=== PATIENT | male | born 1955 | race Caucasian/White ===

== ENCOUNTER 2020-05-12 17:18 | Outpatient (CLI) | payer BC, SELFPAY ==
--- NOTE | ~2020-05-12 | CT_ITS ---
EXAMINATION: CT lung screening DATE: 05/12/2020 18:06 INDICATION: Personal history of tobacco dependence, current smoker with 50 pack year history TECHNIQUE: Computed tomography (CT) of the chest was performed without intravenous contrast. The dose -length product (DLP) was 96.20 mGy-cm. Automated exposure control and iterative reconstruction techn Lignolue were employed. COMPARISON: 08/04/2017 FINDINGS: There is moderate emphysema. Multiple stable pulmonary nodules are present, the largest of which measures 7 mm in the left upper lobe. No new pulmonary nodules are identified. There is no pleu ral effusion or pneumothorax. Chronic mild mediastinal lymphadenopathy is unchanged and likely reacti ve. The heart size is normal. There is calcified coronary artery atherosclerosis. A pain pump cathete r is present in the central spinal canal. There is moderate thoracic spondylosis. IMPRESSION: 1. Lung-RADS category 2: Benign appearance or behavior. Continue annual screening with noncontrast lo w-dose chest CT in 12 months. Reviewed, dictated and finalized at location [facility]. IMPRESSION: 1. Lung-RADS category 2: Benign appearance or behavior. Continue annual screeni ng with noncontrast low-dose chest CT in 12 months.
== END 2020-05-12 17:19 | disposition home or self-care (01) ==
PROVIDERS: PCP Emergency Medicine; Visit Provider Emergency Medicine
DX: Z12.2 Encounter for screening for malignant neoplasm of respiratory organs (principal); Z87.891 Personal history of nicotine dependence
CPT/HCPCS: G0297

== ENCOUNTER 2020-11-03 10:24 | Outpatient (CLI) | payer BC, SELFPAY | END 2020-11-03 10:25 | disposition home or self-care (01) | LOC: ANHCOVIDVC 10:24 | PROVIDERS: PCP Emergency Medicine | DX: Z23 Encounter for immunization (principal) | CPT/HCPCS: 0001A; 91300 ==

== ENCOUNTER 2020-11-24 10:26 | Outpatient (CLI) | payer BC, SELFPAY | END 2020-11-24 10:27 | disposition home or self-care (01) | LOC: ANHCOVIDVC 10:26 | PROVIDERS: PCP Emergency Medicine | DX: Z23 Encounter for immunization (principal) | CPT/HCPCS: 0002A; 91300 ==

== ENCOUNTER 2021-04-07 12:49 | Outpatient (CLI) | payer BC, SELFPAY ==
--- NOTE | ~2021-04-07 | US_ITS ---
EXAMINATION: US art doppler w press LE HALEY DATE: 04/07/2021 13:48 CDT INDICATION: Peripheral vascular disease TECHNIQUE: Segmental pressures and plethysmographic and Doppler waveforms of the brachial and lower e xtremity arteries were obtained. COMPARISON: None. FINDINGS: Right and left brachial artery pressures of 126 mm Hg and 135 mm Hg, respectively, are concordant (no rmal difference <= 30 mmHg). The right high-thigh pressure index is 1.21 (normal > 1.2). The right ankle-brachial index (DEBORAH) is 1 .09 (normal >= 0.9-1.0). The right great toe-brachial index (TBI) is 0.6 (normal >= 0.60). The right lower extremity segmental pressure gradients are normal (normal gradients <= 20-30 mmHg between adjac ent levels on the same leg or the same levels on the two legs). Arterial Doppler waveforms are biphas ic. The left high-thigh pressure index is 1.11. The left DEBORAH is 1.06. The left TBI is 0.81. The left lowe r extremity segmental pressure gradients are normal. Arterial Doppler waveforms are biphasic. IMPRESSION: 1. Normal bilateral ankle-brachial indices. Reviewed, dictated and finalized at location A.
== END 2021-04-07 12:50 | disposition home or self-care (01) ==
LOC: ANHIMG 12:50
PROVIDERS: PCP Emergency Medicine; Visit Provider Emergency Medicine
DX: I73.9 Peripheral vascular disease, unspecified (principal)
CPT/HCPCS: 93923

== ENCOUNTER 2021-05-28 10:18 | Outpatient (CLI) | payer BC, SELFPAY ==
--- NOTE | ~2021-05-28 | XR_ITS ---
XR chest 2V DATE: 05/28/2021 10:35 INDICATION: Cough TECHNIQUE: PA and lateral views COMPARISON: 05/12/2020 CT lung screening FINDINGS: Heart size is normal. There is mild aortic calcification and tortuosity. Bilateral hyperinflation consistent with COPD. No pulmonary infiltrate or consolidation, pleural effusion or pulmonary vascular congestion or pneumo thorax. Diffuse osteopenia. There is scoliosis and degenerative change of the thoracic and lumbar spine. IMPRESSION: COPD Reviewed, dictated and finalized at location [facility]. IMPRESSION: COPD
== END 2021-05-28 10:19 | disposition home or self-care (01) ==
LOC: ANHIMG 10:22
PROVIDERS: PCP Emergency Medicine; Visit Provider Emergency Medicine
DX: R60.0 Localized edema (principal); R05.9 Cough, unspecified; J44.9 Chronic obstructive pulmonary disease, unspecified
CPT/HCPCS: 71046

== ENCOUNTER 2021-06-04 08:39 | Outpatient (CLI) | payer BC, SELFPAY ==
--- NOTE | ~2021-06-04 | CT_ITS ---
EXAMINATION:CT lung screening DATE: 06/04/2021 11:52 INDICATION: Personal history of nicotine dependence. Current smoker with 50 pack year history. TECHNIQUE: Computed tomography (CT) of the chest was performed without intravenous contrast. Automate d exposure control and iterative reconstruction technique were employed. The dose-length product (DLP ) was 89.67 mGy-cm. COMPARISON: Chest CT 05/12/2020 FINDINGS: There is moderate emphysema. There is mild atelectasis bilaterally. There are greater than 10 scattered nodules in the lungs measuring up to 7 mm in left lower lobe without change. No pleural effusion. There is chronic mild mediastinal lymphadenopathy, likely reactive. The heart size is chris l. There are coronary artery calcifications. There is a small pericardial effusion. An intrathecal ca theter is noted. There is dextroscoliosis of upper thoracic spine and levoscoliosis of lower thoracic spine. There is severe cervical and thoracic spondylosis. IMPRESSION: 1. Lung-RADS category 2: Benign appearance or behavior. Continue annual screening with noncontrast lo w-dose chest CT in 12 months. 2. New small pericardial effusion. Reviewed, dictated and finalized at location A. IMPRESSION: 1. Lung-RADS category 2: Benign appearance or behavior. Continue annual screeni ng with noncontrast low-dose chest CT in 12 months. 2. New small pericardial effusion.
== END 2021-06-04 08:40 | disposition home or self-care (01) ==
PROVIDERS: PCP Emergency Medicine; Visit Provider Emergency Medicine
DX: Z12.2 Encounter for screening for malignant neoplasm of respiratory organs (principal); I31.3 Pericardial effusion (noninflammatory); Z87.891 Personal history of nicotine dependence
CPT/HCPCS: 71271

== ENCOUNTER 2021-09-09 09:18 | Outpatient (CLI) | payer BC, SELFPAY ==
--- NOTE | 2021-09-09 11:00 | NEURO_ITS ---
Impression: # Complains of lower back pain and paresthesia with obvious erythromelalgia of feet. # Asymmetrical motor and sensory neuropathy. # Needle/EMG exam revealed neurogenic changes. Nerve Conduction Studies Anti Sensory Summary Table Stim Site NR Peak (ms) P-T Amp (?V) Site1 Site2 Delta-P (ms) Dist (cm) Kristofer (m/s) Left Sup Fibular Anti Sensory (Ant Lat Mall) NO RESPONSE 14 cm NR 14 cm Ant Lat Mall 16.0 Right Sup Fibular Anti Sensory (Ant Lat Mall) 14 cm 4.1 16.0 14 cm Ant Lat Mall 4.1 16.0 39 Left Sural Anti Sensory (Lat Mall) Calf 3.8 14.3 Calf Lat Mall 3.8 16.0 42 Right Sural Anti Sensory (Lat Mall) Calf 3.6 10.7 Calf Lat Mall 3.6 16.0 44 Motor Summary Table Stim Site NR Onset (ms) O-P Amp (mV) Site1 Site2 Delta-0 (ms) Dist (cm) Kristofer (m/s) Left Peroneal Motor (Vastus Med) Ankle 5.1 0.5 Popit Ankle 10.5 40.0 38 Popit 15.6 0.7 Right Peroneal Motor (Vastus Med) POOR RESPONSE Ankle NR Popit Ankle 0.0 Popit NR B Fib Ankle 0.0 B Fib 13.8 0.0 Left Tibial Motor (Abd Schmidt Brev) Ankle 5.5 1.1 Knee Ankle 9.7 41.0 42 Knee 15.2 0.8 Right Tibial Motor (Abd Schmidt Brev) Ankle 5.0 4.6 Knee Ankle 10.9 41.0 38 Knee 15.9 1.9 F Wave Studies NR F-Lat (ms) L-R F-Lat (ms) Left Peroneal (Mrkrs) (EDB) 62.11 Right Peroneal (Mrkrs) (EDB) DISPERSED RESPONSE NR Left Tibial (Mrkrs) (Abd Hallucis) 63.56 2.35 Right Tibial (Mrkrs) (Abd Hallucis) 61.21 2.35 EMG Side Muscle Nerve Root Ins Act Fibs Amp Dur Recrt Comment Right AntTibialis Dp Br Fibular L4-5 Nml Nml Nml >12ms Reduced Right Gastroc Tibial S1-2 Nml Nml Nml Nml Nml Right Fibularis Long Sup Br Fibular L5-S1 Nml Nml Nml >12ms Reduced Right Flex Dig Long Tibial L5-S2 Nml Nml Nml Nml Nml Right Ext Dig Brev Dp Br Fibular L5, S1 Nml Nml Incr >12ms Reduced Left AntTibialis Dp Br Fibular L4-5 Nml Nml Nml >12ms Reduced Left Gastroc Tibial S1-2 Nml Nml Nml Nml Nml Left Fibularis Long Sup Br Fibular L5-S1 Nml Nml Nml >12ms Reduced Left Flex Dig Long Tibial L5-S2 Nml Nml Nml Nml Nml Left Ext Dig Brev Dp Br Fibular L5, S1 Nml Nml Incr >12ms Reduced MTDD
== END 2021-09-09 09:19 | disposition home or self-care (01) ==
PROVIDERS: PCP Emergency Medicine; Visit Provider Emergency Medicine
DX: G62.9 Polyneuropathy, unspecified (principal)
CPT/HCPCS: 95886; 95910

== ENCOUNTER 2022-03-03 00:38 | Day surgery (SDC) | payer BC, SELFPAY ==
[2022-02-10 12:45] VITALS: BMI 23.1
--- NOTE | 2022-03-02 16:06 | WPDANESEPPF ---
Anes - Initial Pre Proc Eval Procedure: Operation Date: 03/03/22 09:00 Proposed Procedures p Colonoscopy - Juan Gotti MD Date/Time: 03/02/22 16:06 Surgeon: Juan Gotti MD Pre Op Diagnosis: positive cologuard Patient Data Age: 66 Gender: M Height: 1.78 m Weight: 73 kg Allergies Allergy/AdvReac Type Severity Reaction Status Date / Time No Known Allergies Allergy Unverified 03/03/22 07:47 Home Medications Medication Instructions Recorded Confirmed Type folic acid 1 mg tablet 1 mg PO DAILY 02/10/22 03/03/22 History losartan 100 1 tablet PO DAILY 02/10/22 03/03/22 History mg-hydrochlorothiazide 25 mg tablet oxycodone 10 mg tablet 10 mg PO TID PRN Pain 02/10/22 03/03/22 History pregabalin 25 mg capsule 25 mg PO BID 02/10/22 03/03/22 History spironolactone 25 mg tablet 25 mg PO DAILY 02/10/22 03/03/22 History Patient hx anesthesia problems: none Family hx anesthesia problems: none Results Review: All pre-operative results and documents have been reviewed as part of the pre-operative evaluation. [facility] Past Medical History Medical History (Updated 03/02/22 @ 16:08 by Ace Wilkerson MD) Cervical vertebral fusion Chronic narcotic use HTN (hypertension) Social History Social History Smoking packs per day: 1 Smoking cigarettes per day: 20.0 Years smoked: 50 Smoking pack-years: 50.00 Smoking status: Current every day smoker Tobacco type: cigarettes Living arrangements: with family Spiritual care concerns: No Anes - Eval Final PreProcedure Day of Procedure 03/02/22 16:06 Patient weight: normal Heart: regular rate and rhythm Lungs: clear to auscultation and normal air movement Airway: Mallampati scale class II Neurological: alert and oriented Last oral intake: >/= 8 hours ASA classification: III Emergent: no Anesthetic plan: proceed Anesthesia type and monitoring: general GIVS Results Review: All pre-operative results and documents have been reviewed as part of the pre-operative evaluation. Informed Consent: The patient's anesthetic plan and its attendant risks and benefits were discussed with the patient/family/POA. Questions were solicited and answers provided to the satisfaction of the patient/family/POA.
[2022-03-03 07:49] VITALS: BP 103/57; PULSE 98; RESP 18; TEMP 36.5; O2SAT 95
[2022-03-03] MEDS: LACTATED RINGERS 1,000 ML 150 ML IV CONT (07:53)
--- NOTE | 2022-03-03 08:31 | PM.HPGS ---
History of Present Illness History of Present Illness Consent: Risks, benefits, and alternatives have been discussed and questions answered. Patient agrees to proceed with procedure. Chief complaint: positive cologuard Narrative: Carlo Hernandez is a 66 year old male here for positive cologuard, had colonoscopy about 15 years ago. Review of Systems Constitutional: Constitutional: Denies headache(s) and Denies weakness Eyes: Eyes: Denies blurry vision ENT: Reports Normal hearing present, Denies headache(s) and Denies neck pain Cardiovascular: Cardiovascular: Denies chest pain and Denies dyspnea Respiratory: Respiratory: Denies dyspnea Gastrointestinal: Gastrointestinal: Reports no additional gastrointestinal complaints Genitourinary: Genitourinary: Denies dysuria Musculoskeletal: Musculoskeletal: Denies neck pain Integumentary/Breasts: Skin/Breast: Denies dry skin Neurologic: Reports Normal hearing present, Denies headache(s) and Denies weakness Psychiatric: Psychiatric: Denies anxiety Endocrine: Endocrine: Denies change in body appearance Hematologic/Lymphatic: Hematologic/Lymphatic: Denies easy bleeding Allergic/Immunologic: Allergic/Immunologic: Denies urticaria PMF Past Medical History Medical History (Updated 03/03/22 @ 08:32 by Juan Gotti MD) Cervical vertebral fusion Chronic narcotic use HTN (hypertension) Positive colorectal cancer screening using Cologuard test Social History Social History Smoking packs per day: 1 Smoking cigarettes per day: 20.0 Years smoked: 50 Smoking pack-years: 50.00 Smoking status: Current every day smoker Tobacco type: cigarettes Living arrangements: with family Spiritual care concerns: No Meds Home Medications and Allergies Home Medications Medication Instructions Recorded Confirmed Type folic acid 1 mg tablet 1 mg PO DAILY 02/10/22 03/03/22 History losartan 100 1 tablet PO DAILY 02/10/22 03/03/22 History mg-hydrochlorothiazide 25 mg tablet oxycodone 10 mg tablet 10 mg PO TID PRN Pain 02/10/22 03/03/22 History pregabalin 25 mg capsule 25 mg PO BID 02/10/22 03/03/22 History spironolactone 25 mg tablet 25 mg PO DAILY 02/10/22 03/03/22 History Allergies Allergy/AdvReac Type Severity Reaction Status Date / Time No Known Allergies Allergy Unverified 03/03/22 07:47 Vital Signs Vital Signs - 24 hr 03/03/22 07:49 Temperature 97.7 F Pulse Rate 98 Respiratory Rate 18 Blood Pressure 103/57 L Pulse Oximetry 95 Oxygen Delivery Room Air Exam Const: General: comfortable and no acute distress HENMT: General nose exam: Normal nares present Eyes: General: appearance normal, both eyes and all related structures Neck: Neck: no JVD Resp: Auscultation: clear to auscultation bilaterally Cardio: Rate: regular rate Rhythm: regular rhythm GI: Inspection: non-distended GI Palp: Yes Soft to palpation Skin: General skin exam: normal color Neuro: General: gait normal Speech: normal speech Extrem: General: normal to inspection Psych: Mental Status: mental status grossly normal Assessment and Plan Assessment and plan (1) Positive colorectal cancer screening using Cologuard test: Code(s): R19.5 - Other fecal abnormalities Status: Acute Assessment and Plan: colonoscopy
[2022-03-03 09:03] VITALS: BP 101/62; PULSE 74; RESP 16; O2SAT 97
[2022-03-03 09:13] VITALS: BP 104/67; PULSE 72; RESP 14; O2SAT 94
[2022-03-03 09:23] VITALS: BP 110/66; PULSE 68; RESP 15; O2SAT 92
== END 2022-03-03 09:42 | disposition home or self-care (01) ==
PROVIDERS: PCP Emergency Medicine; Visit Provider Internal Medicine Gastroenterology
PROC: 0DJD8ZZ Inspection of Lower Intestinal Tract, Via Natural or Artificial Opening Endoscopic (ICD-10-PCS; CPT 45378; principal; 2022-03-03 09:00)
DX: R19.5 Other fecal abnormalities (principal); K63.89 Other specified diseases of intestine; K63.5 Polyp of colon; K64.8 Other hemorrhoids; I10 Essential (primary) hypertension; Z98.1 Arthrodesis status; Z79.891 Long term (current) use of opiate analgesic; F17.210 Nicotine dependence, cigarettes, uncomplicated
CPT/HCPCS: 45385; 45380; 88305; J2704; J7120

== ENCOUNTER 2022-03-12 12:28 | Outpatient (CLI) | payer BC, SELFPAY ==
--- NOTE | ~2022-03-12 | CT_ITS ---
EXAMINATION: CT abdomen pelvis w con DATE: 03/12/2022 13:31 INDICATION: Abnormal colonoscopy; lesion in the ileocecal valve TECHNIQUE: Computed tomography (CT) of the abdomen and pelvis was performed with 100 CC Omnipaque 300 intravenous contrast. Automated exposure control and iterative reconstruction technique were employe d. Exam dose: 371.80 mGy-cm total exam DLP. COMPARISON: 12/20/2016 CT abdomen 04/17/2015 CT abdomen pelvis FINDINGS: There is dependent right lower lobe infiltrate/mild consolidation. Consider atelectasis, pn eumonia and/or aspiration pneumonitis. Normal heart size. No pericardial or pleural effusion. There is a generator device in the subcutaneous tissues of the anterolateral wall of the right abdome n a lead extend into the thoracic spinal canal. No hepatic, splenic, pancreatic, and adrenal or renal space-occupying mass lesion is detected. The ga llbladder appears unremarkable. No bile duct or pancreatic duct dilatation. No renal mass lesion or urinary tract calculus or hydroureteronephrosis. The urinary bladder and pros musa gland are unremarkable. There is atherosclerotic calcification of the abdominal aorta and at the origins of the renal arterie s. No abdominal aortic aneurysm. No intraperitoneal or retroperitoneal or pelvic mass lesion or adeno ayesha or ascites is noted. No bowel obstruction is noted. There may be some soft tissue thickening of the proximal ascending colon but there is streak artifact from the overlying generator device. Recommend correlation with colonoscopy. Lipomatosis of the ileocecal valve. No suspicious osteolytic or osteoblastic lesions are noted. Degenerative changes of the thoracic and lumbar spine and both hips, including especially severe dege nerative disc disease of the lumbar spine and severe osteoarthritis of the right hip. IMPRESSION: Possible soft tissue thickening of the ascending colon; recommend correlation with colon oscopy and biopsy findings Lipomatosis of the ileocecal valve Reviewed, dictated and finalized at [facility]. Reviewed, dictated and finalized at location [facility]. IMPRESSION: Possible soft tissue thickening of the ascending colon; recommend correlation with colonoscopy and biopsy findings Lipomatosis of the ileocecal valve
[2022-03-12 13:26] LABS: Estimated Glomerular Filt Rate > 60
== END 2022-03-12 12:29 | disposition home or self-care (01) ==
PROVIDERS: PCP Emergency Medicine; Visit Provider Internal Medicine Gastroenterology
DX: K63.89 Other specified diseases of intestine (principal); R19.5 Other fecal abnormalities
CPT/HCPCS: 74177; Q9967

== ENCOUNTER 2022-05-05 01:16 | Day surgery (SDC) | payer BC, SELFPAY ==
[2022-04-22 14:21] VITALS: BMI 22.4
[2022-05-05 07:35] VITALS: BP 122/71; PULSE 86; RESP 16; TEMP 36.4; O2SAT 92; BMI 22.4
--- NOTE | 2022-05-05 07:47 | P.PNAN_ITS ---
Anes - Initial Pre Proc Eval Procedure: Operation Date: 05/05/22 08:45 Proposed Procedures p Colonoscopy - Juan Gotti MD Date/Time: 05/05/22 07:47 Surgeon: Juan Gotti MD Pre Op Diagnosis: colonic ulcer Patient Data Age: 67 Gender: M Height: 1.78 m Weight: 70.7 kg Last Vital Signs Temp 36.4 C 05/05/22 07:35 Pulse 86 05/05/22 07:35 Resp 16 05/05/22 07:35 BP 122/71 05/05/22 07:35 Pulse Ox 92 05/05/22 07:35 O2 Del Method Room Air 05/05/22 07:35 Allergies Allergy/AdvReac Type Severity Reaction Status Date / Time No Known Allergies Allergy Verified 05/05/22 07:39 Home Medications Medication Instructions Recorded Confirmed Type folic acid 1 mg tablet 1 mg PO DAILY 02/10/22 05/05/22 History losartan 100 1 tablet PO DAILY 02/10/22 05/05/22 History mg-hydrochlorothiazide 25 mg tablet oxycodone 10 mg tablet 10 mg PO TID PRN Pain 02/10/22 05/05/22 History pregabalin 25 mg capsule 25 mg PO BID 02/10/22 05/05/22 History spironolactone 25 mg tablet 25 mg PO DAILY 02/10/22 05/05/22 History Patient hx anesthesia problems: none Family hx anesthesia problems: none Results Review: All pre-operative results and documents have been reviewed as part of the pre- operative evaluation. [facility] Past Medical History Medical History (Updated 05/05/22 @ 07:48 by Leopoldo Dunham MD) Cervical vertebral fusion Chronic back pain pain pump insertion Chronic narcotic use Colonic mass HTN (hypertension) Positive colorectal cancer screening using Cologuard test Surgical History Surgical History (Updated 05/05/22 @ 07:52 by Leopoldo Dunham MD) S/P cervical spinal fusion Social History Social History Smoking packs per day: 1 Smoking cigarettes per day: 20.0 Years smoked: 50 Smoking pack-years: 50.00 Smoking status: Current every day smoker Tobacco type: cigarettes Substance use: never Substance use type: does not use Living arrangements: with family Spiritual care concerns: No Anes - Eval Final PreProcedure Day of Procedure 05/05/22 07:47 Patient weight: normal Heart: regular rate and rhythm Lungs: clear to auscultation Airway: Mallampati scale class II and special considerations poor extension and poor dentition ASA classification: III Emergent: no Anesthetic plan: proceed Anesthesia type and monitoring: general GIVS Results Review: All pre-operative results and documents have been reviewed as part of the pre- operative evaluation. Informed Consent: The patient's anesthetic plan and its attendant risks and benefits were discussed with the patient/family/POA. Questions were solicited and answers provided to the satisfaction of the patient/family/POA.
[2022-05-05] MEDS: LACTATED RINGERS 1,000 ML 150 ML IV CONT (07:48)
--- NOTE | 2022-05-05 08:27 | PM.HPGS ---
History of Present Illness History of Present Illness Consent: Risks, benefits, and alternatives have been discussed and questions answered. Patient agrees to proceed with procedure. Chief complaint: colonic ulcer Narrative: Carlo Hernandez is a 67 year old male with colon ulcer at [facility], biopsies negative for malignancy. Denies using nsaid's but he has a pain pump Review of Systems Constitutional: Constitutional: Denies headache(s) and Denies weakness Eyes: Eyes: Denies blurry vision ENT: Reports Normal hearing present, Denies headache(s) and Denies neck pain Cardiovascular: Cardiovascular: Denies chest pain and Denies dyspnea Respiratory: Respiratory: Denies dyspnea Gastrointestinal: Gastrointestinal: Reports no additional gastrointestinal complaints Genitourinary: Genitourinary: Denies dysuria Musculoskeletal: Musculoskeletal: Denies neck pain Integumentary/Breasts: Skin/Breast: Denies dry skin Neurologic: Reports Normal hearing present, Denies headache(s) and Denies weakness Psychiatric: Psychiatric: Denies anxiety Endocrine: Endocrine: Denies change in body appearance Hematologic/Lymphatic: Hematologic/Lymphatic: Denies easy bleeding Allergic/Immunologic: Allergic/Immunologic: Denies urticaria PMFSH Past Medical History Medical History (Updated 05/05/22 @ 08:28 by Juan Gotti MD) Cervical vertebral fusion Chronic back pain pain pump insertion Chronic narcotic use Colon ulcer Colonic mass HTN (hypertension) Positive colorectal cancer screening using Cologuard test Surgical History Surgical History (Updated 05/05/22 @ 07:52 by Leopoldo Dunham MD) S/P cervical spinal fusion Social History Social History Smoking packs per day: 1 Smoking cigarettes per day: 20.0 Years smoked: 50 Smoking pack-years: 50.00 Smoking status: Current every day smoker Tobacco type: cigarettes Substance use: never Substance use type: does not use Living arrangements: with family Spiritual care concerns: No Meds Home Medications and Allergies Home Medications Medication Instructions Recorded Confirmed Type folic acid 1 mg tablet 1 mg PO DAILY 02/10/22 05/05/22 History losartan 100 1 tablet PO DAILY 02/10/22 05/05/22 History mg-hydrochlorothiazide 25 mg tablet oxycodone 10 mg tablet 10 mg PO TID PRN Pain 02/10/22 05/05/22 History pregabalin 25 mg capsule 25 mg PO BID 02/10/22 05/05/22 History spironolactone 25 mg tablet 25 mg PO DAILY 02/10/22 05/05/22 History Allergies Allergy/AdvReac Type Severity Reaction Status Date / Time No Known Allergies Allergy Verified 05/05/22 07:39 Vital Signs Vital Signs - 24 hr 05/05/22 07:35 Temperature 97.6 F Pulse Rate 86 Respiratory Rate 16 Blood Pressure 122/71 Pulse Oximetry 92 Oxygen Delivery Room Air Exam Const: General: comfortable and no acute distress HENMT: General nose exam: Normal nares present Eyes: General: appearance normal, both eyes and all related structures Neck: Neck: no JVD Resp: Auscultation: clear to auscultation bilaterally Cardio: Rate: regular rate Rhythm: regular rhythm GI: Inspection: non-distended GI Palp: Yes Soft to palpation Skin: General skin exam: normal color Neuro: General: gait normal Speech: normal speech Extrem: General: normal to inspection Psych: Mental Status: mental status grossly normal Assessment and Plan Assessment and plan (1) Chronic narcotic use: Code(s): F11.90 - Opioid use, unspecified, uncomplicated Status: Acute (2) Colon ulcer: Code(s): K63.3 - Ulcer of intestine Status: Acute Assessment and Plan: repeat colonoscopy, assess if healing and biopsies if still lesion present
[2022-05-05 08:48] VITALS: BP 104/70; PULSE 77; RESP 19; O2SAT 95
[2022-05-05 08:58] VITALS: BP 97/62; PULSE 74; RESP 15; O2SAT 92
[2022-05-05 09:08] VITALS: BP 97/63; PULSE 65; RESP 17; O2SAT 91
== END 2022-05-05 09:18 | disposition home or self-care (01) ==
PROVIDERS: PCP Emergency Medicine; Visit Provider Internal Medicine Gastroenterology
PROC: 0DJD8ZZ Inspection of Lower Intestinal Tract, Via Natural or Artificial Opening Endoscopic (ICD-10-PCS; CPT 45378; principal; 2022-05-05 08:45)
DX: Z09 Encounter for follow-up examination after completed treatment for conditions other than malignant neoplasm (principal); D12.5 Benign neoplasm of sigmoid colon; K64.8 Other hemorrhoids; Z87.19 Personal history of other diseases of the digestive system; I10 Essential (primary) hypertension; Z98.1 Arthrodesis status; Z79.891 Long term (current) use of opiate analgesic; F17.210 Nicotine dependence, cigarettes, uncomplicated
CPT/HCPCS: 45385; 88305; J2704; J7120

== ENCOUNTER 2022-10-28 07:11 | Outpatient (CLI) | payer BC, SELFPAY ==
--- NOTE | ~2022-10-28 | MR_ITS ---
MRI of the cervical spine Clinical History: Spinal stenosis, fusion Technique: Axial T2-weighted and gradient images, and sagittal T1-weighted, T2-weighted, and STIR dolores ges were acquired. Findings: There is mild reversal normal cervical lordosis. 4 mm anterolisthesis of C3 over C4 noted. There is advanced degenerative disc narrowing from C4 through T1. There are reactive marrow signal ch anges about the C6-C7 disc space due to underlying degenerative disc disease. At C2-C3, there is no disc bulge or herniation. There is probable left neural foraminal narrowing rel ated to left-sided facet arthropathy. No spinal canal stenosis, cord compression, or right neural for aminal narrowing. At C3-C4, there is mild canal stenosis related to the listhesis, but no carolynn cord compression. There is severe bilateral neural foraminal narrowing. At C4-C5, there is severe degenerative disc narrowing. There is minimal disc ossify complex, with min imal flattening of the ventral cord. There is bilateral neural foraminal narrowing. At C5-C6, there is disc osteophyte complex with focal disc protrusion left paracentral region. There is probable mild compression of the ventral cord, especially the left ventral region. There is right neural foraminal narrowing. Left neural foramen preserved. At C6-C7, disc osteophyte complex results in mild canal stenosis and cord compression. There is advan randy bilateral neural foraminal narrowing. No abnormal signal seen in the spinal cord. Paravertebral soft tissues are unremarkable. Impression: Moderate degenerative spondylosis, as detailed above. There is probable mild ventral cord flattening/ compression at C4-C5, C5-C6, and C6-C7. Multilevel neural foraminal narrowing, as detailed above. 4 mm anterolisthesis of C3 over C4. Reviewed, dictated and finalized at [facility]. [employer] Impression: Moderate degenerative spondylosis, as detailed above. There is probable mild ve ntral cord flattening/compression at C4-C5, C5-C6, and C6-C7. Multilevel neural foraminal narrowing, as detailed above. 4 mm anterolisthesis of C3 over C4.
--- NOTE | ~2022-10-28 | MR_ITS ---
MRI of the lumbar spine Clinical History: Spinal stenosis, fusion Technique: Axial T2-weighted images, and sagittal T1-weighted, T2-weighted, and T2 fat-sat images wer e acquired. Findings: There is reversal of the normal lumbar lordosis. No acute fracture identified. 3 mm retroli sthesis of L5 over S1 noted. There is mild dextroscoliosis. No suspicious bone marrow signal abnormal ity seen. At L1-L2, there is advanced degenerative disc narrowing. There is disc bulge and advanced facet arthr opathy. There is probable left lateral recess stenosis. There is severe left neural foraminal narrowi ng. Right neural foramen preserved. At L2-L3, there is severe degenerative disc narrowing. Facet arthropathy contributes to minimal theca l sac compression. Bilateral neural foramina are preserved. At L3-L4, there is moderate to advanced degenerative disc narrowing. Severe facet arthropathy contrib utes to moderate to severe thecal sac compression/spinal canal stenosis. There is moderate left neura l foraminal narrowing. Right neural foramen preserved. At L4-L5, disc bulge and facet arthropathy result in severe spinal canal stenosis/thecal sac compress ion. There is severe right neural foraminal narrowing and moderate left neural foraminal narrowing. At L5-S1, disc bulge and facet arthropathy are present. No carolynn spinal canal stenosis. There is david re bilateral neural foraminal narrowing. Paravertebral soft tissues are unremarkable. Impression: Advanced degenerative spondylosis, as detailed above. There is severe spinal canal stenosis/thecal sa c compression at L4-L5, with moderate to severe thecal sac compression L3-L4. Multilevel neural foraminal narrowing, as detailed above. 3 mm retrolisthesis of L5 over S1. Reviewed, dictated and finalized at [facility]. OSURGERY PHYSICIAN Impression: Advanced degenerative spondylosis, as detailed above. There is severe spinal ca nal stenosis/thecal sac compression at L4-L5, with moderate to severe thecal sa c compression L3-L4. Multilevel neural foraminal narrowing, as detailed above. 3 mm retrolisthesis of L5 over S1.
--- NOTE | ~2022-10-28 | CT_ITS ---
CT Scan of the Chest without Contrast: Clinical Indication: Lung cancer screening, nicotine dependence Technique: Contiguous sections were acquired throughout the chest without intravenous contrast. Dose reduction technique was used on this scan by utilizing automated exposure control and iterative recon struction technique. The dose-length product (DLP) was 82.46 mGy-cm. COMPARISON: 06/04/2021, 05/12/2020 Findings: There is no evidence of any significant mediastinal, hilar or axillary lymphadenopathy. Coronary ishmael ry calcifications are present. There are mild atherosclerotic calcifications of the aorta. There is no evidence of pleural or pericardial effusion. There is biapical scarring is stable right apical pulmonary nodule (axial image 26). Additional stabl e 4 mm nodule in the anterior right upper lobe (axial image 46). Stable fissural and pleural-based no dules in the right lower lobe (axial images 56, 73, 80). Stable 4 mm round left upper lobe pulmonary nodule (axial image 30). Stable small pleural-based nodule in the left upper lobe (axial image 38). S table additional 4 mm nodules in the more inferior left upper lobe (axial image 60, 64). Stable 7 mm nodule at the lingula (axial image 83). Images through the upper abdomen reveal no abnormalities. Impression: Lung-RADS 2: Benign appearance. 12 month follow-up screening CT advised. Multiple scattered pulmonary nodules are unchanged, as detailed above. Reviewed, dictated and finalized at location . CAL ART THERAPIST Impression: Lung-RADS 2: Benign appearance. 12 month follow-up screening CT advised. Multiple scattered pulmonary nodules are unchanged, as detailed above.
== END 2022-10-28 07:12 | disposition home or self-care (01) ==
PROVIDERS: PCP Emergency Medicine; Referring Provider Nurse Practitioner Family; Visit Provider Emergency Medicine
DX: Z12.2 Encounter for screening for malignant neoplasm of respiratory organs (principal); Z87.891 Personal history of nicotine dependence; M43.22 Fusion of spine, cervical region; M48.02 Spinal stenosis, cervical region; M48.062 Spinal stenosis, lumbar region with neurogenic claudication; R91.8 Other nonspecific abnormal finding of lung field
CPT/HCPCS: 71271; 72141; 72148

== ENCOUNTER 2023-03-31 10:22 | Emergency (ER) | payer BC, SELFPAY ==
--- NOTE | 2023-03-31 10:34 | ED.SKABFB ---
HPI - Skin/Abscess/Foreign Bdy General Chief complaint: Extremity Problem,Nontraumatic Stated complaint: rash on feet Time Seen by Provider: 03/31/23 10:32 Source: patient Mode of arrival: ambulatory Limitations: no limitations History of Present Illness HPI narrative: Carlo is a 67-year-old male patient presenting to the clinic today with complaints of a rash to his bilateral feet times. He reports he noticed a rash on his feet 3 days ago. Reports that the rash is somewhat itchy and appears to be spreading. Denies any known environmental changes. Does have 3+ pitting edema to the bilateral lower extremities. Reports that he has issues with venous insufficiency. Did not wear his compression stockings this morning so we could evaluate his feet and see the amount of swelling. Bilateral lower extremities have become more red and swollen as well while having the rash. He denies any fever or chills. Blood pressure was initially 71/52and over 89/56 per machine. B/P manual was 90/65. Patient is is conscious oriented. He denies any shortness of breath or chest pain. History of chronic back pain and neck pain with pain pump in place. SpO2 was 90-92%-patient reports that this is normal for him. Did take his blood pressure/diuretic medications this morning. Contacted his PCP's office today and his PCP is out of town. Related Data Home Medications Medication Instructions Recorded Confirmed folic acid 1 mg tablet 1 mg PO DAILY 02/10/22 03/31/23 losartan 100 1 tablet PO DAILY 02/10/22 03/31/23 mg-hydrochlorothiazide 25 mg tablet oxycodone 10 mg tablet 10 mg PO TID PRN Pain 02/10/22 03/31/23 spironolactone 25 mg tablet 25 mg PO DAILY 02/10/22 03/31/23 Allergies Allergy/AdvReac Type Severity Reaction Status Date / Time pregabalin Allergy Unknown Verified 03/31/23 11:09 Review of Systems Review of Systems: Pertinent positives per HPI. Patient denies any fever, chills,headache, visual changes, dizziness, cough, runny nose, sore throat, shortness of breath, chest pain, palpitations, nausea, vomiting, diarrhea, constipation, abdominal pain, or any urinary issues. [facility] Past Medical History Medical History Cervical vertebral fusion Chronic back pain pain pump insertion Chronic narcotic use Colon ulcer Colonic mass HTN (hypertension) Positive colorectal cancer screening using Cologuard test Surgical History Surgical History S/P cervical spinal fusion Social History Social History Smoking packs per day: 1 Smoking cigarettes per day: 20.0 Years smoked: 50 Smoking pack-years: 50.00 Smoking status: Current every day smoker Tobacco type: cigarettes Substance use: never Substance use type: does not use Living arrangements: with family Spiritual care concerns: No Comments At the time of my signature, I reviewed and agree with the nursing past medical, surgical, social, and family history. There is no relevant family history pertinent to the patient complaint. Exam Narrative: General: Well-developed, well nourished, in no apparent distress Head: Normocephalic, atraumatic. Cardio: Regular rate and rhythm, s1 and s2 normal, no murmur appreciated. Resp: Clear to auscultation bilaterally, no rhonchi, rales, wheezing or rubs. Integumentary: [place], warm, and dry, red raised blister slightly itchy rash to bilateral dorsal distal feet/proximal toes with redness and swelling noted to bilateral feet and swelling noted up to the mid calf. 3+ pitting edema, feet feel mild erythemic, weak pulse Course Course Emergency Course: Portions of this record may have been created with voice recognition software. Level of Care: Express Care Visit Vital Signs Vital signs: Vital signs reviewed Transfer Transfered to: [facility]
[2023-03-31 10:44] VITALS: BP 89/56; PULSE 78; RESP 18; TEMP 36.5; O2SAT 92
== END 2023-03-31 11:10 | disposition short-term general hospital (02) ==
PROVIDERS: Emergency Provider Nurse Practitioner Family; PCP Emergency Medicine
DX: R60.0 Localized edema (principal); I87.2 Venous insufficiency (chronic) (peripheral); I95.9 Hypotension, unspecified; F17.210 Nicotine dependence, cigarettes, uncomplicated; I10 Essential (primary) hypertension
CPT/HCPCS: 99211; G0463

== ENCOUNTER 2023-03-31 11:32 | Emergency (ER) | payer BC, SELFPAY ==
[2023-03-31 11:39] VITALS: BP 95/68; PULSE 80; RESP 16; TEMP 36.3; O2SAT 93
--- NOTE | 2023-03-31 12:40 | ED.GENADULT ---
HPI - General Adult General Chief complaint: Extremity Injury, Lower Stated complaint: sent from with dolly feet swelling and rash Time Seen by Provider: 03/31/23 12:17 History of Present Illness HPI narrative: This is a 67-year-old male, with past history of lower extremity swelling and hypertension, who presents to the emergency department for evaluation for cellulitis. Patient states he has noticed rash and itching on the right foot that is been present for the last 2 to 3 days. He states it itches and schneider. He denies fevers, chills, nausea or vomiting. The patient was seen in urgent care earlier today and found to be hypotensive to the low 90s. The patient states this is typical for his blood pressure. Related Data Home Medications Medication Instructions Recorded Confirmed folic acid 1 mg tablet 1 mg PO DAILY 02/10/22 03/31/23 losartan 100 1 tablet PO DAILY 02/10/22 03/31/23 mg-hydrochlorothiazide 25 mg tablet oxycodone 10 mg tablet 10 mg PO TID PRN Pain 02/10/22 03/31/23 spironolactone 25 mg tablet 25 mg PO DAILY 02/10/22 03/31/23 Allergies Allergy/AdvReac Type Severity Reaction Status Date / Time pregabalin Allergy Unknown Verified 03/31/23 11:33 Review of Systems Review of Systems: CONSTITUTIONAL: Denies fever, chills, or sweats. ENT: Denies rhinorrhea, congestion, sore throat, or otalgia. CARDIOVASCULAR: Bilateral chronic lower extremity swelling denies chest pain, palpitations, RESPIRATORY: Denies cough or dyspnea. GASTROINTESTINAL: Denies abdominal pain, nausea, vomiting, or diarrhea. GENITOURINARY: Denies dysuria or hematuria. SKIN: Pruritic rash of the right lower extremity MUSCULOSKELETAL: Denies back pain, joint pain, or myalgia. NEUROLOGIC: Denies headache, numbness, dizziness, or weakness. PSYCHIATRIC: Denies anxiety or depression. [facility] Past Medical History Medical History Cervical vertebral fusion Chronic back pain pain pump insertion Chronic narcotic use Colon ulcer Colonic mass HTN (hypertension) Positive colorectal cancer screening using Cologuard test Surgical History Surgical History S/P cervical spinal fusion Social History Social History Smoking packs per day: 1 Smoking cigarettes per day: 20.0 Years smoked: 50 Smoking pack-years: 50.00 Smoking status: Current every day smoker Tobacco type: cigarettes Substance use: never Substance use type: does not use Living arrangements: with family Spiritual care concerns: No Exam Narrative: GENERAL: Well-developed, well-nourished, and in no acute distress. HEAD: Normocephalic, atraumatic. EYES: PERRLA and EOMI. CHEST: Clear to auscultation. No respiratory distress. No wheezes rales or rhonchi HEART: Regular rate and rhythm. No murmur heard. Normal peripheral pulses. ABDOMEN: Soft, nontender, nondistended, normal active bowel sounds. EXTREMITIES: Normal range of motion. 1+ bilateral lower extremity edema SKIN: There is erythema with sharp demarcation over the dorsal aspect of the right foot. There are smaller scattered lesions over the lateral aspect of the right foot. The skin is of the bilateral lower extremities is erythematous consistent with venous insufficiency, but is otherwise warm and dry. NEURO: No focal deficits. Alert and oriented x3. PSYCH: Normal mood and affect. Course Course Emergency Course: 12:30 - The patient's exam is consistent with cellulitis. Will discharge with oral antibiotics. The patient states his blood pressure is typically in the mid 90s to mid 100s. Will discharge with antibiotics and recommendation for follow-up with his primary care doctor. Discussed return and emergency precautions including signs/symptoms of sepsis and antibiotic failure. The patient voiced understanding and is comfortable wit
--- NOTE | 2023-03-31 13:09 | PC.NURSE ---
Pt up at nurses desk in team C wanting to see MD and be discharged. Pt stating he has been waiting an hour to be discharged and wants to see MD. nurse told pt MD was busy with other pt and nurse will let MD know pt wants to be discharged. Pt went into waiting room. Intake nurse told pt to return to room to be discharged. Pt returned to nurses desk in team C and was asked to return to room. Pt annoyed by nurse and states what kind of joint is this, say that again.
== END 2023-03-31 13:30 | disposition home or self-care (01) ==
PROVIDERS: Emergency Provider Preventive Medicine Aerospace Medicine; PCP Emergency Medicine
DX: L03.115 Cellulitis of right lower limb (principal); I10 Essential (primary) hypertension; Z98.1 Arthrodesis status; F17.210 Nicotine dependence, cigarettes, uncomplicated
CPT/HCPCS: 99283; 99284

== ENCOUNTER 2023-09-01 11:44 | Inpatient (IN) | payer MEDICARE, BC, SELFPAY ==
[2023-09-01] VITALS (77 sets, daily range): BP systolic 106–130; BP diastolic 70–88; PULSE 67–109; RESP 12–28; TEMP 36.1–36.9; O2SAT 88–100; BMI 21.5
--- NOTE | ~2023-09-01 | XR_ITS ---
XR elbow LT min 3V DATE: 09/01/2023 12:49 INDICATION: Fall. Skin tear. TECHNIQUE: 4 views COMPARISON: None FINDINGS: An IV is noted in the lateral antecubital fossa. No fracture or dislocation or joint effusion of the elbow. No periosteal reaction or bone destruction . IMPRESSION: No fracture or dislocation or joint effusion Reviewed, dictated and finalized at location L. RETE PILE DRIVER OPERATOR
--- NOTE | ~2023-09-01 | MR_ITS ---
EXAMINATION: MR brain/brain stem wo con DATE: 09/02/2023 15:05 INDICATION: Stroke TECHNIQUE: Magnetic resonance imaging (MRI) of the brain and brainstem was performed without intraven ous contrast. Sequences included sagittal and axial T1-weighted SE, axial diffusion-weighted FS SE, a xial 3D SWAN, axial T2-weighted FLAIR, and axial T2-weighted FSE. Apparent diffusion coefficient (ADC ) maps were created. COMPARISON: Head CT dated 09/02/2023 and brain MR dated 05/20/2009 FINDINGS: Moderate-sized region of restricted diffusion involving the medial aspect of the posterior right temp oral lobe and extending further posterior to the medial aspect of the right occipital lobe. Additiona l small foci of restricted diffusion in the right thalamus and adjacent posterior limb of the right i nternal capsule as well as the sulcus in the contralateral posterior left frontal lobe. The latter li es along side a small region of chronic encephalomalacia in the left frontal lobe consistent with seq uela of old infarct. Couple additional small foci of encephalomalacia consistent with chronic infarct s in the more posterior and lateral right occipital lobe. There are no areas of restricted diffusion to suggest acute infarction. No intracranial hemorrhage or abnormal intracranial mass lesion. There a re no intraparenchymal signal abnormalities seen on the other pulse sequences. The ventricles are sym metric and normal in size. There are no abnormal extra-axial fluid collections. Flow voids are seen i n the cerebral arteries on the T2-weighted sequences consistent with their expected patency. Mild muc osal thickening the bilateral ethmoid sinuses. Visualized orbits and soft tissues are unremarkable. IMPRESSION: 1. Acute infarcts, the largest in the medial right temporal occipital region with smaller infarcts at the right thalamus, posterior limb of the right internal capsule and posterior left frontal lobe. 2. Additional small chronic infarcts in the left frontal and right occipital lobes. Reviewed, dictated and finalized at location A. BOSS IMPRESSION: 1. Acute infarcts, the largest in the medial right temporal occipital region wi th smaller infarcts at the right thalamus, posterior limb of the right internal capsule and posterior left frontal lobe. 2. Additional small chronic infarcts in the left frontal and right occipital lo bes.
--- NOTE | ~2023-09-01 | US_ITS ---
EXAMINATION: US venous doppler [facility] DATE: 09/02/2023 11:07 INDICATION: Pulmonary embolism TECHNIQUE: Grayscale ultrasound images without and with compression and Doppler ultrasound images of the bilateral lower extremity veins were obtained. COMPARISON: None. FINDINGS: The visualized portions of right common femoral vein, profunda (deep) femoral vein, femoral vein, pop liteal vein, posterior tibial veins, peroneal veins, gastrocnemius vein and greater saphenous vein ou tflow are patent. There is subcutaneous edema at the right calf. The visualized portions of left common femoral vein, profunda femoral vein, femoral vein, popliteal v ein, posterior tibial veins, peroneal veins, gastrocnemius vein and greater saphenous vein outflow ar e patent. There is subcutaneous edema at the left calf. IMPRESSION: 1. No deep venous thrombosis in either lower limb. Reviewed, dictated and finalized at location A. NG MAKER HAND
--- NOTE | ~2023-09-01 | CT_ITS ---
EXAMINATION: CTA chest PE protocol DATE: 09/01/2023 12:53 INDICATION: Pulmonary emboli. Weakness. Fatigue. TECHNIQUE: Computed tomography angiography (CTA) of the chest was performed with 100 mL Omnipaque-350 intravenous contrast timed to evaluate the pulmonary arteries. Coronal maximum intensity projection 3D-reconstructions were created by the technologist. Automated exposure control and iterative reconst ruction technique were employed. The dose-length product was 319.52 mGy-cm. COMPARISON: Chest CT 10/28/2022, 06/04/21 FINDINGS: There is mild scarring at the lung apices. There is moderate emphysema. There is smooth sep bernadette thickening in the lungs, consistent mild pulmonary edema. There is mild dependent atelectasis dolly aterally. There are scattered nodules in the lungs measuring up to 7 mm change from 06/04/21, likely benign. No pleural effusion. Cardiomegaly is noted. There is chronic right ventricular and right atri al enlargement of the heart. There is a pulmonary embolus in right middle lobe. There is chronic mild mediastinal and bilateral hilar lymphadenopathy, likely reactive. There is an intrathecal catheter. There is severe cervical and thoracic spondylosis. There is dextroscoliosis of upper thoracic spine a nd levoscoliosis of lower thoracic spine. IMPRESSION: 1. Acute pulmonary embolus in right middle lobe. I called this result to Dr. Brice. 2. Moderate emphysema. 3. Mild pulmonary edema. 4. Chronic right atrial and right ventricular enlargement of the heart. Reviewed, dictated and finalized at location A. TH AND SAFETY INSPECTOR IMPRESSION: 1. Acute pulmonary embolus in right middle lobe. I called this result to Dr. Shola gong. 2. Moderate emphysema. 3. Mild pulmonary edema. 4. Chronic right atrial and right ventricular enlargement of the heart.
--- NOTE | ~2023-09-01 | CT_ITS ---
EXAMINATION: CT brain wo con DATE: 09/01/2023 12:53 INDICATION: Fall. TECHNIQUE: Computed tomography (CT) of the head was performed without intravenous contrast. The mA wa s adjusted according to patient size. Iterative reconstruction technique was employed. Exam dose: 60 5.33 mGy-cm total exam DLP. COMPARISON: 05/20/2009 MRI brain/brainstem 04/22/2009 CT brain FINDINGS: Bilateral vertebral artery, basilar artery and bilateral carotid siphon internal carotid ar vani calcifications. There is diminished attenuation of the posterior right temporal and right occipital lobe since 04/22/20 09, suggesting subacute right posterior temporal and occipital infarct. Small focal old left frontal infarct, not present on 04/22/2009. No intracranial mass lesion or hemorrhage, subdural or epidural hematoma. No midline shift or mass effect. Ventricular size appears normal. The orbital contents are unremarkable. Included paranasal sinuses and mastoid air cells are unremarka ble. No fracture or bone destruction of the cranial vault. IMPRESSION: Subacute right posterior temporal and occipital infarct Chronic old focal left frontal infarct No acute intracranial hemorrhage Cerebral atherosclerosis Reviewed, dictated and finalized at Location A. Reviewed, dictated and finalized at location L. DESTRUCTIVE EVALUATION MANAGER
--- NOTE | ~2023-09-01 | CT_ITS ---
Non-contrast Head CT History: Assess for intracranial hemorrhage, CVA COMPARISON: 09/02/2023 Technique: Axial non-contrast imaging of the brain was performed. Dose reduction technique was used on this scan by utilizing automated exposure control and iterative reconstruction technique. The dose -length product (DLP) was 605.33 mGy-cm. Findings: Evolving acute to subacute right occipital lobe infarct is unchanged. No acute intracranial hemorrhage. Small chronic left frontal lobe infarct is unchanged. The ventricles and subarachnoid sp aces are normal in size. The calvarium appears normal. The visualized paranasal sinuses and mastoid air cells are clear. Impression: Acute to subacute evolving right occipital lobe infarct is essentially unchanged. No intracranial hem orrhage. Stable chronic left frontal lobe infarct. Reviewed, dictated and finalized at [facility]. PING AND RECEIVING COORDINATOR Impression: Acute to subacute evolving right occipital lobe infarct is essentially unchange d. No intracranial hemorrhage. Stable chronic left frontal lobe infarct.
--- NOTE | ~2023-09-01 | CT_ITS ---
Non-contrast Head CT History: Drowsy COMPARISON: 09/01/2023 Technique: Axial non-contrast imaging of the brain was performed. Dose reduction technique was used on this scan by utilizing automated exposure control and iterative reconstruction technique. The dose -length product (DLP) was 1059.33 mGy-cm. Findings: Hypodensity in the right occipital lobe is most consistent with probable subacute infarct. Focal chronic infarct in the left frontal lobe noted. The ventricles and subarachnoid spaces are norm al in size. The calvarium appears normal. The visualized paranasal sinuses and mastoid air cells ar e clear. Impression: Stable subacute right occipital lobe infarct. Stable chronic left frontal lobe infarct. No intracranial hemorrhage. Reviewed, dictated and finalized at location . UELS PRODUCTION TECHNICIAN Impression: Stable subacute right occipital lobe infarct. Stable chronic left frontal lobe infarct. No intracranial hemorrhage.
--- NOTE | ~2023-09-01 | CT_ITS ---
CT ANGIOGRAM NECK AND HEAD History: CVA. Technique: Serial spiral axial images through the head and neck were obtained during arterial phase I V injection of 100 cc of Omnipaque 350. 3-D postprocessing and MIP images were then reconstructed on the remote workstation. Dose reduction technique was used on this scan by utilizing automated exposur e control and iterative reconstruction technique. The dose-length product (DLP) was 1195.30 mGy-cm. CTA neck findings: Bilateral vertebral arteries are patent. Bilateral common carotid, internal carot id, and external carotid arteries are patent. There are small calcified plaques at the bilateral mello tid bifurcation regions without stenosis. No large vessel occlusion. No aneurysm. The proximal right internal carotid artery demonstrates 0% stenosis relative to the normal distal artery lumen diameter. The proximal left internal carotid artery demonstrates 0% stenosis relative to the normal distal art mag lumen diameter. 5 mm left upper lobe pulmonary nodule noted (image 50). 3 mm right apical pulmonary nodule noted (axi al image 29). Probable focal scarring right lung apex. Moderate to advanced emphysema noted in the up per lobes. CTA head findings: Distal internal carotid arteries, middle cerebral arteries, and anterior cerebral arteries are patent. Distal vertebral arteries, basilar artery, and posterior cerebral arteries are p atent. No large vessel occlusion. No stenosis or aneurysm. Impression: No significant vascular abnormality. Subcentimeter upper lobe pulmonary nodules, indeterminate. According to Fleischner Society criteria, for a low-risk patient, no further follow-up required. For a high-risk patient, consider 12 month fol low-up CT. Probable upper lobe moderate to advanced emphysema. Reviewed, dictated and finalized at location . UME DIRECTOR Impression: No significant vascular abnormality. Subcentimeter upper lobe pulmonary nodules, indeterminate. According to Fleisch ner Society criteria, for a low-risk patient, no further follow-up required. Fo r a high-risk patient, consider 12 month follow-up CT. Probable upper lobe moderate to advanced emphysema.
--- NOTE | ~2023-09-01 | XR_ITS ---
Portable chest x-ray Comparison: 05/28/2021 Clinical History: Pneumonia Findings: There is hazy airspace opacity lateral right midlung. There is mild central congestive zayra nge and mild diffuse interstitial prominence. Probable minimal right pleural effusion. Cardiomediast inal silhouette is stable. Bones and soft tissues are unremarkable. Impression: Central congestive change with mild residual edema and minimal right pleural effusion. Hazy opacity right midlung laterally, which could reflect focal pulmonary edema versus pneumonia. Reviewed, dictated and finalized at location M. GOLDEN GATE DEVELOPER Impression: Central congestive change with mild residual edema and minimal right pleural ef fusion. Hazy opacity right midlung laterally, which could reflect focal pulmonary edema versus pneumonia.
--- NOTE | ~2023-09-01 | US_ITS ---
EXAMINATION: US abdomen limited DATE: 09/06/2023 15:57 INDICATION: Hepatosplenomegaly. TECHNIQUE: Multiple grayscale and Doppler ultrasound images of the abdomen were obtained. COMPARISON: CT abdomen and pelvis 03/12/2022 FINDINGS: The visualized portion of the head of the pancreas is normal. The liver is normal without f ocal lesion. There is normal flow in main portal vein. The gallbladder is normal in size. No gallston es or gallbladder wall thickening. There was no sonographic [place] sign. The common duct is normal an d measures 2 mm. The spleen is normal in size. IMPRESSION: 1. Normal liver and spleen. Reviewed, dictated and finalized at location E. CART MECHANIC IMPRESSION: 1. Normal liver and spleen.
--- NOTE | 2023-09-01 11:54 | ECG_ITS ---
Measurements Intervals [place] Rate: 85 P: 67 NV: 191 QRS: 144 QRSD: 78 T: -7 QT: 356 QTc: 424 Interpretive Statements SINUS RHYTHM POSSIBLE LEFT ATRIAL ENLARGEMENT RSR' IN V1 OR V2, PROBABLY NORMAL VARIANT CANNOT RULE OUT SEPTAL INFARCT, AGE INDETERMINATE HIGH LATERAL INFARCT, AGE INDETERMINATE BORDERLINE ST-T WAVE ABNORMALITY- ANT/INF LEADS BASELINE ARTIFACT- I, II, AVR, AVL ABNORMAL ECG NO PREVIOUS ECG AVAILABLE FOR COMPARISON Electronically Signed On 09-01-2023 12:51:04 [employer] by Marcelo Botello D.O.
[2023-09-01 12:10] LABS: Basophils Percent Auto 0.4 % (0.2-1.2); Eosinophils Percent Auto 0.3 % (0-4.4); Hematocrit 57.7 % (42.0-52.0); Hemoglobin 18.9 g/dL (14.0-18.0); Immature Granulocyte Absolute 0.02 K/mm3 (0.00-0.031); Immature Granulocyte Percent A 0.3 % (0-0.5); Lymphocytes Absolute Auto 1.19 K/mm3 (0.9-3.2); Lymphocytes Percent Auto 14.9 % (18.3-44.2); Mean Corpuscular HGB Conc 32.8 g/dl (32-36); Mean Corpuscular Hemoglobin 32.8 pg (26-34); Mean Corpuscular Volume 100.2 fl (80-100); Mean Platelet Volume 10.6 fl (7.4-10.4); Monocytes Absolute Auto 0.5 K/mm3 (0.1-0.6); Neutrophils Absolute Auto 6.2 K/mm3 (1.3-6.7); Neutrophils Percent Auto 78.1 % (45.5-73.1); Platelet Count Result 155 k/mm3 (150-375); Red Blood Count 5.76 M/mm3 (4.6-6.20); Red Cell Distribution Width 15.9 % (11.5-14.5)
--- NOTE | 2023-09-01 12:12 | ED.WEAKNESS ---
HPI - Weakness General Chief complaint: Weakness Stated complaint: increased weakness/fatigue Time Seen by Provider: 09/01/23 12:00 History of Present Illness HPI Narrative: Patient is a 68-year-old male with history of HTN, multiple spinal issues, pain pump in place, neuropathy here with generalized weakness. Patient notes that about 1 week ago he saw his primary care doctor, that time he had some low blood pressure in the office in they changed up his blood pressure medications at that time. He notes that he is trying to get used to these new medications. He is additionally on a pain pump and gabapentin. He notes that he has been having some vivid dreams over the last week. Denies any fever chills. Denies any urinary symptoms or cough. Last night he noted that he took his gabapentin and new blood pressure medication and seemed to be more drowsy per . He had discontinued this morning, falling and hitting his elbow on the ground. He is unsure if he hit his head or lost consciousness. Patient denies any chest pain. He does not use oxygen. EMS was called for his weakness and on their arrival he was hypoxic in the 70s and placed on nasal cannula oxygen. Related Data Home Medications Medication Instructions Recorded Confirmed folic acid 1 mg tablet 1 mg PO DAILY 02/10/22 03/31/23 losartan 100 1 tablet PO DAILY 02/10/22 03/31/23 mg-hydrochlorothiazide 25 mg tablet oxycodone 10 mg tablet 10 mg PO TID PRN Pain 02/10/22 03/31/23 spironolactone 25 mg tablet 25 mg PO DAILY 02/10/22 03/31/23 Allergies Allergy/AdvReac Type Severity Reaction Status Date / Time pregabalin Allergy Unknown Verified 03/31/23 11:33 Review of Systems Review of Systems: All systems reviewed & are unremarkable except as noted in HPI and below PMFSH Past Medical History Medical History Cervical vertebral fusion Chronic back pain pain pump insertion Chronic narcotic use Colon ulcer Colonic mass HTN (hypertension) Positive colorectal cancer screening using Cologuard test Surgical History Surgical History S/P cervical spinal fusion Social History Social History Smoking packs per day: 1 Smoking cigarettes per day: 20.0 Years smoked: 50 Smoking pack-years: 50.00 Smoking status: Current every day smoker Tobacco type: cigarettes Substance use: never Substance use type: does not use Living arrangements: with family Spiritual care concerns: No Exam Narrative: GENERAL: Well-appearing, well-nourished, and in no acute distress. HEAD: Normocephalic, atraumatic. EYES: PERRLA and EOMI. ENT: Nares clear. Mucous membranes moist. NECK: Supple. CHEST: Clear to auscultation. Mild respiratory distress, on 6L [place] HEART: Regular rate and rhythm. Normal peripheral pulses. ABDOMEN: Soft, nontender, nondistended. EXTREMITIES: Normal range of motion. No edema. SKIN: Warm, dry, no rash. NEURO: No focal deficits. Alert and oriented x3. PSYCH: Normal mood and affect. Course Course Emergency Course: Chart review performed. Patient here for weakness, fatigue, hypoxia per EMS in the 70s. Triage vitals show tachycardia. O2 sat 97% on 6L NC. Last ED visit was 03/31/23 for cellulitis. Patient seen evaluated, he is on 6 L of oxygen with mild respiratory distress, saturations in the 90s. Workup for ACS/dyspnea. Here he received IV fluids in route about 400 mL per EMS, will withhold additional fluids until workup was obtained. CT head and x-ray of elbow ordered for trauma. Tdap to be updated. Lab work and imaging reviewed, hemoglobin elevated at 18.9, likely some hemoconcentration, electrolytes grossly normal, troponin elevated at 0.123, [place] [address], no known history of CAD or heart failure. UA negative for UTI. COVID, influenza, RSV negative. CT brain s
[2023-09-01 12:25] LABS: Alanine Aminotransferase 13 U/L (6-50); Albumin Level 3.5 g/dL (3.5-5.1); Alkaline Phosphatase 67 U/L (38-126); Anion Gap 7 mmol/L (8-16); Aspartate Amino Transferase 25 U/L (17-59); Bilirubin,Total 1.7 mg/dL (0.2-1.3); Blood Urea Nitrogen 23 mg/dL (9-20); Calcium 8.7 mg/dL (8.4-10.2); Carbon Dioxide 30 mmol/L (22-30); Chloride 103 mmol/L (98-107); Estimated CRCL calculation 56 ml/min; Estimated Glomerular Filt Rate > 60; Glucose 97 mg/dL (65-110); Potassium 4.7 mmol/L (3.4-5.0); Sodium 140 mmol/L (137-145)
[2023-09-01] MEDS: LACTATED RINGERS 1,000 ML 999 ML IV CONT (12:29)
[2023-09-01 12:31] LABS: Appearance Urine Cloudy (Clear); Bacteria Urine None Seen /hpf; Bilirubin Urine 2+ (Negative); Blood Urine Negative (Negative); Budding Yeast Urine Present /hpf; Color Urine Dark Yellow (Yellow); Glucose Urine UA Negative (Negative); Hyaline Casts Urine Present /lpf; Ketones Urine Trace mg/dL (Negative); Leukocyte Esterase Ur Trace LEU/UL (Negative); Need Manual Microscopic Reviewed; Nitrate Urine Negative (Negative); Protein Urine 2+ mg/dL (Negative); Specific Grav Ur 1.028 (1.001-1.035); Squamous Epithelial Cell Urine None seen /hpf (Few); WBC Urine 0-5 /hpf
[2023-09-01 12:33] LABS: Add Urine Microscopic? YES
[2023-09-01 12:41] LABS: Lipase 59 U/L (23-300)
[2023-09-01 12:46] LABS: Influenza A QL RT-PCR Negative (Negative); Influenza B QL RT-PCR Negative (Negative); RSV RNA, RT-PCR Negative (Negative); SARS-CoV-2 RNA PCR Negative (Negative)
[2023-09-01 12:59] LABS: NT Pro B Type Natriuretic Pept 11200 pg/mL (19.9-100); Troponin I 0.123 ng/mL (0.000-0.034)
[2023-09-01] MEDS: TETANUS,DIPHTHERIA,AC PERTUSSIS ADULT (0.5 ML) BOOSTRIX IM (13:09)
[2023-09-01 13:15] LABS: Creatine Kinase 77 U/L (55-170)
[2023-09-01] MEDS: ENOXAPARIN 80 MG/0.8 ML SYRINGE 70 MG SUB-Q (13:22)
--- NOTE | 2023-09-01 15:24 | ECG_ITS ---
Measurements Intervals [place] Rate: 82 P: 67 PA: 193 QRS: 141 QRSD: 88 T: -11 QT: 387 QTc: 454 Interpretive Statements SINUS RHYTHM POSSIBLE LEFT ATRIAL ENLARGEMENT CANNOT RULE OUT SEPTAL INFARCT, AGE INDETERMINATE HIGH LATERAL INFARCT, AGE INDETERMINATE BORDERLINE ST-T WAVE ABNORMALITY- ANT/INF LEADS ABNORMAL ECG COMPARED TO ECG 09/01/2023 11:53:56 NO SIGNIFICANT CHANGES Electronically Signed On 09-01-2023 15:48:33 WATER SOFTENER SERVICE SUPERVISOR by Marcelo Botello D.O.
[2023-09-01 16:09] LABS: Troponin I 0.117 ng/mL (0.000-0.034)
--- NOTE | 2023-09-01 18:14 | ECG_ITS ---
Measurements Intervals [place] Rate: 76 P: 66 AL: 203 QRS: 134 QRSD: 88 T: -11 QT: 387 QTc: 436 Interpretive Statements SINUS RHYTHM LEFT ATRIAL ENLARGEMENT BORDERLINE AV CONDUCTION DELAY RIGHT VENTRICULAR HYPERTROPHY AND ST-T CHANGE CANNOT RULE OUT SEPTAL INFARCT, AGE INDETERMINATE HIGH LATERAL INFARCT, AGE INDETERMINATE BORDERLINE ST-T WAVE ABNORMALITY- ANT/INF LEADS ABNORMAL ECG COMPARED TO ECG 09/01/2023 15:35:08 NO SIGNIFICANT CHANGES Electronically Signed On 09-01-2023 19:13:41 ASSESSMENT TECHNICIAN by Marcelo Botello D.O.
[2023-09-01 19:08] LABS: Troponin I 0.129 ng/mL (0.000-0.034)
--- NOTE | 2023-09-01 23:08 | PC.NURSE ---
called , Crystal per pt request @[phone] with pt update
--- NOTE | 2023-09-01 23:27 | PM.IMHP ---
H&P: HPI History of Present Illness Date/Time: 09/01/23 23:27 Chief Complaint: 68-year-old male with PMHx: of HTN, multiple spinal issues, pain pump in place, neuropathy, presented to the emergency room via ems from home with c/o generalized weakness that is been ongoing for the past week. Narrative: Patient provides HPI He reports about 1 week ago he saw his primary care doctor, at that time he was diagnosed with low blood pressure, he states blood pressure medication was changed at that time. Patient also reports history of pain pump concurrently uses gabapentin for neuropathy, he admits to lately having vivid dreams for the past week he relates that to home use of gabapentin. He denies any fever chills nausea vomiting or cough at this time. Patient reports compliance with new medications citing he took it last night noticed that he was more drowsy. He admits he is not taking it this morning he states he had a fall this morning striking his elbow on the ground he is unsure of any LOC, but he denies chest pain nausea vomiting at this time patient states he does not use home oxygen. ED workup reveals, patient initially arrived requiring 6 L of oxygen with mild respiratory distress he was saturating in the low 90s, workup for ACS/dyspnea, he received IV fluids 400 mL bolus prior a.m. a no other fluids given while in the ED CT head and x-ray of elbow ordered for trauma, Tdap was updated. Lab results revealed hemoglobin elevated at 18.9 likely some hemoconcentration, electrolytes grossly normal, troponin elevated at 0.123, [place] [address], no history of CAD or heart failure, his UA was negative for UTI, viral respiratory panel is negative CT brain shows concern of subacute stroke since 2008, 78 order Lovenox Review of Systems Review of Systems: All systems reviewed & are unremarkable except as noted in HPI and below PMFSH Past Medical History Medical History Cervical vertebral fusion Chronic back pain pain pump insertion Chronic narcotic use Colon ulcer Colonic mass HTN (hypertension) Positive colorectal cancer screening using Cologuard test Surgical History Surgical History S/P cervical spinal fusion Family History Family History (Updated 09/02/23 @ 03:37 by Donna Steele RN) Mother Father Social History Social History Smoking packs per day: 1 Smoking cigarettes per day: 20.0 Years smoked: 50 Smoking pack-years: 50.00 Smoking status: Current every day smoker Tobacco type: cigarettes Alcohol intake: never Substance use: never Substance use type: does not use Do You Feel Safe in your Home?: Yes Lack of Transportation: No Lack of Food: Never True Current Housing: I Have Housing Concerned About Future Housing: No Difficulty Paying Gas/Electric Bills: No Difficulty Paying for Meds: No Currently Unemployed: No Education: Decline to Answer Difficulty w/ Childcare or Family Care: No Living arrangements: with family Spiritual care concerns: No Meds Home Medications and Allergies Home Medications Medication Instructions Recorded Confirmed Type oxycodone 10 mg tablet 10 mg PO TID PRN Pain 02/10/22 09/02/23 History desvenlafaxine succinate 50 mg 50 mg PO HS 09/02/23 09/02/23 History tablet,extended release 24 hr gabapentin 300 mg capsule 300 mg PO TID 09/02/23 09/02/23 History mirtazapine 15 mg tablet 15 mg PO HS 09/02/23 09/02/23 History Allergies Allergy/AdvReac Type Severity Reaction Status Date / Time pregabalin Allergy Unknown Verified 03/31/23 11:33 Vital Signs Vital Signs - 24 hr 09/01/23 11:42 09/01/23 12:10 09/01/23 13:18 Temperature 98.5 F Pulse Rate 109 H Respiratory Rate 12 Blood Pressure 121/82 Pulse Oximetry 97 92 93 Oxygen Delivery Nasa
--- NOTE | 2023-09-01 23:46 | ADMGEN ---
This patient, Carlo Hernandez, was admitted to IMU Room 206-02. Patient/family oriented to hospital policies and general routines including ID bracelet, bed and alarms, visiting hours, pain management, procedures, bathroom and other care routines, personal items, smoking policy, room service/diet, and visiting hours. Information on how to activate the Rapid Response Team has been discussed. Patient/Family are encouraged to report perceived risks to care and to ask questions if they do not understand what they are told or what they should do.
[2023-09-02] VITALS (17 sets, daily range): BP systolic 92–109; BP diastolic 57–72; PULSE 57–87; RESP 12–18; TEMP 36.1–36.7; O2SAT 94–100
[2023-09-02 05:04] LABS: Basophils Absolute Auto 0.1 K/mm3 (0.0-0.1); Basophils Percent Auto 0.7 % (0.2-1.2); Eosinophils Absolute Auto 0.2 K/mm3 (0-0.3); Eosinophils Percent Auto 2.8 % (0-4.4); Hematocrit 55.1 % (42.0-52.0); Hemoglobin 17.8 g/dL (14.0-18.0); Immature Granulocyte Absolute 0.01 K/mm3 (0.00-0.031); Immature Granulocyte Percent A 0.1 % (0-0.5); Immature Platelet Fraction Pct 4.9 % (0.9-11.2); Lymphocytes Absolute Auto 2.67 K/mm3 (0.9-3.2); Lymphocytes Percent Auto 37.4 % (18.3-44.2); Mean Corpuscular HGB Conc 32.3 g/dl (32-36); Mean Corpuscular Hemoglobin 32.4 pg (26-34); Mean Corpuscular Volume 100.2 fl (80-100); Mean Platelet Volume 10.5 fl (7.4-10.4); Monocytes Absolute Auto 0.5 K/mm3 (0.1-0.6); Monocytes Percent Auto 6.3 % (2.6-8.5); Neutrophils Absolute Auto 3.8 K/mm3 (1.3-6.7); Neutrophils Percent Auto 52.7 % (45.5-73.1); Platelet Count Result 134 k/mm3 (150-375); Red Cell Distribution Width 15.2 % (11.5-14.5); White Blood Count 7.1 K/mm3 (4.5-10.0)
[2023-09-02 05:12] LABS: Alanine Aminotransferase 11 U/L (6-50); Alkaline Phosphatase 55 U/L (38-126); Anion Gap 6 mmol/L (8-16); Aspartate Amino Transferase 26 U/L (17-59); Bilirubin,Total 2.1 mg/dL (0.2-1.3); Blood Urea Nitrogen 20 mg/dL (9-20); Carbon Dioxide 26 mmol/L (22-30); Chloride 105 mmol/L (98-107); Estimated CRCL calculation 72 ml/min; Estimated Glomerular Filt Rate > 60; Glucose 87 mg/dL (65-110); Potassium 4.1 mmol/L (3.4-5.0); Sodium 137 mmol/L (137-145)
[2023-09-02 05:39] LABS: Troponin I 0.101 ng/mL (0.000-0.034)
--- NOTE | 2023-09-02 08:43 | ECHO_ITS ---
Patient Info Name: Carlo Hernandez Age: 68 years : 1955 Gender: Male Ht: 70 in Wt: 150 lbs BSA: 1.83 m2 HR: 70 bpm BP: 101 / 58 mmHg Heart Rhythm: Sinus Rhythm Technical Quality: Fair Exam Date: 09/02/2023 9:11 AM Exam Location: Echo Lab Patient Status: Inpatient Admit Date: 09/01/2023 Staff Ordering Physician: Deloris Kilpatrick APRN Hi Lift Operator: Valarie Romo RDCS Attending Provider: Karuna Telles MD Referring Physician: Finesse MELENDEZ; Exam Type: CA echo doppler color flow Study Info Indications - Pukmonary emboli Complete two-dimensional, color flow and Doppler transthoracic echocardiogram is performed. Summary 1. Complete two-dimensional, color flow and Doppler transthoracic echocardiogram is performed. 2. Left ventricular chamber dimension is normal. 3. D shaped septum in systole and diastole consistent with right ventricular pressure and/or volume overload. 4. Left ventricular systolic function is normal, estimated at 60-65%. 5. There is mildly increased left ventricular wall thickness. 6. The left ventricular diastolic function is grade I diastolic dysfunction. 7. Right ventricular chamber dimension is severely enlarged. 8. Right ventricular systolic function is moderately to severely educed with relative sparing of the apex suggestive of Hardin sign which can be seen in pulmonary embolism and/or right ventricular infarction. Clinical correlation advised. TAPSE 1.6. Prominent moderator band and apical trabeculations. 9. Right atrial chamber dimension is severely enlarged. 10. There is trace tricuspid valve regurgitation. 11. Mild pulmonary hypertension, estimated pulmonary arterial systolic pressure is 36 mmHg. 12. Repeat limited echo with bubble study to assess for interatrial shunt. Consider transesophageal echocardiogram if clinically indicated. Recommendations * Repeat limited echo with bubble study to assess for interatrial shunt. Consider transesophageal echocardiogram if clinically indicated. Left Ventricle Left ventricular chamber dimension is normal. Left ventricular systolic function is normal, estimated at 60-65%. There is mildly increased left ventricular wall thickness. The left ventricular diastolic function is grade I diastolic dysfunction. D shaped septum in systole and diastole consistent with right ventricular pressure and/or volume overload. Right Ventricle Right ventricular chamber dimension is severely enlarged. Right ventricular systolic function is moderately to severely educed with relative sparing of the apex suggestive of Hardin sign which can be seen in pulmonary embolism and/or right ventricular infarction. Clinical correlation advised. TAPSE 1.6. Prominent moderator band and apical trabeculations. Left Atria Left atrial chamber dimension is normal. Right Atria Right atrial chamber dimension is severely enlarged. Aortic Valve The aortic valve is not well visualized. There is mild aortic valve sclerosis. There is no aortic valve stenosis. There is no aortic valve regurgitation. Pulmonic Valve The pulmonic valve is not well visualized. Mitral Valve The mitral valve has normal leaflets. There is trace mitral valve regurgitation. Tricuspid Valve The tricuspid valve leaflets are thickened. There is trace tricuspid valve regurgitation. Mild pulmonary hypertension, estimated pulmonary arterial systolic pressure is 36 mmHg. Pericardium/Pleural The pericardium appears normal. There is no pericardial effusion. Inferior Vena Cava Dilated inferior vena cava with <50% collapse upon inspiration consistent
[2023-09-02] MEDS: ENOXAPARIN 80 MG/0.8 ML SYRINGE 70 MG SUB-Q (09:56)
[2023-09-02] MEDS: GABAPENTIN 300 MG CAPSULE PO (09:56)
--- NOTE | 2023-09-02 10:19 | PC.NURSE ---
Pt sitting up in bed with eyes closed. Drowsy and oriented x 4. Speech delayed and slurred. Slumping to right side. Left arm falling off side of bed, attempted to reposition arm but continues to fall to side. Catalogue Illustrator strong and equal. Able to touch finger to nose. Slightly impaired attempting to put pill cup to mouth. at bedside. Reports medications were modified approximately 1.5 weeks ago because of drowsiness. Fatigue has been present x [address] Mora made aware. New orders for STAT head CT and NIHS stroke scale.
--- NOTE | 2023-09-02 10:27 | PM.IMPN ---
Progress Note: A&P Assessment and Plan (1) Elevated troponin: Code(s): R79.89 - Other specified abnormal findings of blood chemistry Status: Acute Assessment and Plan: Cardiology consultation appreciated, recommending echo, aspirin 81 mg daily, Lipitor 40 mg daily, no need for ischemic eval Slightly elevated troponin with flattened curve (2) Elevated brain natriuretic peptide (BNP) level: Code(s): R79.89 - Other specified abnormal findings of blood chemistry Status: Acute (3) Pulmonary embolism: Qualifiers: Acute cor pulmonale presence: unspecified Chronicity: acute Pulmonary embolism type: unspecified Qualified Code(s): I26.99 - Other pulmonary embolism without acute cor pulmonale Code(s): I26.99 - Other pulmonary embolism without acute cor pulmonale Status: Acute Assessment and Plan: As evidence by CT chest, acute pulmonary embolus in the right middle lobe, moderate emphysema, mild pulmonary edema, chronic right atrial right ventricle enlargement of the heart Check echo Initiate systemic anticoagulation with Eliquis, DC Lovenox (4) HTN (hypertension): Code(s): I10 - Essential (primary) hypertension Status: Acute Assessment and Plan: Blood pressures reviewed 09/02 (5) Chronic narcotic use: Code(s): F11.90 - Opioid use, unspecified, uncomplicated Status: Acute Assessment and Plan: chronic use of oxycodone HCL (6) Generalized weakness: Code(s): R53.1 - Weakness Status: Acute Assessment and Plan: Multifactorial, likely secondary to neuropathy Check MRI, rule out stroke Plan continue home medications; gabapentin 300mg po oxycodone HCL IR for chronic pain VTE: Enaxoparin Diet Heart Healthy Code Status: Full Code anticipated hospital stay> 2 days Subjective Date/time seen: 09/02/23 10:27 Interval history: 68-year-old male with history of hypertension, neuropathy with pain pump presenting with generalized weakness. No overnight events noted. No chest pain or shortness of breath. No nausea, vomiting or diarrhea. No fevers or chills. Weakness is unchanged. Patient states it is mainly a sense of numbness that makes it hard for him to tell where his limbs are in space. Review of Systems Review of Systems: 12 point review of systems was assessed and was negative except as noted in the HPI Exam Narrative: General: No acute distress, alert and oriented per baseline HEENT: Atraumatic, normocephalic, mucous membranes moist CV: Regular rate and rhythm, S1, S2 Lungs: Clear to auscultation bilaterally, no rales or crackles noted, no wheezes, good air entry Abdomen: Soft, nontender, nondistended Extremities: Normal to inspection Skin: No rashes noted, no lesions or wounds seen Psych: Euthymic, normal affect Neuro: Cranial nerves 2-12 grossly intact, strength +5/5 upper and lower extremities bilaterally Objective Data Vital Signs Vital Signs: Vital Signs - 24 hr 09/01/23 11:42 09/01/23 12:10 09/01/23 13:18 Temperature 98.5 F Pulse Rate 109 H Respiratory Rate 12 Blood Pressure 121/82 Pulse Oximetry 97 92 93 Oxygen Delivery Nasal Cannula Nasal Cannula High Flow Therapy with Na Oxygen Flow Rate 6 6 7 09/01/23 13:19 09/01/23 11:51 09/01/23 12:00 Temperature Pulse Rate 87 83 Respiratory Rate 13 17 Blood Pressure Pulse Oximetry 95 93 Oxygen Delivery Oxygen Flow Rate 09/01/23 12:01 09/01/23 12:18 09/01/23 12:35 Temperature Pulse Rate 87 84 80 Respiratory Rate 14 17 Blood Pressure 126/73 Pulse Oximetry 93 94 Oxygen Delivery Oxygen Flow Rate 09/01/23 12:59 09/01/23 13:00 09/01/23 13:15 Temperature Pulse Rate 97 85 90 Respiratory Rate 17 19 17 Blood Pressure Pulse Oximetry 90 88 L 90 Oxygen Delivery Oxygen Flow Rate 09/01/23 13:16 09/01/23 13:17 09/01/23 13:30 Tem
--- NOTE | 2023-09-02 13:56 | PCPTNOTE ---
per RN, pt had negative dopplers, CT showed subacute stroke and they are not sure of extent yet, stated they are going to do an MRI, will continue to follow for PT eval
--- NOTE | 2023-09-02 14:25 | PM.CNCAR ---
Assessment and Plan Assessment and plan (1) Elevated troponin: Code(s): R79.89 - Other specified abnormal findings of blood chemistry Status: Acute Assessment and Plan: Mild troponin elevation fairly flat curve in setting of acute pulmonary embolism with severe RV and RA enlargement which by history appears more chronic. Patient is not reporting anginal symptoms and elevated troponins consistent with type 2 infarction likely due to RV strain as opposed to acute coronary syndrome and/or myocardial infarction. No indication for ischemic evaluation at this time. Agree with 2D echocardiogram. Add aspirin 81 mg daily. Continue telemetry. Patient at high risk for complications, prognosis guarded. Further recommendations to follow after review of prior records. (2) Pulmonary embolism: Qualifiers: Acute cor pulmonale presence: unspecified Chronicity: acute Pulmonary embolism type: unspecified Qualified Code(s): I26.99 - Other pulmonary embolism without acute cor pulmonale Code(s): I26.99 - Other pulmonary embolism without acute cor pulmonale Status: Acute Assessment and Plan: Patient presents with acute pulmonary embolism with mild troponin elevation an echocardiogram with severe RV enlargement and hypokinesis with suggestion of Hardin sign. I suspect there may acute on chronic changes on the echocardiogram as the degree of right-sided enlargement is clearly chronic. Raises suspicion for potential recurrent or chronic thromboembolic events in the past of which were unknown. No doubt underlying lung disease contributing due to tobacco abuse with emphysematous changes on CT. Patient remains on high-flow nasal cannula with relative hypotension although he is not tachycardic and in no apparent distress at this time. In general, patient is high risk for complications given underlying lung disease, severe RV and RA enlargement in the setting of acute pulmonary embolism. However, he does not have a high bilateral burden or saddle embolus therefore emergent transfer for pulmonary thromboembolectomy questionable. Continue systemic anticoagulation with enoxaparin 1 milligram/kilogram subcutaneous q.12 hours. Monitor for bleeding. Follow H&H. Continue telemetry. (3) CVA (cerebral vascular accident): Code(s): I63.9 - Cerebral infarction, unspecified Status: Acute Assessment and Plan: History of chronic stroke left frontal lobe and subacute right occipital lobe without acute bleed. Add aspirin 81 mg daily. Add atorvastatin 40 mg at bedtime. Check lipid panel. Goal LDL less than 70. Avoid excessive hypotension in setting of CVA. Neurology consultation. At great length we discussed potential etiology for stroke in setting of acute pulmonary embolism. At this time, these are 2 separate events once a generally occurring. However, if interatrial shunt such as PFO and/or ASD identified his stroke may be a function of paradoxical embolus. There is no known or documented history of atrial fibrillation atrial flutter thus far. We will review prior cardiovascular records. Discussed at length patient and his . Repeat limited echo with bubble study to assess for intracardiac shunt. We also discussed potential need for transesophageal echocardiogram once he is do more stable with regards to his hypoxia and stable blood pressure. (4) Acute hypoxic respiratory failure: Code(s): J96.01 - Acute respiratory failure with hypoxia Status: Acute Assessment and Plan: Continue O2 supplementation as warranted. Continue to monitor respiratory status very carefully. Patient high risk for further decompensation and need for intubation although he is feeling better clinically and has been on stable O2 supplementation thus far. This is multifactorial sitting with underlying emphysema and acute pulmonary embolism with probable chronic severe RV enlargement and hypokinesis with evidence of co
--- NOTE | 2023-09-02 15:16 | PCSTNOTE ---
Please refer to the Bedside Swallow Evaluation in the EMR. Please note, silent aspiration cannot be ruled out at bedside.
--- NOTE | 2023-09-02 16:23 | PC.NURSE ---
[employer] rep Pascale at bedside. Confirmed pain pump is active and working. [employer] contact is Luis Enrique Shahid, , pts assigned pain clinic nurse is Melanie, .
--- NOTE | 2023-09-02 19:19 | PC.NURSE ---
200 of dark urine from 7p - 7a. Reviewed this and MRI results with Dr. Mora. Brianne put on hold. Advised to push po fluids.
[2023-09-03] VITALS (16 sets, daily range): BP systolic 98–112; BP diastolic 56–64; PULSE 61–90; RESP 12–20; TEMP 36.1–36.8; O2SAT 88–100
[2023-09-03 04:34] LABS: Basophils Percent Auto 0.6 % (0.2-1.2); Eosinophils Absolute Auto 0.2 K/mm3 (0-0.3); Eosinophils Percent Auto 3.1 % (0-4.4); Hematocrit 58.1 % (42.0-52.0); Hemoglobin 18.3 g/dL (14.0-18.0); Immature Granulocyte Absolute 0.01 K/mm3 (0.00-0.031); Immature Granulocyte Percent A 0.1 % (0-0.5); Lymphocytes Absolute Auto 2.26 K/mm3 (0.9-3.2); Lymphocytes Percent Auto 33.5 % (18.3-44.2); Mean Corpuscular HGB Conc 31.5 g/dl (32-36); Mean Corpuscular Hemoglobin 32.5 pg (26-34); Mean Corpuscular Volume 103.2 fl (80-100); Mean Platelet Volume 10.2 fl (7.4-10.4); Monocytes Absolute Auto 0.5 K/mm3 (0.1-0.6); Monocytes Percent Auto 7.1 % (2.6-8.5); Neutrophils Absolute Auto 3.7 K/mm3 (1.3-6.7); Neutrophils Percent Auto 55.6 % (45.5-73.1); Platelet Count Result 113 k/mm3 (150-375); Red Blood Count 5.63 M/mm3 (4.6-6.20); Red Cell Distribution Width 15.8 % (11.5-14.5); White Blood Count 6.7 K/mm3 (4.5-10.0)
--- NOTE | 2023-09-03 08:00 | ECHO_ITS ---
Patient Info Name: Carlo Hernandez Age: 68 years : 1955 Gender: Male Ht: 70 in Wt: 150 lbs BSA: 1.83 m2 HR: 62 bpm BP: 107 / 59 mmHg Heart Rhythm: Sinus Rhythm Technical Quality: Good Exam Date: 09/03/2023 9:25 AM Exam Location: Echo Lab Patient Status: Inpatient Admit Date: 09/01/2023 Staff Ordering Physician: Sabas Gonsalez MD Strike Off Machine Operator: Rebecca Wilkerson RDCS Attending Provider: Karuna Telles MD Referring Physician: Wallace BRADFORD; Exam Type: CA echo limited w bubble study Study Info Indications - BUBBLE STUDY ONLY FOR R/O CVA Limited two-dimensional transthoracic echocardiogram is performed with agitated saline. Contrast/Agitated Saline Contrast/Ag. Saline: Agitated Saline Amount: 20.00 ml Summary 1. Intact interatrial septum visualized by agitated saline imaging. Left Ventricle Left ventricular chamber dimension is normal. Left ventricular systolic function is normal, estimated at 65-70%. Right Ventricle Right ventricular chamber dimension is severely enlarged. Right ventricular systolic function is reduced. Left Atria Left atrial chamber dimension is mildly enlarged. Right Atria Right atrial chamber dimension is moderately enlarged. Atrial Septum Intact interatrial septum visualized by agitated saline imaging. Report Signatures
--- NOTE | 2023-09-03 09:49 | PM.PNCARD ---
Progress Note: A&P Assessment and Plan (1) Elevated troponin: Code(s): R79.89 - Other specified abnormal findings of blood chemistry Status: Acute Assessment and Plan: Mild troponin elevation fairly flat curve in setting of acute pulmonary embolism with severe RV and RA enlargement which by history appears more chronic. Patient is not reporting anginal symptoms and elevated troponins consistent with type 2 infarction likely due to RV strain as opposed to acute coronary syndrome and/or myocardial infarction. No indication for ischemic evaluation at this time. Echo pending Continue telemetry. Patient at high risk for complications, prognosis guarded. Further recommendations to follow after review of prior records. (2) Pulmonary embolism: Qualifiers: Acute cor pulmonale presence: unspecified Chronicity: acute Pulmonary embolism type: unspecified Qualified Code(s): I26.99 - Other pulmonary embolism without acute cor pulmonale Code(s): I26.99 - Other pulmonary embolism without acute cor pulmonale Status: Acute Assessment and Plan: Patient presents with acute pulmonary embolism with mild troponin elevation an echocardiogram with severe RV enlargement and hypokinesis with suggestion of Hardin sign. I suspect there may acute on chronic changes on the echocardiogram as the degree of right-sided enlargement is clearly chronic. Raises suspicion for potential recurrent or chronic thromboembolic events in the past of which were unknown. No doubt underlying lung disease contributing due to tobacco abuse with emphysematous changes on CT. Patient remains on high-flow nasal cannula with relative hypotension although he is not tachycardic and in no apparent distress at this time. In general, patient is high risk for complications given underlying lung disease, severe RV and RA enlargement in the setting of acute pulmonary embolism. However, he does not have a high bilateral burden or saddle embolus therefore emergent transfer for pulmonary thromboembolectomy questionable. On Eliquis for anticoagulation (3) CVA (cerebral vascular accident): Code(s): I63.9 - Cerebral infarction, unspecified Status: Acute Assessment and Plan: History of chronic stroke left frontal lobe and subacute right occipital lobe without acute bleed. Will discontinue aspirin since he is on high-dose anticoagulation for now. Continue atorvastatin 40 mg at bedtime. Check lipid panel. Goal LDL less than 70. Avoid excessive hypotension in setting of CVA. Neurology consultation. At great length we discussed potential etiology for stroke in setting of acute pulmonary embolism. At this time, these are 2 separate events once a generally occurring. However, if interatrial shunt such as PFO and/or ASD identified his stroke may be a function of paradoxical embolus. There is no known or documented history of atrial fibrillation atrial flutter thus far. We will review prior cardiovascular records. Discussed at length patient and his . Repeat limited echo with bubble study to assess for intracardiac shunt. We also discussed potential need for transesophageal echocardiogram once he is do more stable with regards to his hypoxia and stable blood pressure. (4) Acute hypoxic respiratory failure: Code(s): J96.01 - Acute respiratory failure with hypoxia Status: Acute Assessment and Plan: Continue O2 supplementation as warranted. Continue to monitor respiratory status very carefully. Patient high risk for further decompensation and need for intubation although he is feeling better clinically and has been on stable O2 supplementation thus far. This is multifactorial sitting with underlying emphysema and acute pulmonary embolism with probable chronic severe RV enlargement and hypokinesis with evidence of cor pulmonale. (5) Cor pulmonale: Code(s): I27.81 - Cor pulmonale (chronic) Status: Acute
--- NOTE | 2023-09-03 10:37 | PM.IMPN ---
Progress Note: A&P Assessment and Plan (1) CVA (cerebral vascular accident): Code(s): I63.9 - Cerebral infarction, unspecified Status: Acute Assessment and Plan: MRI with acute CVAs, likely cardiogenic with PEs (2) Pulmonary embolism: Qualifiers: Acute cor pulmonale presence: unspecified Chronicity: acute Pulmonary embolism type: unspecified Qualified Code(s): I26.99 - Other pulmonary embolism without acute cor pulmonale Code(s): I26.99 - Other pulmonary embolism without acute cor pulmonale Status: Acute Assessment and Plan: As evidence by CT chest, acute pulmonary embolus in the right middle lobe, moderate emphysema, mild pulmonary edema, chronic right atrial right ventricle enlargement of the heart Initiate systemic anticoagulation with Eliquis after repeat CTH neg hemorrhage Echo pending (3) Elevated troponin: Code(s): R79.89 - Other specified abnormal findings of blood chemistry Status: Acute Assessment and Plan: Cardiology consultation appreciated, recommending echo, aspirin 81 mg daily, Lipitor 40 mg daily, no need for ischemic eval Slightly elevated troponin with flattened curve 09/03: echo with bubble pending, appreciate cardio consult (4) Elevated brain natriuretic peptide (BNP) level: Code(s): R79.89 - Other specified abnormal findings of blood chemistry Status: Acute (5) HTN (hypertension): Code(s): I10 - Essential (primary) hypertension Status: Acute Assessment and Plan: Blood pressures reviewed 09/03 (6) Chronic narcotic use: Code(s): F11.90 - Opioid use, unspecified, uncomplicated Status: Acute Assessment and Plan: chronic use of oxycodone HCL (7) Generalized weakness: Code(s): R53.1 - Weakness Status: Acute Assessment and Plan: Multifactorial, likely secondary to neuropathy + CVA Neuro consult, PT/OT Plan continue home medications; gabapentin 300mg po oxycodone HCL IR for chronic pain VTE: Enaxoparin Diet Heart Healthy Code Status: Full Code anticipated hospital stay> 2 days Subjective Date/time seen: 09/03/23 10:37 Interval history: 68-year-old patient presents with acute pulmonary embolism and generalized weakness. No overnight events noted. No chest pain or shortness of breath. No nausea, vomiting or diarrhea. No fevers or chills. Review of Systems Review of Systems: 12 point review of systems was assessed and was negative except as noted in the HPI Exam Narrative: General: No acute distress, alert and oriented per baseline HEENT: Atraumatic, normocephalic, mucous membranes moist CV: Regular rate and rhythm, S1, S2 Lungs: Clear to auscultation bilaterally, no rales or crackles noted, no wheezes, good air entry Abdomen: Soft, nontender, nondistended Extremities: Normal to inspection Skin: No rashes noted, no lesions or wounds seen Psych: Euthymic, normal affect Neuro: Cranial nerves 2-12 grossly intact, strength +5/5 upper and lower extremities bilaterally Objective Data Vital Signs Vital Signs: Vital Signs - 24 hr 09/02/23 12:00 09/02/23 12:00 09/02/23 14:00 Temperature 97.6 F Pulse Rate 66 64 66 Respiratory Rate 16 Blood Pressure 92/61 L Pulse Oximetry 96 Oxygen Delivery Oxygen Flow Rate 09/02/23 12:00 09/02/23 16:00 09/02/23 16:00 Temperature Pulse Rate 57 L Respiratory Rate Blood Pressure Pulse Oximetry 96 96 Oxygen Delivery Nasal Cannula Nasal Cannula Oxygen Flow Rate 4 4 09/02/23 16:38 09/02/23 18:00 09/02/23 19:47 Temperature 98.1 F 97.5 F L Pulse Rate 57 L 70 61 Respiratory Rate 12 18 Blood Pressure 106/72 105/57 L Pulse Oximetry 100 96 Oxygen Delivery Oxygen Flow Rate 09/02/23 20:00 09/02/23 20:00 09/02/23 22:00 Temperature Pulse Rate 59 L 63 Respiratory Rate Blood Pressure Pulse Oximetry 96
[2023-09-03 10:54] LABS: Anion Gap 10 mmol/L (8-16); Blood Urea Nitrogen 20 mg/dL (9-20); Calcium 8.4 mg/dL (8.4-10.2); Carbon Dioxide 19 mmol/L (22-30); Chloride 107 mmol/L (98-107); Cholesterol 133 mg/dL (0-200); Estimated CRCL calculation 87 ml/min; Estimated Glomerular Filt Rate > 60; Glucose 85 mg/dL (65-110); HDL Direct 36 mg/dL; Potassium 4.7 mmol/L (3.4-5.0); Sodium 136 mmol/L (137-145); Triglycerides 76 mg/dL (<150)
[2023-09-03 11:05] LABS: LDL Cholesterol Direct 82 mg/dL
[2023-09-03 12:56] LABS: Alanine Aminotransferase 11 U/L (6-50); Albumin Level 3.2 g/dL (3.5-5.1); Alkaline Phosphatase 55 U/L (38-126); Aspartate Amino Transferase 20 U/L (17-59)
--- NOTE | 2023-09-03 15:34 | PCPTNOTE ---
09/03/23 MW PT eval completed.
--- NOTE | 2023-09-03 16:39 | WPDNEURCNPN ---
Assessment and Plan Assessment and plan (1) CVA (cerebral vascular accident): Code(s): I63.9 - Cerebral infarction, unspecified Status: Acute Plan 1. Acute to subacute evolving right occipital lobe infarct with no bleed on CT scan of 03 of September and brain MRI documenting large in the medial right temporal occipital region in addition small infarcts in right thalamus posterior limb of the right internal capsule and posterior left frontal lobe as well in addition to small chronic infarct in left frontal and right occipital lobes will need further echocardiogram and CTA. Consult date: 09/03/23 HPI: Carlo Hernandez is a 68 year old male Admitted to the hospital through the emergency room for the complaints of increasing weakness in addition to the history of 1. Hypertension 2. Chronic spinal problems requiring the pain pump in place 3. Neuropathy notedly recently he was told that he has blood pressure is low he is also additionally taking gabapentin and has been experiencing vivid dreams over the last week without any associated generalized fever or chills he recently fell and was not sure whether he hit his , he has been taking pain medications p.o. as well in addition he is allergic to pregabalin and has history of chronic back pain, chronic narcotic use, a long history of years smoked 50 with 20 cigarettes per day and currently everyday smoker initial exam in the emergency room no specific neurological deficit, subsequent radiological investigations include CT scan of the head documenting subacute right posterior temporal and occipital infarct with chronic old focal left frontal infarct and generalized atherosclerosis of the brain [facility] Past Medical History Medical History Cervical vertebral fusion Chronic back pain pain pump insertion Chronic narcotic use Colon ulcer Colonic mass HTN (hypertension) Positive colorectal cancer screening using Cologuard test Surgical History Surgical History S/P cervical spinal fusion Family History Family History Mother Father Social History Social History Smoking packs per day: 1 Smoking cigarettes per day: 20.0 Years smoked: 50 Smoking pack-years: 50.00 Smoking status: Current every day smoker Tobacco type: cigarettes Alcohol intake: never Substance use: never Substance use type: does not use Do You Feel Safe in your Home?: Yes Lack of Transportation: No Lack of Food: Never True Current Housing: I Have Housing Concerned About Future Housing: No Difficulty Paying Gas/Electric Bills: No Difficulty Paying for Meds: No Currently Unemployed: No Education: Decline to Answer Difficulty w/ Childcare or Family Care: No Living arrangements: with family Spiritual care concerns: No Meds Home Medications and Allergies Home Medications Medication Instructions Recorded Confirmed Type oxycodone 10 mg tablet 10 mg PO TID PRN Pain 02/10/22 09/02/23 History desvenlafaxine succinate 50 mg 50 mg PO HS 09/02/23 09/02/23 History tablet,extended release 24 hr gabapentin 300 mg capsule 300 mg PO TID 09/02/23 09/02/23 History mirtazapine 15 mg tablet 15 mg PO HS 09/02/23 09/02/23 History Allergies Allergy/AdvReac Type Severity Reaction Status Date / Time pregabalin Allergy Unknown Verified 03/31/23 11:33 Vital Signs Vital Signs - 24 hr 09/02/23 18:00 09/02/23 19:47 09/02/23 20:00 Temperature 36.4 C L Pulse Rate 70 61 Respiratory Rate 18 Blood Pressure 105/57 L Pulse Oximetry 96 96 Oxygen Delivery Nasal Cannula Oxygen Flow Rate 4 09/02/23 20:00 09/02/23 22:00 09/02/23 23:42 Temperature 36.1 C L Pulse Rate 59 L 63 60 Respiratory Rate 18 Blood Pressure 100/68 Pul
[2023-09-04] VITALS (20 sets, daily range): BP systolic 89–118; BP diastolic 51–72; PULSE 59–77; RESP 16–18; TEMP 36–37.1; O2SAT 92–100
[2023-09-04 04:00] LABS: Basophils Percent Auto 0.4 % (0.2-1.2); Eosinophils Absolute Auto 0.2 K/mm3 (0-0.3); Eosinophils Percent Auto 3.3 % (0-4.4); Hematocrit 50.9 % (42.0-52.0); Hemoglobin 16.5 g/dL (14.0-18.0); Immature Granulocyte Absolute 0.02 K/mm3 (0.00-0.031); Immature Granulocyte Percent A 0.3 % (0-0.5); Lymphocytes Absolute Auto 1.89 K/mm3 (0.9-3.2); Lymphocytes Percent Auto 27.1 % (18.3-44.2); Mean Corpuscular HGB Conc 32.4 g/dl (32-36); Mean Corpuscular Hemoglobin 32.9 pg (26-34); Mean Corpuscular Volume 101.6 fl (80-100); Mean Platelet Volume 10.8 fl (7.4-10.4); Monocytes Absolute Auto 0.6 K/mm3 (0.1-0.6); Monocytes Percent Auto 8.9 % (2.6-8.5); Neutrophils Absolute Auto 4.2 K/mm3 (1.3-6.7); Platelet Count Result 125 k/mm3 (150-375); Red Blood Count 5.01 M/mm3 (4.6-6.20); Red Cell Distribution Width 15.1 % (11.5-14.5)
[2023-09-04 04:13] LABS: Alanine Aminotransferase 9 U/L (6-50); Alkaline Phosphatase 55 U/L (38-126); Anion Gap 3 mmol/L (8-16); Aspartate Amino Transferase 21 U/L (17-59); Bilirubin,Total 1.8 mg/dL (0.2-1.3); Blood Urea Nitrogen 19 mg/dL (9-20); Calcium 7.8 mg/dL (8.4-10.2); Carbon Dioxide 30 mmol/L (22-30); Chloride 104 mmol/L (98-107); Estimated CRCL calculation 98 ml/min; Estimated Glomerular Filt Rate > 60; Glucose 93 mg/dL (65-110); Potassium 4.1 mmol/L (3.4-5.0); Sodium 137 mmol/L (137-145)
[2023-09-04] MEDS: ATORVASTATIN 40 MG TABLET PO (10:01)
--- NOTE | 2023-09-04 10:38 | PM.PNCARD ---
Progress Note: A&P Assessment and Plan (1) Elevated troponin: Code(s): R79.89 - Other specified abnormal findings of blood chemistry Status: Acute Assessment and Plan: Mild troponin elevation fairly flat curve in setting of acute pulmonary embolism with severe RV and RA enlargement which by history appears more chronic. Patient is not reporting anginal symptoms and elevated troponins consistent with type 2 infarction likely due to RV strain as opposed to acute coronary syndrome and/or myocardial infarction. No indication for ischemic evaluation at this time. Continue telemetry. Patient at high risk for complications, prognosis guarded. Further recommendations to follow after review of prior records. (2) Pulmonary embolism: Qualifiers: Acute cor pulmonale presence: unspecified Chronicity: acute Pulmonary embolism type: unspecified Qualified Code(s): I26.99 - Other pulmonary embolism without acute cor pulmonale Code(s): I26.99 - Other pulmonary embolism without acute cor pulmonale Status: Acute Assessment and Plan: Patient presents with acute pulmonary embolism with mild troponin elevation an echocardiogram with severe RV enlargement and hypokinesis with suggestion of Hardin sign. I suspect there may acute on chronic changes on the echocardiogram as the degree of right-sided enlargement is clearly chronic. Raises suspicion for potential recurrent or chronic thromboembolic events in the past of which were unknown. No doubt underlying lung disease contributing due to tobacco abuse with emphysematous changes on CT. Patient remains on high-flow nasal cannula with relative hypotension although he is not tachycardic and in no apparent distress at this time. In general, patient is high risk for complications given underlying lung disease, severe RV and RA enlargement in the setting of acute pulmonary embolism. However, he does not have a high bilateral burden or saddle embolus therefore emergent transfer for pulmonary thromboembolectomy questionable. On Eliquis for anticoagulation (3) CVA (cerebral vascular accident): Code(s): I63.9 - Cerebral infarction, unspecified Status: Acute Assessment and Plan: History of chronic stroke left frontal lobe and subacute right occipital lobe without acute bleed. Continue anticoagulation and continue atorvastatin 40 mg at bedtime. At great length we discussed potential etiology for stroke in setting of acute pulmonary embolism. At this time, these are 2 separate events once a generally occurring. However, if interatrial shunt such as PFO and/or ASD identified his stroke may be a function of paradoxical embolus. There is no known or documented history of atrial fibrillation atrial flutter thus far. We will review prior cardiovascular records. Discussed at length patient and his . Repeat limited echo with bubble study to assess for intracardiac shunt. We also discussed potential need for transesophageal echocardiogram once he is do more stable with regards to his hypoxia and stable blood pressure. (4) Acute hypoxic respiratory failure: Code(s): J96.01 - Acute respiratory failure with hypoxia Status: Acute Assessment and Plan: Continue O2 supplementation as warranted. Continue to monitor respiratory status very carefully. Patient high risk for further decompensation and need for intubation although he is feeling better clinically and has been on stable O2 supplementation thus far. This is multifactorial sitting with underlying emphysema and acute pulmonary embolism with probable chronic severe RV enlargement and hypokinesis with evidence of cor pulmonale. (5) Cor pulmonale: Code(s): I27.81 - Cor pulmonale (chronic) Status: Acute Assessment and Plan: As above secondary to pulmonary embolism and and underlying lung disease. (6) Hypotension: Code(s): I95.9 - Hypotension, unspecified Sta
--- NOTE | 2023-09-04 17:06 | PM.IMPN ---
Progress Note: A&P Assessment and Plan (1) CVA (cerebral vascular accident): Code(s): I63.9 - Cerebral infarction, unspecified Status: Acute Assessment and Plan: MRI with acute CVAs, likely cardiogenic with PEs (2) Pulmonary embolism: Qualifiers: Acute cor pulmonale presence: unspecified Chronicity: acute Pulmonary embolism type: unspecified Qualified Code(s): I26.99 - Other pulmonary embolism without acute cor pulmonale Code(s): I26.99 - Other pulmonary embolism without acute cor pulmonale Status: Acute Assessment and Plan: As evidence by CT chest, acute pulmonary embolus in the right middle lobe, moderate emphysema, mild pulmonary edema, chronic right atrial right ventricle enlargement of the heart Initiate systemic anticoagulation with Eliquis after repeat CTH neg hemorrhage Echo pending 09/04: heme onc consult pending, needs hypercoag workup, unprovoked PEs, CTH negative for hemorrhage, initiate heparin drip, transition to eliquis when stable (3) Elevated troponin: Code(s): R79.89 - Other specified abnormal findings of blood chemistry Status: Acute Assessment and Plan: Cardiology consultation appreciated, recommending echo, aspirin 81 mg daily, Lipitor 40 mg daily, no need for ischemic eval Slightly elevated troponin with flattened curve 09/03: echo with bubble pending, appreciate cardio consult (4) Elevated brain natriuretic peptide (BNP) level: Code(s): R79.89 - Other specified abnormal findings of blood chemistry Status: Acute (5) HTN (hypertension): Code(s): I10 - Essential (primary) hypertension Status: Acute Assessment and Plan: Blood pressures reviewed 09/04 (6) Chronic narcotic use: Code(s): F11.90 - Opioid use, unspecified, uncomplicated Status: Acute Assessment and Plan: chronic use of oxycodone HCL (7) Generalized weakness: Code(s): R53.1 - Weakness Status: Acute Assessment and Plan: Multifactorial, likely secondary to neuropathy + CVA Neuro consult, PT/OT Plan continue home medications; gabapentin 300mg po oxycodone HCL IR for chronic pain VTE: Enaxoparin Diet Heart Healthy Code Status: Full Code anticipated hospital stay> 2 days Subjective Date/time seen: 09/04/23 17:06 Interval history: 68-year-old patient presents with acute pulmonary embolism and generalized weakness. No overnight events noted. No chest pain or shortness of breath. No nausea, vomiting or diarrhea. No fevers or chills. Still with numbness in LE. Eager to go home. Review of Systems Review of Systems: 12 point review of systems was assessed and was negative except as noted in the HPI Exam Narrative: General: No acute distress, alert and oriented per baseline HEENT: Atraumatic, normocephalic, mucous membranes moist CV: Regular rate and rhythm, S1, S2 Lungs: Clear to auscultation bilaterally, no rales or crackles noted, no wheezes, good air entry Abdomen: Soft, nontender, nondistended Extremities: Normal to inspection Skin: No rashes noted, no lesions or wounds seen Psych: Euthymic, normal affect Neuro: Cranial nerves 2-12 grossly intact, strength +5/5 upper and lower extremities bilaterally Objective Data Vital Signs Vital Signs: Vital Signs - 24 hr 09/03/23 18:00 09/03/23 20:01 09/03/23 20:00 Temperature 97.6 F Pulse Rate 79 77 Respiratory Rate 16 Blood Pressure 110/59 L Pulse Oximetry 97 97 Oxygen Delivery High Flow Nasal Cannula Oxygen Flow Rate 6 09/03/23 23:57 09/04/23 00:00 09/03/23 20:00 Temperature 97.5 F L Pulse Rate 74 74 Respiratory Rate 16 Blood Pressure 101/60 Pulse Oximetry 95 95 Oxygen Delivery High Flow Nasal Cannula Oxygen Flow Rate 5 09/03/23 22:00 09/04/23 00:00 09/04/23 02:00 Temperature Pulse Rate 79 68 70 Respiratory Rate Blood Pressure P
[2023-09-04 17:54] LABS: Basophils Percent Auto 0.5 % (0.2-1.2); Eosinophils Absolute Auto 0.2 K/mm3 (0-0.3); Eosinophils Percent Auto 3.6 % (0-4.4); Hematocrit 53.9 % (42.0-52.0); Hemoglobin 17.1 g/dL (14.0-18.0); Immature Granulocyte Absolute 0.02 K/mm3 (0.00-0.031); Immature Granulocyte Percent A 0.3 % (0-0.5); Immature Platelet Fraction Pct 5.6 % (0.9-11.2); Lymphocytes Absolute Auto 1.86 K/mm3 (0.9-3.2); Lymphocytes Percent Auto 29.4 % (18.3-44.2); Mean Corpuscular HGB Conc 31.7 g/dl (32-36); Mean Corpuscular Hemoglobin 33.1 pg (26-34); Mean Corpuscular Volume 104.5 fl (80-100); Mean Platelet Volume 11.5 fl (7.4-10.4); Monocytes Absolute Auto 0.5 K/mm3 (0.1-0.6); Monocytes Percent Auto 7.6 % (2.6-8.5); Neutrophils Absolute Auto 3.7 K/mm3 (1.3-6.7); Neutrophils Percent Auto 58.6 % (45.5-73.1); Platelet Count Result 119 k/mm3 (150-375); Red Blood Count 5.16 M/mm3 (4.6-6.20); Red Cell Distribution Width 15.5 % (11.5-14.5); White Blood Count 6.3 K/mm3 (4.5-10.0)
[2023-09-04 18:03] LABS: INR 1.1; Prothrombin Time 14.8 Seconds (11.1-14.7)
[2023-09-04 18:04] LABS: Partial Thromboplastin Time 34.6 SECONDS (22.3-36.8)
[2023-09-04] MEDS: HEPARIN SODIUM 5,000 UNITS/ML VIAL 5500 UNITS IV PUSH (18:08)
[2023-09-04] MEDS: HEPARIN SOD/D5W 100 UNITS/ML 25,000 UNITS/250 ML BAG 12 UNITS IV CONT (18:09)
[2023-09-05] VITALS (15 sets, daily range): BP systolic 96–115; BP diastolic 55–68; PULSE 56–89; RESP 18; TEMP 36.2–36.6; O2SAT 93–99
[2023-09-05 01:06] LABS: Partial Thromboplastin Time > 200.0 SECONDS (22.3-36.8)
[2023-09-05 08:19] LABS: Basophils Percent Auto 0.4 % (0.2-1.2); Eosinophils Absolute Auto 0.2 K/mm3 (0-0.3); Eosinophils Percent Auto 3.7 % (0-4.4); Hematocrit 57.4 % (42.0-52.0); Hemoglobin 18.1 g/dL (14.0-18.0); Immature Granulocyte Absolute 0.01 K/mm3 (0.00-0.031); Immature Granulocyte Percent A 0.2 % (0-0.5); Immature Platelet Fraction Pct 5.7 % (0.9-11.2); Lymphocytes Absolute Auto 1.81 K/mm3 (0.9-3.2); Lymphocytes Percent Auto 37.6 % (18.3-44.2); Mean Corpuscular HGB Conc 31.5 g/dl (32-36); Mean Corpuscular Hemoglobin 32.7 pg (26-34); Mean Corpuscular Volume 103.8 fl (80-100); Mean Platelet Volume 10.6 fl (7.4-10.4); Monocytes Absolute Auto 0.4 K/mm3 (0.1-0.6); Monocytes Percent Auto 8.1 % (2.6-8.5); Neutrophils Absolute Auto 2.4 K/mm3 (1.3-6.7); Red Blood Count 5.53 M/mm3 (4.6-6.20); Red Cell Distribution Width 15.4 % (11.5-14.5); White Blood Count 4.8 K/mm3 (4.5-10.0)
[2023-09-05 08:26] LABS: Platelet Count Result 111 k/mm3 (150-375)
[2023-09-05 08:31] LABS: Partial Thromboplastin Time 88.9 SECONDS (22.3-36.8)
[2023-09-05 08:32] LABS: Potassium 4.1 mmol/L (3.4-5.0)
[2023-09-05 08:38] LABS: Alanine Aminotransferase 10 U/L (6-50); Albumin Level 3.4 g/dL (3.5-5.1); Alkaline Phosphatase 59 U/L (38-126); Anion Gap 4 mmol/L (8-16); Aspartate Amino Transferase 22 U/L (17-59); Bilirubin,Total 2.4 mg/dL (0.2-1.3); Blood Urea Nitrogen 20 mg/dL (9-20); Calcium 8.2 mg/dL (8.4-10.2); Carbon Dioxide 32 mmol/L (22-30); Chloride 101 mmol/L (98-107); Estimated CRCL calculation 83 ml/min; Estimated Glomerular Filt Rate > 60; Glucose 92 mg/dL (65-110); Sodium 137 mmol/L (137-145)
[2023-09-05] MEDS: ATORVASTATIN 40 MG TABLET PO (09:16)
--- NOTE | 2023-09-05 10:07 | PM.IMPN ---
Progress Note: A&P Assessment and Plan (1) CVA (cerebral vascular accident): Code(s): I63.9 - Cerebral infarction, unspecified Status: Acute Assessment and Plan: MRI with acute CVAs, likely cardiogenic with PEs Echo noted, no PFO, right heart strain noted, mild pulm HTN, EF 60-65%, grade I diastolic dysfunction (2) Pulmonary embolism: Qualifiers: Acute cor pulmonale presence: unspecified Chronicity: acute Pulmonary embolism type: unspecified Qualified Code(s): I26.99 - Other pulmonary embolism without acute cor pulmonale Code(s): I26.99 - Other pulmonary embolism without acute cor pulmonale Status: Acute Assessment and Plan: As evidence by CT chest, acute pulmonary embolus in the right middle lobe, moderate emphysema, mild pulmonary edema, chronic right atrial right ventricle enlargement of the heart Initiate systemic anticoagulation with Eliquis after repeat CTH neg hemorrhage Echo pending 09/04: heme onc consult pending, needs hypercoag workup, unprovoked PEs, CTH negative for hemorrhage, initiate heparin drip, transition to eliquis when stable 09/05: cont heparin drip, await heme onc consult, will d/c on eliquis, need to wean O2, still on 5L hi elias (3) Elevated troponin: Code(s): R79.89 - Other specified abnormal findings of blood chemistry Status: Acute Assessment and Plan: Cardiology consultation appreciated, recommending echo, aspirin 81 mg daily, Lipitor 40 mg daily, no need for ischemic eval Slightly elevated troponin with flattened curve see above (4) Elevated brain natriuretic peptide (BNP) level: Code(s): R79.89 - Other specified abnormal findings of blood chemistry Status: Acute (5) HTN (hypertension): Code(s): I10 - Essential (primary) hypertension Status: Acute Assessment and Plan: Blood pressures reviewed 09/05 (6) Chronic narcotic use: Code(s): F11.90 - Opioid use, unspecified, uncomplicated Status: Acute Assessment and Plan: chronic use of oxycodone HCL (7) Generalized weakness: Code(s): R53.1 - Weakness Status: Acute Assessment and Plan: Multifactorial, likely secondary to neuropathy + CVA Neuro consult, PT/OT Plan continue home medications; gabapentin 300mg po oxycodone HCL IR for chronic pain VTE: Enaxoparin Diet Heart Healthy Code Status: Full Code anticipated hospital stay> 2 days Subjective Date/time seen: 09/05/23 10:07 Interval history: 68-year-old patient presents with acute pulmonary embolism and generalized weakness. No overnight events noted. No chest pain or shortness of breath. No nausea, vomiting or diarrhea. No fevers or chills. Still with numbness in LE. Eager to go home. Unable to wean off 5L hi elias. Review of Systems Review of Systems: 12 point review of systems was assessed and was negative except as noted in the HPI Exam Narrative: General: No acute distress, alert and oriented per baseline HEENT: Atraumatic, normocephalic, mucous membranes moist CV: Regular rate and rhythm, S1, S2 Lungs: Slightly diminished at bases, no wheeze or crackles noted Abdomen: Soft, nontender, nondistended Extremities: Normal to inspection Skin: No rashes noted, no lesions or wounds seen Psych: Euthymic, normal affect Neuro: Cranial nerves 2-12 grossly intact, strength +5/5 upper and lower extremities bilaterally Objective Data Vital Signs Vital Signs: Vital Signs - 24 hr 09/04/23 11:43 09/04/23 12:42 09/04/23 15:48 Temperature 98.7 F 97.6 F Pulse Rate 64 62 Respiratory Rate 18 18 Blood Pressure 89/51 L 91/61 L Pulse Oximetry 92 95 Oxygen Delivery High Flow Nasal Cannula Oxygen Flow Rate 6 09/04/23 12:00 09/04/23 14:00 09/04/23 16:00 Temperature Pulse Rate 68 62 62 Respiratory Rate Blood Pressure Pulse Oximetry Oxygen Delivery Oxygen Flow Rate
--- NOTE | 2023-09-05 11:17 | PDONCCN ---
HPI - Date of Consult Date/Time: 09/05/23 16:38 <SalvadorFelixpriscilla Joaquin - 09/05/23 16:40> 09/05/23 11:17 <Mady Carson - 09/05/23 11:20> Requesting Physician: Karuna Telles MD <Felix Franco - 09/05/23 16:40> Karuna Telles MD <Mady Carson - 09/05/23 11:20> Primary Care Provider: Paulo Stephens MD <Felix Franco - 09/05/23 16:40> Paulo Stephens MD <Mady Carson - 09/05/23 11:20> - Consult Narrative Reason for consult: Pulmonary Embolism <Mady Carson 09/05/23 11:20> Narrative: Carlo Hernandez is a 68 year old male <SalvadorFelixpriscilla Joaquin - 09/05/23 16:40> Carlo Hernandez is a 68 year old male with a past medical history of HTN, neuropathy, and chronic pain using a pain pump. He wad admitted to the hospital for shortness of breath and weakness. He has alot of neuropathy in his legs and have been trialing different medications. He states he stayed in the bed for 11 days straight and slept most of the time due to one of the medications that he was given. He denies any prolonged travel, surgery, or hormone use. Brain MRI findings show acute infarcts in the medial and right temporal occipital lobe w/ smaller infarcts in the R thalamus. Also shown is chronic infarcts. CT PE showing PE in the middle lobes, emphysema, and pulmonary edema. His head CTA is negative for hemorrhage. He was put on a heparin drip 09/04. He reports shortness of breath, fatigue, and weakness. He is on 6L oxygen. He is not on oxygen at baseline. <Mady Carson 09/05/23 11:27> Review of Systems - Review of Systems All systems reviewed & are unremarkable except as noted in HPI and bel <Mady Carson 09/05/23 11:24> - Cardiovascular Reports shortness of breath <Mady Carson 09/05/23 11:24> - Neurologic Reports system reviewed and no additional complaints, except as documented <Praful Carsonne - 09/05/23 11:20> [facility] Medical History: Medical History (Last Reviewed 09/02/23 @ 14:25 by Sabas Gonsalez MD) Cervical vertebral fusion Chronic back pain pain pump insertion Chronic narcotic use Colon ulcer Colonic mass HTN (hypertension) Positive colorectal cancer screening using Cologuard test <SalvadorFelixFrancisco - 09/05/23 16:40> Medical History (Last Reviewed 09/02/23 @ 14:25 by Sabas Gonsalez MD) Cervical vertebral fusion Chronic back pain pain pump insertion Chronic narcotic use Colon ulcer Colonic mass HTN (hypertension) Positive colorectal cancer screening using Cologuard test <NabormaddisonCuateMady - 09/05/23 11:20> Surgical History: Surgical History (Last Reviewed 09/02/23 @ 14:25 by Sabas Gonsalez MD) S/P cervical spinal fusion <SalvadorFelix Jemal - 09/05/23 16:40> Surgical History (Last Reviewed 09/02/23 @ 14:25 by Sabas Gonsalez MD) S/P cervical spinal fusion <NabormaddisonMady - 09/05/23 11:20> Family History: Family History (Last Reviewed 09/02/23 @ 14:25 by Sabas Gonsalez MD) Mother Father <Felix FrancoFrancisco - 09/05/23 16:40> Family History (Last Reviewed 09/02/23 @ 14:25 by Sabas Gonsalez MD) Mother Father <NaborMady washburn - 09/05/23 11:20> - Social History Social History: Social History (Last Reviewed 09/02/23 @ 14:25 by Sabas Gonsalez MD) Alcohol Use: Alcohol intake: never Substance Use: Substance use: never Substance use type: does not use Others: Spiritual care concerns: No Living Arrangements: Living arrangements: with family Smoking Status: Smoking status: Current every day smoker Tobacco type: cigarettes Smoking Pack-years: Smoking packs per day: 1 Smoking cigarettes per day: 20.0 Years smoked: 50 Smoking pack-years: 50.00 Social Determinants of Health: Do You Feel Safe in your Home?: Yes Has the Lack of
--- NOTE | 2023-09-05 12:43 | PM.CNPUL ---
Assessment and Plan Assessment and plan (1) Generalized weakness: Code(s): R53.1 - Weakness Status: Acute (2) Acute hypoxic respiratory failure: Code(s): J96.01 - Acute respiratory failure with hypoxia Status: Acute (3) Pulmonary embolism: Qualifiers: Acute cor pulmonale presence: unspecified Chronicity: acute Pulmonary embolism type: unspecified Qualified Code(s): I26.99 - Other pulmonary embolism without acute cor pulmonale Code(s): I26.99 - Other pulmonary embolism without acute cor pulmonale Status: Acute Assessment and Plan: A 68-year-old male patient, with a long history of smoking, presented with worsening lower extremity weakness. He has a history of moderate centrilobular emphysema, as confirmed by chest CT, chronic lower extremity edema, polycythemia, and has been on chronic opiate therapy for pain management. He also has a history of polyneuropathy, which has resulted in chronic lower extremity weakness. His worsening weakness was not accompanied by chest pain, palpitations, hemoptysis, or syncope. Two weeks prior to his admission, he was found to have hypotension, leading to adjustments in his antihypertensive and neuropathy medications. A CT Pulmonary Angiogram (CT PA) revealed a pulmonary embolism in the right middle lobe. Additionally, mild pulmonary edema was noted, particularly in the upper lobes, as indicated by increased interlobular septa and light ground-glass infiltrates. Further evaluations, including a chest CT and echocardiogram, revealed severe enlargement of the right atrium and ventricle, and mild pulmonary hypertension at 36 mmHg. An acute stroke was also diagnosed via brain MRI. He had no lower extremity thrombi by ultrasonography. The patient has been managed with IV heparin and has remained hemodynamically stable since admission. He has shown no evidence of lower extremity thrombi and his clinical condition has improved. He has not reported shortness of breath, hemoptysis, or palpitations, and his lower extremity edema appears to be improving. A careful review of the CT PA showed a small pulmonary embolism partially occluding one of the middle lobe arteries. There were no blood clots in the proximal pulmonary arteries, in the remaining right lung, or in the left lung. The severe enlargement of the right ventricle appears to be chronic in nature. The hypoxemia and elevated NT proBNP could be partially attributed to left ventricular dysfunction. Mild pulmonary edema was also noted on the chest CT, as indicated by increased interlobular septa. The chronic right ventricular dysfunction and mildly elevated pulmonary artery systolic pressure on the echocardiogram could potentially be related to chronic nocturnal hypoxemia due to his moderate emphysema and chronic opioid use, which may result in nocturnal hypoventilation during sleep. The patient also has thoracic scoliosis, which may have contributed to nocturnal hypoxemia. The presence of polycythemia and chronic lower extremity edema suggest chronic nocturnal hypoxemia leading to pulmonary hypertension and right ventricular dysfunction. Chronic thromboembolic pulmonary hypertension is another possibility that needs to be ruled out via a V/Q scan. The patient remains hemodynamically stable on oxygen and IV heparin. The plan is to transition the patient to an oral direct anticoagulant, such as Eliquis 10 mg b.i.d, if not contraindicated given his recent acute stroke. A V/Q scan and ApneaLink study will be conducted prior to discharge. (4) Chronic narcotic use: Code(s): F11.90 - Opioid use, unspecified, uncomplicated Status: Acute (5) HTN (hypertension): Code(s): I10 - Essential (primary) hypertension Status: Acute (6) Tobacco abuse: Code(s): Z72.0 - Tobacco use Status: Acute (7) Cor pulmonale: Code(s): I27.81 - Cor pulmonale (chronic) Status: Acute (8) CVA (cerebral v
[2023-09-05 14:31] LABS: Partial Thromboplastin Time 71.5 SECONDS (22.3-36.8)
[2023-09-05] MEDS: HEPARIN SOD/D5W 100 UNITS/ML 25,000 UNITS/250 ML BAG 10 UNITS IV CONT (16:51)
[2023-09-05] MEDS: MIRTAZAPINE 15 MG TABLET PO (20:42)
[2023-09-06] VITALS (19 sets, daily range): BP systolic 91–119; BP diastolic 51–98; PULSE 55–85; RESP 12–18; TEMP 36.5–36.9; O2SAT 82–97
[2023-09-06 04:43] LABS: Basophils Percent Auto 0.6 % (0.2-1.2); Eosinophils Absolute Auto 0.2 K/mm3 (0-0.3); Eosinophils Percent Auto 3.9 % (0-4.4); Hematocrit 50.9 % (42.0-52.0); Hemoglobin 16.2 g/dL (14.0-18.0); Immature Granulocyte Absolute 0.01 K/mm3 (0.00-0.031); Immature Granulocyte Percent A 0.2 % (0-0.5); Immature Platelet Fraction Pct 6.2 % (0.9-11.2); Lymphocytes Absolute Auto 2.26 K/mm3 (0.9-3.2); Lymphocytes Percent Auto 43.7 % (18.3-44.2); Mean Corpuscular HGB Conc 31.8 g/dl (32-36); Mean Corpuscular Hemoglobin 32.3 pg (26-34); Mean Corpuscular Volume 101.4 fl (80-100); Mean Platelet Volume 10.6 fl (7.4-10.4); Monocytes Absolute Auto 0.4 K/mm3 (0.1-0.6); Monocytes Percent Auto 8.1 % (2.6-8.5); Neutrophils Absolute Auto 2.3 K/mm3 (1.3-6.7); Neutrophils Percent Auto 43.5 % (45.5-73.1); Platelet Count Result 107 k/mm3 (150-375); Red Blood Count 5.02 M/mm3 (4.6-6.20); White Blood Count 5.2 K/mm3 (4.5-10.0)
[2023-09-06 04:52] LABS: Alanine Aminotransferase 9 U/L (6-50); Albumin Level 2.9 g/dL (3.5-5.1); Alkaline Phosphatase 54 U/L (38-126); Anion Gap 0 mmol/L (8-16); Aspartate Amino Transferase 19 U/L (17-59); Bilirubin,Total 2.2 mg/dL (0.2-1.3); Blood Urea Nitrogen 18 mg/dL (9-20); Carbon Dioxide 31 mmol/L (22-30); Chloride 102 mmol/L (98-107); Estimated CRCL calculation 83 ml/min; Estimated Glomerular Filt Rate > 60; Glucose 88 mg/dL (65-110); Potassium 4.2 mmol/L (3.4-5.0); Sodium 133 mmol/L (137-145)
[2023-09-06 04:55] LABS: Partial Thromboplastin Time 107.2 SECONDS (22.3-36.8)
[2023-09-06] MEDS: ATORVASTATIN 40 MG TABLET PO (09:03)
--- NOTE | 2023-09-06 09:59 | P.CDI_ITS ---
CDI Query Clarification Request HF noted in the documentation. Elevated BNP on 09/01/23 lab work. Chronic LE edema noted in the documentation. 09/02/23 Echo notes EF 60-65%. Please specify type and acuity of heart failure if known. * Acute * Chronic * Acute on Chronic * Unknown * Systolic * Diastolic * Combined Systolic and Diastolic * Unknown <Tia Farrar RN - Last Filed: 09/06/23 10:03> Clarified Diagnosis Clarified Diagnosis: Acute on chronic diastolic heart failure exacerbation <Delilah Mora DO - Last Filed: 09/09/23 13:54>
[2023-09-06 11:42] LABS: Partial Thromboplastin Time 66.2 SECONDS (22.3-36.8)
[2023-09-06] MEDS: HEPARIN SODIUM 5,000 UNITS/ML VIAL 1500 UNITS IV PUSH (12:35)
--- NOTE | 2023-09-06 13:42 | PM.PNPUL ---
Progress Note: A&P Assessment and Plan (1) Cor pulmonale: Code(s): I27.81 - Cor pulmonale (chronic) Status: Acute (2) Acute hypoxic respiratory failure: Code(s): J96.01 - Acute respiratory failure with hypoxia Status: Acute (3) Pulmonary embolism: Qualifiers: Acute cor pulmonale presence: unspecified Chronicity: acute Pulmonary embolism type: unspecified Qualified Code(s): I26.99 - Other pulmonary embolism without acute cor pulmonale Code(s): I26.99 - Other pulmonary embolism without acute cor pulmonale Status: Acute Assessment and Plan: A 68-year-old male patient with a history of smoking, moderate centrilobular emphysema, chronic lower extremity edema, polycythemia, and polyneuropathy presented with worsening lower extremity weakness. He had no accompanying chest pain, palpitations, hemoptysis, or syncope. Hypotension was noted two weeks prior, leading to medication adjustments. A CT Pulmonary Angiogram revealed a pulmonary embolism in the right middle lobe and mild pulmonary edema. Further evaluations showed severe enlargement of the right atrium and ventricle, mild pulmonary hypertension, and an acute stroke. No lower extremity thrombi were found. A small pulmonary embolism was found partially occluding a middle lobe artery, but no blood clots were found in the proximal pulmonary arteries or in the left lung. The severe right ventricular enlargement appears chronic, and hypoxemia and elevated NT proBNP could be due to left ventricular dysfunction.The patient has been stable with IV heparin treatment,stable and improved clinical condition. The chronic right ventricular dysfunction and mildly elevated pulmonary artery systolic pressure could be related to chronic nocturnal hypoxemia due to moderate emphysema and chronic opioid use, potentially causing nocturnal hypoventilation. Thoracic scoliosis may also contribute to nocturnal hypoxemia. Polycythemia and chronic lower extremity edema suggest chronic nocturnal hypoxemia leading to pulmonary hypertension and right ventricular dysfunction. Chronic thromboembolic pulmonary hypertension is another possibility. The patient remains stable on oxygen and IV heparin. Regarding the oxyhemoglobin desaturation during sleep will proceed with ApneaLink tonight. Case was discussed with the patient's hospitalist. (4) Chronic narcotic use: Code(s): F11.90 - Opioid use, unspecified, uncomplicated Status: Acute Subjective Date/time seen: 09/06/23 13:42 Interval history: Patient has no new respiratory symptoms. Remains on oxygen via nasal cannula. Found by RN to have low O2 sat when asleep. No change in oxygen saturation when awake. Patient has no shortness of breath. Review of Systems Review of Systems: All systems reviewed & are unremarkable except as noted in HPI and below (HPI and below) Exam Narrative: GENERAL APPEARANCE: Well developed, well nourished, alert and cooperative, and appears to be in no acute distress while on supplemental oxygen SKIN: Inspection of the skin reveals no rashes, ulcerations or petechiae. HEENT: Sclerae anicteric and conjunctivae pink and moist. Extraocular movements were intact and pupils were equal, round, and reactive to light. The oral mucosa, hard and soft palate, tongue and posterior pharynx were normal. NECK: Supple. There was no thyroid enlargement, and no tenderness, or masses were felt. JVD present LUNGS: Distant breath sounds bilaterally no wheezing CARDIAC: There was a regular rate and rhythm without any murmurs, gallops, rubs. Loud 2nd sound ABDOMEN: Soft and nontender with normal bowel sounds. There was no organomegaly. LYMPH NODES: No lymphadenopathy was appreciated in the neck EXTREMITIES: No cyanosis. Lower extremity edema 1+, mild clubbing upper extremities. NEUROLOGIC: Alert and oriented x 3. Normal affect. Objective Data Vital Signs Vital Signs: Vital Signs - 24 hr
[2023-09-06] MEDS: FUROSEMIDE INJ 40 MG/4 ML VIAL IV PUSH (15:22)
[2023-09-06] MEDS: APIXABAN 5 MG TABLET 10 MG PO ×2 (15:22→20:18)
--- NOTE | 2023-09-06 19:35 | PM.IMPN ---
Progress Note: A&P Assessment and Plan (1) CVA (cerebral vascular accident): Code(s): I63.9 - Cerebral infarction, unspecified Status: Acute Assessment and Plan: MRI with acute CVAs, likely cardiogenic with PEs Echo noted, no PFO, right heart strain noted, mild pulm HTN, EF 60-65%, grade I diastolic dysfunction (2) Pulmonary embolism: Qualifiers: Acute cor pulmonale presence: unspecified Chronicity: acute Pulmonary embolism type: unspecified Qualified Code(s): I26.99 - Other pulmonary embolism without acute cor pulmonale Code(s): I26.99 - Other pulmonary embolism without acute cor pulmonale Status: Acute Assessment and Plan: As evidence by CT chest, acute pulmonary embolus in the right middle lobe, moderate emphysema, mild pulmonary edema, chronic right atrial right ventricle enlargement of the heart Initiate systemic anticoagulation with Eliquis after repeat CTH neg hemorrhage Echo pending 09/04: heme onc consult pending, needs hypercoag workup, unprovoked PEs, CTH negative for hemorrhage, initiate heparin drip, transition to eliquis when stable 09/05: cont heparin drip, await heme onc consult, will d/c on eliquis, need to wean O2, still on 5L hi elias 09/06: transition to oral a/c (3) Elevated troponin: Code(s): R79.89 - Other specified abnormal findings of blood chemistry Status: Acute Assessment and Plan: Cardiology consultation appreciated, recommending echo, aspirin 81 mg daily, Lipitor 40 mg daily, no need for ischemic eval Slightly elevated troponin with flattened curve see above (4) Elevated brain natriuretic peptide (BNP) level: Code(s): R79.89 - Other specified abnormal findings of blood chemistry Status: Acute (5) HTN (hypertension): Code(s): I10 - Essential (primary) hypertension Status: Acute Assessment and Plan: Blood pressures reviewed 09/06 (6) Chronic narcotic use: Code(s): F11.90 - Opioid use, unspecified, uncomplicated Status: Acute Assessment and Plan: chronic use of oxycodone HCL (7) Generalized weakness: Code(s): R53.1 - Weakness Status: Acute Assessment and Plan: Multifactorial, likely secondary to neuropathy + CVA Neuro consult, PT/OT Plan continue home medications; gabapentin 300mg po oxycodone HCL IR for chronic pain VTE: Enaxoparin Diet Heart Healthy Code Status: Full Code anticipated hospital stay> 2 days Subjective Date/time seen: 09/06/23 19:35 Interval history: 68-year-old patient presents with acute pulmonary embolism and generalized weakness. No overnight events noted. No chest pain or shortness of breath. No nausea, vomiting or diarrhea. No fevers or chills. Eager to go home. Review of Systems Review of Systems: 12 point review of systems was assessed and was negative except as noted in the HPI Exam Narrative: General: No acute distress, alert and oriented per baseline HEENT: Atraumatic, normocephalic, mucous membranes moist CV: Regular rate and rhythm, S1, S2 Lungs: Slightly diminished at bases, no wheeze or crackles noted Abdomen: Soft, nontender, nondistended Extremities: Normal to inspection, 1+ pitting edema B/L LE Skin: No rashes noted, no lesions or wounds seen Psych: Euthymic, normal affect Neuro: Cranial nerves 2-12 grossly intact, strength +5/5 upper and lower extremities bilaterally Objective Data Vital Signs Vital Signs: Vital Signs - 24 hr 09/05/23 19:44 09/05/23 20:00 09/05/23 20:00 Temperature 97.8 F Pulse Rate 65 65 65 Respiratory Rate 18 18 Blood Pressure 99/57 L Pulse Oximetry 99 99 Oxygen Delivery Nasal Cannula Oxygen Flow Rate 3 Fraction of Inspired Oxygen 09/05/23 21:50 09/05/23 23:39 09/06/23 00:00 Temperature 97.1 F L Pulse Rate 66 58 L 57 L Respiratory Rate 18 Blood Pressure 99/68 L Pulse Oximetry 97 Oxygen De
[2023-09-06] MEDS: MIRTAZAPINE 15 MG TABLET PO (20:19)
[2023-09-06 23:59] LABS: Heparin Induced Platelet Antib Negative (Negative)
[2023-09-07] VITALS (15 sets, daily range): BP systolic 95–110; BP diastolic 54–61; PULSE 62–78; RESP 18–20; TEMP 36.4–36.6; O2SAT 92–98
[2023-09-07 06:53] LABS: Basophils Percent Auto 0.5 % (0.2-1.2); Eosinophils Absolute Auto 0.2 K/mm3 (0-0.3); Hematocrit 55.1 % (42.0-52.0); Hemoglobin 17.8 g/dL (14.0-18.0); Immature Granulocyte Absolute 0.01 K/mm3 (0.00-0.031); Immature Granulocyte Percent A 0.2 % (0-0.5); Immature Platelet Fraction Pct 6.4 % (0.9-11.2); Lymphocytes Absolute Auto 1.89 K/mm3 (0.9-3.2); Lymphocytes Percent Auto 34.2 % (18.3-44.2); Mean Corpuscular HGB Conc 32.3 g/dl (32-36); Mean Corpuscular Hemoglobin 32.6 pg (26-34); Mean Corpuscular Volume 100.9 fl (80-100); Mean Platelet Volume 10.4 fl (7.4-10.4); Monocytes Absolute Auto 0.5 K/mm3 (0.1-0.6); Monocytes Percent Auto 9.1 % (2.6-8.5); Neutrophils Absolute Auto 2.9 K/mm3 (1.3-6.7); Platelet Count Result 114 k/mm3 (150-375); Red Blood Count 5.46 M/mm3 (4.6-6.20); Red Cell Distribution Width 14.9 % (11.5-14.5); White Blood Count 5.5 K/mm3 (4.5-10.0)
[2023-09-07 07:02] LABS: Alanine Aminotransferase 11 U/L (6-50); Albumin Level 3.1 g/dL (3.5-5.1); Alkaline Phosphatase 59 U/L (38-126); Anion Gap 3 mmol/L (8-16); Aspartate Amino Transferase 23 U/L (17-59); Blood Urea Nitrogen 17 mg/dL (9-20); Calcium 8.2 mg/dL (8.4-10.2); Carbon Dioxide 36 mmol/L (22-30); Chloride 98 mmol/L (98-107); Estimated CRCL calculation 86 ml/min; Estimated Glomerular Filt Rate > 60; Glucose 85 mg/dL (65-110); Potassium 3.9 mmol/L (3.4-5.0); Sodium 137 mmol/L (137-145)
[2023-09-07] MEDS: APIXABAN 5 MG TABLET 10 MG PO ×2 (08:58→20:45)
[2023-09-07] MEDS: ATORVASTATIN 40 MG TABLET PO (09:00)
--- NOTE | 2023-09-07 09:32 | PCNWS ---
Weekly nutritional screen. Patient is tolerating current diet with adequate intake. No weight loss reported. No nutritional needs at this time.
[2023-09-07 09:33] LABS: Folic Acid 15.5 ng/mL (2.76->20)
[2023-09-07 09:41] LABS: Alveolar/Arterial O2 Gradient 107.3 mmHg; Fractional Inspired Oxygen 32 %; HCO3 ABG 34.2 mEq/l (22.0-26.0); Oxygen Saturation ABG 88.1 % (95.0-100.0); PCO2 ABG 56.3 mmHg (35.0-45.0); PO2 FiO2 Ratio Arterial Blood 1.72 %; Total Hemoglobin 17.9 g/dL (12.0-18.0); pH ABG 7.401 (7.350-7.450)
[2023-09-07 09:52] LABS: Device NASAL CANNULA; Modified Allen's Test Pass; Oxyhemoglobin 87.6 % THb (90.0-100.0); Site Drawn LEFT RADIAL
--- NOTE | 2023-09-07 09:57 | PM.PNPUL ---
Progress Note: A&P Assessment and Plan (1) Cor pulmonale: Code(s): I27.81 - Cor pulmonale (chronic) Status: Acute (2) Acute hypoxic respiratory failure: Code(s): J96.01 - Acute respiratory failure with hypoxia Status: Acute (3) Pulmonary embolism: Qualifiers: Acute cor pulmonale presence: unspecified Chronicity: acute Pulmonary embolism type: unspecified Qualified Code(s): I26.99 - Other pulmonary embolism without acute cor pulmonale Code(s): I26.99 - Other pulmonary embolism without acute cor pulmonale Status: Acute Assessment and Plan: A 68-year-old male patient with a history of smoking, moderate centrilobular emphysema, chronic lower extremity edema, polycythemia, and polyneuropathy presented with worsening lower extremity weakness. He had no accompanying chest pain, palpitations, hemoptysis, or syncope. Hypotension was noted two weeks prior, leading to medication adjustments. A CT Pulmonary Angiogram revealed a pulmonary embolism in the right middle lobe and mild pulmonary edema. Further evaluations showed severe enlargement of the right atrium and ventricle, mild pulmonary hypertension, and an acute stroke. No lower extremity thrombi were found. A small pulmonary embolism was found partially occluding a middle lobe artery, but no blood clots were found in the proximal pulmonary arteries or in the left lung. The severe right ventricular enlargement appears chronic, and hypoxemia and elevated NT proBNP could be due to left ventricular dysfunction.The patient has been stable with IV heparin treatment,stable and improved clinical condition. The chronic right ventricular dysfunction and mildly elevated pulmonary artery systolic pressure could be related to chronic nocturnal hypoxemia due to moderate emphysema and chronic opioid use, potentially causing nocturnal hypoventilation. Medications given intrathecally through the IV pump include hydromorphone 4,028 mcg per day, Bupivacaine 1879 mcg/day, and Clonidine 69.56 mcg/day. In addition the patient was on oxycodone orally for neck pain. Intrathecal opiates are known to cause respiratory depression with blunting of respiratory response to hypoxia. Thoracic scoliosis may also contribute to nocturnal hypoxemia. Polycythemia and chronic lower extremity edema suggest chronic nocturnal hypoxemia leading to pulmonary hypertension and right ventricular dysfunction. Chronic thromboembolic pulmonary hypertension is another possibility, less likely. Patient underwent ApneaLink study on just 3 liters/minute last night. Overall his oxyhemoglobin saturation was not significantly diminished overnight. Oxyhemoglobin saturation of less than 88% lasted for approximately 5 minutes totally. Average respiratory rate was around 13 breaths per minute. Plan; will continue with current regimen. Patient will be switched to direct anticoagulant for pulmonary embolism prior to DC home. Have added nebulized short-acting bronchodilators for p.r.n. use. Will consider adding LABA/LAMA bronchodilator for daily use upon DC home. Patient will continue with supplemental oxygen at home and will need home oxygen evaluation prior to DC home. He tolerated IV Lasix yesterday with no drop in his blood pressure. (4) Chronic narcotic use: Code(s): F11.90 - Opioid use, unspecified, uncomplicated Status: Acute Subjective Date/time seen: 09/07/23 09:57 Interval history: Patient has no new respiratory symptoms although earlier today was found to have a low oxyhemoglobin desaturation. According to critical care nurse patient was able to cough up mucus with significant improvement of his oxyhemoglobin saturation. He has no change in his shortness of breath no new wheezing. His lower extremity edema has significantly decreased. Patient underwent ApneaLink last night on supplemental oxygen 3 liters/minute. He has no history of treatment with home oxygen. Review of Sy
[2023-09-07 12:20] LABS: Erythropoietin (EPO) 15.9 mIU/mL (2.6-18.5)
--- NOTE | 2023-09-07 14:03 | PM.IMPN ---
Progress Note: A&P Assessment and Plan (1) Acute hypoxic respiratory failure: Code(s): J96.01 - Acute respiratory failure with hypoxia Status: Acute Assessment and Plan: Patient with GNW and found to be hypoxic. [place] related to cor pulmonale. Intrathecal opiates can cause respiratory depression as well. Patient with hx of tobacco abuse and moderate emphysema by CT. Apnea link on 3L showing AHI 11 and RI 14. ABG showing 7.40/56/55 on 3L. Appreciate pulmonary input Wean o2 as toerlated. (2) CVA (cerebral vascular accident): Code(s): I63.9 - Cerebral infarction, unspecified Status: Acute Assessment and Plan: Patient presents with genrealizd weakness. Head and Neck CTA showing no significant vascular abnormalilites MRI with multiple, acute CVAs (largest in the medial right temporal occipital region with smaller infarcts at the right thalamus, posterior limb of the right internal capsule and posterior left frontal lobe) likely cardiogenic Echo showing EF 60-65%, grade I diastolic dysfunction, RV systolic function severely reduces with possible Hardin sign. Also with RV pressure and volume overload. Neuro consulted and appreciate their input. Lipitor added. Add baby ASA? (3) Pulmonary embolism: Qualifiers: Acute cor pulmonale presence: unspecified Chronicity: acute Pulmonary embolism type: unspecified Qualified Code(s): I26.99 - Other pulmonary embolism without acute cor pulmonale Code(s): I26.99 - Other pulmonary embolism without acute cor pulmonale Status: Acute Assessment and Plan: CT chest showing moderate emphysema, mild pulmonary edema and acute PE RML. Also with chronic RA and RV enlargement. Echo as above and concerning for PE. Systemic anticoagulation started. Imaging showing was negative for cerebral hemorrhage Heme onc consulted and appreciate their input. Heparin drip transtioned to Eliquis. Care coordination to assess cost. (4) Elevated troponin: Code(s): R79.89 - Other specified abnormal findings of blood chemistry Status: Acute Assessment and Plan: Troponin up to 0.13 but flat. Cardiology consultation appreciated. Echo as above. EKG showing NSR with possible evience of old infarcts. Aspirin ordered but now stopped. Lipitor 40 mg daily added No plan for ischemic eval (5) Elevated brain natriuretic peptide (BNP) level: Code(s): R79.89 - Other specified abnormal findings of blood chemistry Status: Acute Assessment and Plan: BNP 82308 but could be related to the CVA. BNP elevation area ssociated with cardioembolic stroke mainly from ATrial Fib. lasix given once yesterday with good UOP. LE edema noted but felt more likely related to cor pulmonale. Echo as above. (6) HTN (hypertension): Code(s): I10 - Essential (primary) hypertension Status: Acute Assessment and Plan: Patient's blood pressure was reviewed on 09/07 Blood pressure soft at times but stable Will continue to monitor (7) Chronic narcotic use: Code(s): F11.90 - Opioid use, unspecified, uncomplicated Status: Acute Assessment and Plan: chronic use of oxycodone HCL and has pain pump in place. His gabapentin was ordered but he was refusing this. Mirtazapine has been resumed Monitor (8) Generalized weakness: Code(s): R53.1 - Weakness Status: Acute Assessment and Plan: Multifactorial, likely secondary to neuropathy + CVA Continue PT OT. (9) Tobacco abuse: Code(s): Z72.0 - Tobacco use Status: Acute Assessment and Plan: Patient was educated about the benefits of smoking cessation. Plan DVT prophylaxis -Eliquis Code Status: Full Code Patient has been accepted at [facility] with plans for discharge tomorrow. Subjective Date/time seen: 09/07/23 14:03 Interval history: 68-year-old patient presents with acute pulmonary embolism and gen
[2023-09-07] MEDS: MIRTAZAPINE 15 MG TABLET PO (20:45)
[2023-09-08] VITALS (15 sets, daily range): BP systolic 113–135; BP diastolic 60–88; PULSE 59–87; RESP 16–20; TEMP 36.4–37; O2SAT 90–98
[2023-09-08 04:59] LABS: Hematocrit 52.9 % (42.0-52.0); Hemoglobin 17.6 g/dL (14.0-18.0); Mean Corpuscular HGB Conc 33.3 g/dl (32-36); Mean Corpuscular Hemoglobin 33.1 pg (26-34); Mean Corpuscular Volume 99.4 fl (80-100); Mean Platelet Volume 10.7 fl (7.4-10.4); Platelet Count Result 131 k/mm3 (150-375); Red Blood Count 5.32 M/mm3 (4.6-6.20); Red Cell Distribution Width 14.5 % (11.5-14.5); White Blood Count 5.8 K/mm3 (4.5-10.0)
[2023-09-08 05:13] LABS: Anion Gap 2 mmol/L (8-16); Blood Urea Nitrogen 15 mg/dL (9-20); Calcium 8.6 mg/dL (8.4-10.2); Carbon Dioxide 39 mmol/L (22-30); Chloride 96 mmol/L (98-107); Estimated CRCL calculation 87 ml/min; Estimated Glomerular Filt Rate > 60; Glucose 94 mg/dL (65-110); Potassium 4.4 mmol/L (3.4-5.0); Sodium 137 mmol/L (137-145)
[2023-09-08] MEDS: ATORVASTATIN 40 MG TABLET PO (08:23)
[2023-09-08] MEDS: APIXABAN 5 MG TABLET 10 MG PO ×2 (08:23→19:59)
--- NOTE | 2023-09-08 08:50 | PCRCNOTE ---
Home [facility] unit is being arranged with [employer] ( ). Required paperwork faxed and awaiting insurance authorization.
--- NOTE | 2023-09-08 09:40 | WPDNEUROPN ---
Progress Note: A&P Assessment and Plan (1) CVA (cerebral vascular accident): Code(s): I63.9 - Cerebral infarction, unspecified Status: Acute (2) Tobacco abuse: Code(s): Z72.0 - Tobacco use Status: Acute (3) Hypotension: Code(s): I95.9 - Hypotension, unspecified Status: Acute (4) Elevated troponin: Code(s): R79.89 - Other specified abnormal findings of blood chemistry Status: Acute (5) Pulmonary embolism: Qualifiers: Acute cor pulmonale presence: unspecified Chronicity: acute Pulmonary embolism type: unspecified Qualified Code(s): I26.99 - Other pulmonary embolism without acute cor pulmonale Code(s): I26.99 - Other pulmonary embolism without acute cor pulmonale Status: Acute Plan Mr. Hernandez is a 68 year old male who initially presented to generalized weakness and hypoxia, found to have acute pulmonary embolus. Also ultimately found to have acute infarcts with bihemispheric involvement. No evidence of extracranial or intracranial stenosis to suggest distribution of stroke. Concern for paradoxical embolus given concurrent PE. Surface echo with bubble study was negative for shunt. Cardiology is involved. - Given embolic source of stroke, recommend additional cardiac testing such as SANA +/-Loop, with timing of tests being at the discretion of Cardiology - Agree with adding Aspirin 81mg daily and Lipitor 40mg daily - Discussed importance of smoking cessation Subjective Date/time seen: 09/08/23 09:40 Interval history: Mr. Hernandez is a 68 year old male with a history of chronic smoking, COPD, HTN who presented on 09/01 due to fatigue and generalized weakness. Patient presented to [facility] where he was found to be hypoxic. CTA chest showed acute pulmonary embolism of R middle lobe. EKG showed sinus rhythm. CT head showed chronic old focal L frontal infarct and subacute R posterior temporal and occipital infarct. MRI brain showed acute infarcts, the largest in the medial right temporal occpital region with smaller infarcts in the right thalamus, posterior limb of R internal capsule and posterior left frontal lobe. CTA brain/carotid was negative for intracranial and extracranial stenosis. Echo with bubble study was negative for shunt. There is no history of atrial fibrillation/atrial flutter. Patient was initially started on heparin drip for the pulmonary embolism and has been transitioned to Eliquis. His LDL was 82 so he was started on Lipitor 40mg daily. A1c was not checked. Lower extremity doppler study is negative. Review of Systems Review of Systems: All systems reviewed & are unremarkable except as noted in HPI and below Exam Const: General: comfortable HENMT: Mouth: Yes moist mucous membranes Eyes: Pupils: Equal, round and reactive pupils present EOM: EOMs intact bilaterally Other: normal visual field Resp: Effort & Inspection: normal respiratory effort Skin: General skin exam: normal color Neuro: Other: AOx3, Pupils equal and reactive bilaterally, EOMI, face symmetric, facial sensation intact, tongue protrudes midline, palate midline. Shoulder shrug normal. Strength 5/5 throughout. Sensation reduced in L hand. FNF normal bilaterally. Language comprehension and fluency intact. Gait deferred. Extrem: General: normal to inspection Psych: Mental Status: mental status grossly normal Affect: normal affect Objective Data Vital Signs Vital Signs: Vital Signs - 24 hr 09/07/23 09:54 09/07/23 12:41 09/07/23 12:00 Temperature 36.4 C Pulse Rate 65 72 Respiratory Rate 18 Blood Pressure 110/59 L Pulse Oximetry 93 98 Oxygen Delivery Nasal Cannula Oxygen Flow Rate 3 Fraction of Inspired Oxygen 09/07/23 12:00 09/07/23 16:23 09/07/23 16:00 Temperature 36.4 C Pulse Rate 69 Respiratory Rate 20 Blood Pressure 108/61 Pulse Oximetry 98 92 92 Oxygen Delivery Nasal Cannula Nasal Cannula Oxygen Flow Rate 3
--- NOTE | 2023-09-08 10:24 | PM.PNPUL ---
Progress Note: A&P Assessment and Plan (1) Cor pulmonale: Code(s): I27.81 - Cor pulmonale (chronic) Status: Acute (2) Acute hypoxic respiratory failure: Code(s): J96.01 - Acute respiratory failure with hypoxia Status: Acute (3) Pulmonary embolism: Qualifiers: Acute cor pulmonale presence: unspecified Chronicity: acute Pulmonary embolism type: unspecified Qualified Code(s): I26.99 - Other pulmonary embolism without acute cor pulmonale Code(s): I26.99 - Other pulmonary embolism without acute cor pulmonale Status: Acute Assessment and Plan: A 68-year-old male patient with a history of smoking, moderate centrilobular emphysema, chronic lower extremity edema, polycythemia, and polyneuropathy presented with worsening lower extremity weakness. He had no accompanying chest pain, palpitations, hemoptysis, or syncope. Hypotension was noted two weeks prior, leading to medication adjustments. A CT Pulmonary Angiogram revealed a pulmonary embolism in the right middle lobe and mild pulmonary edema. Further evaluations showed severe enlargement of the right atrium and ventricle, mild pulmonary hypertension, and an acute stroke. No lower extremity thrombi were found. A small pulmonary embolism was found partially occluding a middle lobe artery, but no blood clots were found in the proximal pulmonary arteries or in the left lung. The severe right ventricular enlargement appears chronic, and hypoxemia and elevated NT proBNP could be due to left ventricular dysfunction.The patient has been stable with IV heparin treatment,stable and improved clinical condition. The chronic right ventricular dysfunction and mildly elevated pulmonary artery systolic pressure could be related to chronic nocturnal hypoxemia due to moderate emphysema and chronic opioid use, potentially causing nocturnal hypoventilation. Medications given intrathecally through the IV pump include hydromorphone 4,028 mcg per day, Bupivacaine 1879 mcg/day, and Clonidine 69.56 mcg/day. In addition the patient was on oxycodone orally for neck pain. Intrathecal opiates are known to cause respiratory depression with blunting of respiratory response to hypoxia. Thoracic scoliosis may also contribute to nocturnal hypoxemia. Polycythemia and chronic lower extremity edema suggest chronic nocturnal hypoxemia leading to pulmonary hypertension and right ventricular dysfunction. Chronic thromboembolic pulmonary hypertension is another possibility, less likely. Patient underwent ApneaLink study on just 3 liters/minute last night. Overall his oxyhemoglobin saturation was not significantly diminished overnight. Oxyhemoglobin saturation of less than 88% lasted for approximately 5 minutes totally. Average respiratory rate was around 13 breaths per minute. Plan; given his chronic hypercapnia he will need ventilatory support at home. Will try BiPAP support 05/26 along with ApneaLink tonight. ABGs tomorrow a.m. (4) Chronic narcotic use: Code(s): F11.90 - Opioid use, unspecified, uncomplicated Status: Acute Subjective Date/time seen: 09/08/23 10:24 Interval history: Patient has no new respiratory symptoms. Lower extremity edema significantly improved. Shortness of breath about the same. Still on supplemental oxygen via nasal cannula. Would like to go home. Review of Systems Review of Systems: All systems reviewed & are unremarkable except as noted in HPI and below (HPI and below) Exam Narrative: GENERAL APPEARANCE: Well developed, well nourished, alert and cooperative, and appears to be in no acute distress while on supplemental oxygen SKIN: Inspection of the skin reveals no rashes, ulcerations or petechiae. HEENT: Sclerae anicteric and conjunctivae pink and moist. Extraocular movements were intact and pupils were equal, round, and reactive to light. The oral mucosa, hard and soft palate, tongue and posterior pharynx were normal. NECK: Sup
--- NOTE | 2023-09-08 12:04 | PM.IMPN ---
Progress Note: A&P Assessment and Plan (1) Acute hypoxic respiratory failure: Code(s): J96.01 - Acute respiratory failure with hypoxia Status: Acute Assessment and Plan: Patient with GNW and found to be hypoxic. [place] related to cor pulmonale. Intrathecal opiates can cause respiratory depression as well. Patient with hx of tobacco abuse and moderate emphysema by CT. Apnea link on 3L showing AHI 11 and RI 14. ABG showing 7.40/56/55 on 3L. Appreciate pulmonary input He remains on 3L. Wean O2 as tolerated Plan for overnight pulse oximetry on [facility] (2) CVA (cerebral vascular accident): Code(s): I63.9 - Cerebral infarction, unspecified Status: Acute Assessment and Plan: Patient presents with genrealizd weakness. Head and Neck CTA showing no significant vascular abnormallities MRI with multiple, acute CVAs (largest in the medial right temporal occipital region with smaller infarcts at the right thalamus, posterior limb of the right internal capsule and posterior left frontal lobe) likely cardiogenic Echo showing EF 60-65%, grade I diastolic dysfunction, RV systolic function severely reduces with possible Hardin sign. Also with RV pressure and volume overload. Neuro consulted and appreciate their input. Consider remaining on Eliquis indefinitely given the concern for cardioembolic event Implantable cardiac monitoring might be of benefit. Lipitor added. He has been accepted at [facility] (3) Pulmonary embolism: Qualifiers: Acute cor pulmonale presence: unspecified Chronicity: acute Pulmonary embolism type: unspecified Qualified Code(s): I26.99 - Other pulmonary embolism without acute cor pulmonale Code(s): I26.99 - Other pulmonary embolism without acute cor pulmonale Status: Acute Assessment and Plan: CT chest showing moderate emphysema, mild pulmonary edema and acute PE RML. Also with chronic RA and RV enlargement. Echo as above Systemic anticoagulation started. Imaging was negative for cerebral hemorrhage Heme onc consulted and appreciate their input. Heparin drip transitioned to Eliquis. Care coordination to assess cost. (4) Elevated troponin: Code(s): R79.89 - Other specified abnormal findings of blood chemistry Status: Acute Assessment and Plan: Troponin up to 0.13 but flat. Cardiology consultation appreciated. Echo as above. EKG showing NSR with possible evience of old infarcts. Aspirin ordered but now stopped. Lipitor 40 mg daily added No plan for ischemic eval (5) Elevated brain natriuretic peptide (BNP) level: Code(s): R79.89 - Other specified abnormal findings of blood chemistry Status: Acute Assessment and Plan: BNP 92572 but could be related to the CVA. BNP elevation ais associated with cardioembolic stroke mainly from Atrial Fib. Lasix given once with good UOP. LE edema noted but felt more likely related to cor pulmonale. Echo as above. CXR yesterday showing central congestive changes with mild residual edema and hazy right midlung opacity focal edema vs PNA. Repeat lasix once. (6) HTN (hypertension): Code(s): I10 - Essential (primary) hypertension Status: Acute Assessment and Plan: Patient's blood pressure was reviewed on 09/08 Blood pressure soft at times but stable Will continue to monitor (7) Chronic narcotic use: Code(s): F11.90 - Opioid use, unspecified, uncomplicated Status: Acute Assessment and Plan: Chronic use of oxycodone and has pain pump in place. Oxycodone resumed but not requiring His home gabapentin was re-ordered but he was refusing this so it was stopped. Home Mirtazapine has been resumed Monitor (8) Generalized weakness: Code(s): R53.1 - Weakness Status: Acute Assessment and Plan: Multifactorial, likely secondary to neuropathy + CVA + narcotics Continue PT OT. (9) Tobacco abuse: Code(s):
[2023-09-08] MEDS: FUROSEMIDE INJ 40 MG/4 ML VIAL 20 MG IV PUSH (13:43)
[2023-09-08] MEDS: MIRTAZAPINE 15 MG TABLET PO (20:00)
[2023-09-09 04:45] VITALS: PULSE 68; RESP 14; O2SAT 96
[2023-09-09 05:05] LABS: Alveolar/Arterial O2 Gradient 112.8 mmHg; Base Excess ABG 3.8 mEq/l (+/-2.0); Fractional Inspired Oxygen 32 %; HCO3 ABG 29.1 mEq/l (22.0-26.0); Oxygen Content ABG 24.3 %vol (16.0-22.0); Oxygen Saturation ABG 92.3 % (95.0-100.0); Oxyhemoglobin 91.1 % THb (90.0-100.0); PCO2 ABG 45.3 mmHg (35.0-45.0); PO2 ABG 62.4 mmHg (80.0-100.0); PO2 FiO2 Ratio Arterial Blood 1.95 %; pH ABG 7.426 (7.350-7.450)
[2023-09-09 05:07] LABS: Modified Allen's Test Pass; Site Drawn RIGHT RADIAL
[2023-09-09 05:08] LABS: Device NON-INVASIVE VENT
[2023-09-09 05:09] LABS: Non-Invasive Expiratory Pressure 5 CMH2O; Non-Invasive Inspiratory Pressure 10 CMH2O; Non-Invasive Vent Rate 14 /MIN
[2023-09-09 07:40] VITALS: BP 121/72; PULSE 54; RESP 18; TEMP 37; O2SAT 99
[2023-09-09 08:00] VITALS: O2SAT 96
[2023-09-09] MEDS: APIXABAN 5 MG TABLET 10 MG PO (08:12)
[2023-09-09] MEDS: ATORVASTATIN 40 MG TABLET PO (08:13)
--- NOTE | 2023-09-09 10:48 | PM.PNPUL ---
Progress Note: A&P Assessment and Plan (1) Cor pulmonale: Code(s): I27.81 - Cor pulmonale (chronic) Status: Acute (2) Acute hypoxic respiratory failure: Code(s): J96.01 - Acute respiratory failure with hypoxia Status: Acute (3) Pulmonary embolism: Qualifiers: Acute cor pulmonale presence: unspecified Chronicity: acute Pulmonary embolism type: unspecified Qualified Code(s): I26.99 - Other pulmonary embolism without acute cor pulmonale Code(s): I26.99 - Other pulmonary embolism without acute cor pulmonale Status: Acute Assessment and Plan: A 68-year-old male patient with a history of smoking, moderate centrilobular emphysema, chronic lower extremity edema, polycythemia, and polyneuropathy presented with worsening lower extremity weakness. He had no accompanying chest pain, palpitations, hemoptysis, or syncope. Hypotension was noted two weeks prior, leading to medication adjustments. A CT Pulmonary Angiogram revealed a pulmonary embolism in the right middle lobe and mild pulmonary edema. Further evaluations showed severe enlargement of the right atrium and ventricle, mild pulmonary hypertension, and an acute stroke. No lower extremity thrombi were found. A small pulmonary embolism was found partially occluding a middle lobe artery, but no blood clots were found in the proximal pulmonary arteries or in the left lung. The severe right ventricular enlargement appears chronic, and hypoxemia and elevated NT proBNP could be due to left ventricular dysfunction.The patient has been stable with IV heparin treatment,stable and improved clinical condition. The chronic right ventricular dysfunction and mildly elevated pulmonary artery systolic pressure could be related to chronic nocturnal hypoxemia due to moderate emphysema and chronic opioid use, potentially causing nocturnal hypoventilation. Medications given intrathecally through the IV pump include hydromorphone 4,028 mcg per day, Bupivacaine 1879 mcg/day, and Clonidine 69.56 mcg/day. In addition the patient was on oxycodone orally for neck pain. Intrathecal opiates are known to cause respiratory depression with blunting of respiratory response to hypoxia. Thoracic scoliosis may also contribute to nocturnal hypoxemia. Polycythemia and chronic lower extremity edema suggest chronic nocturnal hypoxemia leading to pulmonary hypertension and right ventricular dysfunction. Chronic thromboembolic pulmonary hypertension is another possibility, less likely. The patient underwent an ApneaLink study last night using BiPAP 10/5 with a backup rate of 14 and supplemental oxygen at 3 liters/minute. The patient's oxyhemoglobin saturation was slightly worse compared to the previous night when only supplemental oxygen at 3 liters/minute was used. However, this morning's ABGs showed significant improvement in hypercapnia, with a pCO2 now around 45. The patient has been approved for noninvasive ventilatory support with AVAPS AE mode, using a tidal volume of 500, backup rate 14, pressure support range 10-30, EPAP range 5-10, and supplemental oxygen at 3 liters/minute. The plan is to discharge the patient to a rehabilitation unit. The patient will continue on a maintenance dose of Eliquis 5 mg orally, twice daily for a prolonged period due to his unprovoked pulmonary embolism. Continuation of the rescue albuterol inhaler for as-needed use and Anoro inhaler at 1 puff daily is also recommended. The patient has been asked to return to the pulmonary clinic in approximately one month for follow-up. Our campus police officer has been informed to remind the patient about his regular post-hospitalization follow-up appointment. Will sign off please call with any questions. (4) Chronic narcotic use: Code(s): F11.90 - Opioid use, unspecified, uncomplicated Status: Acute Subjective Date/time seen: 09/09/23 10:48 Interval history: Patient has no new respiratory symptoms. Underwent A
--- NOTE | 2023-09-09 11:59 | PCRCNOTE ---
RT FROM [facility] WILL CONTACT [facility] AT [facility] TO SEE IF PT IS ABLE TO USE HOME TRILOGY AT THEIR FACILITY. I GAVE HER [facility]'S CELL PHONE TO ARRANGE
--- NOTE | 2023-09-09 13:00 | PM.DS ---
DS: Admitting Diagnosis Discharge Date 09/09/23 Admitting Diagnosis Weakness DS: Discharge Diagnosis Discharge Diagnosis (1) Acute hypoxic respiratory failure: Code(s): J96.01 - Acute respiratory failure with hypoxia Status: Acute (2) CVA (cerebral vascular accident): Code(s): I63.9 - Cerebral infarction, unspecified Status: Acute (3) Pulmonary embolism: Qualifiers: Acute cor pulmonale presence: unspecified Chronicity: acute Pulmonary embolism type: unspecified Qualified Code(s): I26.99 - Other pulmonary embolism without acute cor pulmonale Code(s): I26.99 - Other pulmonary embolism without acute cor pulmonale Status: Acute (4) Elevated troponin: Code(s): R79.89 - Other specified abnormal findings of blood chemistry Status: Acute (5) Elevated brain natriuretic peptide (BNP) level: Code(s): R79.89 - Other specified abnormal findings of blood chemistry Status: Acute (6) HTN (hypertension): Code(s): I10 - Essential (primary) hypertension Status: Acute (7) Chronic narcotic use: Code(s): F11.90 - Opioid use, unspecified, uncomplicated Status: Acute (8) Generalized weakness: Code(s): R53.1 - Weakness Status: Acute (9) Tobacco abuse: Code(s): Z72.0 - Tobacco use Status: Acute (10) Cor pulmonale: Code(s): I27.81 - Cor pulmonale (chronic) Status: Acute (11) Emphysema lung: Code(s): J43.9 - Emphysema, unspecified Status: Acute (12) Chronic back pain: Code(s): M54.9 - Dorsalgia, unspecified; G89.29 - Other chronic pain Status: Acute DS: Summary Hospital Course Reason for hospitalization: 68-year-old patient presents with generalized weakness. Please see H&P for details. Hospital Course: Patient presents with generalized weakness. Head and Neck CTA showing no significant vascular abnormalities. MRI with multiple, acute CVAs?(largest in the medial right temporal occipital region with smaller infarcts at the right thalamus, posterior limb of the right internal capsule and posterior left frontal lobe)?likely cardiogenic. Echo showing EF 60-65%, grade I diastolic dysfunction, RV systolic function severely reduces with possible Hardin sign. Also with RV pressure and volume overload. Neuro consulted and appreciate their input. He was given ASA but changed to Eliquis given the PE. Lipitor added. He worked with PT/OT. CT chest showing moderate emphysema, mild pulmonary edema and acute PE RML. Also with chronic RA and RV enlargement. Imaging was negative for cerebral hemorrhage. Heme onc consulted and appreciate their input. Heparin drip started and transitioned to Eliquis. Troponin up to 0.13 but flat. Cardiology consultation appreciated. EKG showing NSR with possible evidence of old infarcts. Aspirin ordered but now stopped. BNP 08247 but could be related to the CVA. BNP elevation is associated with cardioembolic stroke mainly from Atrial Fib. Lasix given once with good UOP. LE edema noted but felt more likely related to cor pulmonale. CXR showing central congestive changes with mild residual edema and hazy right midlung opacity focal edema vs PNA and Lasix repeated. Patient with chronic use of oxycodone and has pain pump in place. Oxycodone resumed here. His home gabapentin was re-ordered but he was refusing this so it was stopped. Home Mirtazapine was resumed. Desvenlafaxine was not available here. Platelet count dropped to 107K before improving. Hep induced plt Ab was negative. Patient was found to be hypoxic on admission. [place] related to cor pulmonale and PE. Intrathecal opioids can cause respiratory depression as well. Patient with hx of tobacco abuse and has moderate emphysema by CT. He required up to 7L but able to be weaned down to 3L. Influenza, RSV and COVID PCR were negative. Pulmonary consulted and appreciate their input. Apnea link on 3L showing AHI 11 and RI 14. A
[2023-09-09 16:00] VITALS: BP 110/57; PULSE 91; RESP 20; TEMP 36.7; O2SAT 96
[2023-09-09 16:09] LABS: Block/Specimen ID Not Given; CALR Exon 9 Mutation Not Detected (Not Detected); CSF3R Exon 14/17 Mutation Not Detected (Not Detected); Clinical Indication Not Provided; JAK2 Exon 12 Mutation Not Detected (Not Detected); JAK2 V617F Mutation Not Detected (Not Detected); MPL Exon 10 Mutation Not Detected (Not Detected); Specimen Source Not Given
[2023-09-09] MEDS: oxyCODONE HCL (*CRX) 5 MG TAB IR 10 MG PO (17:41)
--- NOTE | 2023-09-14 09:12 | PC.NURSE ---
Isiah 2 [id number] cascade shown to Dr. Denise. Erythropoetin is WNL at 15.9. Dr. Denise aware.
== END 2023-09-09 18:11 | DRG 64 ==
LOC: ANHED 16:03 → ANHIMU 09-02 04:51
PROVIDERS: Emergency Medicine; Internal Medicine; Internal Medicine Hematology & Oncology; Internal Medicine Pulmonary Disease; Nurse Practitioner; Student in an Organized Health Care Education/Training Program; Admitting Provider Internal Medicine; Emergency Provider Student in an Organized Health Care Education/Training Program; PCP Emergency Medicine; Visit Provider Internal Medicine
DX: I63.40 Cerebral infarction due to embolism of unspecified cerebral artery (principal); I21.A1 Myocardial infarction type 2; I26.99 Other pulmonary embolism without acute cor pulmonale; I50.33 Acute on chronic diastolic (congestive) heart failure; J96.01 Acute respiratory failure with hypoxia; J96.02 Acute respiratory failure with hypercapnia; R53.1 Weakness; I11.0 Hypertensive heart disease with heart failure; I95.9 Hypotension, unspecified; J43.9 Emphysema, unspecified; G62.9 Polyneuropathy, unspecified; D69.6 Thrombocytopenia, unspecified; F17.210 Nicotine dependence, cigarettes, uncomplicated; F11.90 Opioid use, unspecified, uncomplicated; Z20.822 Contact with and (suspected) exposure to COVID-19; Z98.1 Arthrodesis status
CPT/HCPCS: 36415; 36600; 70450; 70496; 70498; 70551; 71045; 71275; 73080; 76705; 80048; 80053; 80061; 81001; 81219; 81270; 81279; 81339; 81479; 82248; 82550; 82607; 82668; 82746; 82805; 83690; 83880; 84484; 85025; 85027; 85055; 85610; 85730; 86022; 87637; 90471; 90715; 92610; 93005; 93306; 93308; 93970; 94660; 94762; 96372; 96375; 97110; 97116; 97161; 97165; 97530; 97535; 99285; A9270; J1644; J1650; J1940; J7120; Q9967

== ENCOUNTER 2023-10-19 09:06 | Outpatient (CLI) | payer BC, SELFPAY ==
[2023-10-19] VITALS (7 sets, daily range): PULSE 74–96; O2SAT 86–91
--- NOTE | 2023-10-19 09:44 | HOMEO2EVAL ---
Evaluation was performed at [facility] Home Oxygen Evaluation RC: Home Oxygen (O2) Evaluation Start: 10/19/23 09:41 Freq: Status: Active Protocol: RPE Activity Type Activity Date Activity User E-sign Co-sign Detail Recorded Client Recorded Date Recorded By Document 10/19/23 09:00 [email or web address] [email or web address] 10/19/23 09:44 DJO Document 10/19/23 09:05 [email or web address] [email or web address] 10/19/23 09:44 DJO Document 10/19/23 09:10 [email or web address] [email or web address] 10/19/23 09:44 DJO Document 10/19/23 09:15 [email or web address] [email or web address] 10/19/23 09:44 DJO Document 10/19/23 09:20 [email or web address] [email or web address] 10/19/23 09:44 DJO Document 10/19/23 09:25 [email or web address] [email or web address] 10/19/23 09:44 DJO Document 10/19/23 09:40 [email or web address] [email or web address] 10/19/23 09:44 DJO 10/19/23 10/19/23 10/19/23 09:00 09:05 09:10 Home O2 Evaluation [Oxygen] -Test Phase Resting Resting Resting -Oxygen Delivery Room Air Nasal Cannula Nasal Cannula -Oxygen Flow Rate (L/min) 1 2 [Pulse Oximetry] -Pulse Oximetry (90-100 %) 86 L 87 L 88 L [Pulse Rate] -Pulse Rate (60-100 beats/min) 79 78 76 [Evaluation] -Activity Tolerance [Charges] -Evaluation Charges O2 Evaluation by Pulmonary 10/19/23 10/19/23 10/19/23 09:15 09:20 09:25 Home O2 Evaluation [Oxygen] -Test Phase Resting Exercise Exercise -Oxygen Delivery Nasal Cannula Nasal Cannula Nasal Cannula -Oxygen Flow Rate (L/min) 3 3 4 [Pulse Oximetry] -Pulse Oximetry (90-100 %) 91 86 L 90 [Pulse Rate] -Pulse Rate (60-100 beats/min) 74 96 96 [Evaluation] -Activity Tolerance Good [Charges] -Evaluation Charges 10/19/23 09:40 Home O2 Evaluation [Oxygen] -Test Phase Resting -Oxygen Delivery Nasal Cannula -Oxygen Flow Rate (L/min) 3 [Pulse Oximetry] -Pulse Oximetry (90-100 %) 91 [Pulse Rate] -Pulse Rate (60-100 beats/min) 75 [Evaluation] -Activity Tolerance [Charges] -Evaluation Charges
--- NOTE | 2023-10-19 16:06 | WPDPFTINT ---
PFT Procedure Performed PFT Procedure Performed Spirometry with Pre/Post Bronchodilator Plethysmography (Lung Vol) Diffusing Cap (DLCO) Flow Vol Loop PFT Interpretation This is a pulmonary function test with pre and post-bronchodilator spirometry, plethysmography and diffusing capacity. The test was performed and results interpreted in accordance with the 2019 and 2005 ATS/ERS Task Force guidelines respectively using the Global Lung Function Initiative-2012 reference equations. Patient demonstrated good effort and cooperation. Reproducibility criteria were met. The quality of the pre bronchodilator spirometry maneuver was Grade C and post bronchodilator spirometry maneuver was Grade A. of note, despite good coaching patient had difficulty with all testing due to his lung disease and had increased fatigue throughout testing and had the most difficulty with post spirometry maneuvers. He wore 3 L throughout the testing. Findings: Spirometry: There is decreased maximal expiratory airflow at all lung volumes with concave expiratory flow tracing. The contour the inspiratory flow tracing is normal. The pre bronchodilator FVC is 4.70 L, 118% predicted. The pre bronchodilator FEV1 is 2.12 L, 70% predicted. The pre bronchodilator FEV1: FVC ratio is 45%. The post bronchodilator FVC is 3.53 L, representing a 25% decrease. The post bronchodilator FEV1 is 0.78 L, representing a 63% decrease. The post bronchodilator FEV1: FVC ratio is 22%. Plethysmography: The total lung capacity is 5.36 L, 81% predicted. The functional residual capacity is 3.31 L, 95% predicted. The residual volume is 0.65 L, 28% predicted. Diffusing capacity: The diffusing capacity unadjusted for hemoglobin and carboxyhemoglobin is 7.9, 31% predicted. The diffusing capacity adjusted for alveolar volume is 1.34, 33% predicted. Impression: There is a mild obstructive abnormality. There is a significant decrease in the post bronchodilator FVC and FEV1 which could be related to patient fatigue, which the patient demonstrated, and or a paradoxical bronchoconstriction to inhaled albuterol. Clinical correlation is recommended. The total lung capacity and functional residual capacity are normal with a decreased residual volume. This is an abnormal but nonspecific lung volume pattern. The diffusing capacity unadjusted for hemoglobin and carboxyhemoglobin is severely decreased and remains severely decreased when adjusted for alveolar volume. There are no prior studies for comparison
== END 2023-10-19 09:07 | disposition home or self-care (01) ==
PROVIDERS: PCP Emergency Medicine; Visit Provider Internal Medicine Pulmonary Disease
DX: I27.81 Cor pulmonale (chronic) (principal); R94.2 Abnormal results of pulmonary function studies
CPT/HCPCS: 94060; 94618; 94726; 94729

== ENCOUNTER 2023-11-09 13:55 | Outpatient (CLI) | payer BC, SELFPAY ==
[2023-11-09 14:38] LABS: Basophils Absolute Auto 0.1 K/mm3 (0.0-0.1); Basophils Percent Auto 0.7 % (0.2-1.2); Eosinophils Absolute Auto 0.4 K/mm3 (0-0.3); Eosinophils Percent Auto 5.1 % (0-4.4); Hematocrit 48.9 % (42.0-52.0); Hemoglobin 16.1 g/dL (14.0-18.0); Immature Granulocyte Absolute 0.02 K/mm3 (0.00-0.031); Immature Granulocyte Percent A 0.2 % (0-0.5); Lymphocytes Absolute Auto 3.04 K/mm3 (0.9-3.2); Lymphocytes Percent Auto 36.2 % (18.3-44.2); Mean Corpuscular HGB Conc 32.9 g/dl (32-36); Mean Corpuscular Hemoglobin 33.4 pg (26-34); Mean Corpuscular Volume 101.5 fl (80-100); Mean Platelet Volume 11.1 fl (7.4-10.4); Monocytes Absolute Auto 0.8 K/mm3 (0.1-0.6); Monocytes Percent Auto 9.7 % (2.6-8.5); Neutrophils Percent Auto 48.1 % (45.5-73.1); Platelet Count Result 145 k/mm3 (150-375); Red Blood Count 4.82 M/mm3 (4.6-6.20); Red Cell Distribution Width 13.3 % (11.5-14.5); White Blood Count 8.4 K/mm3 (4.5-10.0)
[2023-11-09 18:09] LABS: Alanine Aminotransferase 11 U/L (6-50); Albumin Level 3.9 g/dL (3.5-5.1); Alkaline Phosphatase 75 U/L (38-126); Anion Gap 5 mmol/L (8-16); Aspartate Amino Transferase 26 U/L (17-59); Bilirubin,Total 1.8 mg/dL (0.2-1.3); Blood Urea Nitrogen 15 mg/dL (9-20); Calcium 8.7 mg/dL (8.4-10.2); Carbon Dioxide 34 mmol/L (22-30); Chloride 99 mmol/L (98-107); Estimated Glomerular Filt Rate > 60; Glucose 102 mg/dL (65-110); Sodium 138 mmol/L (137-145)
== END 2023-11-09 13:56 | disposition home or self-care (01) ==
LOC: ANHLAB 13:57
PROVIDERS: PCP Emergency Medicine; Visit Provider Internal Medicine Hematology & Oncology
DX: D75.1 Secondary polycythemia (principal)
CPT/HCPCS: 36415; 80053; 82607; 85025

== ENCOUNTER 2024-01-03 18:39 | Emergency (ER) | payer BC, SELFPAY ==
--- NOTE | ~2024-01-03 | US_ITS ---
EXAMINATION: US venous doppler [facility] DATE: 01/03/2024 20:45 INDICATION: swelling, redness, hx dvt . TECHNIQUE: Grayscale images without and with compression and Doppler images of the bilateral lower ex tremity veins were obtained. COMPARISON: 09/02/2023 FINDINGS: The right common femoral vein, profunda (deep) femoral vein, femoral vein, popliteal vein, peroneal v ein, posterior tibial veins, and greater saphenous vein are patent. The left common femoral vein, profunda (deep) femoral vein, femoral vein, popliteal vein, posterior tibial veins, and greater saphenous vein are patent. IMPRESSION: Left peroneal veins not visualized. Otherwise patent bilateral lower extremity veins without evidence of deep venous thrombosis. Reviewed, dictated and finalized at location [facility].
--- NOTE | ~2024-01-03 | XR_ITS ---
EXAMINATION: XR chest 1V portable Exam Date/Time: 01/03/2024 19:35 CDT HISTORY: hypoxic, swelling in legs Comparison: None. RESULT: Lines, tubes, and devices: None. Lungs and pleura: Emphysematous and senescent change. Mild diffuse reticular opacities. Cardiomediastinal silhouette: Stable. Other: No acute osseous or upper abdominal finding. IMPRESSION: Mild interstitial edema. Reviewed, dictated and finalized at location K. IMPRESSION: Mild interstitial edema.
[2024-01-03 18:41] VITALS: BP 107/67; PULSE 94; RESP 16; TEMP 37; O2SAT 94
--- NOTE | 2024-01-03 18:46 | ED.EXTPRO ---
HPI - Extremity Problem General Chief complaint: Extremity Problem,Nontraumatic <Ella Álvarez PA-C - Last Filed: 01/03/24 18:55> Stated complaint: legs are swollen and red <Ella Álvarez PA-C - Last Filed: 01/03/24 18:55> Time Seen by Provider: 01/03/24 18:46 <Ella Álvarez PA-C - Last Filed: 01/03/24 18:55> Focused HPI: Patient is a 68 y/o male, with PMH of CVA, blood clots on Eliquis, COPD, CHF, smoking history, chronic respiratory failure on 3 L nasal cannula, who presents the ED with report of lower extremity swelling and redness. States it has been ongoing for the last several days. PCP started patient on Levaquin and Lasix in the last few days. Patient states his legs have become increasingly red and swollen. Denies significant shortness of breath. Denies CP. Denies fevers. GENERAL: Chronically ill-appearing, thin, and in no acute distress. HEAD: Normocephalic, atraumatic. CHEST: Clear to auscultation. ?Decreased lung sounds throughout. No respiratory distress. HEART: Regular rate and rhythm.? MSK: 2-3+ pitting edema in lower extremities. Venous stasis changes. Splotchy erythema and warmth along anterior shins bilaterally. No wounds. Pedal pulses slightly difficult to palpate d/t swelling, though present. NEURO: ?Alert and oriented x3. Patient screened in triage and initial orders placed.? ?Additional care and disposition to be based upon?diagnostic testing and treatment. <Ella Álvarez PA-C - Last Filed: 01/03/24 18:55> Focused HPI: Patient is a 68 y/o male, with PMH of CVA, blood clots on Eliquis, COPD, CHF, smoking history, chronic respiratory failure on 3 L nasal cannula, who presents the ED with report of lower extremity swelling and redness. States it has been ongoing for the last several days. PCP started patient on Levaquin and Lasix in the last few days. Patient says that his legs are improving and the redness has significantly decreased. No systemic signs of illness such as fever chills nausea vomiting or diarrhea. Denies significant shortness of breath. Denies CP. Denies fevers. GENERAL: Chronically ill-appearing, thin, and in no acute distress. HEAD: Normocephalic, atraumatic. CHEST: Clear to auscultation. ?Decreased lung sounds throughout. No respiratory distress. HEART: Regular rate and rhythm.? MSK: 2-3+ pitting edema in lower extremities. Venous stasis changes. Splotchy erythema and along anterior shins bilaterally. No wounds. Pedal pulses slightly difficult to palpate d/t swelling, though present. NEURO: ?Alert and oriented x3. Patient screened in triage and initial orders placed.? ?Additional care and disposition to be based upon?diagnostic testing and treatment. <Wang Hernandez MD - Last Filed: 01/03/24 21:42> Source: patient <EDWARD Fung Last Filed: 01/03/24 18:55> Mode of arrival: ambulatory <EDWARD Fung Last Filed: 01/03/24 18:55> Limitations: no limitations <EDWARD Fung Last Filed: 01/03/24 18:55> Related Data Home medications: Home Medications Medication Instructions Recorded Confirmed hydrochlorothiazide 12.5 mg tablet 12.5 mg PO DAILY 10/25/23 11/09/23 <EDWARD Fung Last Filed: 01/03/24 18:55> Allergies/Adverse reactions: Allergies Allergy/AdvReac Type Severity Reaction Status Date / Time pregabalin Allergy Unknown Verified 11/09/23 14:47 <EDWARD Fung Last Filed: 01/03/24 18:55> [facility] Past Medical History Medical History: Medical History Cervical vertebral fusion Chronic back pain pain pump insertion Chronic narcotic use Colon ulcer Colonic mass HTN (hypertension) Positive colorectal cancer screening using Cologuard test <EDWARD Fung Last Filed: 01/03/24 18:55> Surgical History Surgical History: Surgical History (Review
[2024-01-03 19:21] VITALS: BP 105/68; PULSE 81; RESP 14; TEMP 36.6; O2SAT 95
[2024-01-03 20:02] LABS: Basophils Absolute Auto 0.1 K/mm3 (0.0-0.1); Basophils Percent Auto 0.8 % (0.2-1.2); Eosinophils Absolute Auto 0.2 K/mm3 (0-0.3); Eosinophils Percent Auto 2.4 % (0-4.4); Hematocrit 54.1 % (42.0-52.0); Hemoglobin 17.6 g/dL (14.0-18.0); Immature Granulocyte Absolute 0.02 K/mm3 (0.00-0.031); Immature Granulocyte Percent A 0.3 % (0-0.5); Immature Platelet Fraction Pct 4.7 % (0.9-11.2); Lymphocytes Absolute Auto 1.88 K/mm3 (0.9-3.2); Lymphocytes Percent Auto 24.7 % (18.3-44.2); Mean Corpuscular HGB Conc 32.5 g/dl (32-36); Mean Corpuscular Hemoglobin 33.6 pg (26-34); Mean Corpuscular Volume 103.2 fl (80-100); Mean Platelet Volume 10.9 fl (7.4-10.4); Monocytes Absolute Auto 0.6 K/mm3 (0.1-0.6); Monocytes Percent Auto 7.6 % (2.6-8.5); Neutrophils Absolute Auto 4.9 K/mm3 (1.3-6.7); Neutrophils Percent Auto 64.2 % (45.5-73.1); Platelet Count Result 142 k/mm3 (150-375); Red Blood Count 5.24 M/mm3 (4.6-6.20); White Blood Count 7.6 K/mm3 (4.5-10.0)
[2024-01-03 20:17] LABS: INR 1.8; Prothrombin Time 22.6 Seconds (11.1-14.7)
[2024-01-03 20:18] LABS: Partial Thromboplastin Time 46.8 Seconds (22.3-36.8)
[2024-01-03 20:23] LABS: Alanine Aminotransferase 9 U/L (6-50); Albumin Level 3.7 g/dL (3.5-5.1); Alkaline Phosphatase 64 U/L (38-126); Aspartate Amino Transferase 20 U/L (17-59); Bilirubin,Total 2.1 mg/dL (0.2-1.3); Blood Urea Nitrogen 17 mg/dL (9-20); Calcium 8.5 mg/dL (8.4-10.2); Carbon Dioxide > 40 mmol/L (22-30); Chloride 94 mmol/L (98-107); Estimated CRCL calculation 67 ml/min; Estimated Glomerular Filt Rate > 60; Glucose 127 mg/dL (65-110); NT Pro B Type Natriuretic Pept 4730 pg/mL (19.9-100); Sodium 139 mmol/L (137-145); Troponin I < 0.012 ng/mL (0.000-0.034)
[2024-01-03] MEDS: POTASSIUM CHLORIDE 20 MEQ PACKET (FOR LIQUID) 40 MEQ PO (21:09)
[2024-01-10 13:37] LABS: PCO2 ABG 50.9 mmHg (35.0-45.0); pH ABG 7.477 (7.350-7.450)
[2024-01-10 13:38] LABS: Alveolar/Arterial O2 Gradient 125.7 mmHg; Base Excess ABG 10.9 mEq/l (+/-2.0); HCO3 ABG 36.8 mEq/l (22.0-26.0); Oxygen Content ABG 19.5 %vol (16.0-22.0); Oxygen Saturation ABG 81.3 % (95.0-100.0); PO2 ABG 42.9 mmHg (80.0-100.0); Total Hemoglobin 18.2 g/dL (12.0-18.0)
[2024-01-10 13:39] LABS: Carboxyhemoglobin 6.8 % THb (0-2.0); Methemoglobin ABG 0.2 %THb (0-1.5); Oxyhemoglobin 76.6 % THb (90.0-100.0); PO2 FiO2 Ratio Arterial Blood 1.34 %; Reduced Hemoglobin 16.4 %THb (0-5.0)
== END 2024-01-03 22:03 | disposition home or self-care (01) ==
PROVIDERS: Physician Assistant; Emergency Provider Emergency Medicine; PCP Emergency Medicine
DX: L03.116 Cellulitis of left lower limb (principal); L03.115 Cellulitis of right lower limb; Z79.01 Long term (current) use of anticoagulants; I50.9 Heart failure, unspecified; I11.0 Hypertensive heart disease with heart failure; F11.20 Opioid dependence, uncomplicated; F17.210 Nicotine dependence, cigarettes, uncomplicated
CPT/HCPCS: 36415; 36600; 71045; 80053; 82375; 82805; 83050; 83880; 84484; 85025; 85055; 85610; 85730; 93970; 99284; A9270

== ENCOUNTER 2024-01-30 08:08 | Outpatient (CLI) | payer BC, SELFPAY ==
[2024-01-30 09:17] LABS: Basophils Percent Auto 0.6 % (0.2-1.2); Eosinophils Absolute Auto 0.3 K/mm3 (0-0.3); Eosinophils Percent Auto 4.3 % (0-4.4); Hemoglobin 19.3 g/dL (14.0-18.0); Immature Granulocyte Absolute 0.02 K/mm3 (0.00-0.031); Immature Granulocyte Percent A 0.3 % (0-0.5); Lymphocytes Absolute Auto 2.22 K/mm3 (0.9-3.2); Lymphocytes Percent Auto 32.6 % (18.3-44.2); Mean Corpuscular HGB Conc 32.2 g/dl (32-36); Mean Corpuscular Hemoglobin 33.4 pg (26-34); Mean Corpuscular Volume 103.8 fl (80-100); Mean Platelet Volume 10.7 fl (7.4-10.4); Monocytes Absolute Auto 0.4 K/mm3 (0.1-0.6); Monocytes Percent Auto 6.2 % (2.6-8.5); Neutrophils Absolute Auto 3.8 K/mm3 (1.3-6.7); Platelet Count Result 177 k/mm3 (150-375); Red Blood Count 5.78 M/mm3 (4.6-6.20); Red Cell Distribution Width 14.7 % (11.5-14.5); White Blood Count 6.8 K/mm3 (4.5-10.0)
[2024-01-30 09:30] LABS: Alanine Aminotransferase 19 U/L (6-50); Albumin Level 4.8 g/dL (3.5-5.1); Alkaline Phosphatase 87 U/L (38-126); Anion Gap 10 mmol/L (4-12); Aspartate Amino Transferase 33 U/L (17-59); Bilirubin,Total 2.2 mg/dL (0.2-1.3); Blood Urea Nitrogen 17 mg/dL (9-20); Calcium 9.4 mg/dL (8.4-10.2); Carbon Dioxide 36 mmol/L (22-30); Chloride 99 mmol/L (98-107); Estimated Glomerular Filt Rate > 60; Glucose 102 mg/dL (65-110); Potassium 4.3 mmol/L (3.4-5.0); Sodium 145 mmol/L (137-145)
[2024-01-30 10:22] LABS: Hemoglobin A1C 5.9 % (<5.7)
[2024-01-30 10:40] LABS: Folic Acid 6.9 ng/mL (2.76->20)
[2024-02-01 15:05] LABS: Homocysteine 18.9 umol/L (<11.4)
[2024-02-01 23:29] LABS: Zinc 80 mcg/dL (60-130)
[2024-02-03 08:19] LABS: Vitamin B6 3.3 ng/mL (2.1-21.7)
[2024-02-03 09:43] LABS: Vitamin B1 15 nmol/L (8-30)
[2024-02-03 13:38] LABS: Methylmalonic Acid 241 nmol/L (87-318)
[2024-02-03 21:08] LABS: Immunofixation, Serum Normal pattern.
== END 2024-01-30 08:09 | disposition home or self-care (01) ==
PROVIDERS: PCP Emergency Medicine; Referring Provider Emergency Medicine; Visit Provider Student in an Organized Health Care Education/Training Program
DX: G62.9 Polyneuropathy, unspecified (principal); E87.6 Hypokalemia; E87.70 Fluid overload, unspecified; L03.119 Cellulitis of unspecified part of limb
CPT/HCPCS: 36415; 80053; 82525; 82607; 82746; 83036; 83090; 83921; 84207; 84425; 84443; 84630; 85025; 86038; 86039; 86334; 86335

== ENCOUNTER 2024-02-13 14:39 | Outpatient (CLI) | payer BC, SELFPAY ==
[2024-02-13 15:33] LABS: Magnesium 2.2 mg/dL (1.6-2.3)
[2024-02-13 15:40] LABS: NT Pro B Type Natriuretic Pept 2760 pg/mL (19.9-100)
== END 2024-02-13 14:40 | disposition home or self-care (01) ==
LOC: ANHLAB 14:41
PROVIDERS: PCP Emergency Medicine; Visit Provider Emergency Medicine
DX: E87.6 Hypokalemia (principal); E87.70 Fluid overload, unspecified; L03.119 Cellulitis of unspecified part of limb
CPT/HCPCS: 36415; 83735; 83880

== ENCOUNTER 2024-03-12 11:57 | Outpatient (CLI) | payer BC, SELFPAY ==
[2024-03-12 12:11] LABS: Basophils Absolute Auto 0.1 K/mm3 (0.0-0.1); Basophils Percent Auto 0.8 % (0.2-1.2); Eosinophils Absolute Auto 0.2 K/mm3 (0-0.3); Eosinophils Percent Auto 2.9 % (0-4.4); Hematocrit 57.5 % (42.0-52.0); Hemoglobin 18.8 g/dL (14.0-18.0); Immature Granulocyte Absolute 0.01 K/mm3 (0.00-0.031); Immature Granulocyte Percent A 0.1 % (0-0.5); Lymphocytes Absolute Auto 2.71 K/mm3 (0.9-3.2); Lymphocytes Percent Auto 35.3 % (18.3-44.2); Mean Corpuscular HGB Conc 32.7 g/dl (32-36); Mean Corpuscular Hemoglobin 32.4 pg (26-34); Mean Platelet Volume 10.1 fl (7.4-10.4); Monocytes Absolute Auto 0.6 K/mm3 (0.1-0.6); Monocytes Percent Auto 7.2 % (2.6-8.5); Neutrophils Absolute Auto 4.1 K/mm3 (1.3-6.7); Neutrophils Percent Auto 53.7 % (45.5-73.1); Platelet Count Result 199 k/mm3 (150-375); Red Blood Count 5.81 M/mm3 (4.6-6.20); Red Cell Distribution Width 13.9 % (11.5-14.5); White Blood Count 7.7 K/mm3 (4.5-10.0)
[2024-03-12 17:04] LABS: Alanine Aminotransferase 13 U/L (6-50); Albumin Level 4.5 g/dL (3.5-5.1); Alkaline Phosphatase 85 U/L (38-126); Anion Gap 10 mmol/L (4-12); Aspartate Amino Transferase 24 U/L (17-59); Bilirubin,Total 1.8 mg/dL (0.2-1.3); Blood Urea Nitrogen 21 mg/dL (9-20); Carbon Dioxide 35 mmol/L (22-30); Chloride 94 mmol/L (98-107); Estimated Glomerular Filt Rate > 60; Glucose 105 mg/dL (65-110); Potassium 5.4 mmol/L (3.4-5.0); Sodium 139 mmol/L (137-145)
[2024-03-12 18:09] LABS: Folic Acid 6.6 ng/mL (2.76->20)
== END 2024-03-12 11:58 | disposition home or self-care (01) ==
LOC: ANHLAB 11:59
PROVIDERS: PCP Emergency Medicine; Visit Provider Internal Medicine Hematology & Oncology
DX: D75.1 Secondary polycythemia (principal)
CPT/HCPCS: 36415; 80053; 82607; 82746; 85025

== ENCOUNTER 2024-04-30 11:56 | Outpatient (CLI) | payer BC, SELFPAY ==
[2024-04-30 12:31] LABS: Basophils Percent Auto 0.5 % (0.2-1.2); Eosinophils Absolute Auto 0.2 K/mm3 (0-0.3); Hematocrit 55.7 % (42.0-52.0); Hemoglobin 18.1 g/dL (14.0-18.0); Immature Granulocyte Absolute 0.02 K/mm3 (0.00-0.031); Immature Granulocyte Percent A 0.3 % (0-0.5); Lymphocytes Absolute Auto 1.77 K/mm3 (0.9-3.2); Lymphocytes Percent Auto 29.2 % (18.3-44.2); Mean Corpuscular HGB Conc 32.5 g/dl (32-36); Mean Corpuscular Volume 101.6 fl (80-100); Mean Platelet Volume 10.2 fl (7.4-10.4); Monocytes Absolute Auto 0.4 K/mm3 (0.1-0.6); Monocytes Percent Auto 6.6 % (2.6-8.5); Neutrophils Absolute Auto 3.7 K/mm3 (1.3-6.7); Neutrophils Percent Auto 60.4 % (45.5-73.1); Platelet Count Result 164 k/mm3 (150-375); Red Blood Count 5.48 M/mm3 (4.6-6.20); Red Cell Distribution Width 16.7 % (11.5-14.5); White Blood Count 6.1 K/mm3 (4.5-10.0)
[2024-04-30 12:39] LABS: Anion Gap 7 mmol/L (4-12); Blood Urea Nitrogen 14 mg/dL (9-20); Calcium 8.5 mg/dL (8.4-10.2); Carbon Dioxide 37 mmol/L (22-30); Chloride 93 mmol/L (98-107); Estimated Glomerular Filt Rate > 60; Glucose 162 mg/dL (65-110); Potassium 3.9 mmol/L (3.4-5.0); Sodium 137 mmol/L (137-145)
== END 2024-04-30 11:57 | disposition home or self-care (01) ==
PROVIDERS: PCP Emergency Medicine; Referring Provider Nurse Practitioner Adult Health; Visit Provider Internal Medicine Hematology & Oncology
DX: R60.0 Localized edema (principal); D75.1 Secondary polycythemia
CPT/HCPCS: 36415; 80048; 85025; 99212; G0463

== ENCOUNTER 2024-07-16 10:51 | Outpatient (CLI) | payer BC, SELFPAY ==
--- NOTE | 2024-07-16 11:30 | NEURO_ITS ---
Impression: # Complains of increasing weakness and numbness in lower extremities. Non-diabetic with severe bilateral pitting edema. # No electrical responses obtained ,Consistent with severe neuropathy. # Needle/EMG exam with severe scarcity of motor unit potentials but no fibs noted. # Clinical correlation recommended. Nerve Conduction Studies Anti Sensory Summary Table Stim Site NR Peak (ms) P-T Amp (?V) Site1 Site2 Delta-P (ms) Dist (cm) Kristofer (m/s) Left Sup Fibular Anti Sensory (Ant Lat Mall) NO RESPONSE 14 cm NR 14 cm Ant Lat Mall 16.0 Right Sup Fibular Anti Sensory (Ant Lat Mall) NO RESPONSE 14 cm NR 14 cm Ant Lat Mall 16.0 Left Sural Anti Sensory (Lat Mall) NO RESPONSE Calf NR Calf Lat Mall 16.0 Right Sural Anti Sensory (Lat Mall) NO RESPONSE Calf NR Calf Lat Mall 16.0 Motor Summary Table Stim Site NR Onset (ms) O-P Amp (mV) Site1 Site2 Delta-0 (ms) Dist (cm) Kristofer (m/s) Left Peroneal Motor (Vastus Med) NO RESPONSE Ankle NR Popit NR Right Peroneal Motor (Vastus Med) NO RESPONSE Ankle NR Popit Ankle 0.0 Popit NR Left Tibial Motor (Abd Schmidt Brev) NO RESPONSE Ankle NR Knee Ankle 0.0 Knee NR Right Tibial Motor (Abd Schmidt Brev) NO RESPONSE Ankle NR Knee Ankle 0.0 Knee NR F Wave Studies NR F-Lat (ms) L-R F-Lat (ms) Left Peroneal (Mrkrs) (EDB) NO RESPONSE NR Right Peroneal (Mrkrs) (EDB) NO RESPONSE NR Left Tibial (Mrkrs) (Abd Hallucis) NO RESPONSE NR Right Tibial (Mrkrs) (Abd Hallucis) NO RESPONSE NR EMG Side Muscle Nerve Root Ins Act Fibs Amp Dur Recrt Comment Right AntTibialis Dp Br Fibular L4-5 Nml Nml Nml >12ms +2 Right Gastroc Tibial S1-2 Nml Nml Nml >12ms +2 Right Fibularis Long Sup Br Fibular L5-S1 Nml Nml Nml >12ms +2 Right Flex Dig Long Tibial L5-S2 Nml Nml Nml >12ms +2 Right Ext Dig Brev Dp Br Fibular L5, S1 Nml Nml Nml >12ms +2 Right QuadratusFem QuadFemoris L4-5, S1 Nml Nml Nml >12ms +2 Left AntTibialis Dp Br Fibular L4-5 Nml Nml Nml >12ms +2 Left Gastroc Tibial S1-2 Nml Nml Nml >12ms +2 Left Fibularis Long Sup Br Fibular L5-S1 Nml Nml Nml >12ms +2 Left Flex Dig Long Tibial L5-S2 Nml Nml Nml >12ms +2 Left Ext Dig Brev Dp Br Fibular L5, S1 Nml Nml Nml >12ms +2 Left QuadratusFem QuadFemoris L4-5, S1 Nml Nml Nml >12ms +2 MTDD
== END 2024-07-16 10:52 | disposition home or self-care (01) ==
PROVIDERS: PCP Emergency Medicine; Visit Provider Psychiatry & Neurology Neurology
DX: R53.1 Weakness (principal); R20.0 Anesthesia of skin; G62.9 Polyneuropathy, unspecified
CPT/HCPCS: 95886; 95910

== ENCOUNTER 2024-08-16 12:13 | Outpatient (CLI) | payer BC, SELFPAY ==
[2024-08-16 13:32] LABS: Basophils Percent Auto 0.3 % (0.2-1.2); Eosinophils Absolute Auto 0.2 K/mm3 (0-0.3); Eosinophils Percent Auto 3.3 % (0-4.4); Hematocrit 51.8 % (42.0-52.0); Hemoglobin 17.4 g/dL (14.0-18.0); Immature Granulocyte Absolute 0.01 K/mm3 (0.00-0.031); Immature Granulocyte Percent A 0.2 % (0-0.5); Lymphocytes Absolute Auto 2.04 K/mm3 (0.9-3.2); Lymphocytes Percent Auto 31.6 % (18.3-44.2); Mean Corpuscular HGB Conc 33.6 g/dl (32-36); Mean Corpuscular Hemoglobin 33.3 pg (26-34); Mean Platelet Volume 10.4 fl (7.4-10.4); Monocytes Absolute Auto 0.5 K/mm3 (0.1-0.6); Monocytes Percent Auto 7.9 % (2.6-8.5); Neutrophils Absolute Auto 3.7 K/mm3 (1.3-6.7); Neutrophils Percent Auto 56.7 % (45.5-73.1); Platelet Count Result 193 k/mm3 (150-375); Red Blood Count 5.23 M/mm3 (4.6-6.20); Red Cell Distribution Width 16.6 % (11.5-14.5); White Blood Count 6.5 K/mm3 (4.5-10.0)
== END 2024-08-16 12:14 | disposition home or self-care (01) ==
PROVIDERS: PCP Emergency Medicine; Visit Provider Internal Medicine Hematology & Oncology
DX: D75.1 Secondary polycythemia (principal)
CPT/HCPCS: 36415; 85025

== ENCOUNTER 2024-09-03 10:00 | Outpatient (CLI) | payer BC, SELFPAY ==
--- NOTE | ~2024-09-03 | CT_ITS ---
CT Scan of the Chest without Contrast: Clinical Indication: Lung cancer screening, nicotine dependence Technique: Contiguous sections were acquired throughout the chest without intravenous contrast. Dose reduction technique was used on this scan by utilizing automated exposure control and iterative recon struction technique. The dose-length product (DLP) was 153.95 mGy-cm. COMPARISON: 1124 Findings: There is no evidence of any significant mediastinal, hilar or axillary lymphadenopathy. The mediastin al soft tissues appear normal. There is no evidence of pleural or pericardial effusion. Moderate to advanced emphysema. Stable 4 mm left apical pulmonary nodule (axial image 28). New additi onal 3 mm apical left pulmonary nodule (axial image 31). Stable right apical pulmonary nodule (axial image 24). Stable 3 mm left upper lobe pulmonary nodule (axial image 59). Stable additional scattered subpleural subcentimeter nodules bilaterally. Images through the upper abdomen reveal no abnormalities. Impression: Lung RADS 2: Benign appearance. 12 month follow-up screening CT advised. Reviewed, dictated and finalized at [facility]. EWORKER Impression: Lung RADS 2: Benign appearance. 12 month follow-up screening CT advised.
== END 2024-09-03 10:01 | disposition home or self-care (01) ==
PROVIDERS: PCP Emergency Medicine; Visit Provider Nurse Practitioner Family
DX: Z12.2 Encounter for screening for malignant neoplasm of respiratory organs (principal); Z87.891 Personal history of nicotine dependence
CPT/HCPCS: 71271

== ENCOUNTER 2024-09-25 07:02 | Outpatient (CLI) | payer BC, SELFPAY ==
--- NOTE | ~2024-09-25 | MR_ITS ---
MRI of the cervical spine Clinical History: Post lumpectomy syndrome, radiculopathy Technique: Axial T2-weighted and gradient images, and sagittal T1-weighted, T2-weighted, and STIR dolores ges were acquired. Findings: No acute fracture evident. There is reversal normal cervical lordosis with grade 1 anteroli sthesis of C3 over C4. No suspicious bone marrow signal abnormality seen. At C2-C3, there is left foraminal disc osteophyte complex with left facet arthropathy, with associate d left neural foraminal narrowing. Right neural foramen preserved. No central canal stenosis or cord compression. At C3-C4, there is moderate degenerative disc narrowing. Disc osteophyte complex results in mild sue l stenosis without carolynn cord compression. There is bilateral facet arthropathy, left worse than righ t, with bilateral severe neural foraminal narrowing. At C4-C5, there is severe degenerative disc narrowing. There is no carolynn canal stenosis or cord compr ession. There is bilateral significant neural foraminal narrowing. At C5-C6, there is severe degenerative disc narrowing. Diffuse disc bulge present with left paracentr al disc protrusion, resulting in moderate spinal canal stenosis and mild to moderate cord compression . There is severe bilateral neural foraminal narrowing, right worse than left. At C6-C7, there is severe degenerative disc narrowing. There is moderate canal stenosis with minimal flattening the ventral cord. There is bilateral neural foraminal narrowing, right worse than left. No abnormal signal seen in the spinal cord itself. Paravertebral soft tissues are unremarkable. Impression: Reversal of the normal cervical lordosis, with grade 1 anterolisthesis of C3 over C4. Severe degenerative spondylitic changes, as above. Reviewed, dictated and finalized at [facility] M. UCTION CONTROL COORDINATING CLERK Impression: Reversal of the normal cervical lordosis, with grade 1 anterolisthesis of C3 ov er C4. Severe degenerative spondylitic changes, as above.
--- OUTSIDE RECORDS SUMMARY | 2024-09-25 07:06 | XMS_ITS | Clinical Summary ---
Author Organization [facility] Address [address] [place] [address] Care Team Providers Care School Adjustment Counselor Name Role Phone Paulo Stephens MD Primary Care Provider [phone] Inocente Holt NP Unavailable [phone] Allergies Active Allergy Reactions Criticality Noted Date Comments Pregabalin Unknown High 06/05/2021 Medications oxyCODONE (ROXICODONE) 10 mg tabletIndication s:Pain Take 1 tablet (10 mg total) by mouth every 4 (four) hours as needed Active folic acid (FOLVITE) 1 mg tablet Take 1 tablet (1,000 mcg total) by mouth daily 07/01/2021 Active albuterol HFA (PROVENTIL HFA,VENTOLIN HFA,PROAIR HFA) 90 mcg/actuation inhaler Inhale 2 puffs 4 (four) times a day 09/09/2023 Active Eliquis 5 mg tablet Take 1 tablet (5 mg total) by mouth 2 (two) times a day 09/09/2023 Active atorvastatin (LIPITOR) 40 mg tablet Take 1 tablet (40 mg total) by mouth daily 09/09/2023 Active mirtazapine (REMERON) 15 mg tablet Take 1 tablet (15 mg total) by mouth nightly at bedtime. 09/22/2023 Active Anoro Ellipta 62.5-25 mcg/actuation blister with device Inhale 1 puff daily 09/09/2023 Active potassium chloride ER 20 mEq CR tablet Take 1 tablet (20 mEq total) by mouth daily 01/28/2024 Active torsemide (DEMADEX) 20 mg tabletIndication s:RVF (right ventricular failure) (CMS/HCC) (HCC),Bilateral lower extremity edema Take 1 tablet (20 mg total) by mouth 3 (three) times a day 03/12/2024 Active pyridoxine (VITAMIN B-6) 100 mg tablet Take 0.5 tablets (50 mg total) by mouth daily Active Active Problems Problem Noted Date Diagnosed Date History of stroke 02/01/2024 Bilateral lower extremity edema 02/01/2024 Cor pulmonale 02/01/2024 Right ventricular enlargement 02/01/2024 Chronic respiratory failure 02/01/2024 Chronic anticoagulation 02/01/2024 Tobacco abuse 07/30/2021 Assessment & Plan (07/30/2021 10:10 AM VP OF CUSTOMER EXPERIENCE STRATEGY): Impression: Patient with history of tobacco abuse who is a current everyday 1 pack per day smoker for the last 50+ years. Plan: I had a greater than 3 minute discussion with the patient on the importance of smoking cessation and the negative affects on their cardiovascular health. The patient is currently not interested in quitting. Polycythemia 06/15/2021 Assessment & Plan (07/30/2021 9:59 AM VP OF CUSTOMER EXPERIENCE STRATEGY): Impression: Patient is currently seeing Oncology for his polycythemia. Plan: Continue recommendations as per oncology. Edema 06/05/2021 Hyperlipidemia 06/05/2021 Hypertension 06/05/2021 Assessment & Plan (07/30/2021 9:58 AM VP OF CUSTOMER EXPERIENCE STRATEGY): Impression: Chronic stable hypertension, controlled medications. Blood pressure stable this office visit. Plan: Medications reviewed. No changes made. Continue blood pressure management as per primary care provider/cardiology. Pulmonary emphysema 06/05/2021 Tobacco dependence syndrome 06/05/2021 Venous insufficiency 06/05/2021 Shortness of breath 06/05/2021 Cervicalgia 02/28/2019 Cervical radiculopathy 02/28/2019 Cervical spinal stenosis 02/28/2019 Spondylosis of cervical joint without myelopathy 02/28/2019 Chronic bilateral low back pain with bilateral s ciatica 02/28/2019 Lumbosacral spondylosis without myelopathy 02/28 Radiculopathy, lumbosacral region 02/28/2019 Spinal stenosis of lumbar re gion with neurogenic claudication 02/28/2019 Assessment & Plan (07/30/2021 9:58 AM VP OF CUSTOMER EXPERIENCE STRATEGY): Impression: Patient has a history of spinal stenosis. Patient most likely has neurogenic claudication as he complains of numbness and tingling to bilateral lower feet. Patient has palpable pulses bilaterally to femoral and distal pulses. No ulcerations or edema is noted to bilateral lower feet. Plan: Recommend patient to follow-up with primary care provider for further evaluation. Patient to continue utilizing compression stocking. Other idiopathic scoliosis, thoracolumbar region 02/28/2019 Long-term current use of opiate analgesic 2018 Presence of intrathecal pump 02/28/2019 Chronic midline posterior neck pain 01/08/2019 Cervical post-laminectomy syndrome 03/08/2018 Encounters Date Type Department Care Team Description 08/28/2024 1:45 PM VP OF CUSTOMER EXPERIENCE STRATEGY - 08/28/2024 11:59 PM VP OF CUSTOMER EXPERIENCE STRATEGY Hospital Encounter [facility] [address] [place] [address] Inocente Holt NP Cervical post-laminectomy syndrome (Primary Dx); Chronic pain syndrome; Cervicalgia; Cervical radiculopathy; Cervical spinal stenosis; Radiculopathy, lumbosacral region Discharge Disposition: Discharge to home or self care from Last 3 Months Surgical History Surgery Date Site/Laterality Comments INTRATHECAL PUMP IMPLANTATION 08/22/2006 - 08/21/2007 SPINE SURGERY 05/22/1993 - 06/21/1993 [id number] Fusion SHOULDER ARTHROSCOPY Right Impingement Medical History Medical History Date Comments Hypertension treated by PCP Kidney stone DDD (degenerative disc disease), lumbar Stroke (HCC) COPD (chronic obstructive pulmonary disease) (HC C) Depression Lumbosacral disc disease Cervical disc disorder Neck pain Family History Medical History Relation Name Comments Hypertension Father Alex Stroke Father Alex Clotting disorder Mother Mathieu Langford Relation Name Status Comments Father Alex Mother Mathieu Langford Social History Tobacco Use Types Packs/Day Years Used Date Smoking Tobacco: Every Day Cigarettes 1 50 Passive Smoke Exposure: Never Smokeless Tobacco: Never Comments:Smokes between 1/2- full pack daily Alcohol Use Standard Drinks/Week Comments No 0 (1 standard drink = 0.6 oz pur e alcohol) PHQ-2 Answer Date Recorded PHQ-2 Score 0 04/13/2019 Sex and Gender Information Value Date Recorded Sex Assigned at Not on file Legal Sex Male 6:28 AM VP OF CUSTOMER EXPERIENCE STRATEGY Gender Identity Not on file Sexual Orientation Not on file Obstetrics History Last Filed Vital Signs Vital Sign Reading Time Taken Comments Blood Pressure 115/68 08/28/2024 2:11 PM VP OF CUSTOMER EXPERIENCE STRATEGY Pulse 121 08/28/2024 2:11 PM VP OF CUSTOMER EXPERIENCE STRATEGY Temperature 36.3 ??C (97.4 ??F) 10/27/2019 7 :19 AM VP OF CUSTOMER EXPERIENCE STRATEGY Respiratory Rate 24 08/28/2024 2:11 PM VP OF CUSTOMER EXPERIENCE STRATEGY Oxygen Saturation 90% 08/28/2024 2:1 1 PM VP OF CUSTOMER EXPERIENCE STRATEGY 3 LPM O2 via NC Inhaled Oxygen Concentration - - Weight 74.8 kg (165 lb) 08/28/2024 2:11 PM VP OF CUSTOMER EXPERIENCE STRATEGY Height 175.3 cm (5' 9 ) 08/28/2024 2:11 PM VP OF CUSTOMER EXPERIENCE STRATEGY Body Mass Index 24.37 08/28/2024 2:11 PM VP OF CUSTOMER EXPERIENCE STRATEGY Plan of Treatment Health Maintenance Due Date Last Done Comments Colon Cancer Screening-Colonoscopy 1955 Hepatitis C Screening 1955 Pneumococcal vaccine 65+ (1 of 2 - PCV) 1959 DTaP/Tdap/Td Vaccine (1 - Tdap) 1964 Hepatitis B Screening 1971 Lung Cancer Screening 2003 Zoster Vaccine (1 of 2) 2003 Abdominal Aortic Aneurysm (A AA) Screen 2018 Well Visit 65+ 2018 Depression Screening 02/28/2020 02/27/2019, 02/27/2019, 02/14/2019, Additional history exists Covid-19 Vaccine (3 - 2023-2 5 season) 2024 11/24/2020, 11/03/2020 Influenza Vaccine (#1) 2024 Fall Risk Assessment 08/28/2025 08/28/2024 Goals Goal Patient Goal Type Associated Problems Recent Progress Patient-Stated? Author [facility] No Nina Kuhn, RN Note: To maintain current pain plan and ADL. Medical Devices Implanted Type Area Associate Product Integrity Engineer Device Identifier Shelf Expiration Date Model / Serial / Lot Pain Pump-03/19/2013 Implanted: [id number] (Quantity not on file) Right: Abdomen Medtronic 8637-20 / [id number] / Medtronic Neuro 8637-20 Synchromed Ii .78in [place] Filter Mesh Pouch Programmable - [id number] - [id number] Implanted:Qty: 1 on 10/26/2019 by Kendla Crump MD at [facility] Right: Abdomen Medtronic Inc 03/18/2021 8637-20 / [id number] / Medtronic Neuro 8578 Sutureless Connector Revision Catheter Kit Intrathecal Pump - [id number] Implanted:Qty: 1 on 10/26/2019 by Kendal Crump MD at [facility] Right: Abdomen Medtronic Inc 03/08/2021 [id number] / / [id number] Insurance [facility] FEDERAL MEDICARE MEDICARE Advance Directives For more information, please contact: [phone] * Full Code (Latest Code Status on File) Date Activated Date Inactivated Comments 10/26/2019 11:44 AM 10/27/2019 3:57 PM Care Teams School Adjustment Counselor Relationship Specialty Start Date End Date Paulo Stephens MD PCP - General 11/15/17 [place] [address] [address] [facility] [address] [place] [address] Nurse Practitioner Nurse Practitioner 08/28/24
--- OUTSIDE RECORDS SUMMARY | 2024-09-25 07:06 | XMS_ITS | Referral Summary ---
Author Organization [facility] Address [address] [place] [address] Care Team Providers Care Usability Strategist Name Role Phone Paulo Stephens MD Primary Care Provider Inocente Holt STEWARD/[employer] Unavailable [phone] Encounters Date Type Department Care Team Description 08/28/2024 1:45 PM CORE MAKER - 08/28/2024 11:59 PM CORE MAKER Hospital Encounter [facility] [address] [place] [address] Inocente Holt NP Cervical post-laminectomy syndrome (Primary Dx); Chronic pain syndrome; Cervicalgia; Cervical radiculopathy; Cervical spinal stenosis; Radiculopathy, lumbosacral region Discharge Disposition: Discharge to home or self care from Last 3 Months Allergies Active Allergy Reactions Criticality Noted Date [...] 07/30/2021 Assessment & Plan (07/30/2021 10:10 AM CORE MAKER): Impression: Patient with history of tobacco abuse [...] 06/15/2021 Assessment & Plan (07/30/2021 9:59 AM CORE MAKER): Impression: Patient is currently seeing Oncology for his polycythemia. Plan: Continue recommendations as per oncology. Edema 06/05/2021 Hyperlipidemia 06/05/2021 Hypertension 06/05/2021 Assessment & Plan (07/30/2021 9:58 AM CORE MAKER): Impression: Chronic stable hypertension, controlled medications. Blood [...] 02/28/2019 Assessment & Plan (07/30/2021 9:58 AM CORE MAKER): Impression: Patient has a history of spinal [...] neck pain 01/08/2019 Cervical post-laminectomy syndrome 03/08/2018 Social History Tobacco Use Types Packs/Day Years [...] on file Legal Sex Male 6:28 AM CORE MAKER Gender Identity Not on file Sexual Orientation Not on file Last Filed Vital Signs Vital Sign Reading Time Taken Comments Blood Pressure 115/68 08/28/2024 2:11 PM CORE MAKER Pulse 121 08/28/2024 2:11 PM CORE MAKER Temperature 36.3 ??C (97.4 ??F) 10/27/2019 7 :19 AM CORE MAKER Respiratory Rate 24 08/28/2024 2:11 PM CORE MAKER Oxygen Saturation 90% 08/28/2024 2:1 1 PM CORE MAKER 3 LPM O2 via NC Inhaled Oxygen Concentration - - Weight 74.8 kg (165 lb) 08/28/2024 2:11 PM CORE MAKER Height 175.3 cm (5' 9 ) 08/28/2024 2:11 PM CORE MAKER Body Mass Index 24.37 08/28/2024 2:11 PM CORE MAKER Plan of Treatment Not on file Goals Goal Patient Goal Type Associated Problems Recent Progress Patient-Stated? Author -[facility] Nina Thomas RN Note: To maintain current pain plan and ADL. Medical Devices Implanted Type Area Annealing Furnace Operator Device Identifier Shelf Expiration Date Model / Serial / Lot Pain Pump-03/19/2013 Implanted: 013 (Quantity not on file) Right: Abdomen Medtronic 8637-20 / [id number] / Medtronic Neuro 8637-20 Synchromed Ii .78in [place] Filter Mesh Pouch Programmable - [id number] - [id number] Implanted:Qty: 1 on 10/26/2019 by Kendal Crump MD at [facility] Right: Abdomen Medtronic Inc 03/18/2021 8637-20 / [id number] / Medtronic Neuro 8578 Sutureless Connector Revision Catheter Kit Intrathecal Pump - [id number] Implanted:Qty: 1 on 10/26/2019 by Kendal Crump MD at [facility] Right: Abdomen Medtronic Inc 03/08/2021 8578 / / [id number] Insurance [facility] FEDERAL MEDICARE MEDICARE Advance Directives For more information, please contact: [phone] * Full Code (Latest Code Status on File) Date Activated Date Inactivated Comments 10/26/2019 11:44 AM 10/27/2019 3:57 PM Care Teams Usability Strategist Relationship Specialty Start Date End Date Paulo Stephens MD PCP - General 11/15/17 [place] [address] [address] [facility] [address] [place] [address] Nurse Practitioner Nurse Practitioner 08/28/24
--- OUTSIDE RECORDS SUMMARY | 2024-09-25 07:06 | XMS_ITS | Encounter Summary ---
Author Organization [facility] Healthcare Address [address] [place] [address] Care Team Providers Care Cloth Folder Machine Name Role Phone Paulo Stephens MD Primary Care Provider [phone] Nina Kuhn RN Unavailable Unavailab Fela Ellsworth RN Unavailable UnavailInocente Clark NP Unavailable [phone] Encounter Details Date Type Department Care Team (Late st Contact Info) Description 01/03/2024 Orders Only [facility] Health Information Management [address] [place] [id number] Scanning, Provider Social History Tobacco Use Types Packs/Day Years Used Date Smoking Tobacco: Every Day Cigarettes 1 50 Smokeless Tobacco: Never Alcohol Use Standard Drinks/Week Comments No 0 (1 standard drink = 0.6 oz pur e alcohol) PHQ-2 Answer Date Recorded PHQ-2 Score 0 04/13/2019 Sex and Gender Information Value Date Recorded Sex Assigned at Not on file Legal Sex Male 6:28 AM TANK SYSTEMS MAINTAINER Gender Identity Not on file Sexual Orientation Not on file documented as of this encounter Plan of Treatment Not on file documented as of this encounter Goals Goal Patient Goal Type Associated Problems Recent Progress Patient-Stated? Author [facility] No Nina Kuhn, RN Note: To maintain current pain plan and ADL. documented as of this encounter Procedures Procedure Name Priority Date/Time Associated Diagnosis Comments SCAN - RADIOLOGY/IMAGING 01/03/2024 documented in this encounter Results * SCAN - RADIOLOGY/IMAGING (01/03/2024) Anatomical Region Laterality Modality Other us Provider Scanning Edited Result - Final documented in this encounter Visit Diagnoses Not on filedocumented in this encounter Care Teams Cloth Folder Machine Relationship Specialty Start Date End Date Paulo Stephens MD PCP - General 11/15/17 Nina Kuhn, LILI Registered Nurse Pain Management 11/15/17 08/27/24 Fela Osuna, RN Registered Nurse 01/02/18 08/27/24 [place] [address] [address] [facility] [address] [place] [address] Nurse Practitioner Nurse Practitioner 08/28/24 documented as of this encounter
--- OUTSIDE RECORDS SUMMARY | 2024-09-25 07:06 | XMS_ITS | Clinical Summary ---
Author Organization [facility] Address [address] [place] [address]. [place] [address] [place] [address] Care Team Providers Care Primer Expeditor And Drier Name Role Phone Unavailable Primary Care Provider Unavailabl e Social History Tobacco Use Types Packs/Day Years Used Date Smoking Tobacco: Never Assessed Sex and Gender Information Value Date Recorded Sex Assigned at Not on file Legal Sex Male 7:49 PM CDT Gender Identity Not on file Sexual Orientation Not on file Plan of Treatment Health Maintenance Due Date Last Done Comments Colorectal Cancer Screening Colonoscopy (10 Years) 1953 Hepatitis C 1971 DTaP, Tdap and Td Vaccines ( 1 - Tdap) 1972 Zoster Vaccines (1 of 2) 2003 Pneumococcal Vaccine: 65+ Ye ars (1 of 1 - PCV) 2018 COVID-19 Vaccine ( - 2023-2 5 season) 2024 Influenza Adult (#1) 2024 RSV Immunization or 60+ Years (1 - 1-dose 75+ series) 2028 Meningococcal B Vaccine Aged Out No l onger eligible based on patient's age to complete this topic Meningococcal Vaccine Aged Out No dandre mian eligible based on patient's age to complete this topic RSV Immunizations Under 20 Months Aged Out No longer eligible based on patient's age to complete this topic
--- OUTSIDE RECORDS SUMMARY | 2024-09-25 07:06 | XMS_ITS | Encounter Summary ---
Author Organization [facility] Address [address] [place] [address] Phone Care Team Providers Care Chip Crusher Operator Name Role Phone Paulo Stephens Primary Care Provider [phone] Gutierrez Mckinley MD Unavailable [phone] Encounter Details Date Type Department Care Team (Late st Contact Info) Description 01/25/2022 Telephone [facility] [address] [place] [address] Gutierrez Mckinley MD [address] [facility] [place] RAJESH [address] [address] Social History Tobacco Use Types Packs/Day Years Used Date Smoking Tobacco: Every Day Smokeless Tobacco: Never Alcohol Use Standard Drinks/Week Comments Not Currently 0 (1 standard drink = 0.6 oz pur e alcohol) PHQ-2 Answer Date Recorded Total Score - Questions 1-9 0 02/2022 Sex and Gender Information Value Date Recorded Sex Assigned at Not on file Legal Sex Male 3:36 AM DRILL PRESS OPERATOR FOR METAL Gender Identity Not on file Sexual Orientation Not on file documented as of this encounter Miscellaneous Notes * Telephone Encounter - Brenda Hooker - 01/25/2022 3:14 PM CDT PT HAD AN OFFICE VISIT SCHEDULED, NO SHOW, CALLED PT, LEFT V/M documented in this encounter Plan of Treatment Not on file documented as of this encounter Visit Diagnoses Not on filedocumented in this encounter Additional Health Concerns Assessment Noted Time PHQ-9 Depression Total Score: 0 06/15/20 21 1:41 PM CDT documented as of this encounter Care Teams Chip Crusher Operator Relationship Specialty Start Date End Date Paulo Stephens [address] [place] [address] PCP - General Family Medicine 06/02/21 Gutierrez Mckinley MD [address] [place] [id number] Consulting Physician Oncology 06/02/21 documented as of this encounter
--- OUTSIDE RECORDS SUMMARY | 2024-09-25 07:06 | XMS_ITS | Encounter Summary ---
Author Organization [facility] Address [address] [place] [address] Care Team Providers Care Bailing Machine Operator Name Role Phone Pualo Stephens MD Primary Care Provider [phone] Encounter Details Date Type Department Care Team (Latest Contact Info) Description 02/19/2005 Outpatient Historical [facility] Karthik Juarez MD NO ADDRESS ON FILE CERVICALGIA (Primary Dx) Social History Tobacco Use Types Packs/Day Years Used Date Smoking Tobacco: Never Assessed Sex and Gender Information Value Date Recorded Sex Assigned at Not on file Legal Sex Male 5:08 AM SNACK BAR ATTENDANT Gender Identity Not on file Sexual Orientation Not on file documented as of this encounter Plan of Treatment Upcoming Encounters Date Type Department Care Team (Late st Contact Info) Description 09/27/2024 3:45 PM SNACK BAR ATTENDANT Office Visit [facility] Oncology and Hematology - [place] [address] [facility] [address] [place] [address] Felix Franco MD [address] [facility] [address] [place] [address] documented as of this encounter Visit Diagnoses Diagnosis Cervicalgia- Primary documented in this encounter Care Teams Bailing Machine Operator Relationship Specialty Start Date End Date Paulo Stephens MD [address] [place] [id number] PCP - General Family Practice 09/19/23 documented as of this encounter
--- OUTSIDE RECORDS SUMMARY | 2024-09-25 07:06 | XMS_ITS | CONTINUITY OF CARE DOCUMENT ---
Author Name poly robertdom Address Unknown Organization [facility] Address [address] 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 Name Role Phone Susan Guillen MD Unavailable [phone] ANGELINE SOUSA, MARCIA Unavailable [phone] ANGELINE SOUSA, MARCIA Unavailable [phone] PROBLEMS Condition Status Date Provider Notes Family History of Hypertension: active Antony Guillen MD Edema active Susan Guillen MD Venous insufficiency active Crystal Glass NP Hypertension active Crystal Glass NP Hyperlipidemia active Crystal Glass NP Tobacco abuse active Crystal Glass LINE HELPER Emphysema active Crystal Glass LINE HELPER Shortness of breath active Crystal Glass NP Cardiovascular Condition Screening active S yecenia Guillen MD ENCOUNTERS Date Type Provider Location Encounter Diag nosis 01/26 - 01/26 In-person encounter Office Visit Susan Guillen MD [facility] 12/22 - 12/24 In-person encounter Office Visit Susan Guillen MD [facility] 10/20 - 10/20 In-person encounter Office Visit uSsan Guillen MD [facility] 09/09 - 09/09 In-person encounter Office Visit Susan Guillen MD [facility] Cardiovascular Condition Screening - In-person encounter Office Visit Susan Guillen MD [facility] Family History of Hypertension:EdemaVeno us insufficiencyHypertensionHyperlipidemiaTobacco abuseEmphysemaShortness of breath VITAL SIGNS Date Observation Value Provider Body Mass Index (Ratio) 23.87 kg/m2 Antony Guillen MD blood pressure, diastolic 46 mm[Hg] Maryellen eugene Esteban blood pressure, systolic 118 mm[Hg] Alonzo stokes Esteban oxygen saturation, oximetry 98 % Anita Orellana pulse rate 102 /min Anita padron weight E&M 157 [lb_av] Anita padron height E&M 68 [in_i] Anita padron respiratory rate E&M 16 /min Beverley Orellana blood pressure, cuff size large Maryellen eugene Esteban Body Mass Index (Ratio) 23.81 kg/m2 Antony Guillen MD blood pressure, diastolic 62 mm[Hg] St vicky Felix blood pressure, systolic 104 mm[Hg] Nima Felix oxygen saturation, oximetry 89 % Es Felix pulse rate 88 /min Es Felix respiratory rate E&M 18 /min Es garcia weight E&M 156.6 [lb_av] Es Felix height E&M 68 [in_i] Es Felix Body Mass Index (Ratio) 23.72 kg/m2 Cornelio Pandya blood pressure, diastolic -1 mm[Hg] Nelida nkLogsuhail blood pressure, systolic 98 mm[Hg] Annamaria Ramosogsuhail blood pressure, diastolic 71 mm[Hg] St elvis Rivera blood pressure, systolic 98 mm[Hg] Jose Rivera respiratory rate E&M 16 /min Fred Rivera oxygen saturation, oximetry 87 % Donna Rivera pulse rate 87 /min Donna Townsend n weight E&M 156 [lb_av] Donna Townsend n height E&M 68 [in_i] Donna Townsend n blood pressure, cuff size small St leal [place] Body Mass Index (Ratio) 24.02 kg/m2 Antony Guillen MD blood pressure, diastolic 56 mm[Hg] Sa ra Rodriguez blood pressure, systolic 96 mm[Hg] Bonnie a Rodriguez respiratory rate E&M 15 /min Julia Si ms pulse rate 84 /min Julia Rodriguez oxygen saturation, oximetry 92 % Julia Rodriguez blood pressure, cuff size regular Sa ra Rodriguez weight E&M 158 [lb_av] Julia Rodriguez height E&M 68 [in_i] Julia Rodriguez Body Mass Index (Ratio) 26.27 kg/m2 Antony Guillen MD blood pressure, diastolic 64 mm[Hg] Li nkLogic blood pressure, systolic 110 mm[Hg] Annamaria kLogic blood pressure, diastolic 64 mm[Hg] Isaac Brenner blood pressure, systolic 110 mm[Hg] Lidna Brenner oxygen saturation, oximetry 93 % Eloisa Brenner respiratory rate E&M 16 /min Bon Brenner pulse rate 86 /min Eloisa griffiths weight E&M 172.8 [lb_av] Eloisa garcía height E&M 68 [in_i] Eloisa griffiths ALLERGIES Allergy Name Onset Date Reaction Criticality Status PREGABALIN High Criticality active HISTORY OF MEDICATION USE Medication Status Instructions Dates Provider Indications Com ments aspirin 81 mg capsule active Jessy Ventimiglia WELLFIELD TECHNICIAN folic acid unspecified unspecified active tablet by mouth once a day Julia Rodrgiuez oxycodone 10 mg tablet active TAKE 1 TABLET BY MOUTH THREE TIMES DAILY NEEDED Eloisa Brenner losartan-hydrochlor othiazide 100-25 mg tablet active TAKE 1 TABLET BY MOUTH EVERY DAY Eloisa Brenner spironolactone 50 mg tablet active TAKE 1 TABLET BY MOUTH EVERY DAY Eloisa Brenner SOCIAL HISTORY Date Observation Value Provider social history E&M S moking History: José choudhary currently smokes every day. Susan Guillen MD social history reviewed E&M revi ewed - no changes required Susan Guillen MD number of years as a smoker 50 a Anita Orellana smoking history, tot al pack/day 1 Anita Esteban cigarette use yes Anita Vishnu gillespie smoking status Current every da y smoker Anita Orellana drug use no Jessy Ventimig marcelo WELLFIELD TECHNICIAN alcohol use no Jessy Ventimig marcelo WELLFIELD TECHNICIAN number of years as a smoker 50 a Es Isidro smoking history, tot al pack/day 1 Es Isidro cigarette use yes Es Isidro smoking status Current every da y smoker Es Isidro social history reviewed E&M revi ewed - no changes required Du Pandya drug use no Jessy Ventimig marcelo WELLFIELD TECHNICIAN alcohol use no Jessy Ventimig marcelo WELLFIELD TECHNICIAN number of years as a smoker 50 a Donna Torreman smoking history, tot al pack/day 1 Donna Miguel cigarette use yes Donna rizzo smoking status Current every da y smoker Donna Rivera social history reviewed E&M revi ewed - no changes required Susan Guillen MD social history E&M S moking History: P kenrick currently smokes every day. Susan Guillen MD cigarette use yes Julia Rodriguez smoking status Current every da y smoker Julia Rodriguez number of grandchildren Rosa Glass NP number of years as a smoker 50 a Eloisa Jordin smoking history, tot al pack/day 1 Elosia Glassenson cigarette use yes Eloisa garcía smoking status Current every da y smoker Eloisa Brenner FAMILY HISTORY Family Member Condition Father Family History of Hy pertension: INSURANCE PROVIDERS Payer name Policy type / Coverage type [place] [employer] party ID [facility] [id number] ADVANCE DIRECTIVES Name Date DISCUSSED - NO DECISION MADE TREATMENT PLAN Date Name Performer [id number],S, H is updated medication list for this problem includes: Losartan-hydrochlorothiazide 100-25 Mg Tablet (Losartan-hydrochlorothiazide) ..... Take 1 tablet by mouth every day Spironolactone 50 Mg Tablet (Spironolactone) ..... Take 1 tablet by mouth every day Susan Guillen MD [id number],C, c essation encouraged Susan Guillen MD [id number],C, H is updated medication list for this problem includes: Losartan-hydrochlorothiazide 100-25 Mg Tablet (Losartan-hydrochlorothiazide) ..... Take 1 tablet by mouth every day Spironolactone 50 Mg Tablet (Spironolactone) ..... Take 1 tablet by mouth every day BP today: 118/46 P rior BP: 104/62 (12/22/2022) Susan Guillen MD [id number],C, B ilateral LE edema. Improved with aldactone. He wears compression which may help some. The numbness however, persist. continues with pain, swelling and discoloration in bilateral LE. He does have enlargement of the rt side of his heart which may be contributing. He only recently resumed aldactone a week ago and swelling improving. Have encouraged continued use, elevation and compression. He will f/u in 2 mos if no improvement can consider RHC for further evaluation. will add asa as well December 22, 2022 A RRANGE FOR VENOUS ULTRAOUND WITH REFLUX A ND ARRANGE FOR DEBORAH H E PREFERS NOT TO HAVE INVASIVE TESTING DONE UNTIL THESE TESTS ARE REVIEWED January 26, 2023 H e had testing. Showed mild atherosclerosis with normal arterial flow noted in the lower extremities bilaterally. No evidence of a deep vein thrombosis of the lower extremities bilaterally. Minimal venous insufficiency of the right great saphenous vein. At present, no sigificant PAD or venous disease. Susan Guillen MD [id number],C, B LE; continue RYAN hose; continue aldactone and HCTZ. Susan Guillen MD [id number],C,cessation enc ouraged Jessycarlito Billingsley [facility] [id number],C,W ill get updated lipids from PCP as patient scheduled for labs [place] Analilia [facility] [id number],C,B P well controlled 104/62 today H is updated medication list for this problem includes: Losartan-hydrochlorothiazide 100-25 Mg Tablet (Losartan-hydrochlorothiazide) ..... Take 1 tablet by mouth every day Spironolactone 50 Mg Tablet (Spironolactone) ..... Take 1 tablet by mouth every day [place] Aanlilia [facility] [id number],C,B ilateral LE edema. Improved with aldactone. He wears compression which may help some. The numbness however, persist. continues with pain, swelling and discoloration in bilateral LE. He does have enlargement of the rt side of his heart which may be contributing. He only recently resumed aldactone a week ago and swelling improving. Have encouraged continued use, elevation and compression. He will f/u in 2 mos if no improvement can consider RHC for further evaluation. will add asa as well December 22, 2022 A RRANGE FOR VENOUS ULTRAOUND WITH REFLUX A ND ARRANGE FOR DEBORAH H E PREFERS NOT TO HAVE INVASIVE TESTING DONE UNTIL THESE TESTS ARE REVIEWED Jessy Billingsley [facility] [id number],C,cessation enc ouraged Jessy Billingsley [facility] [id number],S, Jessy lino [facility] [id number],C,c ontrolled. BP low today at 98/71. Patient asymptomatic. Will continue to monitor H is updated medication list for this problem includes: Losartan-hydrochlorothiazide 100-25 Mg Tablet (Losartan-hydrochlorothiazide) ..... Take 1 tablet by mouth every day Spironolactone 50 Mg Tablet (Spironolactone) ..... Take 1 tablet by mouth every day Jessy Billingsley [facility] [id number],C,c ontinues with pain, swelling and discoloration in bilateral LE. He does have enlargement of the rt side of his heart which may be contributing. He only recently resumed aldactone a week ago and swelling improving. Have encouraged continued use, elevation and compression. He will f/u in 2 mos if no improvement can consider RHC for further evaluation. will add asa as well Jessycarlito Billingsley [facility] [id number],S,S chedule stress test. Abnormal EKG Susan Guillen MD [id number],C, H is updated medication list for this problem includes: Losartan-hydrochlorothiazide 100-25 Mg Tablet (Losartan-hydrochlorothiazide) ..... Take 1 tablet by mouth every day Spironolactone 50 Mg Tablet (Spironolactone) ..... Take 1 tablet by mouth every day B P today: 96/56 P rior BP: 110/64 (06/05/2021) Susan Guillen MD [id number],S, N o recent labs Susan Guillen MD [id number],C,H as a diagnosis. Does not recall who told him he had emphysema Susan Guillen MD [id number],C, H ad CT scan 2 days ago T he Patient was reencouraged to stop smoking. uSsan Guillen MD [id number],S,H ad USs done at [facility] Susan Guillen MD [id number],C,R eviewed with him regarding cardiac catherization. At present does not want to proceed. C ONCLUSIONS: 1 . There is flattening of the interventricular septum, probably the result of right ventricular volume overload. Normal left v entricular systolic function. Normal left ventricular size. Normal left ventricular wall thickness. Normal left ventricular d iastolic function. E/E': 6.3. Left ventricular ejection fraction is measured at 65 %. 2 . Mild enlargement of right ventricle. Normal right ventricular systolic function. Prominent moderator band - normal v ariant. 3 . Thin and hypermobile atrial septum. 4 . There is trace physiologic mitral valve regurgitation. 5 . There is trace physiologic tricuspid valve regurgitation. Susan Guillen MD [id number],S,check echo Sh rajan Glass NP [id number],S, Crystal traylor NP [id number],S,B LE; continue RYAN hose; continue aldactone and HCTZ. Crystal Glass NP [id number],S, Crystal traylor NP [id number],S,H ad CT scan 2 days ago T he Patient was reencouraged to stop smoking. Crystal Glass NP Cardiology: H is updated medication list for this problem includes: Losartan-hydrochlorothiazide 100-25 Mg Tablet (Losartan-hydrochlorothiazide) ..... Take 1 tablet by mouth every day Spironolactone 50 Mg Tablet (Spironolactone) ..... Take 1 tablet by mouth every day Susan Guillen MD Cardiology: c essation encouraged Susan Guillen MD Cardiology: H is updated medication list for this problem includes: Losartan-hydrochlorothiazide 100-25 Mg Tablet (Losartan-hydrochlorothiazide) ..... Take 1 tablet by mouth every day Spironolactone 50 Mg Tablet (Spironolactone) ..... Take 1 tablet by mouth every day BP today: 118/46 P rior BP: 104/62 (12/22/2022) Susan Guillen MD Cardiology: B ilateral LE edema. Improved with aldactone. He wears compression which may help some. The numbness however, persist. continues with pain, swelling and discoloration in bilateral LE. He does have enlargement of the rt side of his heart which may be contributing. He only recently resumed aldactone a week ago and swelling improving. Have encouraged continued use, elevation and compression. He will f/u in 2 mos if no improvement can consider RHC for further evaluation. will add asa as well December 22, 2022 A RRANGE FOR VENOUS ULTRAOUND WITH REFLUX A ND ARRANGE FOR DEBORAH H E PREFERS NOT TO HAVE INVASIVE TESTING DONE UNTIL THESE TESTS ARE REVIEWED January 26, 2023 H e had testing. Showed mild atherosclerosis with normal arterial flow noted in the lower extremities bilaterally. No evidence of a deep vein thrombosis of the lower extremities bilaterally. Minimal venous insufficiency of the right great saphenous vein. At present, no sigificant PAD or venous disease. Susan Guillen MD Cardiology: B LE; continue RYAN hose; continue aldactone and HCTZ. Susan Guillen MD Cardiology:cessation encouraged Jessycarlito Billingsley [facility] Cardiology:Will get updated lipids from PCP as patient scheduled for labs Jessy Billingsley [facility] Cardiology:BP well c ontrolled 104/62 today H is updated medication list for this problem includes: Losartan-hydrochlorothiazide 100-25 Mg Tablet (Losartan-hydrochlorothiazide) ..... Take 1 tablet by mouth every day Spironolactone 50 Mg Tablet (Spironolactone) ..... Take 1 tablet by mouth every day Jessy Billingsley [facility] Cardiology:Bilateral LE edema. Improved with aldactone. He wears compression which may help some. The numbness however, persist. continues with pain, swelling and discoloration in bilateral LE. He does have enlargement of the rt side of his heart which may be contributing. He only recently resumed aldactone a week ago and swelling improving. Have encouraged continued use, elevation and compression. He will f/u in 2 mos if no improvement can consider RHC for further evaluation. will add asa as well December 22, 2022 A RRANGE FOR VENOUS ULTRAOUND WITH REFLUX A ND ARRANGE FOR DEBORAH H E PREFERS NOT TO HAVE INVASIVE TESTING DONE UNTIL THESE TESTS ARE REVIEWED Jessycarlito Billingsley [facility] Cardiology:cessation encouraged [place] Anal[place] [facility]iology [facility] Cardiology:controlle d. BP low today at 98/71. Patient asymptomatic. Will continue to monitor H is updated medication list for this problem includes: Losartan-hydrochlorothiazide 100-25 Mg Tablet (Losartan-hydrochlorothiazide) ..... Take 1 tablet by mouth every day Spironolactone 50 Mg Tablet (Spironolactone) ..... Take 1 tablet by mouth every day [place] Analilia [facility] Cardiology:continues with pain, swelling and discoloration in bilateral LE. He does have enlargement of the rt side of his heart which may be contributing. He only recently resumed aldactone a week ago and swelling improving. Have encouraged continued use, elevation and compression. He will f/u in 2 mos if no improvement can consider RHC for further evaluation. will add asa as well Jessycarlito Billingsley [facility] Cardiology:Schedule stress test. Abnormal EKG Susan Guillen MD Cardiology: H is updated medication list for this problem includes: Losartan-hydrochlorothiazide 100-25 Mg Tablet (Losartan-hydrochlorothiazide) ..... Take 1 tablet by mouth every day Spironolactone 50 Mg Tablet (Spironolactone) ..... Take 1 tablet by mouth every day B P today: 96/56 P rior BP: 110/64 (06/05/2021) Susan Guillen MD Cardiology: N o recent labs Susan Guillen MD Cardiology:Has a shreyas gnosis. Does not recall who told him he had emphysema Susan Guillen MD Cardiology: H ad CT scan 2 days ago T he Patient was reencouraged to stop smoking. Susan Guillen MD Cardiology:Had USs done [facility] Susan Guillen MD Cardiology:Reviewed with him regarding cardiac catherization. At present does not want to proceed. C ONCLUSIONS: 1 . There is flattening of the interventricular septum, probably the result of right ventricular volume overload. Normal left v entricular systolic function. Normal left ventricular size. Normal left ventricular wall thickness. Normal left ventricular d iastolic function. E/E': 6.3. Left ventricular ejection fraction is measured at 65 %. 2 . Mild enlargement of right ventricle. Normal right ventricular systolic function. Prominent moderator band - normal v ariant. 3. Thin and hypermobile atrial septum. 4 . There is trace physiologic mitral valve regurgitation. 5 . There is trace physiologic tricuspid valve regurgitation. Susan Guillen MD Cardiology:check echo Crystal breen NP Cardiology Crystal Glass NP Cardiology:BLE; cont inue RYAN hose; continue aldactone and HCTZ. Crystal Glass NP Cardiology Crystal Glass NP Cardiology:Had CT sc an 2 days ago T he Patient was reencouraged to stop smoking. Crystal Glass NP Date Name Arterial Duplex Bi-L ower EX Venous Doppler Bilat eral LE - Reflux Stress Exercise Card iolite Complete Echo DLCO - 10135 FRC - 68570 FVC - 10574 HISTORY OF PROCEDURES Procedure Date Procedure Name Provider Procedure Notes S tatus EKG Susan Guillen MD compl eted EKG Susan Guillen MD compl eted EKG Susan Guillen MD compl eted Spirometry Susan Guillen MD compl eted FVC / MVV with bronchodilator - 05780 Susan Guillen MD completed BLOOD COUNT HEMOGLOBIN Susan Guillen MD completed FRC - 66898 Susan Guillen MD comp leted SpO2 w/o 6min walk/titration Susan Guillen MD completed SVC - 49275 Susan Guillen MD comp leted DLCO - 12936 Susan Guillen MD com pleted EKG Susan Guillen MD compl eted
--- OUTSIDE RECORDS SUMMARY | 2024-09-25 07:06 | XMS_ITS | Continuity of Care Document ---
Author Organization [facility] Address [address] [place] [address] [place] [address] Phone Care Team Providers Care Patient Service Coordinator Name Role Phone Paulo Stephens MD Unavailable Unavailable Allergies, Adverse Reactions, Alerts Substance Reaction Status Criticality No Known Allergies Active No Inform ation Medications Medication Instructions Dosage Effective Dates (start - stop) Status Comments oxycodone 10 mg tablet take 1 tablet by oral route 3 times every day as needed 10 MG - Active PRN for pain , avoid driving or operate machines Eliquis 5 mg tablet take 1 tablet by oral route 2 times every day 5 MG - Active torsemide 20 mg tablet take 1 tablet by oral route BID - Active potassium chloride ER 20 mEq tablet,extended release take 1 tablet by oral route 2 times every day with food 20 MEQ - Active Lipitor 40 mg tablet take 1 tablet by oral route every day 40 MG - Active Remeron 15 mg tablet take 1 tablet by oral route every day before bedtime 15 MG - Active avoid driving or operate machines Anoro Ellipta 62.5 mcg-25 mcg/actuation powder for inhalation inhale 1 puff by inhalation route every day at the same time each day 1.00 puff - Active oxycodone 10 mg tablet take 1 tablet by oral route 3 times every day 10 MG - Active Procedures Procedure Date OFFICE/OUTPATIENT VISIT, EST OFFICE/OUTPATIENT VISIT, EST OFFICE/OUTPATIENT VISIT, EST OFFICE/OUTPATIENT VISIT, EST OFFICE/OUTPATIENT VISIT, EST OFFICE/OUTPATIENT VISIT, EST OFFICE/OUTPATIENT VISIT, EST OFFICE/OUTPATIENT VISIT, EST OFFICE/OUTPATIENT VISIT, EST OFFICE/OUTPATIENT VISIT, EST OFFICE/OUTPATIENT VISIT, EST OFFICE/OUTPATIENT VISIT, EST OFFICE/OUTPATIENT VISIT, EST OFFICE/OUTPATIENT VISIT, EST OFFICE/OUTPATIENT VISIT, EST OFFICE/OUTPATIENT VISIT, EST PREV VISIT, EST, 65 & OVER OFFICE/OUTPATIENT VISIT, EST OFFICE/OUTPATIENT VISIT, EST OFFICE/OUTPATIENT VISIT, EST OFFICE/OUTPATIENT VISIT, EST OFFICE/OUTPATIENT VISIT, EST OFFICE/OUTPATIENT VISIT, EST PREV VISIT, EST, 65 & OVER OFFICE/OUTPATIENT VISIT, EST OFFICE/OUTPATIENT VISIT, EST PREV VISIT, EST, 65 & OVER OFFICE/OUTPATIENT VISIT, EST OFFICE/OUTPATIENT VISIT, EST OFFICE/OUTPATIENT VISIT, EST PREV VISIT, EST, 65 & OVER OFFICE/OUTPATIENT VISIT, EST OFFICE/OUTPATIENT VISIT, EST OFFICE/OUTPATIENT VISIT, EST OFFICE/OUTPATIENT VISIT, EST PREV VISIT, EST, AGE 40-64 OFFICE/OUTPATIENT VISIT, EST OFFICE/OUTPATIENT VISIT, EST OFFICE/OUTPATIENT VISIT, EST OFFICE/OUTPATIENT VISIT, EST OFFICE/OUTPATIENT VISIT, EST OFFICE/OUTPATIENT VISIT, EST OFFICE/OUTPATIENT VISIT, EST PREV VISIT, EST, AGE 40-64 OFFICE/OUTPATIENT VISIT, EST OFFICE/OUTPATIENT VISIT, EST OFFICE/OUTPATIENT VISIT, EST PREV VISIT, EST, AGE 40-64 OFFICE/OUTPATIENT VISIT, EST OFFICE/OUTPATIENT VISIT, EST OFFICE/OUTPATIENT VISIT, EST OFFICE/OUTPATIENT VISIT, EST PREV VISIT, EST, AGE 40-64 OFFICE/OUTPATIENT VISIT, EST Advance Directives Directive Yes / No Effective Date File Name No Information Encounters Encounter Description Practice Location Reason(s) For Visit Diagnoses Date Provider Providers Copied on Encounter OFFICE/OUTPA TIENT VISIT, [facility], [address], [place], [place], [address], [place] tel:[phone] [facility] chronic pain1 (chief complaint)P E (chief complaint)e dema1 (chief complaint) Centrilobular emphysemaEdemaChro cary pain syndromeAcute lung embolism 5 Angelo Bates. [address], [place], [place], [address] , [place]. tel:[phone] OFFICE/OUTPA TIENT VISIT, [facility], [address], [place], [place], [address], [place] tel:[phone] [facility] edema1 (chief complaint)p olycythemia 1 (chief complaint)P E (chief complaint) Secondary polycythemiaAcute lung embolismStasis dermatitisHyperkal emia 4 Angelo Bates. [address], [place], [place], [address] , [place]. tel:[phone] OFFICE/OUTPA TIENT VISIT, [facility], [address], [place], [place], [address], [place] tel:[phone] [facility] cellulitis (chief complaint) Cellulitis of left legStasis dermatitis 4 Angelo Bates. [address], [place], [place], [address] , [place]. tel:[phone] OFFICE/OUTPA TIENT VISIT, [facility], [address], [place], [place], [address], [place] tel:[phone] [facility] polycythemi a1 (chief complaint)P E (chief complaint) Secondary polycythemiaFluid overloadHypotensio nAcute lung embolismHyperkalem ia 4 Angelo Tamayo [address], [place], [place], [address] , [place]. tel:[phone] [facility], [address], [place], [place], [address], [place] tel:[phone] [facility] No Information 4 Angelo Tamayo [address], [place], [place], [address] , [place]. tel:[phone] OFFICE/OUTPA TIENT VISIT, [facility], [address], [place], [place], [address], [place] tel:[phone] [facility] anxiety1 (chief complaint)H LP (chief complaint)c ellulitis1 (chief complaint)f luid1 (chief complaint) Fluid overloadMixed hyperlipidemiaGene ralized Anxiety DisorderHypokalemi aAbnormal weight lossCellulitis of unspecified part of limb 4 Angelo Tamayo [address], [place], [place], [address] , [place]. [phone] Referring Provider: Emma Mariee [address], [place], [place], [address]. tel:[phone] OFFICE/OUTPA TIENT VISIT, [facility], [address], [place], [place], [address], [place] tel:[phone] [facility] leg (chief complaint)C VA1 (chief complaint)p olycythemia 1 (chief complaint) Cellulitis of unspecified part of limbFluid overloadErythrocyt osisCerebral infarction 4 Angelo Tamayo [address], [place], [place], [address] , [place]. tel:[phone] Referring Provider: Emma Mariee [address], [place], [place], [address]. tel:[phone] OFFICE/OUTPA TIENT VISIT, [facility], [address], [place], [place], [address], [place] tel:[phone] [facility] leg edema1 (chief complaint) Fluid overloadHypokalemi aCellulitis of unspecified part of limb 3 0- 4 Angelo Bates. [address], [place], [place], [address] , [place]. tel:[phone] Referring Provider: Emma Mariee [address], [place], [place], [address]. tel:[phone] OFFICE/OUTPA TIENT VISIT, [facility], [address], [place], [place], [address], [place] tel:[phone] [facility] cellulitis1 (chief complaint) Cellulitis of unspecified part of limbHypokalemiaOth er specified disease of bloodFluid overload 4 Angelo Bates. [address], [place], [place], [address] , [place]. tel:[phone] Referring Provider: Emma Mariee [address], [place], [place], [address]. tel:[phone] OFFICE/OUTPA TIENT VISIT, [facility], [address], [place], [place], [address], [place] tel:[phone] [facility] leg pain1 (chief complaint) Cellulitis of unspecified part of limbVenous insufficiencyAbnor mal weight gain 0 4 Angelo Bates. [address], [place], [place], [address] , [place]. tel:[phone] Referring Provider: Paulo Stephens [address], [place], [place], [address]. tel:[phone] OFFICE/OUTPA TIENT VISIT, [facility], [address], [place], [place], [address], [place] tel:[phone] [facility] PE (chief complaint)s troke1 (chief complaint)p olycythemia 1 (chief complaint)e dema1 (chief complaint) Cerebral infarctionCentrilo bular emphysemaAcute lung embolismEdemaGener alized Anxiety DisorderSecondary polycythemia 4 Angelo Bates. [address], [place], [place], [address] , [place]. tel:[phone] Referring Provider: Paulo Stephens, [address], [place], [place], [address]. tel:[phone] OFFICE/OUTPA TIENT VISIT, [facility], [address], [place], [place], [address], [place] tel:[phone] [facility] emphysema1 (chief complaint)C VA1 (chief complaint)a nxiety1 (chief complaint)l eg swelling (chief complaint) Centrilobular emphysemaCerebral infarctionAcute lung embolismSecondary polycythemiaEdemaG eneralized Anxiety Disorder 4 Angelo Bates. [address], [place], [place], [address] , [place]. tel:[phone] Referring Provider: Emma Mariee [address], [place], [place], [address]. tel:[phone] OFFICE/OUTPA TIENT VISIT, [facility], [address], [place], [place], [address], [place] tel:[phone] [facility] PE (chief complaint)C VA (chief complaint)C VA1 (chief complaint)n europathy1 (chief complaint)s leep apnea1 (chief complaint)a nxiety1 (chief complaint) Cerebral infarctionCentrilo bular emphysemaAcute lung embolismGeneralize d Anxiety DisorderObstructiv e sleep apnea hypopneaSecondary polycythemia 4 Angelo Bates. [address], [place], [place], [address] , [place]. tel:[phone] Referring Provider: Paulo Stephens [address], [place], [place], [address]. tel:[phone] OFFICE/OUTPA TIENT VISIT, [facility], [address], [place], [place], [address], [place] tel:[phone] [facility] HTN (chief complaint)f atigue1 (chief complaint)n europathy1 (chief complaint)w eight loss1 (chief complaint) Generalized Anxiety DisorderNeuropathy Essential (primary) hypertensionAbnorm al weight loss 4 Angelo Bates. [address], [place], [place], [address] , [place]. tel:[phone] Referring Provider: Emma Mariee [address], [place], [place], [address]. tel:[phone] OFFICE/OUTPA TIENT VISIT, [facility], [address], [place], [place], [address], [place] tel:[phone] [facility] venous1 (chief complaint)H TN (chief complaint)a nxiety1 (chief complaint) Essential (primary) hypertensionVenous insufficiencyNeuro pathyGeneralized Anxiety Disorder 3 Angelo Bates. [address], [place], [place], [address] , [place]. tel:[phone] Referring Provider: Emma Mariee [address], [place], [place], [address]. tel:[phone] OFFICE/OUTPA TIENT VISIT, [facility], [address], [place], [place], [address], [place] tel:[phone] [facility] venous1 (chief complaint)f olate1 (chief complaint) Essential (primary) hypertensionFolate deficiencyVenous insufficiencyNeuro ayesha 3 Angelo Bates. [address], [place], [place], [address] , [place]. tel:[phone] Referring Provider: Paulo Stephens [address], [place], [place], [address]. tel:[phone] OFFICE/OUTPA TIENT VISIT, [facility], [address], [place], [place], [address], [place] tel:[phone] [facility] Medicine HTN (chief complaint)f olate (chief complaint)p olycythemia 1 (chief complaint)A 1c (chief complaint)b ili1 (chief complaint)c hronic pain1 (chief complaint) Folate deficiencySecondar y polycythemiaEssent ial (primary) hypertensionDisord er of bilirubin metabolism, unspecifiedMetabol ic syndromeChronic pain syndromeTobacco useRosacea 3 Angelo Bates. [address], [place], [place], [address] , [place]. tel:[phone] Referring Provider: Emma Mariee [address], [place], [place], [address]. tel:[phone] PREV VISIT, EST, 65 & OVER [facility], [address], [place], [place], [address], [place] tel:[phone] [facility] Medicine physical (chief complaint) Encounter for general adult medical exam w abnormal findingsEssential (primary) hypertensionFolate deficiencySecondar y polycythemiaPolyp of colonVenous insufficiency 3 Angelo Tamayo [address], [place], [place], [address] , [place]. tel:[phone] Referring Provider: Emma Mariee [address], [place], [place], [address]. tel:[phone] OFFICE/OUTPA TIENT VISIT, [facility], [address], [place], [place], [address], [place] tel:[phone] [facility] Medicine HTN (chief complaint)n europathy1 (chief complaint)c olonguard1 (chief complaint) Essential (primary) hypertensionNeurop athySecondary polycythemiaOther fecal abnormalitiesFolat e deficiency 2 Angelo Tamayo [address], [place], [place], [address] , [place]. tel:[phone] Referring Provider: Emma Mariee [address], [place], [place], [address]. tel:[phone] OFFICE/OUTPA TIENT VISIT, [facility], [address], [place], [place], [address], [place] tel:[phone] [facility] neuropathy1 (chief complaint)H TN (chief complaint)p olycythemia 1 (chief complaint) NeuropathySecondar y polycythemiaFolate deficiencyEssentia l (primary) hypertensionAbnorm al weight loss 2 Angelo Bates. [address], [place], [place], [address] , [place]. tel:[phone] Referring Provider: Paulo Stephens, [address] [place] [address] A, [place], [place], [address]. tel:[phone] OFFICE/OUTPA TIENT VISIT, [facility], [address], [place], [place], [address], [place] tel:[phone] [facility] venous insufficien cy1 (chief complaint)p olycythemia 1 (chief complaint)w eight loss1 (chief complaint) Abnormal weight lossVenous insufficiencyNeuro pathyFolate deficiencySecondar y polycythemiaTobacc o use 1 Angelo Bates. [address], [place], [place], [address] , [place]. tel:[phone] Referring Provider: Emma Mariee [facility] A, [place], [place], [address]. tel:[phone] OFFICE/OUTPA TIENT VISIT, [facility], [address], [place], [address], [place] tel:[phone] [facility] neuropathy1 (chief complaint)l eg edema1 (chief complaint)C OPD1 (chief complaint) Venous insufficiencyEmphy semaNeuropathyToba media account executive use 1 Angelo Tamayo [address], [place], [place], [address] , [place]. [phone] Referring Provider: Paulo Stephens [address] [facility] A, [place], [place], [address]. tel:[phone] OFFICE/OUTPA TIENT VISIT, [facility], [address], [place], [place], [address], [place] tel:[phone] [facility] glucose (chief complaint)p olycythemia 1 (chief complaint)l eg edema1 (chief complaint)n europathy1 (chief complaint) Secondary polycythemiaHyperg lycemiaDisorder of bilirubin metabolism, unspecifiedFolate deficiencyVenous insufficiencyTobac co useNeuropathy Sep-3 1 Angelo Tamayo [address], [place], [place], [address] , [place]. [phone] Referring Provider: Emma Mariee [address] [facility] A, [place], [place], [address]. tel:[phone] PREV VISIT, EST, 65 & OVER [facility], [address], [place], [place], [address], [place] tel:[phone] [facility] Medicine physical1 (chief complaint) Encounter for general adult medical exam w abnormal findingsEssential (primary) hypertensionSecond lenny polycythemiaPeriph eral vascular disease, unspecifiedHypergl ycemia Aug- 1 Angelo Tamayo [address], [place], [place], [address] , [place]. [phone] Referring Provider: Emma Mariee [facility] A, [place], [place], [address]. tel:[phone] OFFICE/OUTPA TIENT VISIT, [facility], [address], [place], [place], [address], [place] tel:[phone] [facility] glucose1 (chief complaint)p olycythemia 1 (chief complaint)l lawrence nodule1 (chief complaint)H TN (chief complaint) Essential (primary) hypertensionSolita ry pulmonary noduleSecondary polycythemiaHyperg lycemia Sep-2 0 Angelo Tamayo [address], [place], [place], [address] , [place]. tel:[phone] Referring Provider: Emma Mariee [address], [place], [place], [address]. tel:[phone] PREV VISIT, EST, 65 & OVER [facility], [address], [place], [place], [address], [place] tel:[phone] [facility] PHysical (chief complaint) Chronic pain syndromeEssential (primary) hypertensionEncoun ter for general adult medical exam w abnormal findingsHyperglyce fredi 0 Angelo Bates. [address], [place], [place], [address] , [place]. [phone] Referring Provider: Paulo Stephens, [address], [place], [place], [address]. tel:[phone] OFFICE/OUTPA TIENT VISIT, [facility], [address], [place], [place], [address], [place] tel:[phone] [facility] chronic pain1 (chief complaint)H TN (chief complaint)t obacco1 (chief complaint) Essential (primary) hypertensionChroni c pain syndromeSolitary pulmonary nodule 9 Angelo Bates. [address], [place], [place], [address] , [place]. [phone] Referring Provider: Paulo Stephens, [address], [place], [place], [address]. tel:[phone] OFFICE/OUTPA TIENT VISIT, EST [facility], [address], [place], [place], [address], [place] [phone] [facility] chronic pain1 (chief complaint)H TN (chief complaint)t obacco1 (chief complaint) Essential (primary) hypertensionChroni c pain syndromeTobacco useSolitary pulmonary nodule 9 Angelo Bates. [address], [place], [place], [address] , [place]. [phone] Referring Provider: Paulo Stephens, [address], [place], [place], [address]. tel:[phone] PREV VISIT, EST, 65 & OVER [facility], [address], [place], [place], [address], [place] tel:[phone] [facility] Medicine PHysical (chief complaint) Encounter for general adult medical exam w abnormal findingsHyperglyce miaEssential (primary) hypertensionTobacc o useEncntr for general adult medical exam w/o abnormal findings 9 Angelo Bates. [address], [place], [place], [address] , [place]. [phone] Referring Provider: Emma Mariee [address], [place], [place], [address]. tel:[phone] OFFICE/OUTPA TIENT VISIT, [facility], [address], [place], [place], [address], [place] tel:[phone] [facility] HTN (chief complaint)l lawrence nodule1 (chief complaint)H Lp (chief complaint)c hronic pain (chief complaint) Essential (primary) hypertensionEmphys emaSolitary pulmonary noduleHyperlipidem iaChronic pain syndrome 8 Angelo Bates. [address], [place], [place], [address] , [place]. tel:[phone] Referring Provider: Emma Mariee [address], [place], [place], [address]. tel:[phone] OFFICE/OUTPA TIENT VISIT, [facility], [address], [place], [place], [address], [place] tel:[phone] [facility] HTN (chief complaint)c onjucnivits 1 (chief complaint) Other mucopurulent conjunctivitis, left eyeEssential (primary) hypertension 8 Angelo Bates. [address], [place], [place], [address] , [place]. [phone] Referring Provider: Emma Mariee [address], [place], [place], [address]. tel:[phone] OFFICE/OUTPA TIENT VISIT, [facility], [address], [place], [place], [address], [place] tel:[phone] [facility] chronic pain (chief complaint)H TN (chief complaint) Chronic pain syndromeEssential (primary) hypertension December-3 0- 8 Angelo Bates. [address], [place], [place], [address] , [place]. tel:[phone] Referring Provider: Emma Mariee [address], [place], [place], [address]. tel:[phone] PREV VISIT, EST, AGE 40-64 [facility], [address], [place], [place], [address], [place] tel:[phone] [facility] Medicine PHysical (chief complaint) Encounter for general adult medical exam w abnormal findingsHyperglyce miaEssential (primary) hypertensionChroni c pain syndromeHyperlipid emiaEmphysema December-0 - 8 Angelo Tamayo [address], [place], [place], [address] , [place]. tel:[phone] Referring Provider: Emma Mariee [address], [place], [place], [address]. tel:[phone] OFFICE/OUTPA TIENT VISIT, EST [facility], [address], [place], [place], [address], [place] tel:[phone] [facility] Medicine chronic pain1 (chief complaint) Chronic pain syndromeOpioid dependence, uncomplicated Nov-0 5-201 8 Angelo Tamayo [address], [place], [place], [address] , [place]. tel:[phone] Referring Provider: Emma Mariee [address], [place], [place], [address]. tel:[phone] OFFICE/OUTPA TIENT VISIT, EST [facility], [address], [place], [place], [address], [place] tel:[phone] [facility] Medicine HTN (chief complaint)H TN (chief complaint) Essential (primary) hypertensionChroni c pain syndrome Oct-0 8-201 8 Angelo Bates. [address], [place], [place], [address] , [place]. tel:[phone] Referring Provider: Emma Mariee [address], [place], [place], [address]. tel:[phone] OFFICE/OUTPA TIENT VISIT, [facility], [address], [place], [place], [address], [place] tel:[phone] [facility] chronic pain1 (chief complaint) Chronic pain syndromeOpioid dependenceCannabis use 8 Angelo Bates. [address], [place], [place], [address] , [place]. [phone] Referring Provider: Emma Mariee [address], [place], [place], [address]. tel:[phone] OFFICE/OUTPA TIENT VISIT, [facility], [address], [place], [place], [address], [place] tel:[phone] [facility] COPD1 (chief complaint)h yperglycemi a1 (chief complaint)l lawrence nodule1 (chief complaint)H TN (chief complaint) EmphysemaSolitary pulmonary noduleHyperglycemi aEssential (primary) hypertension 8 Angelo Bates. [address], [place], [place], [address] , [place]. tel:[phone] Referring Provider: Emma Mariee [address], [place], [place], [address]. tel:[phone] OFFICE/OUTPA TIENT VISIT, [facility], [address], [place], [place], [address], [place] tel:[phone] [facility] HTn (chief complaint)l lawrence nodule (chief complaint)p olycythermi a1 (chief complaint) Solitary pulmonary noduleSecondary polycythemia 7 Angelo Bates. [address], [place], [place], [address] , [place]. tel:[phone] Referring Provider: Paulo Stephens, [address], [place], [place], [address]. tel:[phone] OFFICE/OUTPA TIENT VISIT, EST [facility], [address], [place], [place], [address], [place] tel:[phone] [facility] COPD (chief complaint)f atty liver1 (chief complaint)H LP (chief complaint)p olycythermi a1 (chief complaint)a drenal adenoma1 (chief complaint) Fatty liverSolitary pulmonary noduleOther specified disorders of adrenal glandHyperlipidemi a 7 Angelo Bates. [address], [place], [place], [address] , [place]. tel:[phone] Referring Provider: Emma Mariee [address], [place], [place], [address]. tel:[phone] PREV VISIT, EST, AGE 40-64 [facility], [address], [place], [place], [address], [place] tel:[phone] [facility] PHysical (chief complaint) Encounter for general adult medical exam w abnormal findingsSolitary pulmonary noduleOther specified disorders of adrenal glandEssential (primary) hypertension 7 Angelo Bates. [address], [place], [place], [address] , [place]. tel:[phone] Referring Provider: Emma Mariee [address], [place], [place], [address]. tel:[phone] OFFICE/OUTPA TIENT VISIT, EST [facility], [address], [place], [place], [address], [place] tel:[phone] [facility] fatty liver (chief complaint)l lawrence nodule (chief complaint)a drenal mass (chief complaint) Fatty liverAdrenal massSolitary lung noduleHematuria 5 Angelo Tamayo [address] [address] [place], [place], [id number] , [place]. tel:[phone] Referring Provider: Emma Mariee [address], [place], [place], [id number]. tel:[phone] OFFICE/OUTPA TIENT VISIT, EST [facility], [address], [place], [place], [address], [place] tel:[phone] [facility] Medicine hematuria (chief complaint)H LP (chief complaint)v itamin D (chief complaint) Other and unspecified hyperlipidemiaHema turiaVitamin deficiency 5 Angelo Bates. [address], [place], [place], [address] , [place]. [phone] Referring Provider: Paulo Stephens, [address], [place], [place], [address]. tel:[phone] PREV VISIT, EST, AGE 40-64 [facility], [address], [place], [place], [address], [place] [phone] [facility] PHysical (chief complaint) Routine medical examUnspecified essential hypertensionProsta te Ca screeningChronic pain 5 Angelo Bates. [address], [place], [place], [address] , [place]. tel:[phone] Referring Provider: Emma Mariee [address], [place], [place], [id number]. tel:[phone] OFFICE/OUTPA TIENT VISIT, EST [facility], [address], [place], [place], [address], [place] tel:[phone] [facility] Medicine skin rash (chief complaint) Cellulitis 4 Angelo Bates. [address], [place], [place], [address] , [place]. [phone] Referring Provider: Emma Mariee [address], [place], [place], [address]. tel:[phone] OFFICE/OUTPA TIENT VISIT, EST [facility], [address], [place], [place], [address], [place] [phone] [facility] Medicine HTN (chief complaint)n aurelia pain (chief complaint) Hypertension, UnspecifiedCervica lgia 4 Angelo Bates. [address], [place], [place], [address] , [place]. tel:[phone] Referring Provider: Emma Mariee [address], [place], [place], [address]. tel:[phone] OFFICE/OUTPA TIENT VISIT, [facility], [facility] [address] [place], [address], [place] tel:[phone] [facility] Medicine HTN (chief complaint)v itami D (chief complaint)c hronic pain (chief complaint) Dietary surveillance and counselingHyperten juan alberto, UnspecifiedSyncope and collapseUnspecifie d vitamin d deficiencyCervical ayaka 4 Angelo Tamayo [address], [place], [place], [address] , [place]. tel:[phone] Referring Provider: Emma Mariee [address] [facility] [place], [address]. tel:[phone] PREV VISIT, EST, AGE 40-64 [facility], [address] [place], [address], [place] tel:[phone] [facility] Physical (chief complaint) Dietary surveillance and counselingRoutine Medical ExamHypertension, UnspecifiedOther seborrheic keratosisSyncope and collapseRoutine Medical Exam 4 Angelo [facility]ayo [address] [facility] [address] [place], [place], [address] , [place]. tel:[phone] Family History Family Member Type Diagnosis Age At Onset Brother Problem (finding) Alcoholism Father Problem (finding) Stroke Mother Problem (finding) Unknown Disease Payers Payer name Insurance type Covered republican ID Kajal feng(s) [facility] CI [id number] Social History Type Description Quantity Date Captured Comments Alcohol Use Details No Caffeine Use Details Unknown Tobacco Use Status Cigarette smoker Smoking Status Heavy tobacco smoker Sex Male Vital Signs Date / Time: Height Weight BMI Pulse Rate Blood Pressure Temperature Respiratory Rate Body Surface Area Head Circumference BMI percentile Pulse Ox Inhaled Ox 12:09 PM 70.00 in 166.00 lbs 23.8 2 kg/m eter (2) 67 /min 110/76 mm[Hg] 97.3 F 16 /min Chief Complaint And Reason For Visit From encounter dated '09/05/2024 12:09'. chronic pain1 (chief complaint). Description: Pt has chronic neck and back pain due to severe DDD Pt was fired by pain management recently due to inability to make to pill count due to personal issueby one day. Pt was referred to pain management at [facility] who will manage the pain pump but will not refill his oxycodone orally. The pain management told him that they do not do oral painmeds .He has hard time move around without his pain meds. He has been taking oral pain meds for many years Pt also has pain pump PE (chief complaint). Description: Pt has history of PE Pt needs eliquis refilled. edema1 (chief complaint). Description: Pt has chronic venous insufficiency edema. Pt is on torsemide and also kcl and doing ok Plan Of Treatment Date Type Action Status Goal Cognitive assessment. Due on due Goal Depression screening. Due on due Goal FOBT. Due on due Goal Td vaccine. Due on 25 due Goal Tdap. Due on due Goal Influenza vaccine. Due on due Goal Lipid panel. Due on 025 due Goal Pneumococcal vaccine. Due on due Goal Abdominal ultrasound. Due on due Goal PSA. Due on due Goal Sigmoidoscopy. Due on due Goal Zoster vaccine. Due on due Goal Zoster vaccine. Due on due Goal Sigmoidoscopy. Due on due Goal PSA. Due on due Goal Abdominal ultrasound. Due on due Goal Pneumococcal vaccine. Due on due Goal Tdap. Due on due Goal Influenza vaccine. Due on due Goal Lipid panel. Due on due Goal Cognitive assessment. Due on due Goal Depression screening. Due on due Goal FOBT. Due on due Goal Td vaccine. Due on due Goal Zoster vaccine. Due on due Goal Sigmoidoscopy. Due on due Goal PSA. Due on due Goal Abdominal ultrasound. Due on due Goal Pneumococcal vaccine. Due on due Goal Tdap. Due on due Goal Influenza vaccine. Due on due Goal Lipid panel. Due on due Goal Cognitive assessment. Due on due Goal Depression screening. Due on due Goal FOBT. Due on due Goal Td vaccine. Due on due Goal Zoster vaccine. Due on due Goal Sigmoidoscopy. Due on due Goal PSA. Due on due Goal Abdominal ultrasound. Due on due Goal Pneumococcal vaccine. Due on due Goal Tdap. Due on due Goal Influenza vaccine. Due on due Goal Lipid panel. Due on due Goal Cognitive assessment. Due on due Goal Depression screening. Due on due Goal FOBT. Due on due Goal Td vaccine. Due on due Goal Td vaccine. Due on due Goal Zoster vaccine. Due on due Goal Lipid panel. Due on due Goal Cognitive assessment. Due on due Goal Depression screening. Due on due Goal FOBT. Due on due Goal Sigmoidoscopy. Due on due Goal Influenza vaccine. Due on due Goal Tdap. Due on due Goal Pneumococcal vaccine. Due on due Goal Abdominal ultrasound. Due on due Goal PSA. Due on due Goal Sigmoidoscopy. Due on due Goal PSA. Due on due Goal Abdominal ultrasound. Due on due Goal Pneumococcal vaccine. Due on due Goal Tdap. Due on due Goal Influenza vaccine. Due on due Goal Zoster vaccine. Due on due Goal Lipid panel. Due on due Goal Cognitive assessment. Due on due Goal Depression screening. Due on due Goal FOBT. Due on due Goal Td vaccine. Due on due Goal Zoster vaccine. Due on due Goal Lipid panel. Due on due Goal Sigmoidoscopy. Due on due Goal Td vaccine. Due on due Goal FOBT. Due on due Goal Depression screening. Due on due Goal Cognitive assessment. Due on due Goal PSA. Due on due Goal Abdominal ultrasound. Due on due Goal Pneumococcal vaccine. Due on due Goal Tdap. Due on due Goal Influenza vaccine. Due on due Goal Sigmoidoscopy. Due on due Goal Td vaccine. Due on due Goal FOBT. Due on due Goal Depression screening. Due on due Goal Lipid panel. Due on due Goal Zoster vaccine. Due on due Goal Influenza vaccine. Due on due Goal Tdap. Due on due Goal Pneumococcal vaccine. Due on due Goal Cognitive assessment. Due on due Goal PSA. Due on due Goal Abdominal ultrasound. Due on due Goal Pneumococcal vaccine. Due on due Goal Sigmoidoscopy. Due on due Goal Abdominal ultrasound. Due on due Goal PSA. Due on due Goal Cognitive assessment. Due on due Goal Depression screening. Due on due Goal FOBT. Due on due Goal Td vaccine. Due on due Goal Lipid panel. Due on due Goal Zoster vaccine. Due on due Goal Influenza vaccine. Due on due Goal Tdap. Due on due Goal Abdominal ultrasound. Due on due Goal PSA. Due on due Goal Cognitive assessment. Due on due Goal Depression screening. Due on due Goal FOBT. Due on due Goal Td vaccine. Due on due Goal Lipid panel. Due on due Goal Zoster vaccine. Due on due Goal Sigmoidoscopy. Due on due Goal Pneumococcal vaccine. Due on due Goal Tdap. Due on due Goal Influenza vaccine. Due on due Goal Abdominal ultrasound. Due on due Goal PSA. Due on due Goal Zoster vaccine. Due on due Goal Lipid panel. Due on due Goal Td vaccine. Due on due Goal FOBT. Due on due Goal Depression screening. Due on due Goal Cognitive assessment. Due on due Goal Sigmoidoscopy. Due on due Goal Pneumococcal vaccine. Due on due Goal Tdap. Due on due Goal Influenza vaccine. Due on due Goal Abdominal ultrasound. Due on due Goal Influenza vaccine. Due on due Goal Tdap. Due on due Goal Pneumococcal vaccine. Due on due Goal Zoster vaccine. Due on due Goal Lipid panel. Due on due Goal Td vaccine. Due on due Goal FOBT. Due on due Goal Depression screening. Due on due Goal Cognitive assessment. Due on due Goal Sigmoidoscopy. Due on due Goal PSA. Due on due Goal Pneumococcal vaccine. Due on due Goal Zoster vaccine. Due on due Goal Lipid panel. Due on due Goal Sigmoidoscopy. Due on due Goal Cognitive assessment. Due on due Goal Depression screening. Due on due Goal FOBT. Due on due Goal Td vaccine. Due on due Goal PSA. Due on due Goal Abdominal ultrasound. Due on due Goal Influenza vaccine. Due on due Goal Tdap. Due on due Goal Lipid panel. Due on due Goal Zoster vaccine. Due on due Goal Depression screening. Due on due Goal FOBT. Due on due Goal Td vaccine. Due on due Goal PSA. Due on due Goal Abdominal ultrasound. Due on due Goal Pneumococcal vaccine. Due on due Goal Tdap. Due on due Goal Influenza vaccine. Due on due Goal Sigmoidoscopy. Due on due Goal Cognitive assessment. Due on due Goal Pneumococcal vaccine. Due on due Goal Zoster vaccine. Due on due Goal Lipid panel. Due on due Goal Sigmoidoscopy. Due on due Goal Cognitive assessment. Due on due Goal Depression screening. Due on due Goal FOBT. Due on due Goal Td vaccine. Due on due Goal PSA. Due on due Goal Abdominal ultrasound. Due on due Goal Influenza vaccine. Due on due Goal Tdap. Due on due Goal FOBT. Due on due Goal Depression screening. Due on due Goal Cognitive assessment. Due on due Goal Sigmoidoscopy. Due on due Goal Influenza vaccine. Due on due Goal Tdap. Due on due Goal Pneumococcal vaccine. Due on due Goal Zoster vaccine. Due on due Goal Lipid panel. Due on 023 due Goal Abdominal ultrasound. Due on due Goal PSA. Due on due Goal Td vaccine. Due on due Goal Zoster vaccine. Due on due Goal Lipid panel. Due on due Goal Td vaccine. Due on due Goal FOBT. Due on due Goal Depression screening. Due on due Goal Cognitive assessment. Due on due Goal Sigmoidoscopy. Due on due Goal Pneumococcal vaccine. Due on due Goal Tdap. Due on due Goal Influenza vaccine. Due on due Goal Abdominal ultrasound. Due on due Goal PSA. Due on due Goal Cognitive assessment. Due on due Goal Pneumococcal vaccine. Due on due Goal Tdap. Due on due Goal Sigmoidoscopy. Due on due Goal PSA. Due on due Goal Abdominal ultrasound. Due on due Goal Influenza vaccine. Due on due Goal Zoster vaccine. Due on due Goal Lipid panel. Due on due Goal Td vaccine. Due on due Goal FOBT. Due on due Goal Depression screening. Due on due Goal Lipid panel. Due on due Goal Influenza vaccine. Due on due Goal Zoster vaccine. Due on due Goal Depression screening. Due on due Goal FOBT. Due on due Goal Td vaccine. Due on due Goal Colonoscopy. Due on due Goal Sigmoidoscopy. Due on due Goal PSA. Due on due Goal Abdominal ultrasound. Due on due Goal Tdap. Due on due Goal Pneumococcal vaccine. Due on due Goal Cognitive assessment. Due on due Goal Abdominal ultrasound. Due on due Goal Influenza vaccine. Due on due Goal Zoster vaccine. Due on due Goal Lipid panel. Due on due Goal PSA. Due on due Goal Tdap. Due on due Goal Pneumococcal vaccine. Due on due Goal Cognitive assessment. Due on due Goal Depression screening. Due on due Goal FOBT. Due on due Goal Td vaccine. Due on due Goal Colonoscopy. Due on due Goal Sigmoidoscopy. Due on due Goal Sigmoidoscopy. Due on due Goal Colonoscopy. Due on due Goal Td vaccine. Due on due Goal FOBT. Due on due Goal Depression screening. Due on due Goal Cognitive assessment. Due on due Goal Lipid panel. Due on due Goal Zoster vaccine. Due on due Goal Influenza vaccine. Due on due Goal Abdominal ultrasound. Due on due Goal PSA. Due on due Goal Tdap. Due on due Goal Pneumococcal vaccine. Due on due Goal Abdominal ultrasound. Due on due Goal Zoster vaccine. Due on due Goal PSA. Due on due Goal Tdap. Due on due Goal Pneumococcal vaccine. Due on due Goal Lipid panel. Due on due Goal Cognitive assessment. Due on due Goal Depression screening. Due on due Goal FOBT. Due on due Goal Td vaccine. Due on due Goal Colonoscopy. Due on due Goal Sigmoidoscopy. Due on due Goal Influenza vaccine. Due on due Goal Influenza vaccine. Due on due Goal Zoster vaccine. Due on due Goal Lipid panel. Due on due Goal Sigmoidoscopy. Due on due Goal Colonoscopy. Due on due Goal Td vaccine. Due on due Goal FOBT. Due on due Goal Depression screening. Due on due Goal Cognitive assessment. Due on due Goal Pneumococcal vaccine. Due on due Goal Tdap. Due on due Goal PSA. Due on due Goal Abdominal ultrasound. Due on due Goal Influenza vaccine. Due on due Goal Zoster vaccine. Due on due Goal Lipid panel. Due on due Goal Tdap. Due on due Goal Pneumococcal vaccine. Due on due Goal Cognitive assessment. Due on due Goal Depression screening. Due on due Goal FOBT. Due on due Goal Td vaccine. Due on due Goal Colonoscopy. Due on due Goal Sigmoidoscopy. Due on due Goal PSA. Due on due Goal Abdominal ultrasound. Due on due Goal Abdominal ultrasound. Due on due Goal Influenza vaccine. Due on due Goal Zoster vaccine. Due on due Goal Lipid panel. Due on due Goal Tdap. Due on due Goal Pneumococcal vaccine. Due on due Goal Cognitive assessment. Due on due Goal Depression screening. Due on due Goal FOBT. Due on due Goal Td vaccine. Due on 20 due Goal Colonoscopy. Due on due Goal Sigmoidoscopy. Due on due Goal PSA. Due on due Goal Cognitive assessment. Due on due Goal Pneumococcal vaccine. Due on due Goal Tdap. Due on due Goal Depression screening. Due on due Goal FOBT. Due on due Goal Td vaccine. Due on 19 due Goal Colonoscopy. Due on 019 due Goal Sigmoidoscopy. Due on due Goal PSA. Due on due Goal Abdominal ultrasound. Due on due Goal Influenza vaccine. Due on due Goal Zoster vaccine. Due on due Goal Lipid panel. Due on due Goal Tobacco cessation counseling completed Goal Influenza vaccine. Due on due Goal Zoster vaccine. Due on due Goal Lipid panel. Due on due Goal Tdap. Due on due Goal Pneumococcal vaccine. Due on due Goal Cognitive assessment. Due on due Goal Depression screening. Due on due Goal FOBT. Due on due Goal Td vaccine. Due on due Goal Colonoscopy. Due on due Goal Sigmoidoscopy. Due on due Goal PSA. Due on due Goal Abdominal ultrasound. Due on due Goal Tobacco cessation counseling completed Goal Tdap. Due on due Goal Pneumococcal vaccine. Due on due Goal Cognitive assessment. Due on due Goal Depression screening. Due on due Goal FOBT. Due on due Goal Td vaccine. Due on due Goal Colonoscopy. Due on due Goal Sigmoidoscopy. Due on due Goal PSA. Due on due Goal Abdominal ultrasound. Due on due Goal Influenza vaccine. Due on due Goal Zoster vaccine. Due on due Goal Lipid panel. Due on due Goal Tobacco cessation counseling completed Goal Colonoscopy. Due on due Goal Sigmoidoscopy. Due on due Goal PSA. Due on due Goal Tdap. Due on due Goal Pneumococcal vaccine. Due on due Goal Cognitive assessment. Due on due Goal Abdominal ultrasound. Due on due Goal Influenza vaccine. Due on due Goal Zoster vaccine. Due on due Goal Lipid panel. Due on due Goal Depression screening. Due on due Goal FOBT. Due on due Goal Td vaccine. Due on due Goal Tobacco cessation counseling completed Goal Td vaccine. Due on due Goal FOBT. Due on due Goal Depression screening. Due on due Goal Tdap. Due on due Goal Lipid panel. Due on due Goal Zoster vaccine. Due on due Goal Influenza vaccine. Due on due Goal PSA. Due on due Goal Sigmoidoscopy. Due on due Goal Colonoscopy. Due on due Goal Tdap. Due on due Goal Lipid panel. Due on due Goal Zoster vaccine. Due on due Goal Influenza vaccine. Due on due Goal PSA. Due on due Goal Sigmoidoscopy. Due on due Goal Colonoscopy. Due on due Goal Td vaccine. Due on due Goal FOBT. Due on due Goal Depression screening. Due on due Goal Zoster vaccine. Due on due Goal Influenza vaccine. Due on due Goal PSA. Due on due Goal Sigmoidoscopy. Due on due Goal Lipid panel. Due on due Goal Colonoscopy. Due on due Goal Td vaccine. Due on due Goal FOBT. Due on due Goal Depression screening. Due on due Goal Tdap. Due on due Goal Lipid panel. Due on due Goal Zoster vaccine. Due on due Goal Influenza vaccine. Due on due Goal Abdominal ultrasound. Due on due Goal PSA. Due on due Goal Sigmoidoscopy. Due on due Goal Tdap. Due on due Goal Colonoscopy. Due on due Goal Td vaccine. Due on due Goal FOBT. Due on due Goal Depression screening. Due on due Goal Lipid panel. Due on due Goal Zoster vaccine. Due on due Goal Influenza vaccine. Due on due Goal PSA. Due on due Goal Sigmoidoscopy. Due on due Goal Colonoscopy. Due on due Goal Td vaccine. Due on due Goal FOBT. Due on due Goal Depression screening. Due on due Goal Tdap. Due on due Goal Influenza vaccine. Due on due Goal Zoster vaccine. Due on due Goal Colonoscopy. Due on due Goal Sigmoidoscopy. Due on due Goal PSA. Due on due Goal Td vaccine. Due on 18 due Goal FOBT. Due on due Goal Depression screening. Due on due Goal Tdap. Due on due Goal Zoster vaccine. Due on due Goal FOBT. Due on due Goal Tdap. Due on due Goal Td vaccine. Due on 18 due Goal Depression screening. Due on due Goal Colonoscopy. Due on due Goal PSA. Due on due Goal Sigmoidoscopy. Due on due Goal Influenza vaccine. Due on due Goal Influenza vaccine. Due on due Goal Zoster vaccine. Due on due Goal Colonoscopy. Due on due Goal Sigmoidoscopy. Due on due Goal Tdap. Due on due Goal Depression screening. Due on due Goal Td vaccine. Due on 17 due Goal PSA. Due on due Goal FOBT. Due on due Goal Colonoscopy. Due on 017 due Goal FOBT. Due on due Goal Tdap. Due on due Goal PSA. Due on due Goal Td vaccine. Due on 17 due Goal Influenza vaccine. Due on due Goal Depression screening. Due on due Goal Zoster vaccine. Due on due Goal Sigmoidoscopy. Due on due Goal Sigmoidoscopy. Due on due Goal Influenza vaccine. Due on Ap due Goal Tdap. Due on due Goal Td vaccine. Due on 17 due Goal Depression screening. Due on due Goal PSA. Due on due Goal Colonoscopy. Due on 017 due Goal Zoster vaccine. Due on due Goal FOBT. Due on due Goal Tdap. Due on due Goal PSA. Due on due Goal Depression screening. Due on due Goal Colonoscopy. Due on 015 due Goal Influenza vaccine. Due on due Goal Td vaccine. Due on 15 due Goal Zoster vaccine. Due on due Goal Sigmoidoscopy. Due on due Goal FOBT. Due on due Goal PSA. Due on due Goal Depression screening. Due on due Goal Zoster vaccine. Due on due Goal Td vaccine. Due on 15 due Goal Colonoscopy. Due on 015 due Goal Sigmoidoscopy. Due on due Goal FOBT. Due on due Goal Tdap. Due on due Goal Influenza vaccine. Due on due Goal Sigmoidoscopy. Due on due Goal Td vaccine. Due on 15 due Goal Tdap. Due on due Goal Colonoscopy. Due on 015 due Goal PSA. Due on due Goal Depression screening. Due on due Goal FOBT. Due on due Goal Influenza vaccine. Due on due Goal Zoster vaccine. Due on due Goal Colonoscopy. Due on 014 due Goal PSA. Due on due Goal Tobacco cessation counseling completed Goal Tobacco cessation counseling completed Goal Tobacco cessation counseling completed Goal Tobacco cessation counseling completed Referral Ordered: COLONOSCOPY AND BIOPSY ordered Referral Ordered: SENSE NERVE CONDUCTION TEST ordered Referral Ordered: Cardiology (related to Venous insufficiency) ordered Referral Ordered: Referrals: Cardiology. Evaluate and treat ordered Referral Ordered: Hematology (related to Secondary polycythemia) ordered Referral Ordered: Referrals: Hematology. Evaluate and treat ordered Referral Ordered: CHEST X-RAY PA/LAT TWO-VIEWS ordered Referral Referred To: Helder Li [facility] [place], [id number] Ordered: Referrals: Helder Li. Evaluate and treat ordered Referral Ordered: US ARTERIAL DOPPLER ordered Referral Ordered: Pain Medicine (related to Chronic pain syndrome) ordered Referral Ordered: Pain Medicine (related to Chronic pain syndrome) ordered Referral Ordered: Referrals: Pain Medicine. Evaluate and treat ordered Referral Ordered: CT THORAX W/O DYE ordered Referral Ordered: CT ABDOMEN W/DYE ordered Referral Ordered: Urology (related to Hematuria) ordered Referral Ordered: Referrals: Urology. Evaluate and treat ordered Referral Ordered: CT ABDOMEN&PELVIS W/CONTRAST ordered Referral Ordered: MRI NECK SPINE W/O DYE ordered Appointment Carlo Hernandez BOOKED Appointment Carlo Hernandez BOOKED History Of Present Illness Encounter Date Complaint History Of Prese nt Illness chronic pain1 Pt has chronic n aurelia and back pain due to severe DDD Pt was fired by pain management recently due to inability to make to pill count due to personal issue by one day. Pt was referred to pain management at [facility] who will manage the pain pump but will not refill his oxycodone orally. The pain management told him that they do not do oral pain meds .He has hard time move around without his pain meds. He has been taking oral pain meds for many years Pt also has pain pump PE Pt has history o f PE Pt needs eliquis refilled. edema1 Pt has chronic v enous insufficiency edema. Pt is on torsemide and also kcl and doing ok edema1 Pt has chronic b ilateral LE edema. Pt is on torsemide bid and he has been taking kcl bid as well. He had lab done two weeks ago and his kcl and renal function were normal. polycythemia1 Pt has polycythe fredi. pt is seeing hematology and he is getting phlebotomy regularly . his HCT was just borderline high two weeks ago PE Pt has history o f PE. Pt needs to be on eliquis for the rest of his life per hematology and cardiology cellulitis Comments: Pt has chronic venous stasis cellulitis both LEs, worse on left side. Pt has chronic bilateral LE edema Pt is on torsemide .Pt notices worsening left lower extremity redness with warmth for one week Pt denies any pain or any claudication. No fever. 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 JAK2 and iron ok. Pt was evaluated by hematology and he is getting intermittent phlebotomy due to above. His bp is treading low recently during phlebotomy and he did not undergo phlebotomy by lab and he was told to follow up with PCP. He states that he takes torsemide BID now since TID torsemide causes his bp to run low around less than 100/60. He denies any sob. his renal function is ok with torsemide. He denies any dizziness PE He has history o f PE and he is on eliquis fpc. He denies any bleeding or bruising fluid1 Pt has fluid ove rload and he has been taking torsemide for diuresis Pt is seeing cardiology Pt had another cardiac echo done several days ago and he has genevieve with cardiology next week pt denies any worsening leg edema His bnp is actually decreasing. he is only taking torsemide BID per cardiology instructions HLP Pt has HLP ,Pt t akes lipitor Pt denies any myalgia pt needs lipitor refilled cellulitis1 Pt has venous st asis cellulitis both LEs, Pt has been getting diuresis with torsemide and also he has been taking multiple rounds of abx. Pt states that bilateral LE swelling improved as well as the redness Pt denies any calf pain Pt denies any worsening sob anxiety1 Pt has chronic a nxiety and depression. pt takes remeron qhs and doing ok .pt denies any suicidal or homicidal leg Pt has persisten t lower extremity edema with cellulitis. Pt has elevated BNP with mild pulmonary edema. Pt denies any acute worsening sob. Pt has been taking abx and torsemide and he notices increasing urination with torsemide but his leg swelling has not improved as well as the cellulitis .pt denies any fever, chill Pt denies any dizziness . Pt denies any fever. Pt saw cardiology and he will do repeat cardiac echo soon. Pt was recommended to increase torsemide to TID from BID. polycythemia1 Pt has polycythe fredi with normal iron Pt had negative JAK2. Pt is seeing hematology. He was told that above is due to smoking He is on b12 now. 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 Pt denies any new weakness or numbness. leg edema1 Pt has persisten t lower extremity edema with cellulitis. Pt has elevated BNP with mild pulmonary edema. Pt denies any acute worsening sob. Pt has been taking abx and torsemide and he notices increasing urination with torsemide but his leg swelling has not improved as well as the cellulitis .pt denies any fever, chill Pt denies any dizziness . Pt denies any fever cellulitis1 Pt has bilateral lower extremity cellulitis and leg swelling. pt denies any chest pain or sob Pt has been taking levofloxacin and lasix and KCL since 10 days but his leg does not appear to improve. Pt went to ER two days ago and he had negative duplex venous doppler study of both leg. His chest x ray showed pulmonary edema and also his lab showed severely elevated BNP and also low KCL and high MCV. Pt was discharged to home from ER without any further action and he was told to follow up with PCP. Pt denies any fever, leg pain. He did receive some KCL in ER. Pt c/o persistent bilateral lower extremity redness and swelling. Pt denies any calf pain Pt denies any recent travel or bedrest. leg pain1 Pt c/o bilateral lower extremity worsening swelling, some redness and some pain since two days ago, Pt denies any fever, chill Pt is on HCTZ, Pt also gained several pounds Pt denies any sob. Pt denies any toe discoloration or worsening neuropathy Pt denies any claudication. Pt denies any calf pain or sob or chest pain Pt denies any recent travel PE Pt has acute PE. Pt had negative cardiac cath rn. Cardiology told him to continue eliquis for the rest of his life for now. He also saw pulmonary and he is on anoro and bipap and doing ok. Pt denies any chest pain or sob stroke1 Pt is s/p CVA. H e saw neurology and no transesophageal echo was recommended and he was told to continue eliquis indefinitely. polycythemia1 Pt no longer has polycythemia and no need for phlebotomy from hematology and he is on b12 shot now. His OBEY is negative edema1 Pt has chronic b ilateral LE edema. Pt takes hctz and doing slightly better .Pt denies any worsening sob leg swelling Pt has been havi ng bilateral LE edema lately Pt denies any paresthesia or claudication anxiety1 Pt has anxiety a nd depression and insomnia P tis on remeron and doing ok Pt has better mood and increasing appetite as well. Pt denies any suicidal or homicidal thought Pt denies any crying spells CVA1 Pt had CVA recen tly and he saw cardiology yesterday and he will wear 30 days cardiac cath rn for now. He is on eliquis .Pt has genevieve with neurology next month emphysema1 Pt has end stage emphysema .Pt is on oxygen. Pt saw pulmonary and he had PFT done yesterday Pt is on anoro and albuterol PRn. Pt uses bipap at night. pt is on anoro and albuterol. 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 Pt had negative CTA of head and neck and cardiac echo showed right ventricular enlargement.. Pt currently only has mild numbness left upper extremity below the elbow without any motor weakness. Pt is on lipitor now. neuropathy1 Pt hs peripheral neuropathy Pt could not tolerate neurontin either as well as pristiq. sleep apnea1 Pt had sleep mauricio dy done in hospital which showed sleep apnea pt is wearing cpap now with oxygen at night PE Pt was diagnosed with acute PE on 09/01/23. Pt requires 24 hour oxygen now Pt is on eliquis. Leg doppler is negative. Pt also has emphysema Pt is on anoro now. Pt denies any acute sob. CVA anxiety1 Pt has anxiety a nd depression with some poor appetite. Pt is on remeron Pt actually gained some richard. His mood is stable pt denies any suicidal or homicidal thought Pt denies any crying spells . fatigue1 pt has been feel ing very fatigue recently since starting pristiq and neurontin TID Pt has been sleeping more than 12 hours per day and he has not been eating well either .Pt took pristiq x 2 weeks and then he stopped it and restarted it again last week. Pt has not noticed much improvement of his mood. Pt denies any suicidal or homicidal thought Pt denies any crying spells HTN Pt has history o f HTN and leg edema Pt is on losartan/hctz and spironolactone and his bp is low Pt denies any dizziness. chest pain or headache neuropathy1 Pt has neuropath y and he could not tolerate pristiq and he also could not tolerate neurontin TID. His leg edema improved with compression stocking weight loss1 Pt lost a lot of weight recently. pt has been feeling tired and sleeps a lot and he has poor appetite as well. venous1 Pt has chronic v enous insufficiency with neuropathy. Pt started neurontin last month and he notices slightly improvement of his neuropathy symptoms. Pt denies any drowsiness from neurontin. He notices improvement of leg swelling with higher dose of spironolactone. Pt also started to wear compression stocking which also helped. HTN Pt has HTN. Pt t akes losartan/hctz and spironolactone and his bp is borderline low today. Pt denies any chest pain or dizziness. anxiety1 Pt feels anxious and depressed due to chronic pain and neuropathy symptoms. Pt does see pain management and he is on pain pump and oral pain meds. Pt denies any suicidal or homicidal thought Pt denies any crying spells . venous1 Pt has chronic b ilateral LE venous insufficiency with pitting edema Pt also has neuropathy symptoms both LEs. Pt has burning and numbness and tingling both feet and seems getting higher towards his lower legs Pt denies any cold extremity. folate1 Pt has low folat e. Pt takes folic acid. HTN Pt has HTN Pt ta kes spironolactone and losartan/hctz and his bp is stable. Pt has bilateral LE venous insufficiency Pt sees [facility]. Pt denies any sob or chest pain folate Pt has low folat e Pt takes folic acid and his folate level is ok. Pt c/o bilateral cheek red rash for several days .Pt denies any pain or acne. polycythemia1 Pt has mild poly cythemia Pt was evaluated by hematology and he was told that it is due to smoking A1c Pt has mildly el evated A1c. His glucose is ok Pt denies any polyuria, polydipsia bili1 Pt has mildly hi gh bili. Pt denies any abd pain or jaundice. his retic and LD are ok. He does have fatty liver. chronic pain1 Pt has chronic l ow back and neck pain Pt has severe DDD with spinal stenosis. pt sees pain management .Pt has pain pump and he takes oxycodone 10 mg TID. Pt states that he accidently lost his pain meds and he called his pain management and was told no refill until next due date. Pt denies any loss of bowel or bladder control or saddle area paresthesia physical Pt needs annual physical Pt has HTN and venous dependent lower extremity edema. Pt has not see [facility] for a while He missed his last appointment .Pt denies any sob or chest pain. Pt takes spironolactone, losartan/hctz. He is out of spironolactone for a while and notices worsening leg edema. Pt also is out of folic acid .Pt had colonoscopy done 5 months ago which showed tubular adenoma. Pt denies any GI issue. Pt has chronic pain Pt is on pain pump and pain medication. Pt could not tolerate lyrica for his neuropathy and he is off lyrica neuropathy1 Pt has neuropath y. Pt only takes lyrica qhs PRn?? Pt has burning feeling around feet. Pt denies any cold extremity colonguard1 Pt has positive colonguard Pt denies any lower Gi issue. Pt denies any GI bleeding. Pt has lost some weight HTN Pt has HTN Pt ta kes losartan/hctz and spironolactone and his bp is stable. p denies any chest pain or headache neuropathy1 Pt has periphera l neuropathy symptoms with leg and toe burning pain as well as leg edema. Pt is seeing [facility] and he takes spironolactone and his leg edema actually is much better Pt had cardiac stress done yesterday. pt denies any chest pain Pt had cardiac echo done which showed mild enlarged heart . NCS showed asymmetrical motor and sensory neuropathy. Pt does have chronic low back pain with sciatica pt denies any saddle area paresthesia. HTN Pt has HTN Pt ta kes losartan/hctz and spironolactone and his bp is low Pt feels slightly dizzy sometimes . his bp is around 150/70 at home polycythemia1 Pt has polycythe fredi. pt is seeing hematology and is getting work up Pt denies any chest pain .Pt denies any snoring or fatigue. polycythemia1 Pt has polycythe fredi. Pt saw hematology and he had more lab done and he was told it is due to smoking per pt weight loss1 Pt has lost some weight Pt states that his swelling resolved with spironolactone Pt denies any GI issue or appetite loss . venous insufficiency1 Pt has dolly ateral LE swelling Pt denies any sob. Pt saw cardiology and he had cardiac echo done and he also had some venous pressure study done and told him he has vein insufficiency . he was told to wear compression stocking. He also saw vascular surgery as well and was told the same advice. Pt took spironolactone and the leg swelling resolved. Pt still feel some toe numbness and tingling Pt denies any sob or chest pain. his vascular surgeon thinks that his toe numbness and tingling is due to chronic spinal stenosis COPD1 Pt had chest x r ay done which showed COPD without pulmonary vascular congestion. PT has chronic mild sob leg edema1 Pt has persisten t LE edema for several months ,Pt denies any chest pain Pt has chronic SOB. Pt denies any claudication Pt had normal arterial doppler study and he did see Dr. li office and he had another normal arterial doppler study and was told to wear compression stocking for now. Pt denies any orthopnea or PND.. Pt has been wearing the compression stocking but he has not noticed much improvement. Pt denies any calf pain pt denies any recent travel or bedrest. Pt was started on spironolactone but he also stopped that after two days along with lyrica. neuropathy1 Pt has neuropath y symptoms Pt could not tolerate lyrica, which made him drowsy with poor balance Pt stopped lyrica after two days of taking it His balance symptoms resolved. leg edema1 Pt has acute ons et of bilateral lower extremity edema since 3 months ago Pt denies any claudication Pt had negative arterial doppler study both legs .pt was seen by vascular surgeon recently and he had another negative arterial doppler study and he was told to wear compression stocking only for now. His lab showed borderline high BNP. Pt denies any carolynn orthopnea or PND. But he does wake up frequently at night due to pain per patient. Pt does have baseline sob frequently due to long smoking history. . Pt denies any chest pain or acute sob. Pt states that the leg swelling is slightly better but still rather severe polycythemia1 Pt has polycythe fredi. His iron and ferritin are ok. JAK2 ok. Pt is heavy smoker. Pt denies any snoring or any trouble with breathing at night. Pt denies any fatigue. he has mildly elevated total bili. pt denies any abd pain or jaundice. Pt has low folate. neuropathy1 Pt c/o burning s ensation both lower extremity and feet along with the edema. Pt denies any claudication Pt denies any acute sob or chest pain Pt denies any recent travel or bedrest glucose Pt has borderlin e high glucose and high A1c Pt denies any polyuria, polydipsia. Pt states that he eats about one full bag of butter finger per day. physical1 Pt needs annual physical. Pt c/o bilateral LE edema for 3-4 months. Pt denies worsening edema at night .Pt feels some bilateral lower extremity burning sensation when he walks .Pt denies any calf pain Pt denies any recent travel or bedrest .Pt denies any chest pain or sob. Pt is a chronica heavy smoker. Pt has HTN. Pt takes losartan/hctz and his bp is borderline high today. Pt states that his bp at home is around 120/80 Pt denies any polyuria, polydipsia. Pt denies any other complaints polycythemia1 Pt has polycythe fredi .Pt has normal iron panel .Pt denies any snoring or any trouble with breathing at night Pt does smoke heavily lung nodule1 Pt has history o f lung nodule Pt still smoking ,Pt denies any hemoptysis, sob or cough. LDCT ok. HTN Pt takes losarta n/hctz and his bp is ok at home glucose1 Pt has history o f high glucose and borderline high A1c. Pt denies any polyuria, polydipsia .Pt has been eating chocolate chip cookie with peanut better a lot lately PHysical Pt needs annual physical, Pt has chronic back pain. Pt has pain pump and he is doing pain pump and also he is on oxycodone. Pt has HTN. Pt states that he is out of irbesartan/hctz Pt states that his bp is 150/100 recently without bp meds. Pt still smoking, Pt denies any hemoptysis, sob or cough. Pt never the LDCT for lung CA screening. ,Pt denies any other complaints chronic pain1 Pt has chronic n aurelia and back pain Pt denies any worsening moraima Pt denies any los of bladder control. Pt has severe pain Pt states that his pain management is trying to wean him down on his current oral and pump medication and he is very upset He told me pain management told him guideline changed so he may not getting that high dose of opioid from pain pump and oral meds anymore. Pt states that pain is not controlled currently with lower dose HTN PT has HTn Pt ta kes losartan/hctz and his BP is high he states that he is in pain. He denies any chest pain or headache tobacco1 Pt has more than 30 pack year tobacco. His insurance keep denying his LDCT Pt denies any chest pain or hemoptysis, or sob chronic pain1 Pt has chronic n aurelia and back pain Pt denies any worsening pain Pt denies any loss of bladder control Pt use pain pump and also oxycodone from pain management who recently closed the pump service Pt was referred to pain management at [facility] who told him they do not do opioid. Pt has been on chronic opioid for years. Pt has severe DDD HTN Pt has HTN. Pt t akes losartan/hctz. His BP is slightly high Pt denies any chest pain or headache tobacco1 Pt smokes and he denies any hemoptysis, sob or cough Pt has not had chest CT done yet PHysical Pt needs annual physical. Pt has HTn Pt takes losartan/hctz and his BP is stable. Pt has chronic pain Pt takes oxycodone and he is seeing pain management. Pt denies any new issue Pt has history of lung nodule and he also has 50 pack year tobacco. His chest Ct was denied. Pt denies any hemoptysis, sob or cough. pt still smoking. Pt has mild high glucose in his lab Pt denies any polyuria polydipsia. Pt denies any other complaints HLp pt has history o f HLP Pt is on low fat and low carb diet lung nodule1 Pt has lung nodu le. Pt has 50 pack year tobacco. Pt has mild COPD but he denies any sob HTN Pt has HTn. pt t akes losartan.hctz and his bp is stable. Pt denies any chest pain or headache chronic pain Pt has chronic n aurelia and back pain. pt takes oxycodone and he is on pain pump. pt sees Dr. Moya and he is doing ok. Pt denies any issue. Pt denies any loss of bladder control. Pt has 7/10 neck and back pain conjucnivits1 Pt c/o redness a nd pus drainage left eye and some lower eyelid swelling for 2-3 days. Pt denies any FB. pt denies any eye injury. Pt denies any vision change . Pt denies any eye pain. Pt denies any sick contact HTN Pt has HTN.. Pt takes losartan/.hctz. P t need refill. His BP is stable HTN Pt has HTN. Pt t akes losartan/hctz and his BP is stable. chronic pain Pt has chronic n aurelia and back pain. Pt has pain pump and he is on oxycodone. Pt decides to continue his pain management with Dr. Fuchs. Pt will not see [facility] He states that Dr. Christian is taking care of his pain medication as well as pain pump PHysical Pt needs annual physical. Pt has chronic severe neck and back pain pt is on pain pump but he is having hard time finding a pain management who takes pain pump. Pt is on opioid as well for chronic pain. Pt has HTn Pt takes losartan/hctz and he is doing ok. Pt denies any chest pain or sob. Pt denies any headache Pt is frustrated since nobody takes care of pain pump. Pt denies any other complaints chronic pain1 Pt has chronic n aurelia and back pain. Pt is on pain pump and oral opioid for chronic pain control. He has been having hard time finding a pain management that manage his pain with pump and oral meds Pt went to see Dr. Christian who told him he has to cut down pain pump which he does not want. Dr. Garcia told him he will be retiring in one year anyway. Pt denies any other complaints HTN Pt has chornic n aurelia and back apin. Pt has pain pump. Pt is on oxycodone. Pt is looking for a pain provider who can manage his pain pump. Pt has severe DDD. Pt has sciatica Pt denies any loss of bladder control Pt does not want surgery HTN Pt has HTN. Pt t akes losartan. His BP is stable chronic pain1 Pt has chronic n aurelia and back pain. Pt denies any radiculopathy Pt has mild sciatica Pt denies any loss of bowel or bladder control Pt has severe spondyslosis with foraminal stenosis. Pt had neck fusion in the past but did not work Pt has been on pain pump for 11 years. Pt also takes oxycodone TID for the past 17 years. Pt entertained about marijauna in the past but he decides against it. Pt had paini injection and PT and none worked Pt has 7-8/10 pain daily. Pt recnetly smoked a little marijauna during [employer] and her pain managment decides to wean him off all oxycodone from that point. Pt states that he does not use marijauna ever and he does not use any illict or unprescribed meds, Pt states that the pain does help with low back pain but oxycodone helps with neck pain. Pt wants a temporary refill of pain meds and referral to new pain management. lung nodule1 Pt has stalbe yvrose ng nodule. Pt supposes to do ct in 12 months HTN Pt has HTn. Pt t akes losartan,hctz. His BP is stalbe COPD1 Pt has COPD. Pt continues to smoke. Pt deneis any sob. hyperglycemia1 Pt has high gluc ose. Pt denies any polyuria, polydipsia. pt did not do lab fasting. polycythermia1 Pt has polycythe rmia. pt did not do lab yet HTn Pt has HTn Pt ta kes losartan,hctz and his BP is stable. Pt denies any chest pain or headache lung nodule Pt has lung nodu le. Pt still smoking COPD Pt has COPD Pt d enies any SOB. Pt has pulmonary nodule. fatty liver1 Pt has fatty consuelo er pt does not drink alcohol or taking excessive tylenol HLP Pt has mildly hi gh TG. Pt drinks a lot of soda and starchy food polycythermia1 Pt has mild poly cythermia. Pt smokes about 1 pack per day adrenal adenoma1 Pt has adrenal adenoma. Pt denies any abd pain PHysical Pt needs annual physical. Pt is very noncompliant. Pt has history of neck fusion. Pt has chronic severe neck and back pain due to DDD Pt has pain pump for his low back pain. Pt takes oxycontin 40 mg TID for his chronic neck pain Pt denies any radiculopathy. His pain managment physician and he was told to see me for his pain meds until they will get a new pain managment physicina in December. Pt also has HTN but he has not been taking losartan,hctz and his BP is high. Pt denies any chest pain or headache. pt also has hsitory of lung nodule and also adrenal noudle but he never did the follow up CT Pt denies any SOB or chest pain fatty liver Pt has fatty consuelo er on CT scan. Pt rarely drinks alcohol. Pt does not eat very healthy. He has mildly elevated cholesterol. lung nodule Pt has lung nodu le .Pt does smoke. Pt denies any chest pain or SOB adrenal mass Pt has inderterm inated adrenal mass. Pt denies any abd apin hematuria Pt has mild regis turia. Pt denies any UTI symptoms. Pt denies flank pain HLP Pt has mild HLP Pt is not eating very healthy vitamin D Pt has low vitam in D on lab PHysical Pt needs annual physical. Pt takes losartan/HCTZ for HTN. Pt has chornic neck and back pain. Pt uses morphine pump and oxycontin from pain managment. Pt denies any new complaints Instructions Date Instruction Additional Infor mation Weight gain advised Related to B estrellita mass index (BMI) 24.0-24.9, adult Stop smoking. Related to Essen tial (primary) hypertension Stop smoking. Related to Essen tial (primary) hypertension Follow a low sodium diet. Relate d to Essential (primary) hypertension Quit smoking Related to Encou nter for general adult medical exam w abnormal findings Stop smoking. Related to Essen tial (primary) hypertension Stop smoking. Related to Essen tial (primary) hypertension Quit smoking Related to Chron ic pain syndrome Quit smoking Related to Chron ic pain syndrome Stop smoking. Related to Essen tial (primary) hypertension Prescribed Activity and Exercise Education Related to Dietary Surveillance and Counseling Prescribed Diet Educ ation/Lifestyle Education Regarding Diet Related to Dietary Surveillance and Counseling Quit smoking Related to Chron ic pain syndrome Prescribed Activity and Exercise Education Related to Dietary Surveillance and Counseling Prescribed Diet Educ ation/Lifestyle Education Regarding Diet Related to Dietary Surveillance and Counseling Quit smoking Related to Emphy sema Quit smoking Related to Solit lenny pulmonary nodule Dietary counseling Related to Di etary surveillance counseling Decrease caloric intake Related to Dietary surveillance counseling Dietary counseling Related to Di etary surveillance counseling Decrease caloric intake Related to Dietary surveillance counseling Assessments Type Assessment Date assessment Centrilobular emphysema 025 assessment Edema assessment Chronic pain syndrome 5 assessment Acute lung embolism Mental Status Date Cognitive Assessment Orientation - [place] ed to time, place, person, situation.
--- OUTSIDE RECORDS SUMMARY | 2024-09-25 07:06 | XMS_ITS | Clinical Summary ---
Author Organization [facility] Address [address], [facility] [address] [place] [address] Phone Care Team Providers Care Director Of Student Affairs Name Role Phone Paulo Stephens Primary Care Provider [phone] Gutierrez Mckinley MD Unavailable [phone] Allergies Active Allergy Reactions Criticality Noted Date Comments Pregabalin Unknown High 06/05/2021 Medications oxyCODONE 10 MG Tablet TAKE 1 TABLET BY MOUTH THREE TIMES DAILY NEEDED 06/02/2021 Active losartan potassium-hydro chlorothiazide (HYZAAR) 100-25 MG Tablet losartan-hyd rochlorothia zide 100-25 mg tablet 08/22/1969 Active folic acid (FOLVITE) 1 MG Tablet Take 1,000 mcg by mouth daily. 07/01/2021 Active pregabalin (LYRICA) 25 MG Capsule TAKE 1 CAPSULE BY MOUTH TWICE DAILY 09/30/2021 Active spironolactone (ALDACTONE) 25 MG Tablet Take 25 mg by mouth daily. 09/30/2021 Active Active Problems Problem Noted Date Diagnosed Date Secondary polycythemia 06/15/2021 Family History Medical History Relation Name Comments Stroke Mother Relation Name Status Comments Mother Social History Tobacco Use Types Packs/Day Years Used Date Smoking Tobacco: Every Day Smokeless Tobacco: Never Tobacco Cessation:Ready to Q uit: Not Asked; Counseling Given: Not Answered Alcohol Use Standard Drinks/Week Comments Not Currently 0 (1 standard drink = 0.6 oz pur e alcohol) PHQ-2 Answer Date Recorded Total Score - Questions 1-9 0 01/20 Sex and Gender Information Value Date Recorded Sex Assigned at Not on file 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 Gender Identity Not on file Sexual Orientation Not on file Last Filed Vital Signs Vital Sign Reading Time Taken Comments Blood Pressure 98/60 02/03/2023 1:15 PM CDT Pulse 73 02/03/2023 1:15 PM CDT Temperature 36.7 ??C (98 ??F) 02/03/2023 1:15 PM CDT Respiratory Rate 18 02/03/2023 1:15 PM CDT Oxygen Saturation 95% 02/03/2023 1:15 PM CDT Inhaled Oxygen Concentration - - Weight 71.4 kg (157 lb 8 oz) 02/03/2023 1:15 PM CDT Height 175.3 cm (5' 9 ) 02/03/2023 1:15 PM CDT Body Mass Index 23.26 02/03/2023 1:15 PM CDT Plan of Treatment Health Maintenance Due Date Last Done Comments Hepatitis C Virus (HCV) Screening 1955 TdaP Immunization 1955 Pneumococcal Immunization (5 0+ years) (1 of 2 - PCV) 1972 Colonoscopy 1998 Colorectal Cancer Screening 1998 Cologuard 2003 Immunochemical Fecal Occult Blood 2003 Zoster Immunization (1 of 2) 2003 Influenza Immunization (#1) 2024 SARS-COV-2 Immunization ( season) 2024 11/24/2020, 11/03/2020 Respiratory Syncytial Virus (RSV) Immunization (Adult) (1 - 1-dose 75+ series) 2028 Hepatitis B Immunization Aged Out No longer eligible based on patient's age to complete this topic Meningococcal Immunization (ACWY) Aged Out No longer eligible b ased on patient's age to complete this topic Rotavirus Immunization Aged Out No lo nger eligible based on patient's age to complete this topic Insurance [facility] Care Teams Director Of Student Affairs Relationship Specialty Start Date End Date Paulo Stephens [address] [place] [address] PCP - General Family Medicine 06/02/21 Gutierrez Mckinley MD [address] [facility] [place] [facility] [place] [id number] Consulting Physician Oncology 06/02/21
--- OUTSIDE RECORDS SUMMARY | 2024-09-25 07:06 | XMS_ITS | Encounter Summary ---
Author Organization [facility] Address 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 [address] [place] [address] Felix Franco MD [address] [facility] [address] [place] [address] documented as of this encounter Visit Diagnoses Not on filedocumented in this encounter Care Teams Sr Technical Sales Consultant Relationship Specialty Start Date End Date Paulo Stephens MD [address] [place] [phone] PCP - General Family Practice 09/19/23 documented as of this encounter
--- OUTSIDE RECORDS SUMMARY | 2024-09-25 07:06 | XMS_ITS | Encounter Summary ---
Author Organization [facility] Address [address] [place] [address] Care Team Providers Care Chemical Waste Management Technician Name Role Phone Paulo Stephens MD Primary Care Provider [phone] Encounter Details Date Type Department Care Team (Late Contact Info) Description 09/24/2024 Orders Only [facility] Oncology and Hematology Anastacio Elayne [address] [place] [address] Felix Franco MD [facility] [address] [place] [phone] Social History Tobacco Use Types Packs/Day Years Used Date Smoking Tobacco: Some Days Cigarettes Smokeless Tobacco: Never Alcohol Use Standard Drinks/Week Comments Never 0 (1 standard drink = 0.6 oz pur e alcohol) Sex and Gender Information Value Date Recorded Sex Assigned at Not on file 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 Gender Identity Not on file Sexual Orientation Not on file documented as of this encounter Plan of Treatment Upcoming Encounters Date Type Department Care Team (Late st Contact Info) Description 09/27/2024 3:45 PM AIRFIELD ENGINEER OFFICER Office Visit [facility] Oncology and Hematology - Anastacio Pb [address] [place] [address] Felix Franco MD [address] [place] [address] documented as of this encounter Procedures Procedure Name Priority Date/Time Associated Diagnosis Comments VITAMIN B12 AND FOLATE Routine 09/13/2024 12:00 PM AIRFIELD ENGINEER OFFICER documented in this encounter Results * VITAMIN B12 AND FOLATE (09/13/2024 12:00 PM AIRFIELD ENGINEER OFFICER) Blood Felix Franco MD CHEMISTRY ORDERABLES Final Resu lt documented in this encounter Visit Diagnoses Not on filedocumented in this encounter Care Teams Chemical Waste Management Technician Relationship Specialty Start Date End Date Paulo Stephens MD [address] [place], [place] [address] [place] [address] PCP - General Family Practice 09/19/23 documented as of this encounter
== END 2024-09-25 07:03 | disposition home or self-care (01) ==
PROVIDERS: PCP Emergency Medicine
DX: M96.1 Postlaminectomy syndrome, not elsewhere classified (principal); M47.22 Other spondylosis with radiculopathy, cervical region
CPT/HCPCS: 72141

== ENCOUNTER 2024-10-25 10:41 | Inpatient (IN) | payer MEDICARE, BC, SELFPAY ==
[2024-10-25] VITALS (30 sets, daily range): BP systolic 96–114; BP diastolic 62–79; PULSE 69–113; RESP 12–27; TEMP 36–36.5; O2SAT 79–98; BMI 36.5
--- NOTE | 2024-10-25 | ECHO_ITS ---
Patient Info Name: Carlo Hernandez Age: 69 years : 1955 Gender: Male Ht: 69 in Wt: 193 lbs BSA: 2.08 m2 HR: 86 bpm BP: 99 / 79 mmHg Heart Rhythm: Sinus Rhythm Technical Quality: Fair Exam Date: 10/25/2024 2:30 PM Exam Location: Echo Lab Patient Status: Inpatient Admit Date: 10/25/2024 Staff Ordering Physician: Milena Espinoza APRN [place] Operator: Kandy Fallon RDCS Attending Provider: Caden Christopher MD Referring Physician: Olga VANN; Exam Type: CA echo dop color flow w con Study Info Indications - Dystolic dysfunction - elevatedBNP - SOB Complete two-dimensional, color flow and Doppler transthoracic echocardiogram is performed with contrast to opacify the left ventricle and to improve the deliniation of the left ventricle endocardial borders. Contrast/Agitated Saline Contrast/Ag. Saline: Definity Amount: 6.00 ml Existing IV Access: Yes IV Access Condition: patent with no signs of infiltration Summary 1. Left ventricular chamber dimension is normal. 2. Left ventricular systolic function is moderately reduced, estimated at 35-40%. 3. There is mildly increased left ventricular wall thickness. 4. The left ventricular diastolic function is grade I diastolic dysfunction. 5. Right ventricular chamber dimension is severely enlarged. 6. Right ventricular systolic function is reduced. 7. Flattening of the septum in diastole and systole consistent with right ventricular volume and pressure overload. 8. Right atrial chamber dimension is severely enlarged. 9. There is mild tricuspid valve regurgitation. 10. Pulmonary hypertension, estimated pulmonary arterial systolic pressure is 68 mmHg. 11. Normal inferior vena cava with no collapse upon inspiration consistent with elevated right atrial pressure, 15 mmHg. Left Ventricle Left ventricular chamber dimension is normal. Left ventricular systolic function is moderately reduced, estimated at 35-40%. There is mildly increased left ventricular wall thickness. The left ventricular diastolic function is grade I diastolic dysfunction. Right Ventricle Flattening of the septum in diastole and systole consistent with right ventricular volume and pressure overload. Right ventricular chamber dimension is severely enlarged. Right ventricular systolic function is reduced. Left Atria Left atrial chamber dimension is normal. Right Atria Right atrial chamber dimension is severely enlarged. Atrial Septum Intact interatrial septum visualized by color flow imaging. Aortic Valve The aortic valve is not well visualized. There is no aortic valve stenosis. There is no aortic valve regurgitation. There is moderate aortic valve calcification. Pulmonic Valve The pulmonic valve is not well visualized. There is trace pulmonic regurgitation. Mitral Valve There is trace mitral valve regurgitation. Tricuspid Valve There is mild tricuspid valve regurgitation. Pulmonary hypertension, estimated pulmonary arterial systolic pressure is 68 mmHg. Pericardium/Pleural There is no pericardial effusion. Inferior Vena Cava Normal inferior vena cava with no collapse upon inspiration consistent with elevated right atrial pressure, 15 mmHg. Aorta The aortic root size at the sinus of Valsalva is normal. Left Ventricular Outflow Tract Name Value Normal LVOT 2D LVOT Diameter 2.02 cm LVOT Doppler LVOT Peak Gradient 1 mmHg LVOT Mean Gradient 0 mmHg LVOT VTI 8.04 cm LVOT VTI/AV VTI Ratio 0.76 LVOT Stroke Volume 25.80 ml LVOT CO 1.83 l/min LVOT CI 0.88 L/min/m2 Pulmonic Valve Name Value Normal RVOT Doppler RVOT Peak Gradient 1 mmHg PV Doppler PV Peak Gradient 2 mmHg Mitral Valve Name Value Normal MV Doppler MV Decel Powell 199.35 cm/s2 MV PHT 0 s MV Area (PHT) 4.42 cm2 4.00-5.00 MV Diastolic Function MV E Peak Velocity 34.18 cm/s MV A Peak Velocity 52.85 cm/s MV E/A 0.65 MV Decel Time 0 s MV Annular TDI MV E/e' (Septal) 8.92 <=8.00 MV E/e' (Lateral) 7.64 <=8.00 MV E/e' (Average) 8.28 Tricuspid Valve Name Value Normal TV Regurgitation Doppler TR Peak Velocity 362.62 cm/s TR Peak Gradient 53 mmHg Estimated PAP/RSVP RA Pressure 15 mmHg <=5 PA Systolic Pressure 68 mmHg <36 RV Systolic Pressure 68 mmHg <36 Aortic Valve Name Value Normal AV Doppler AV Peak Velocity 74.35 cm/s AV Peak Gradient 2 mmHg AV Mean Gradient 1 mmHg AV VTI 10.56 cm AV Area (Cont Eq VTI) 2.45 cm2 >=3.00 AV Area (Cont Eq Kristofer) 2.25 cm2 AV Regurgitation 2D LVOT Area 3.21 cm2 Ventricles Name Value Normal LV Dimensions 2D/MM IVS Diastolic Thickness (2D) 0.86 cm 0.60-1.00 LVID Diastole (2D) 2.96 cm 4.20-5.80 LVIW Diastolic Thickness (2D) 0.85 cm 0.60-1.00 LVID Systole (2D) 1.86 cm 2.50-4.00 LVOT Diameter 2.02 cm LV Mass (2D Cubed) 63.63 g 88.00-224.00 LV Mass Index (2D Cubed) 0.00 g/cm2 0.00-0.01 Relative Wall Thickness (2D) 0.57 LV Fractional Shortening/Ejection Fraction 2D/MM LV Fractional Shortening (2D) 37 % 25-43 LV EF (2D Teichsoniaz) 69 % 52-72 LV Diastolic Volume (4C MOD) 41.17 ml LV EF (4C MOD) 77 % LV Diastolic Length (4C) 6.63 cm LV Systolic Length (4C) 5.11 cm LV Stroke Volume (4C MOD) 31.56 ml Atria Name Value Normal LA Dimensions LA Volume (4C A-L) 24.70 ml RA Dimensions RA Area (4C) 23.14 cm2 <=18.00 Report Signatures
--- NOTE | ~2024-10-25 | XR_ITS ---
XR chest port-a-cath/central Ordering provider: Jenn Alarcon MD History: 69 years Male with . central line insertion . Comparison: October 28, 2023 FINDINGS: MEDIASTINUM: The cardiac silhouette is moderately enlarged. Endotracheal tube with the tip above the arsh by about 6 cm. Congestive kendal. Left central line with the tip overlying the superior vena cav a. LUNGS: No pneumothorax. Opacification in the right lung base suggestive of atelectasis versus pneumon ia with right pleural effusion. Bilateral interstitial thickening. OTHER: No free air under the diaphragm. IMPRESSION: Cardiomegaly with cardiac decompensation and pulmonary edema. Superimposed pneumonitis cannot be excl uded. Right pleural effusion with right basal pneumonia. Reviewed, dictated and finalized at location A. ONE SOLDER STRIPPER IMPRESSION: Cardiomegaly with cardiac decompensation and pulmonary edema. Superimposed pneu monitis cannot be excluded. Right pleural effusion with right basal pneumonia.
--- NOTE | ~2024-10-25 | XR_ITS ---
EXAMINATION: XR chest 1V portable DATE: 10/27/2024 13:18 INDICATION: Shortness of breath. TECHNIQUE: A single frontal view of the chest was obtained. COMPARISON: Chest view at 5:18 AM FINDINGS: There is a diffuse interstitial pattern in the lungs. There are airspace opacities in the l ower lung zones. There is a small right pleural effusion. No pneumothorax. Cardiomegaly is noted. IMPRESSION: 1. Stable diffuse lung disease, consistent with pulmonary edema versus pneumonia superimposed on emph ysema. 2. Stable small right pleural effusion. 3. Cardiomegaly. Reviewed, dictated and finalized at location A. PROCESSING ASSOCIATE IMPRESSION: 1. Stable diffuse lung disease, consistent with pulmonary edema versus pneumoni a superimposed on emphysema. 2. Stable small right pleural effusion. 3. Cardiomegaly.
--- NOTE | ~2024-10-25 | XR_ITS ---
EXAMINATION: XR chest 1V portable DATE: 10/27/2024 05:31 INDICATION: Shortness of breath. TECHNIQUE: A single frontal view of the chest was obtained. COMPARISON: Chest view 10/25/2024, chest CT 09/03/2024 FINDINGS: There is a diffuse interstitial pattern in the lungs. There are airspace opacities in the m id and lower lung zones. There is a small right pleural effusion. No pneumothorax. The heart size is normal. IMPRESSION: 1. Stable diffuse lung disease, consistent with pulmonary edema versus pneumonia superimposed on emph ysema. 2. Worsened small right pleural effusion. Reviewed, dictated and finalized at location A. TURE METER READER IMPRESSION: 1. Stable diffuse lung disease, consistent with pulmonary edema versus pneumoni a superimposed on emphysema. 2. Worsened small right pleural effusion.
--- NOTE | ~2024-10-25 | XR_ITS ---
XR abdomen/kub 1V Ordering provider: Jenn Alarcon MD History: . ng insertion . Comparison: None. FINDINGS/impression: Nasogastric tube with the tip in the distal stomach. Reviewed, dictated and finalized at location A. E WORKER HELPER
--- NOTE | ~2024-10-25 | XR_ITS ---
CHEST RADIOGRAPH CLINICAL HISTORY: SOB . COMPARISON: 01/03/2024 TECHNIQUE: Single portable view of the chest. FINDINGS The cardiomediastinal silhouette is unremarkable. Increased interstitial markings are identified bilaterally, findings suggesting mild pulmonary vascul ar congestion. The lungs are otherwise clear. IMPRESSION: Mild pulmonary vascular congestion, without focal infiltrate or effusion. Reviewed, dictated and finalized at location A. ING MACHINE FEEDER
--- NOTE | ~2024-10-25 | XR_ITS ---
Portable chest x-ray Comparison: 10/28/2024 Clinical History: Respiratory failure Findings: Endotracheal tube, NG tube, and left-sided central venous line are in place. There are pro bable small pleural effusions with moderate pulmonary edema. Possible underlying COPD. Cardiomediasti nal silhouette is stable. Bones and soft tissues are unremarkable. Impression: Moderate pulmonary edema with small bilateral pleural effusions. Underlying COPD. Support tubes, as above. Reviewed, dictated and finalized at location . Impression: Moderate pulmonary edema with small bilateral pleural effusions. Underlying COPD. Support tubes, as above.
--- NOTE | ~2024-10-25 | XR_ITS ---
Portable chest x-ray Comparison: 10/27/2024 Clinical History: Respiratory failure Findings: Endotracheal tube, NG tube, and left-sided central venous line are in place. Probable mild pulmonary edema pattern. Small bilateral pleural effusions are present. Cardiomediastinal silhouett e is stable. Bones and soft tissues are unremarkable. Impression: Mild bibasilar pulmonary edema with small bilateral pleural effusions. Support tubes, as above. Reviewed, dictated and finalized at location . Impression: Mild bibasilar pulmonary edema with small bilateral pleural effusions. Support tubes, as above.
--- NOTE | 2024-10-25 10:54 | ECG_ITS ---
Test Date: 2024-10-25 11:15:50 Measurements Intervals [place] Rate: 78 P: 0 LA: 0 QRS: 148 QRSD: 78 T: 194 QT: 370 QTc: 423 Interpretive Statements significant baseline artifact. Uninterpretable No previous ECG available for comparison Electronically Signed On 10-25-2024 14:07:12 NET WEB DEVELOPER by Norberto Dupree M.D.
--- NOTE | 2024-10-25 10:56 | ED_ITS ---
HPI - General Adult General Chief complaint: Shortness of Breath/Dyspnea Stated complaint: SOB, weak History of Present Illness HPI narrative: 69-year-old male present to the emergency department for evaluation for worsening shortness of breath. Patient is typically on 3 L of oxygen by nasal cannula at home but states he has had worsening shortness of breath over the last 10 days. Patient does have history of CHF and COPD and does continue to smoke. Related Data Home Medications ?Medication ?Instructions ?Recorded ?Confirmed ?Last Taken ?Type potassium chloride 20 mEq 20 meq PO BID 01/09/24 10/25/24 Unknown History tablet,extended release mecobalamin (vitamin B12) 500 mcg 500 mcg PO EVERY OTHER DAY 04/24/24 10/25/24 10/25/24 History chewable tablet folic acid 800 mcg tablet 0.8 mg PO DAILY 08/06/24 10/25/24 Unknown History pyridoxine (vitamin B6) 100 mg 100 mg PO DAILY 08/06/24 10/25/24 10/25/24 History tablet atorvastatin 40 mg tablet 40 mg PO HS 10/25/24 10/25/24 Unknown History bumetanide 1 mg tablet 1 mg PO Q12H 10/25/24 10/25/24 10/25/24 History triamcinolone acetonide 0.1 % 1 applic topical BID 10/25/24 10/25/24 10/25/24 History topical cream Allergies Allergy/AdvReac Type Severity Reaction Status Date / Time pregabalin Allergy Hallucinati Verified 10/25/24 11:04 ng Review of Systems 2 Review of Systems: All systems reviewed & are unremarkable except as noted in HPI and below PMFSH Past Medical History Medical History (Updated 10/25/24 @ 13:50 by Milena Espinoza APRN) Secondary polycythemia Tobacco abuse Chronic back pain pain pump insertion Cervical vertebral fusion Left carpal tunnel syndrome Peripheral neuropathy CVA (cerebral vascular accident) Colon ulcer Colonic mass Positive colorectal cancer screening using Cologuard test Chronic narcotic use HTN (hypertension) Surgical History Surgical History S/P cervical spinal fusion Family History Family History Mother Father Social History Social History Smoking packs per day: 1 Smoking cigarettes per day: 20.0 Years smoked: 50 Smoking pack-years: 50.00 Smoking status: Current every day smoker Tobacco type: cigarettes Second hand tobacco smoke exposure: Yes Additional smoking assessment comments: pt stated he started smoking at the age of 4 Alcohol intake: never Substance use: never Substance use type: does not use Do You Feel Safe in your Home?: Yes Lack of Transportation: YES Lack of Food: Never True Current Housing: I Have Housing Concerned About Future Housing: No Difficulty Paying Gas/Electric Bills: No Difficulty Paying for Meds: No Currently Unemployed: No Education: Bachelor's Degree Difficulty w/ Childcare or Family Care: No Living arrangements: with family Spiritual care concerns: No Exam 2 Narrative: APPEARANCE: Ill-appearing HEAD: normocephalic, atraumatic. EYES: PERRLA/EOMI, conjunctivae clear. NOSE: Normal no drainage EARS:TMS clear with good light reflex. THROAT: Pharynx clear, no exudate. NECK: Supple. No adenopathy, no masses. RESPIRATORY: Congestive lung sounds bilaterally CARDIOVASCULAR: Regular rate and rhythm without murmurs rubs or gallops. ABDOMINAL: Soft, nontender, nondistended, normal bowel sounds MUSCULOSKELETAL: Lower extremity edema bilaterally NEURO: Alert. Cranial nerves II through XII intact. Good gait. Good coordination SKIN: Warm, dry. Normal Color Course Vital Signs Vital signs: Vital Signs Pulse Rate 94 10/25/24 10:51 Respiratory Rate 16 10/25/24 10:51 Blood Pressure 100/76 10/25/24 10:51 Pulse Oximetry 79 L 10/25/24 10:51 Temperature 96.8 F L 10/25/24 17:25 Pulse Rate 82 10/25/24 18:29 Respiratory Rate 25 H 10/25/24 18:29 Blood Pressure 100/62 10/25/24 17:25 Pulse Oximetry 95 10/25/24 18:29 Oxygen Delivery BiPAP 10/25/24 18:29 Oxygen Flow Rate 10 10/25/24 10:57 Medical Decision Making [facility] Narrative Medical decision making narrative: 69-year-old male presenting emergency department for evaluation for hypoxia. Patient was saturating in the mid 80s on 4 L of oxygen by nasal cannula. Patient was transitioned to BiPAP due to congestive lung sounds. Patient does have a smoking history but I heard no wheeze on exam. Patient is currently afebrile no leukocytosis hemoglobin of 16. INR is 2.2. Patient was hypoxic on his ABG prior to being placed on BiPAP. Patient does feel improved after being placed on oxygen. Patient's proBNP was 6940 and this is higher than his suspected baseline. Patient was negative for influenza RSV and for COVID. Chest x-ray did confirm pulmonary edema. Patient will be admitted to the IMU for pulmonary vascular congestion and hypoxia. Case was discussed with hospitalist patient was accepted for admission. Differential Diagnosis Differential Diagnosis: Pneumonia, COVID, RSV, influenza, pneumonia, COPD, pulmonary edema, fluid overload Vital Signs Vital Signs: Vital Signs Pulse Rate 94 10/25/24 10:51 Respiratory Rate 16 10/25/24 10:51 Blood Pressure 100/76 10/25/24 10:51 Pulse Oximetry 79 L 10/25/24 10:51 Temperature 96.8 F L 10/25/24 17:25 Pulse Rate 82 10/25/24 18:29 Respiratory Rate 25 H 10/25/24 18:29 Blood Pressure 100/62 10/25/24 17:25 Pulse Oximetry 95 10/25/24 18:29 Oxygen Delivery BiPAP 10/25/24 18:29 Oxygen Flow Rate 10 10/25/24 10:57 Lab Data Lab results reviewed: Yes I reviewed the patient's lab results. 10/25/24 11:18 10/25/24 12:02 Labs: Lab Results 10/25/24 10/25/24 10/25/24 Range/Units 11:01 11:18 12:02 WBC 7.5 (4.5-10.0) K/mm3 RBC 5.13 (4.6-6.20) M/mm3 Hgb 16.0 (14.0-18.0) g/dL Hct 49.8 (42.0-52.0) % MCV 97.1 (80-100) fl MCH 31.2 (26-34) pg MCHC 32.1 (32-36) g/dl RDW 17.9 H (11.5-14.5) % Plt Count 217 (150-375) k/mm3 MPV 12.1 H (7.4-10.4) fl Immature Gran % (Auto) 0.3 (0-0.5) % Neut % (Auto) 71.6 (45.5-73.1) % Lymph % (Auto) 19.0 (18.3-44.2) % [place] % (Auto) 7.9 (2.6-8.5) % Eos % (Auto) 0.7 (0-4.4) % Baso % (Auto) 0.5 (0.2-1.2) % Lymph # (Auto) 1.42 (0.9-3.2) K/mm3 [place] # (Auto) 0.6 (0.1-0.6) K/mm3 Eos # (Auto) 0.1 (0-0.3) K/mm3 Baso # (Auto) 0.0 (0.0-0.1) K/mm3 Abs Immat Gran (auto) 0.02 (0.00-0.031) K/mm3 Absolute Neuts (auto) 5.4 (1.3-6.7) K/mm3 Absolute Nucleated RBC 0.000 (0.0-0.012) K/mm3 Nucleated RBC % 0.0 (0.0-0.2) % PT 24.7 H (11.1-14.7) Seconds INR 2.2 APTT 46.4 H (22.3-36.8) Seconds Methemoglobin 0.2 (0-1.5) %THb Sodium 136 L (137-145) mmol/L Potassium 4.3 (3.4-5.0) mmol/L Chloride 99 (98-107) mmol/L Carbon Dioxide 30 (22-30) mmol/L Anion Gap 7 (4-12) mmol/L BUN 22 H (9-20) mg/dL Creatinine 1.00 (0.7-1.3) mg/dL Estim Creat Clear Calc 60 ml/min Estimated GFR > 60 (59 - ) Glucose 97 (65-110) mg/dL Calcium 8.3 L (8.4-10.2) mg/dL Total Bilirubin 2.0 H (0.2-1.3) mg/dL AST 28 (17-59) U/L ALT 20 (6-50) U/L Alkaline Phosphatase 90 (38-126) U/L NT-Pro-B Natriuret Pep 6940 H (19.9-100) pg/mL Total Protein 7.0 (6.3-8.2) g/dL Albumin 3.3 L (3.5-5.1) g/dL Urine Color (Yellow) Urine Appearance (Clear) Urine pH (5.0-9.0) Ur Specific [place] (1.001-1.035) Urine Protein (Negative) mg/dL Urine Glucose (UA) (Negative) mg/dL Urine Ketones (Negative) mg/dL Ur Blood (Man) (Negative) Urine Nitrate (Negative) Urine Bilirubin (Negative) Urine Urobilinogen (<2.0) mg/dL Leukocyte Esterase Rfl (Negative) THA/UL Influenza A (RT-PCR) Negative (Negative) Influenza B (RT-PCR) Negative (Negative) RSV (RT-PCR) Negative (Negative) SARS-CoV-2 RNA (RT-PCR) Negative (Negative) 10/25/24 Range/Units 13:30 WBC (4.5-10.0) K/mm3 RBC (4.6-6.20) M/mm3 Hgb (14.0-18.0) g/dL Hct (42.0-52.0) % MCV (80-100) fl MCH (26-34) pg MCHC (32-36) g/dl RDW (11.5-14.5) % Plt Count (150-375) k/mm3 MPV (7.4-10.4) fl Immature Gran % (Auto) (0-0.5) % Neut % (Auto) (45.5-73.1) % Lymph % (Auto) (18.3-44.2) % [place] % (Auto) (2.6-8.5) % Eos % (Auto) (0-4.4) % Baso % (Auto) (0.2-1.2) % Lymph # (Auto) (0.9-3.2) K/mm3 [place] # (Auto) (0.1-0.6) K/mm3 Eos # (Auto) (0-0.3) K/mm3 Baso # (Auto) (0.0-0.1) K/mm3 Abs Immat Gran (auto) (0.00-0.031) K/mm3 Absolute Neuts (auto) (1.3-6.7) K/mm3 Absolute Nucleated RBC (0.0-0.012) K/mm3 Nucleated RBC % (0.0-0.2) % PT (11.1-14.7) Seconds INR APTT (22.3-36.8) Seconds Methemoglobin (0-1.5) %THb Sodium (137-145) mmol/L Potassium (3.4-5.0) mmol/L Chloride (98-107) mmol/L Carbon Dioxide (22-30) mmol/L Anion Gap (4-12) mmol/L BUN (9-20) mg/dL Creatinine (0.7-1.3) mg/dL Estim Creat Clear Calc ml/min Estimated GFR (59 - ) Glucose (65-110) mg/dL Calcium (8.4-10.2) mg/dL Total Bilirubin (0.2-1.3) mg/dL AST (17-59) U/L ALT (6-50) U/L Alkaline Phosphatase (38-126) U/L NT-Pro-B Natriuret Pep (19.9-100) pg/mL Total Protein (6.3-8.2) g/dL Albumin (3.5-5.1) g/dL Urine Color Yellow (Yellow) Urine Appearance Clear (Clear) Urine pH 5.5 (5.0-9.0) Ur Specific [place] 1.011 (1.001-1.035) Urine Protein Negative (Negative) mg/dL Urine Glucose (UA) Negative (Negative) mg/dL Urine Ketones Negative (Negative) mg/dL Ur Blood (Man) Negative (Negative) Urine Nitrate Negative (Negative) Urine Bilirubin Negative (Negative) Urine Urobilinogen 0.2 (<2.0) mg/dL Leukocyte Esterase Rfl Negative (Negative) THA/UL Influenza A (RT-PCR) (Negative) Influenza B (RT-PCR) (Negative) RSV (RT-PCR) (Negative) SARS-CoV-2 RNA (RT-PCR) (Negative) ABG Data ABG results: 10/25/24 11:01 Puncture Site Left radial ABG pH 7.431 ABG pCO2 42.4 ABG pO2 56.7 L ABG PO2/FiO2 Ratio 0.71 ABG HCO3 27.6 H ABG O2 Saturation 90.3 L ABG O2 Content 20.0 ABG Base Excess 2.9 A-a Gradient 469.2 Oxyhemoglobin 84.0 L* Carboxyhemoglobin 5.0 H Reduced Hemoglobin 10.8 H Total Hemoglobin 17.0 O2 Delivery Device Non-rebreather mask O2 Liters/Min 10.0 FiO2 80 Imaging Data Radiologist's impression: Impressions Chest X-Ray 10/25/24 11:23 IMPRESSION: Mild pulmonary vascular congestion, without focal infiltrate or effusion. Discharge Plan Discharge Clinical Impression: Hypoxia, Pulmonary edema Patient Disposition: Still a Patient Condition: Serious
[2024-10-25 11:15] LABS: Alveolar/Arterial O2 Gradient 469.2 mmHg; Base Excess ABG 2.9 mEq/l (+/-2.0); Fractional Inspired Oxygen 80 %; HCO3 ABG 27.6 mEq/l (22.0-26.0); Methemoglobin ABG 0.2 %THb (0-1.5); Oxygen Saturation ABG 90.3 % (95.0-100.0); PCO2 ABG 42.4 mmHg (35.0-45.0); PO2 ABG 56.7 mmHg (80.0-100.0); PO2 FiO2 Ratio Arterial Blood 0.71 %; Reduced Hemoglobin 10.8 %THb (0-5.0); pH ABG 7.431 (7.350-7.450)
[2024-10-25 11:17] LABS: Device NON-REBREATHER MASK; Modified Allen's Test Pass; Site Drawn LEFT RADIAL
--- NOTE | 2024-10-25 11:30 | PC.NURSE ---
Pt provided with urinal, states unable to give a sample at that time. Will use call light when can give a sample.
[2024-10-25 11:36] LABS: Basophils Percent Auto 0.5 % (0.2-1.2); Eosinophils Absolute Auto 0.1 K/mm3 (0-0.3); Eosinophils Percent Auto 0.7 % (0-4.4); Hematocrit 49.8 % (42.0-52.0); Immature Granulocyte Absolute 0.02 K/mm3 (0.00-0.031); Immature Granulocyte Percent A 0.3 % (0-0.5); Lymphocytes Absolute Auto 1.42 K/mm3 (0.9-3.2); Mean Corpuscular HGB Conc 32.1 g/dl (32-36); Mean Corpuscular Hemoglobin 31.2 pg (26-34); Mean Corpuscular Volume 97.1 fl (80-100); Mean Platelet Volume 12.1 fl (7.4-10.4); Monocytes Absolute Auto 0.6 K/mm3 (0.1-0.6); Monocytes Percent Auto 7.9 % (2.6-8.5); Neutrophils Absolute Auto 5.4 K/mm3 (1.3-6.7); Neutrophils Percent Auto 71.6 % (45.5-73.1); Platelet Count Result 217 k/mm3 (150-375); Red Blood Count 5.13 M/mm3 (4.6-6.20); Red Cell Distribution Width 17.9 % (11.5-14.5); White Blood Count 7.5 K/mm3 (4.5-10.0)
[2024-10-25 11:55] LABS: INR 2.2; Prothrombin Time 24.7 Seconds (11.1-14.7)
[2024-10-25 11:56] LABS: Partial Thromboplastin Time 46.4 Seconds (22.3-36.8)
[2024-10-25 12:14] LABS: Influenza A QL RT-PCR Negative (Negative); Influenza B QL RT-PCR Negative (Negative); RSV RNA, RT-PCR Negative (Negative); SARS-CoV-2 RNA PCR Negative (Negative)
--- OUTSIDE RECORDS SUMMARY | 2024-10-25 12:21 | XMS_ITS | Encounter Summary ---
Author Organization [facility] Address 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 Gender Identity Not on file Sexual Orientation Not on file documented as of this encounter Plan of Treatment Upcoming Encounters Date Type Department Care Team (Late st Contact Info) Description 01/28/2025 11:45 AM CDT Office Visit [facility] Oncology and Hematology - [place] [address] [address] [place] [address] Felix Franco MD [address] [facility] [address] [place] [address] documented as of this encounter Visit Diagnoses Diagnosis Cervicalgia- Primary documented in this encounter Care Teams Program Project Analyst Relationship Specialty Start Date End Date Paulo Stephens MD [address] [place] [address] PCP - General Family Practice 09/19/23 documented as of this encounter
--- OUTSIDE RECORDS SUMMARY | 2024-10-25 12:21 | XMS_ITS | Encounter Summary ---
Author Organization [facility] Address [address] [place] [address] Phone Care Team Providers Care Floriculture Professor Name Role Phone Paulo Stephens Primary Care Provider [phone] Gutierrez Mckinley MD Unavailable [phone] Encounter Details Date Type Department Care Team (Late st Contact Info) Description 01/25/2022 Telephone [facility] [address] [place] [address] Gutierrez Mckinley MD [address] 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
--- OUTSIDE RECORDS SUMMARY | 2024-10-25 12:21 | XMS_ITS | CONTINUITY OF CARE DOCUMENT ---
Author Name poly robertdom Address Unknown Organization [facility] Address [address] [facility] [address] [place] [address] Phone [phone] Care Team Providers Care Assistant Project Engineer Name Role Phone Susan Guillen MD Unavailable ANGELINE SOUSA, MARCIA Unavailable [phone] ANGELINE SOUSA, MARCIA Unavailable [phone] PROBLEMS Condition Status Date Provider Notes Family History of Hypertension: active Antony Guillen MD Edema active Susan Guillen MD Venous insufficiency active Crystal Glass NP Hypertension active Crystal Glass NP Hyperlipidemia active Crystal Glass NP Tobacco abuse active Crystal Glass CLAIMS SUPPORT SPECIALIST Emphysema active Crystal Glsas CLAIMS SUPPORT SPECIALIST Shortness of breath active Crystal Glass NP Cardiovascular Condition Screening active S yecenia Guillen MD ENCOUNTERS Date Type Provider Location Encounter Diag nosis 01/26 - 01/26 In-person encounter Office Visit Susan Guillen MD [facility] 12/22 - 12/24 In-person encounter Office Visit Susan Guillen MD [facility] 10/20 - 10/20 In-person encounter Office Visit Susan Guillen MD [facility] 09/09 - 09/09 In-person encounter Office Visit Susan Guillen MD [facility] Cardiovascular Condition Screening - In-person encounter Office Visit Susan Guillen MD [facility] Family History of Hypertension:EdemaVeno us insufficiencyHypertensionHyperlipidemiaTobacco [...] Es Felix pulse rate 88 /min Es Fleix respiratory rate E&M 18 /min Es garcia [...] blood pressure, cuff size small [facility] [place] Body Mass Index (Ratio) 24.02 kg/m2 Antony [...] Isaac Brenner blood pressure, systolic 110 mm[Hg] Linda Brenner oxygen saturation, oximetry 93 % Eloisa [...] aspirin 81 mg capsule active Jessy Ventimiglia FIELD PIPE LINES SUPERVISOR folic acid unspecified unspecified active tablet by mouth once a day Julia Rodriguez oxycodone 10 mg tablet active TAKE 1 [...] Orellana drug use no Jessy Ventimig marcelo FIELD PIPE LINES SUPERVISOR alcohol use no Jessy Ventimig marcelo FIELD PIPE LINES SUPERVISOR number of years as a smoker 50 a Es Isidro smoking history, tot al pack/day 1 Es Isidro cigarette use yes Es Isidro smoking status Current every da y smoker Es Isidro social history reviewed E&M revi ewed - no changes required Du Pandya drug use no Jessy Ventimig marcelo FIELD PIPE LINES SUPERVISOR alcohol use no Jessy Ventimig marcelo FIELD PIPE LINES SUPERVISOR number of years as a smoker 50 [...] Jordin smoking history, tot al pack/day 1 Eloisa Glassenson cigarette use yes Eloisa garcía smoking status Current every da y smoker Eloisa Brenner FAMILY HISTORY Family Member Condition Father Family History of Hy pertension: INSURANCE PROVIDERS Payer name Policy type / Coverage type Brule red green party ID [facility] Blue [facility] [id number] ADVANCE DIRECTIVES Name Date DISCUSSED - NO DECISION MADE TREATMENT PLAN Date Name Performer [id number],S, H is updated medication list for this problem includes: Losartan-hydrochlorothiazide 100-25 Mg Tablet (Losartan-hydrochlorothiazide) ..... Take 1 tablet by mouth every day Spironolactone 50 Mg Tablet (Spironolactone) ..... Take 1 tablet by mouth every day Susan Guillen MD [id number],C, c essation encouraged Susan Guillen MD [id number],C, H is updated medication list for this problem includes: Losartan-hydrochlorothiazide 100-25 Mg Tablet (Losartan-hydrochlorothiazide) ..... Take 1 tablet by mouth every day Spironolactone 50 Mg Tablet (Spironolactone) ..... Take 1 tablet by mouth every day BP today: 118/46 P rior BP: 104/62 (12/22/2022) Susan Guillen MD [id number],C, B ilateral LE edema. Improved with aldactone. [...] PAD or venous disease. Susan Guillen MD [id number],C, B LE; continue RYAN hose; continue aldactone and HCTZ. Susan Guillen MD [id number],C,cessation enc ouraged Jessycarlito Billingsley [facility] [id number],C,W ill get updated lipids from PCP as patient scheduled for labs [facility] [facility] [id number],C,B P well controlled 104/62 today H is updated medication list for this problem includes: Losartan-hydrochlorothiazide 100-25 Mg Tablet (Losartan-hydrochlorothiazide) ..... Take 1 tablet by mouth every day Spironolactone 50 Mg Tablet (Spironolactone) ..... Take 1 tablet by mouth every day [facility] [facility] [id number],C,B ilateral LE edema. Improved with aldactone. He [...] UNTIL THESE TESTS ARE REVIEWED Jessy Billingsley [facility] [id number],C,cessation enc ouraged Jessy Billingsley [facility] [id number],S, Jessy lino [facility] [id number],C,c ontrolled. BP low today at 98/71. Patient asymptomatic. Will continue to monitor H is updated medication list for this problem includes: Losartan-hydrochlorothiazide 100-25 Mg Tablet (Losartan-hydrochlorothiazide) ..... Take 1 tablet by mouth every day Spironolactone 50 Mg Tablet (Spironolactone) ..... Take 1 tablet by mouth every day Jessy Billingsley [facility] [id number],C,c ontinues with pain, swelling and discoloration in [...] will add asa as well Jessycarlito Billingsley [facility] [id number],S,S chedule stress test. Abnormal EKG Susan Guillen MD [id number],C, H is updated medication list for this problem includes: Losartan-hydrochlorothiazide 100-25 Mg Tablet (Losartan-hydrochlorothiazide) ..... Take 1 tablet by mouth every day Spironolactone 50 Mg Tablet (Spironolactone) ..... Take 1 tablet by mouth every day B P today: 96/56 P rior BP: 110/64 (06/05/2021) Susan Guillen MD [id number],S, N o recent labs Susan Guillen MD [id number],C,H as a diagnosis. Does not recall who told him he had emphysema Susan Guillen MD [id number],C, H ad CT scan 2 days ago T he Patient was reencouraged to stop smoking. Susan Guillen MD [id number],S,H ad USs done at [facility] Susan Guillen MD [id number],C,R eviewed with him regarding cardiac catherization. At [...] physiologic tricuspid valve regurgitation. Susan Guillen MD [id number],S,check echo Sh rajan Glass NP [id number],S, Crystal traylor NP [id number],S,B LE; continue RYAN hose; continue aldactone and HCTZ. Crystal Glass NP [id number],S, Crystal traylor NP [id number],S,H ad CT scan 2 days ago T [...] Susan Guillen MD Cardiology:cessation encouraged Jessycarlito Billingsley [facility] Cardiology:Will get updated lipids from PCP as patient scheduled for labs Jessy Billingsley [facility] Cardiology:BP well c ontrolled 104/62 today H is updated medication list for this problem includes: Losartan-hydrochlorothiazide 100-25 Mg Tablet (Losartan-hydrochlorothiazide) ..... Take 1 tablet by mouth every day Spironolactone 50 Mg Tablet (Spironolactone) ..... Take 1 tablet by mouth every day Jessy Billingsley [facility] Cardiology:Bilateral LE edema. Improved with aldactone. [...] UNTIL THESE TESTS ARE REVIEWED Jessycarlito Billingsley [facility] Cardiology:cessation encouraged [facility] [facility] Cardiology:controlle d. BP low today at 98/71. Patient asymptomatic. Will continue to monitor H is updated medication list for this problem includes: Losartan-hydrochlorothiazide 100-25 Mg Tablet (Losartan-hydrochlorothiazide) ..... Take 1 tablet by mouth every day Spironolactone 50 Mg Tablet (Spironolactone) ..... Take 1 tablet by mouth every day [facility] [facility] Cardiology:continues with pain, swelling and discoloration [...] will add asa as well Jessycarlito Billingsley [facility] Cardiology:Schedule stress test. Abnormal EKG Susan [...] Guillen MD Cardiology:Had USs done at [facility] Susan Guillen MD Cardiology:Reviewed with him regarding [...] Exercise Card iolite Complete Echo DLCO - 32442 FRC - 51091 FVC - 38484 HISTORY OF PROCEDURES Procedure Date Procedure Name Provider Procedure Notes S tatus EKG Susan Guillen MD compl eted EKG Susan Guillen MD compl eted EKG Susan Guillen MD compl eted Spirometry Susan Guillen MD compl eted FVC / MVV with bronchodilator - 43574 Susan Guillen MD completed BLOOD COUNT HEMOGLOBIN Susan Guillen MD completed FRC - 57073 Susan Guillen MD comp leted SpO2 w/o 6min walk/titration Susan Guillen MD completed SVC - 95579 Susan Guillen MD comp leted DLCO - 49215 Susan Guillen MD com pleted EKG Susan Guillen MD compl eted
--- OUTSIDE RECORDS SUMMARY | 2024-10-25 12:21 | XMS_ITS | Clinical Summary ---
Author Organization [facility] Address [address] [place] [address] Care Team Providers Care Administration Dean Name Role Phone Paulo Stephens MD Primary Care Provider [phone] Inocente Holt NP Unavailable [phone] Allergies Active Allergy Reactions Criticality Noted Date [...] 20 mg tabletIndication s:RVF (right ventricular failure) (HCC),Bilateral lower extremity edema Take 1 tablet [...] 07/30/2021 Assessment & Plan (07/30/2021 10:10 AM MUSHROOM PACKER): Impression: Patient with history of tobacco abuse [...] 06/15/2021 Assessment & Plan (07/30/2021 9:59 AM MUSHROOM PACKER): Impression: Patient is currently seeing Oncology for his polycythemia. Plan: Continue recommendations as per oncology. Edema 06/05/2021 Hyperlipidemia 06/05/2021 Hypertension 06/05/2021 Assessment & Plan (07/30/2021 9:58 AM MUSHROOM PACKER): Impression: Chronic stable hypertension, controlled medications. Blood [...] 02/28/2019 Assessment & Plan (07/30/2021 9:58 AM MUSHROOM PACKER): Impression: Patient has a history of spinal [...] Encounters Date Type Department Care Team Description 10/23/2024 Telephone [facility] [address] [place] [id number] Lary Sen RN 10/02/2024 1:30 PM MUSHROOM PACKER - 10/02/2024 11:59 PM MUSHROOM PACKER Hospital Encounter [facility] [address] [place] [phone] Inocente Holt NP Beuer, Christopher Louis, MD Cervical radiculopathy (Primary Dx); Cervical spinal stenosis; Cervicalgia; Chronic bilateral low back pain with bilateral sciatica; Lumbosacral spondylosis without myelopathy; Presence of intrathecal pump; Radiculopathy, lumbosacral region; Spinal stenosis of lumbar region with neurogenic claudication Discharge Disposition: Discharge to home or self care 08/28/2024 1:45 PM MUSHROOM PACKER - 08/28/2024 11:59 PM MUSHROOM PACKER Hospital Encounter [facility] [address] [place] [id number] Inocente Holt NP Cervical post-laminectomy syndrome (Primary [...] on file Legal Sex Male 6:28 AM MUSHROOM PACKER Gender Identity Not on file Sexual Orientation Not on file Obstetrics History Last Filed Vital Signs Vital Sign Reading Time Taken Comments Blood Pressure 122/78 10/02/2024 2:10 PM MUSHROOM PACKER Pulse 92 10/02/2024 2:10 PM MUSHROOM PACKER Temperature 36.3 C (97.4 F) 10/27/2019 7:19 AM MUSHROOM PACKER Respiratory Rate 17 10/02/2024 2:10 PM MUSHROOM PACKER Oxygen Saturation 90% 10/02/2024 2:10 PM MUSHROOM PACKER 3 lpm Inhaled Oxygen Concentration - - Weight 74.8 kg (165 lb) 08/28/2024 2:11 PM MUSHROOM PACKER Height 175.3 cm (5' 9 ) 08/28/2024 2:11 PM MUSHROOM PACKER Body Mass Index 24.37 08/28/2024 2:11 PM MUSHROOM PACKER Plan of Treatment Health Maintenance Due Date Last Done Comments Colon Cancer Screening-Colonoscopy 1955 Hepatitis C Screening 1955 DTaP/Tdap/Td Vaccine (1 - Tdap) 1964 Hepatitis B Screening 1971 Pneumococcal vaccine 65+ (1 of 2 - PCV) 1972 Lung Cancer Screening 2003 Zoster Vaccine (1 of 2) 2003 Abdominal Aortic Aneurysm (A AA) Screen 2018 Well Visit 65+ 2018 Depression Screening 02/28/2020 02/27/2019, 02/27/2019, 02/14/2019, Additional history exists Covid-19 Vaccine (2023-2 5 season) 2024 11/24/2020, 11/03/2020 Influenza Vaccine (#1) 2024 Fall Risk Assessment 10/02/2025 10/02/2024 Goals Goal Patient Goal Type Associated Problems Recent Progress Patient-Stated? Author [facility] Nina Thomas RN Note: To maintain current pain plan and ADL. Medical Devices Implanted Type Area Heading Machine Operator Device Identifier Shelf Expiration Date Model / Serial / Lot Pain Pump-03/19/2013 Implanted: [id number] (Quantity not on file) Right: Abdomen Medtronic 8637-20 / [id number] / Medtronic Neuro 8637-20 Synchromed Ii .78in [place] Filter Mesh Pouch Programmable - [id number] - [id number] Implanted:Qty: 1 on 10/26/2019 by Kendal Crump MD at [facility] Right: Abdomen Med[employer] Inc 03/18/2021 8637-20 / [id number] / Medtronic Neuro 8578 Sutureless Connector Revision Catheter Kit Intrathecal Pump - [id number] Implanted:Qty: 1 on 10/26/2019 by Kendal Crump MD at [facility] Right: Abdomen [employer] Inc 03/08/2021 [id number] / / [id number] Insurance [facility] FEDERAL Member Subscriber Plan / Payer (Ef fective 1985-Present) Name:Carlo Hernandez Relation to Subscriber:Self Name:Carlo Hernandez Payer ID:[id number] (NAIC) Group ID:[id number] Type:[facility] Address: [address] [place] [id number] MEDICARE MEDICARE Advance Directives For more information, please contact: [phone] * Full Code (Latest Code Status on File) Date Activated Date Inactivated Comments 10/26/2019 11:44 AM 10/27/2019 3:57 PM Care Teams Administration Dean Relationship Specialty Start Date End Date Paulo Stephens MD PCP - General 11/15/17 [place] [address] [address] Nurse Practitioner Nurse Practitioner 08/28/24
--- OUTSIDE RECORDS SUMMARY | 2024-10-25 12:21 | XMS_ITS | Continuity of Care Document ---
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 Name Role Phone Paulo Stephens MD Unavailable Unavailable Allergies, Adverse Reactions, Alerts Substance Reaction Status Criticality No Known Allergies Active No Inform ation Medications Medication Instructions Dosage Effective Dates (start - stop) Status Comments bumetanide 1 mg tablet take 1 tablet by oral route 2 times every day 1 MG - Active triamcinolone acetonide 0.1 % topical cream apply by topical route 2 times every day a thin layer to the affected area(s) 0.00 - Active oxycodone 10 mg tablet take 1 tablet by oral route 3 times every day as needed 10 MG - Active PRN for pain , avoid driving or operate machines Eliquis 5 mg tablet take 1 tablet by oral route 2 times every day 5 MG - Active potassium chloride ER 20 mEq tablet,extended release take 1 tablet by oral route 2 times every day with food 20 MEQ - Active Remeron 15 mg tablet take 1 tablet by oral route every day before bedtime 15 MG - Active avoid driving or operate machines Lipitor 40 mg tablet take 1 tablet by oral route every day 40 MG - Active Anoro Ellipta 62.5 mcg-25 mcg/actuation powder for [...] Providers Copied on Encounter OFFICE/OUTPA TIENT VISIT, EST [facility], [address] [place], [address], tel:[phone] [facility] erythrocyto sis1 (chief complaint)c hronic pain1 (chief complaint)e dema1 (chief complaint)H LP (chief complaint) Chronic pain syndromeEdemaAbnor mal weight gainDry skin dermatitisErythroc ytosis 5 Angelo Bates. [address], [address] [place], [address] , [place]. [phone] OFFICE/OUTPA TIENT VISIT, [facility], [address] [place], [address], [place] tel:[phone] [facility] chronic pain1 (chief complaint)P E (chief complaint)e dema1 (chief complaint) Centrilobular emphysemaEdemaChro cary pain syndromeAcute lung embolism 5 Angelo Bates. [address], [address] , [place]. tel:[phone] OFFICE/OUTPA TIENT VISIT, [facility], [address] [place], [address], [place] tel:[phone] [facility] edema1 (chief complaint)p olycythemia 1 (chief complaint)P E (chief complaint) Secondary polycythemiaAcute lung embolismStasis dermatitisHyperkal emia Nov- 4 Angelo Bates. [address], [address], [place], [place], [address] , [place]. tel:[phone] OFFICE/OUTPA TIENT VISIT, [facility], [address], [place], [place], [address], [place] tel:[phone] [facility] cellulitis (chief complaint) Cellulitis of left legStasis dermatitis 4 Stephens Paulo. [address], [address], [place], [place], [address] , [place]. tel:[phone] OFFICE/OUTPA TIENT VISIT, [facility], [address], [place], [place], [address], [place] tel:[phone] [facility] polycythemi a1 (chief complaint)P E (chief complaint) Secondary polycythemiaFluid overloadHypotensio nAcute lung embolismHyperkalem ia 4 Angelo Bates. [address], [address], [place], [place], [address] , [place]. tel:[phone] [facility], [address], [place], [place], [address], [place] tel:[phone] [facility] No Information 4 Angelo Bates. [address], [address], [place], [place], [address] , [place]. tel:[phone] OFFICE/OUTPA TIENT VISIT, [facility], [address], [place], [place], [address], [place] tel:[phone] [facility] anxiety1 (chief complaint)H LP (chief complaint)c ellulitis1 (chief complaint)f luid1 (chief complaint) Fluid overloadMixed hyperlipidemiaGene ralized Anxiety DisorderHypokalemi aAbnormal weight lossCellulitis of unspecified part of limb 4 Angelo Bates. [address], [address], [place], [place], [address] , [place]. tel:[phone] Referring Provider: Emma Mariee [address], [place], [place], [address]. tel:[phone] OFFICE/OUTPA TIENT VISIT, [facility], [address], [place], [place], [address], [place] tel:[phone] [facility] leg (chief complaint)C VA1 (chief complaint)p olycythemia 1 (chief complaint) Cellulitis of unspecified part of limbFluid overloadErythrocyt osisCerebral infarction 4 Angelo Bates. [address], [address], [place], [place], [address] , [place]. tel:[phone] Referring Provider: Emma Mariee [address], [place], [place], [address]. tel:[phone] OFFICE/OUTPA TIENT VISIT, [facility], [address], [place], [place], [address], [place] tel:[phone] [facility] leg edema1 (chief complaint) Fluid overloadHypokalemi aCellulitis of unspecified part of limb 4 Angelo Bates. [address], [address], [place], [place], [address] , [place]. tel:[phone] Referring Provider: Emma [address], [place], [place], [address]. tel:[phone] OFFICE/OUTPA TIENT VISIT, [facility], [address], [place], [place], [address], [place] tel:[phone] [facility] cellulitis1 (chief complaint) Cellulitis of unspecified part of limbHypokalemiaOth er specified disease of bloodFluid overload 4 Angelo Tamayo [address], [address], [place], [place], [address] , [place]. [phone] Referring Provider: Emma Mariee [address], [place], [place], [address]. tel:[phone] OFFICE/OUTPA TIENT VISIT, EST [facility], [address], [place], [place], [address], [place] tel:[phone] [facility] leg pain1 (chief complaint) Cellulitis of unspecified part of limbVenous insufficiencyAbnor mal weight gain 4 Angelo Bates. [address], [address], [place], [place], [address] , [place]. [phone] Referring Provider: Paulo Stephens, [address], [place], [place], [address]. tel:[phone] OFFICE/OUTPA TIENT VISIT, [facility], [address], [place], [place], [address], [place] tel:[phone] [facility] PE (chief complaint)s troke1 (chief complaint)p olycythemia 1 (chief complaint)e dema1 (chief complaint) Cerebral infarctionCentrilo bular emphysemaAcute lung embolismEdemaGener alized Anxiety DisorderSecondary polycythemia Nov-0 4 Angelo Bates. [address], [address], [place], [place], [address] , [place]. [phone] Referring Provider: Emma Marie[address], [place], [place], [address]. tel:[phone] OFFICE/OUTPA TIENT VISIT, [facility], [address], [place], [place], [address], [place] tel:[phone] [facility] emphysema1 (chief complaint)C VA1 (chief complaint)a nxiety1 (chief complaint)l eg swelling (chief complaint) Centrilobular emphysemaCerebral infarctionAcute lung embolismSecondary polycythemiaEdemaG eneralized Anxiety Disorder Sep- 4 Angelo Bates. [address], [address], [place], [place], [address] , [place]. [phone] Referring Provider: Emma Mariee [address], [place], [place], [address]. tel:[phone] OFFICE/OUTPA TIENT VISIT, [facility], [address], [place], [place], [address], [place] tel:[phone] [facility] PE (chief complaint)C VA (chief complaint)C VA1 (chief complaint)n europathy1 (chief complaint)s leep apnea1 (chief complaint)a nxiety1 (chief complaint) Cerebral infarctionCentrilo bular emphysemaAcute lung embolismGeneralize d Anxiety DisorderObstructiv e sleep apnea hypopneaSecondary polycythemia 4 Angelo Bates. [address], [address], [place], [place], [address] , [place]. tel:[phone] Referring Provider: Emma Mariee [address], [place], [place], [address]. tel:[phone] OFFICE/OUTPA TIENT VISIT, [facility], [address], [place], [place], [address], [place] tel:[phone] [facility] HTN (chief complaint)f atigue1 (chief complaint)n europathy1 (chief complaint)w eight loss1 (chief complaint) Generalized Anxiety DisorderNeuropathy Essential (primary) hypertensionAbnorm al weight loss 4 Angelo Bates. [address], [address], [place], [place], [address] , [place]. tel:[phone] Referring Provider: Emma Mariee [address], [place], [place], [address]. tel:[phone] OFFICE/OUTPA TIENT VISIT, [facility], [address], [place], [place], [address], [place] tel:[phone] [facility] venous1 (chief complaint)H TN (chief complaint)a nxiety1 (chief complaint) Essential (primary) hypertensionVenous insufficiencyNeuro pathyGeneralized Anxiety Disorder 3 Angelo Bates. [address], [address], [place], [place], [address] , [place]. tel:[phone] Referring Provider: Emma [address], [place], [place], [address]. tel:[phone] OFFICE/OUTPA TIENT VISIT, [facility], [address], [place], [place], [address], [place] tel:[phone] [facility] venous1 (chief complaint)f olate1 (chief complaint) Essential (primary) hypertensionFolate deficiencyVenous insufficiencyNeuro ayesha 3 Angelo Bates. [address], [address], [place], [place], [address] , [place]. tel:[phone] Referring Provider: Emma Mariee [facility], [place], [place], [address]. tel:[phone] OFFICE/OUTPA TIENT VISIT, [facility], [address], [place], [place], [address], [place] tel:[phone] [facility] HTN (chief complaint)f olate (chief complaint)p olycythemia 1 (chief complaint)A 1c (chief complaint)b ili1 (chief complaint)c hronic pain1 (chief complaint) Folate deficiencySecondar y polycythemiaEssent ial (primary) hypertensionDisord er of bilirubin metabolism, unspecifiedMetabol ic syndromeChronic pain syndromeTobacco useRosacea 3 Angelo Bates. [address], [place], [place], [address] , [place]. tel:[phone] Referring Provider: Emma Mariee [address], [place], [place], [address]. tel:[phone] PREV VISIT, EST, 65 & OVER [facility], [address], [place], [place], [address], [place] tel:[phone] [facility] physical (chief complaint) Encounter for general adult medical exam w abnormal findingsEssential (primary) hypertensionFolate deficiencySecondar y polycythemiaPolyp of colonVenous insufficiency 3 Angelo Bates. [address], [address], [place], [place], [address] , [place]. tel:[phone] Referring Provider: Emma Mariee [address], [place], [place], [address]. tel:[phone] OFFICE/OUTPA TIENT VISIT, [facility], [address], [place], [place], [address], [place] tel:[phone] [facility] HTN (chief complaint)n europathy1 (chief complaint)c olonguard1 (chief complaint) Essential (primary) hypertensionNeurop athySecondary polycythemiaOther fecal abnormalitiesFolat e deficiency 2 Angelo Bates. [address], [place], [place], [address] , [place]. tel:[phone] Referring Provider: Emma Mariee [facility], [place], [place], [address]. tel:[phone] OFFICE/OUTPA TIENT VISIT, [facility], [address], [place], [place], [address], [place] tel:[phone] [facility] neuropathy1 (chief complaint)H TN (chief complaint)p olycythemia 1 (chief complaint) NeuropathySecondar y polycythemiaFolate deficiencyEssentia l (primary) hypertensionAbnorm al weight loss 2 Angelo Tamayo [address], [place], [place], [address] , [place]. tel:[phone] Referring Provider: Emma Mariee [address], [place], [place], [address]. tel:[phone] OFFICE/OUTPA TIENT VISIT, [facility], [address], [place], [place], [address], [place] tel:[phone] [facility] venous insufficien cy1 (chief complaint)p olycythemia 1 (chief complaint)w eight loss1 (chief complaint) Abnormal weight lossVenous insufficiencyNeuro pathyFolate deficiencySecondar y polycythemiaTobacc o use 1 Angelo Tamayo [address], [address], [place], [place], [address] , . tel:[phone] Referring Provider: Emma [address], [place], [place], [address]. tel:[phone] OFFICE/OUTPA TIENT VISIT, [facility], [address], [place], [place], [address], [place] tel:[phone] [facility] neuropathy1 (chief complaint)l eg edema1 (chief complaint)C OPD1 (chief complaint) Venous insufficiencyEmphy semaNeuropathyToba senior financial reporting accountant use May- 1 Angelo Tamayo [address], [place], [place], [address] , [place]. tel:[phone] Referring Provider: Emma [address], [place], [place], [address]. tel:[phone] OFFICE/OUTPA TIENT VISIT, [facility], [address], [place], [place], [address], [place] tel:[phone] [facility] glucose (chief complaint)p olycythemia 1 (chief complaint)l eg edema1 (chief complaint)n europathy1 (chief complaint) Secondary polycythemiaHyperg lycemiaDisorder of bilirubin metabolism, unspecifiedFolate deficiencyVenous insufficiencyTobac co useNeuropathy Apr-3 1 [address], [place], [place], [address] , [place]. tel:[phone] Referring Provider: Emma [address], [place], [place], [address]. tel:[phone] PREV VISIT, EST, 65 & OVER [facility], [address], [place], [place], [address], [place] tel:[phone] [facility] physical1 (chief complaint) Encounter for general adult medical exam w abnormal findingsEssential (primary) hypertensionSecond lenny polycythemiaPeriph eral vascular disease, unspecifiedHypergl ycemia Mar- 1 Angelo Tamayo [address], [place], [place], [address] , . tel:[phone] Referring Provider: Emma Mariee [address], [place], [place], [address]. tel:[phone] OFFICE/OUTPA TIENT VISIT, [facility], [address], [place], [place], [address], [place] tel:[phone] [facility] glucose1 (chief complaint)p olycythemia 1 (chief complaint)l lawrence nodule1 (chief complaint)H TN (chief complaint) Essential (primary) hypertensionSolita ry pulmonary noduleSecondary polycythemiaHyperg lycemia Sep-2 0 Angelo Bates. [address], [address], [place], [place], [address] , [place]. tel:[phone] Referring Provider: Emma Mariee [address], [place], [place], [address]. tel:[phone] PREV VISIT, EST, 65 & OVER [facility], [address], [place], [place], [address], [place] tel:[phone] [facility] PHysical (chief complaint) Chronic pain syndromeEssential (primary) hypertensionEncoun ter for general adult medical exam w abnormal findingsHyperglyce fredi 0 Angelo [address], [place], [place], [address] , [place]. tel:[phone] Referring Provider: Emma Mariee [address], [place], [place], [address]. tel:[phone] OFFICE/OUTPA TIENT VISIT, [facility], [address], [place], [place], [address], [place] tel:[phone] [facility] chronic pain1 (chief complaint)H TN (chief complaint)t obacco1 (chief complaint) Essential (primary) hypertensionChroni c pain syndromeSolitary pulmonary nodule Nov-0 9 Angelo Tamayo [address], [place], [place], [address] , [place]. tel:[phone] Referring Provider: Emma Mariee [address], [place], [place], [address]. tel:[phone] OFFICE/OUTPA TIENT VISIT, [facility], [address], [place], [place], [address], [place] tel:[phone] [facility] chronic pain1 (chief complaint)H TN (chief complaint)t obacco1 (chief complaint) Essential (primary) hypertensionChroni c pain syndromeTobacco useSolitary pulmonary nodule 9 Angelo Bates. [address], [place], [place], [address] , [place]. tel:[phone] Referring Provider: Emma [address], [place], [place], [address]. tel:[phone] PREV VISIT, [facility], 65 & OVER [facility], [address], [place], [place], [address], [place] tel:[phone] [facility] PHysical (chief complaint) Encounter for general adult medical exam w abnormal findingsHyperglyce miaEssential (primary) hypertensionTobacc o useEncntr for general adult medical exam w/o abnormal findings 9 Angelo Bates. [address], [place], [place], [address] , [place]. tel:[phone] Referring Provider: Emma Marie[address], [place], [place], [address]. tel:[phone] OFFICE/OUTPA TIENT VISIT, [facility], [address], [place], [place], [address], [place] tel:[phone] [facility] HTN (chief complaint)l lawrence nodule1 (chief complaint)H Lp (chief complaint)c hronic pain (chief complaint) Essential (primary) hypertensionEmphys emaSolitary pulmonary noduleHyperlipidem iaChronic pain syndrome 8 Angelo Bates. [address], [place], [place], [address] , [place]. tel:[phone] Referring Provider: [address], [place], [place], [address]. tel:[phone] OFFICE/OUTPA TIENT VISIT, [facility], [address], [place], [place], [address], [place] tel:[phone] [facility] HTN (chief complaint)c onjucnivits 1 (chief complaint) Other mucopurulent conjunctivitis, left eyeEssential (primary) hypertension 8201 8 Angelo Bates. [address], [place], [place], [address] , [place]. [phone] Referring Provider: Emma Mariee [address], [place], [place], [address]. tel:[phone] OFFICE/OUTPA TIENT VISIT, [facility], [address], [place], [place], [address], [place] tel:[phone] [facility] chronic pain (chief complaint)H TN (chief complaint) Chronic pain syndromeEssential (primary) hypertension 0-201 8 Angelo Bates. [address], [place], [place], [address] , [place]. tel:[phone] Referring Provider: Emma Mariee [address], [place], [place], [address]. tel:[phone] PREV VISIT, EST, AGE 40-64 [facility], [address], [place], [place], [address], [place] tel:[phone] [facility] PHysical (chief complaint) Encounter for general adult medical exam w abnormal findingsHyperglyce miaEssential (primary) hypertensionChroni c pain syndromeHyperlipid emiaEmphysema 1-201 8 Angelo Bates. [address], [place], [place], [address] , [place]. tel:[phone] Referring Provider: Emma Mariee [address], [place], [place], [address]. tel:[phone] OFFICE/OUTPA TIENT VISIT, [facility], [address], [place], [place], [address], [place] tel:[phone] [facility] chronic pain1 (chief complaint) Chronic pain syndromeOpioid dependence, uncomplicated Nov-0 5201 8 Angelo Bates. [address], [place], [place], [address] , [place]. tel:[phone] Referring Provider: Paulo Stephens, [address], [place], [place], [address]. tel:[phone] OFFICE/OUTPA TIENT VISIT, [facility], [address], [place], [place], [address], [place] tel:[phone] [facility] HTN (chief complaint)H TN (chief complaint) Essential (primary) hypertensionChroni c pain syndrome Oct-0 8-201 8 Angelo Bates. [address], [place], [place], [address] , [place]. tel:[phone] Referring Provider: Paulo Stephens [address], [place], [place], [address]. tel:[phone] OFFICE/OUTPA TIENT VISIT, [facility], [address], [place], [place], [address], [place] tel:[phone] [facility] chronic pain1 (chief complaint) Chronic pain syndromeOpioid dependenceCannabis use 8 Angelo Bates. [address], [place], [place], [address] , [place]. tel:[phone] Referring Provider: Paulo Stephens, [address], [place], [place], [address]. tel:[phone] OFFICE/OUTPA TIENT VISIT, [facility], [address], [place], [place], [address], [place] tel:[phone] [facility] COPD1 (chief complaint)h yperglycemi a1 (chief complaint)l lawrence nodule1 (chief complaint)H TN (chief complaint) EmphysemaSolitary pulmonary noduleHyperglycemi aEssential (primary) hypertension Cruz-3 0 8 Angelo Tamayo [address], [place], [place], [address] , [place]. tel:[phone] Referring Provider: Emma Mariee [address], [place], [place], [address]. tel:[phone] OFFICE/OUTPA TIENT VISIT, [facility], [address], [place], [place], [address], [place] tel:[phone] [facility] HTn (chief complaint)l lawrence nodule (chief complaint)p olycythermi a1 (chief complaint) Solitary pulmonary noduleSecondary polycythemia 7 Angelo Tamayo [address], [place], [place], [address] , [place]. [phone] Referring Provider: Emma Mariee [address], [place], [place], [address]. tel:[phone] OFFICE/OUTPA TIENT VISIT, [facility], [address], [place], [place], [address], [place] tel:[phone] [facility] COPD (chief complaint)f atty liver1 (chief complaint)H LP (chief complaint)p olycythermi a1 (chief complaint)a drenal adenoma1 (chief complaint) Fatty liverSolitary pulmonary noduleOther specified disorders of adrenal glandHyperlipidemi a 0 7 Angelo Tamayo [address], [place], [place], [address] , [place]. [phone] Referring Provider: Emma Mariee [address], [place], [place], [address]. tel:[phone] PREV VISIT, EST, AGE 40-64 [facility], [address], [place], [place], [address], [place] tel:[phone] [facility] PHysical (chief complaint) Encounter for general adult medical exam w abnormal findingsSolitary pulmonary noduleOther specified disorders of adrenal glandEssential (primary) hypertension Nov-2 7 Stephens Paulo. [address], [place], [place], [address] , [place]. tel:[phone] Referring Provider: Emma Mariee [address], [place], [place], [address]. tel:[phone] OFFICE/OUTPA TIENT VISIT, [facility], [address], [place], [place], [address], [place] tel:[phone] [facility] fatty liver (chief complaint)l lawrence nodule (chief complaint)a drenal mass (chief complaint) Fatty liverAdrenal massSolitary lung noduleHematuria 5 Angelo Bates. [address], [place], [place], [address] , [place]. [phone] Referring Provider: Emma Mariee [address], [place], [place], [address]. tel:[phone] OFFICE/OUTPA TIENT VISIT, [facility], [address], [place], [place], [address], [place] tel:[phone] [facility] hematuria (chief complaint)H LP (chief complaint)v itamin D (chief complaint) Other and unspecified hyperlipidemiaHema turiaVitamin deficiency 5 Angelo Bates. [address], [place], [place], [address] , [place]. [phone] Referring Provider: Emma Mairee [address], [place], [place], [address]. tel:[phone] PREV VISIT, EST, AGE 40-64 [facility], [address], [place], [place], [address], [place] tel:[phone] [facility] PHysical (chief complaint) Routine medical examUnspecified essential hypertensionProsta te Ca screeningChronic pain 5 [address], [place], [place], [address] , [place]. tel:[phone] Referring Provider: Emma Mariee [address], [place], [place], [address]. tel:[phone] OFFICE/OUTPA TIENT VISIT, EST [facility], [address], [place], [place], [address], [place] tel:[phone] [facility] [place] skin rash (chief complaint) Cellulitis 4 Angelo Bates. [address], [address], [place], [place], [address] , [place]. tel:[phone] Referring Provider: Paulo Stephens, [address], [place], [place], [address]. tel:[phone] OFFICE/OUTPA TIENT VISIT, [facility], [address], [place], [place], [address], [place] tel:[phone] [facility] HTN (chief complaint)n aurelia pain (chief complaint) Hypertension, UnspecifiedCervica lgia 4 Angelo Bates. [address], [address], [place], [place], [address] , [place]. tel:[phone] Referring Provider: [address], [place], [place], [address]. tel:[phone] OFFICE/OUTPA TIENT VISIT, [facility], [address], [place], [place], [address], [place] tel:[phone] [facility] HTN (chief complaint)v itami D (chief complaint)c hronic pain (chief complaint) Dietary surveillance and counselingHyperten juan alberto, UnspecifiedSyncope and collapseUnspecifie d vitamin d deficiencyCervical ayaka 4 Angelo Bates. [address], [address], [place], [place], [address] , [place]. tel:[phone] Referring Provider: Paulo Stephens [address], [place], [place], [address]. tel:[phone] PREV VISIT, EST, AGE 40-64 [facility], [address], [place], [place], [address], [place] tel:[phone] [facility] Physical (chief complaint) Dietary surveillance and counselingRoutine Medical ExamHypertension, UnspecifiedOther seborrheic keratosisSyncope and collapseRoutine Medical Exam 4 Angelo Bates. [address], [address], [place], [place], [address] , [place]. tel: [phone] Family History Family Member Type Diagnosis Age At Onset Brother Problem (finding) Alcoholism Father Problem (finding) Stroke Mother Problem (finding) Unknown Disease Payers Payer name Insurance type Covered green party ID Authorkeegana tivaibhav(s) [facility] CI [id number] Social History Type Description Quantity Date Captured Comments Alcohol Use Details No Caffeine Use Details Unknown Tobacco Use Status Cigarette smoker Smoking Status Heavy tobacco smoker Sex Male Vital Signs Date / Time: Height Weight BMI Pulse Rate Blood Pressure Temperature Respiratory Rate Body Surface Area Head Circumference BMI percentile Pulse Ox Inhaled Ox 12:48 PM 70.00 in 179.20 lbs 25.7 1 kg/m eter (2) 94 /min 100/64 mm[Hg] 97.0 F 16 /min 89 Chief Complaint And Reason For Visit From encounter dated '10/04/2024 12:35'. erythrocytosis1 (chief complaint). Description: Pt has chronic erythrocytosis which has negative work up so far by hematology with negative JAK2. Pt is on b12 injection. Pt is getting phlebotomy regularly chronic pain1 (chief complaint). Description: Pt has chronic neck and back pain Pt has pain pump Ptis seeing pain management who is working on pain pump refill. His pain management does not prescribe oral pain meds. Pt is on oxycodone for pain chronically edema1 (chief complaint). Description: Pt has chronic venous stasis edema both LE Pt has been gaining weight Pt takes torsemide BID and sometimes TID. his bp is rather low and sometimes he could not tolerate TID. Pt denies any sob HLP (chief complaint). Description: Pt has HLP Pt is on lipitor Plan Of Treatment Date Type Action Status Goal Td vaccine. Due on 25 due Goal Pneumococcal vaccine. Due on due [...] due Goal Tdap. Due on due Goal Tdap. Due on due Goal Influenza vaccine. Due on due Goal Lipid panel. Due on due Goal Cognitive assessment. Due on due Goal Depression screening. Due on due Goal FOBT. Due on due Goal Td vaccine. Due on due Goal Pneumococcal vaccine. Due [...] Goal Td vaccine. Due on due Goal Influenza vaccine. [...] Goal Td vaccine. Due on due Goal Sigmoidoscopy. Due [...] Goal Lipid panel. Due on due Goal Lipid panel. Due [...] due Goal PSA. Due on due Goal PSA. Due on [...] on due Goal Lipid panel. Due on 024 due Goal Lipid panel. Due on 023 due Goal Zoster vaccine. Due on due Goal Pneumococcal vaccine. Due on due Goal Tdap. Due on due Goal Influenza vaccine. Due on due Goal Sigmoidoscopy. Due on due Goal Cognitive assessment. Due on due Goal Depression screening. Due on due Goal FOBT. Due on due Goal Td vaccine. Due on due Goal PSA. Due on due Goal Abdominal ultrasound. Due on due Goal Sigmoidoscopy. Due on [...] Goal Zoster vaccine. Due on due Goal Pneumococcal vaccine. Due [...] due Goal Tdap. Due on due Goal Tdap. Due on [...] Goal Lipid panel. Due on due Goal Lipid panel. Due [...] Goal Lipid panel. Due on due Goal Lipid panel. Due [...] due Goal Tdap. Due on due Goal Tobacco cessation counseling [...] on 19 due Goal Colonoscopy. Due on due Goal [...] Td vaccine. Due on 18 due Goal Colonoscopy. Due on due Goal Sigmoidoscopy. Due on due Goal PSA. Due on due Goal Abdominal ultrasound. Due on due Goal Influenza vaccine. Due on due Goal Zoster vaccine. Due on due Goal Lipid panel. Due on due Goal Tobacco cessation counseling completed Goal Lipid panel. Due on due Goal [...] Due on due Goal Colonoscopy. Due on 018 due Goal PSA. Due on due Goal Sigmoidoscopy. Due on due Goal Influenza vaccine. Due on due Goal Zoster vaccine. Due on due Goal FOBT. Due on due Goal Influenza vaccine. Due on due Goal Zoster vaccine. Due on due Goal Colonoscopy. Due on 017 due Goal Sigmoidoscopy. Due on due Goal [...] Goal Influenza vaccine. Due on due Goal Colonoscopy. Due [...] TWO-VIEWS ordered Referral Referred To: Helder Li [facility] [place], [phone] Ordered: Referrals: Helder Li. Evaluate and treat [...] W/O DYE ordered Appointment Carlo Hernandez BOOKED History Of Present Illness Encounter Date Complaint History Of Prese nt Illness erythrocytosis1 Pt has chronic e rythrocytosis which has negative work up so far by hematology with negative JAK2. Pt is on b12 injection. Pt is getting phlebotomy regularly chronic pain1 Pt has chronic n aurelia and back pain Pt has pain pump Pt is seeing pain management who is working on pain pump refill. His pain management does not prescribe oral pain meds. Pt is on oxycodone for pain chronically edema1 Pt has chronic v enous stasis edema both LE Pt has been gaining weight Pt takes torsemide BID and sometimes TID. his bp is rather low and sometimes he could not tolerate TID. Pt denies any sob HLP Pt has HLP Pt is on lipitor chronic pain1 Pt has chronic n aurelia and back pain due to severe DDD Pt was fired by pain management recently due to inability to make to pill count due to personal issue by one day. Pt was referred to pain management at [facility] who will manage the pain pump but [...] torsemide and also kcl and doing ok polycythemia1 Pt has polycythe fredi. pt is seeing hematology and he is getting phlebotomy regularly . his HCT was just borderline high two weeks ago PE Pt has history o f PE. Pt needs to be on eliquis for the rest of his life per hematology and cardiology edema1 Pt has chronic b ilateral LE edema. Pt is on torsemide bid and he has been taking kcl bid as well. He had lab done two weeks ago and his kcl and renal function were normal. cellulitis Comments: Pt has chronic venous stasis [...] f PE and he is on eliquis skilled nursing. He denies any bleeding or bruising HLP Pt has HLP ,Pt t akes lipitor Pt denies any myalgia pt needs lipitor refilled fluid1 Pt has fluid ove rload and he has been taking torsemide for diuresis Pt is seeing cardiology Pt had another cardiac echo done several days ago and he has genevieve with cardiology next week pt denies any worsening leg edema His bnp is actually decreasing. he is only taking torsemide BID per cardiology instructions cellulitis1 Pt has venous st asis cellulitis [...] ok .pt denies any suicidal or homicidal CVA1 Pt is s/p recent acute CVA without much residual weakness Pt saw neurology recently and was told to continue current medication. Pt denies any new weakness or numbness. leg Pt has persisten t lower extremity [...] to smoking He is on b12 now. leg edema1 Pt has persisten t lower [...] chest pain Pt denies any recent travel edema1 Pt has chronic b ilateral LE edema. Pt takes hctz and doing slightly better .Pt denies any worsening sob polycythemia1 Pt no longer has polycythemia and no need for phlebotomy from hematology and he is on b12 shot now. His OBEY is negative stroke1 Pt is s/p CVA. H e saw neurology and no transesophageal echo was recommended and he was told to continue eliquis indefinitely. PE Pt has acute PE. Pt had negative photographic platemaker. Cardiology told him to continue eliquis for the rest of his life for now. He also saw pulmonary and he is on anoro and bipap and doing ok. Pt denies any chest pain or sob leg swelling Pt has been havi [...] yesterday and he will wear 30 days photographic platemaker for now. He is on eliquis .Pt has genevieve with neurology next month emphysema1 Pt has end stage emphysema .Pt is on oxygen. Pt saw pulmonary and he had PFT done yesterday Pt is on anoro and albuterol PRn. Pt uses bipap at night. pt is on anoro and albuterol. anxiety1 Pt has anxiety a nd depression with some poor appetite. Pt is on remeron Pt actually gained some richard. His mood is stable pt denies any suicidal or homicidal thought Pt denies any crying spells . PE Pt was diagnosed with acute PE on 09/01/23. Pt requires 24 hour oxygen now Pt is on eliquis. Leg doppler is negative. Pt also has emphysema Pt is on anoro now. Pt denies any acute sob. CVA CVA1 Pt suffered acut e CVA occipital [...] wearing cpap now with oxygen at night fatigue1 pt has been feel ing very [...] thought Pt denies any crying spells . folate1 Pt has low folat e. Pt takes folic acid. venous1 Pt has chronic b ilateral LE venous insufficiency with pitting edema Pt also has neuropathy symptoms both LEs. Pt has burning and numbness and tingling both feet and seems getting higher towards his lower legs Pt denies any cold extremity. HTN Pt has HTN Pt ta kes spironolactone and losartan/hctz and his bp is stable. Pt has bilateral LE venous insufficiency Pt sees [facility]. Pt denies any sob or chest pain [...] well as leg edema. Pt is seeing [facility] and he takes spironolactone and [...] tingling is due to chronic spinal stenosis neuropathy1 Pt has neuropath y symptoms Pt could not tolerate lyrica, which made him drowsy with poor balance Pt stopped lyrica after two days of taking it His balance symptoms resolved. leg edema1 Pt has persisten t LE [...] that after two days along with lyrica. COPD1 Pt had chest x r ay done which showed COPD without pulmonary vascular congestion. PT has chronic mild sob leg edema1 Pt has acute ons et [...] CA screening. ,Pt denies any other complaints tobacco1 Pt has more than 30 pack [...] He denies any chest pain or headache chronic pain1 Pt has chronic n aurelia and back pain Pt denies any worsening pain Pt denies any loss of bladder control Pt use pain pump and also oxycodone from pain management who recently closed the pump service Pt was referred to pain management at [facility] who told him they do not do [...] with Dr. Fuchs. Pt will not see [facility] pain management He states that Dr. Christian [...] recnetly smoked a little marijauna during superball green party and her pain managment decides to wean [...] meds and referral to new pain management. COPD1 Pt has COPD. Pt continues to smoke. Pt deneis any sob. hyperglycemia1 Pt has high gluc ose. Pt denies any polyuria, polydipsia. pt did not do lab fasting. lung nodule1 Pt has stalbe yvrose ng nodule. Pt supposes to do ct in 12 months HTN Pt has HTn. Pt t akes losartan,hctz. His BP is stalbe HTn Pt has HTn Pt ta kes losartan,hctz and his BP is stable. Pt denies any chest pain or headache lung nodule Pt has lung nodu le. Pt still smoking polycythermia1 Pt has polycythe rmia. pt did not do lab yet COPD Pt has COPD Pt d enies [...] new complaints Instructions Date Instruction Additional Infor barrera Weight gain advised Related to B estrellita [...] ic pain syndrome Stop smoking. Related to Gigi shawjayjay (primary) hypertension Prescribed Activity and Exercise Education [...] surveillance counseling Assessments Type Assessment Date assessment Chronic pain syndrome assessment Edema assessment Abnormal weight gain assessment Dry skin dermatitis assessment Erythrocytosis Mental Status Date Cognitive Assessment Orientation - Newcomb ed to time, place, person, situation.
--- OUTSIDE RECORDS SUMMARY | 2024-10-25 12:21 | XMS_ITS | Encounter Summary ---
Author Organization [facility] Address [address] [place] [address] Care Team Providers Care Digital Data Analyst Name Role Phone Paulo Stephens MD Primary Care Provider [phone] Encounter Details Date Type Department Care Team (Late st Contact Info) Description 10/24/2024 External Device Data [facility] ABSTRACTION Provider, Abstract NO ADDRESS ON FILE Social History Tobacco Use Types Packs/Day Years Used Date Smoking Tobacco: Some Days Cigarettes Smokeless Tobacco: Never Alcohol Use Standard Drinks/Week Comments Never 0 (1 standard drink = 0.6 oz pur e alcohol) Sex and Gender Information Value Date Recorded Sex Assigned at Not on file Legal 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 Gender Identity Not on file Sexual Orientation Not on file documented as of this encounter Plan of Treatment Upcoming Encounters Date Type Department Care Team (Late st Contact Info) Description 01/28/2025 11:45 AM CDT Office Visit [facility] Oncology and Hematology - [place] [address] [facility] [address] [place] [address] Felix Franco MD [address] [facility] [address] [place] [address] documented as of this encounter Visit Diagnoses Not on filedocumented in this encounter Care Teams Digital Data Analyst Relationship Specialty Start Date End Date Paulo Stephens MD [address] [place] [id number] PCP - General Family Practice 09/19/23 documented as of this encounter
--- OUTSIDE RECORDS SUMMARY | 2024-10-25 12:21 | XMS_ITS | Clinical Summary ---
Author Organization [facility] Address [address] [place] [address] Care Team Providers Care [id number] Armor Crewman Name Role Phone Paulo Stephens MD Primary Care Provider [phone] Allergies Active Allergy Reactions Criticality Noted Date Comments Pregabalin Unknown High 06/05/2021 Medications albuterol sulfate HFA 90 mcg/actuation aerosol inhaler INHALE 2 PUFFS BY MOUTH FOUR TIMES DAILY NEEDED FOR SHORTNESS OF BREATH OR WHEEZING Active Eliquis 5 mg tablet Take 5 mg by mouth 2 times daily. Active hydroCHLOROthia zide 12.5 mg tablet Take 1 Tablet by mouth daily. Active oxyCODONE (ROXICODONE) 10 mg tablet Take 10 mg by mouth 3 times daily as needed. Active ROPivacaine 2 mg/mL (0.2 %) Solution by Infiltration route continuously. Hydromorphone, clonidine, bupivacaine Active torsemide (DEMADEX) 20 mg tablet Take 20 mg by mouth 3 times daily. Active potassium CHLORIDE (KAYCIEL) 20 mEq/15 mL solution Take 20 mEq by mouth daily. Active mirtazapine (REMERON SolTab) 15 mg Tablet, Rapid Dissolve Place 15 mg inside cheek daily at bedtime. Active atorvastatin (LIPITOR) 40 mg tablet Take 40 mg by mouth daily. Active vit-iron fumarate-fa (MARK ) 28 mg iron- 800 mcg Tablet Take 1 Tablet by mouth daily. Active pyridoxine (VITAMIN B6) 100 mg Tablet Take 50 mg by mouth daily. Active Active Problems No known active problems Encounters Date Type Department Care Team Description 10/24/2024 External Device Data ST[facility] ABSTRACTION Provider, Abstract 09/27/2024 3:45 PM MICROBIOLOGY INSTRUCTOR Office Visit [facility] Oncology and Hematology - [place] [address] Felix Franco MD Erythrocytosis (Primary Dx) 09/24/2024 Orders Only [facility] Oncology and Hematology - [place] [address] [place] [id number] Felix Franco MD 09/18/2024 External Device Data STL ABSTRACTION Provider, Abstract 09/18/2024 Orders Only [facility] Oncology and Hematology - [place] [address] [place] [id number] Felix Franco MD 08/23/2024 Orders Only [facility] Oncology and Hematology - [place] [address] [place] [id number] Felix Franco MD 08/06/2024 Telephone [facility] Oncology and Hematology - [place] [address] [place] [id number] Felix Franco MD Lab Results from Last 3 Months Family History Medical History Relation Name Comments Heart Disease Brother Relation Name Status Comments Brother Father Mother Son 1 Alive Son 2 Alive Social History Tobacco Use Types Packs/Day Years Used Date Smoking Tobacco: Some Days Cigarettes Smokeless Tobacco: Never Tobacco Cessation:Ready to Q uit: Not Asked; Counseling Given: Not Answered Alcohol Use Standard Drinks/Week Comments Never 0 (1 standard drink = 0.6 oz pur e alcohol) Sex and Gender Information Value Date Recorded Sex Assigned at Not on file Legal Sex Male 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 Gender Identity Not on file Sexual Orientation Not on file Last Filed Vital Signs Vital Sign Reading Time Taken Comments Blood Pressure 104/67 09/27/2024 3:36 PM MICROBIOLOGY INSTRUCTOR Pulse 77 09/27/2024 3:36 PM MICROBIOLOGY INSTRUCTOR Temperature 36 C (96.8 F) 09/27/2024 3:36 PM MICROBIOLOGY INSTRUCTOR Respiratory Rate 14 09/27/2024 3:36 PM MICROBIOLOGY INSTRUCTOR Oxygen Saturation 90% 09/27/2024 3:36 PM MICROBIOLOGY INSTRUCTOR Inhaled Oxygen Concentration - - Weight 78.9 kg (174 lb) 09/27/2024 3:36 PM MICROBIOLOGY INSTRUCTOR Height 175.3 cm (5' 9 ) 11/09/2023 1:20 PM CDT Body Mass Index 25.7 11/09/2023 1:20 PM CDT Plan of Treatment Upcoming Encounters Date Type Department Care Team (Late st Contact Info) Description 01/28/2025 11:45 AM CDT Office Visit [facility] Oncology and Hematology - [place] [address] [facility] [address] [place] [address] Felix Franco MD [address] [facility] [address] [place] [address] Health Maintenance Due Date Last Done Comments DTAP/TDAP/TD VACCINES (1 - Tdap) 1972 PNEUMOCOCCAL VACCINE 50+ YEARS (1 of 2 - PCV) 04/19/19 72 COLORECTAL SCREENING 1998 Colorectal Cancer Screening 1998 FIT-DNA Q 3 years 1998 FIT/FOBT Q 1 year 1998 Flex Sig/CT Colonography Q 5 years 1998 ZOSTER VACCINE (1 of 2) 2003 RSV VACCINE (60+ or ) (1 - Risk 60-74 years 1-dose series) 2013 Abdominal Aortic Aneurysm (AAA) Screening 2018 INFLUENZA VACCINE (#1) 2024 Procedures Procedure Name Priority Date/Time Associated Diagnosis Comments CBC WITH AUTODIFFERENTIAL Routine 2024 2:15 PM MICROBIOLOGY INSTRUCTOR VITAMIN B12 AND FOLATE Routine 12:00 PM MICROBIOLOGY INSTRUCTOR CBC WITH DIFFERENTIAL Routine 08/16/2024 10:55 AM MICROBIOLOGY INSTRUCTOR from Last 3 Months Results * CBC WITH AUTODIFFERENTIAL (09/13/2024 2:15 PM MICROBIOLOGY INSTRUCTOR) Blood us Felix Franco MD HEMATOLOGY ORDERABLES Final Res ult * VITAMIN B12 AND FOLATE (09/13/2024 12:00 PM MICROBIOLOGY INSTRUCTOR) Blood Felix Franco MD CHEMISTRY ORDERABLES Final Resu lt * CBC WITH DIFFERENTIAL (08/16/2024 10:55 AM MICROBIOLOGY INSTRUCTOR) Blood Felix Franco MD HEMATOLOGY ORDERABLES Final Res ult from Last 3 Months Insurance MEDICARE PART A HOSPITAL ONLY BCBS FEDERAL Care Teams [id number] Armor Crewman Relationship Specialty Start Date End Date Paulo Stephens MD [address] [place] [address] PCP - General Family Practice 09/19/23
--- OUTSIDE RECORDS SUMMARY | 2024-10-25 12:21 | XMS_ITS | Referral Summary ---
Author Organization [facility] Address [address] [place] [address] Care Team Providers Care Supervisor Coffee Name Role Phone Paulo Stephens MD Primary Care Provider + [phone] Inocente Holt NP Unavailable [phone] Encounters Date Type Department Care Team Description 10/23/2024 Telephone [facility] [address] [place] [address] [phone] Lary Sen RN 10/02/2024 1:30 PM CAN REFORMING MACHINE OPERATOR - 10/02/2024 11:59 PM CAN REFORMING MACHINE OPERATOR Hospital Encounter [facility] [address] [place] [address] [phone] Inocente Holt NP Beuer, Christopher Louis, MD Cervical radiculopathy (Primary Dx); Cervical spinal stenosis; Cervicalgia; Chronic bilateral low back pain with bilateral sciatica; Lumbosacral spondylosis without myelopathy; Presence of intrathecal pump; Radiculopathy, lumbosacral region; Spinal stenosis of lumbar region with neurogenic claudication Discharge Disposition: Discharge to home or self care 08/28/2024 1:45 PM CAN REFORMING MACHINE OPERATOR - 08/28/2024 11:59 PM CAN REFORMING MACHINE OPERATOR Hospital Encounter [facility] [address] [place] [id number] Inocente Holt NP Cervical post-laminectomy syndrome (Primary [...] 07/30/2021 Assessment & Plan (07/30/2021 10:10 AM CAN REFORMING MACHINE OPERATOR): Impression: Patient with history of tobacco abuse [...] 06/15/2021 Assessment & Plan (07/30/2021 9:59 AM CAN REFORMING MACHINE OPERATOR): Impression: Patient is currently seeing Oncology for his polycythemia. Plan: Continue recommendations as per oncology. Edema 06/05/2021 Hyperlipidemia 06/05/2021 Hypertension 06/05/2021 Assessment & Plan (07/30/2021 9:58 AM CAN REFORMING MACHINE OPERATOR): Impression: Chronic stable hypertension, controlled medications. Blood [...] 02/28/2019 Assessment & Plan (07/30/2021 9:58 AM CAN REFORMING MACHINE OPERATOR): Impression: Patient has a history of spinal [...] on file Legal Sex Male 6:28 AM CAN REFORMING MACHINE OPERATOR Gender Identity Not on file Sexual Orientation Not on file Last Filed Vital Signs Vital Sign Reading Time Taken Comments Blood Pressure 122/78 10/02/2024 2:10 PM CAN REFORMING MACHINE OPERATOR Pulse 92 10/02/2024 2:10 PM CAN REFORMING MACHINE OPERATOR Temperature 36.3 C (97.4 F) 10/27/2019 7:19 AM CAN REFORMING MACHINE OPERATOR Respiratory Rate 17 10/02/2024 2:10 PM CAN REFORMING MACHINE OPERATOR Oxygen Saturation 90% 10/02/2024 2:10 PM CAN REFORMING MACHINE OPERATOR 3 lpm Inhaled Oxygen Concentration - - Weight 74.8 kg (165 lb) 08/28/2024 2:11 PM CAN REFORMING MACHINE OPERATOR Height 175.3 cm (5' 9 ) 08/28/2024 2:11 PM CAN REFORMING MACHINE OPERATOR Body Mass Index 24.37 08/28/2024 2:11 PM CAN REFORMING MACHINE OPERATOR Plan of Treatment Not on file Goals Goal Patient Goal Type Associated Problems Recent Progress Patient-Stated? Author [facility] Nina Thomas RN Note: To maintain current pain plan and ADL. Medical Devices Implanted Type Area Spinner Open End Device Identifier Shelf Expiration Date Model / Serial / Lot Pain Pump-03/19/2013 Implanted: 013 (Quantity not on file) Right: Abdomen Medtronic 8637-20 / [id number] / Medtronic Neuro 8637-20 Synchromed Ii .78in [place] Filter Mesh Pouch Programmable - [id number] - [id number] Implanted:Qty: 1 on 10/26/2019 by Kendal Crump MD at [facility] Right: Abdomen Medtronic Inc 03/18/2021 8637-20 / [id number] / Medtronic Neuro 8578 Sutureless Connector Revision Catheter Kit Intrathecal Pump - [id number] Implanted:Qty: 1 on 10/26/2019 by Kendal Crump MD at [facility] Right: Abdomen Medtronic Inc 03/08/2021 [id number] / / [id number] Insurance [facility] MEDICARE Member Subscriber Plan / Payer (Ef fective 2018-Present) Name:Carlo Hernandez Member ID:[id number] Relation to Subscriber:Self Name:Juan Hernandezy Subscriber ID:[id number] Payer ID:[id number] Group ID:Not on file Type:MEDICARE TRADITIONAL Address: [address] [place] [phone] MEDICARE Member Subscriber Plan / Payer (Ef fective 2018-Present) Name:Carlo Hernandez Member ID:[id number] Relation to Subscriber:Self Name:KarintrudyjeannieCarlo Subscriber ID:[id number] Payer ID:[id number] Group ID:Not on file Type:MEDICARE TRADITIONAL Address: [address] [place] [phone] Advance Directives For more information, please contact: [phone] * Full Code (Latest Code Status on File) Date Activated Date Inactivated Comments 10/26/2019 11:44 AM 10/27/2019 3:57 PM Care Teams Supervisor Coffee Relationship Specialty Start Date End Date Paulo Stephens MD PCP - General 11/15/17 [place] [address] [address] [facility] [address] [place] [address] Nurse Practitioner Nurse Practitioner 08/28/24
--- OUTSIDE RECORDS SUMMARY | 2024-10-25 12:21 | XMS_ITS | Encounter Summary ---
Author Organization [facility] Address [address] [place] [address] Care Team Providers Care Turning Machine Operator Name Role Phone Paulo Stephens MD Primary Care Provider [phone] Nina Kuhn RN Unavailable Unavailab Fela Ellsworth RN Unavailable UnavailInocente Clark NP Unavailable [phone] Encounter Details Date Type Department Care Team (Late st Contact Info) Description 01/03/2024 Orders Only [facility] Health Information Management [address] [place] [id number] Scanning, Provider Social History Tobacco Use Types Packs/Day Years Used Date Smoking Tobacco: Every Day Cigarettes 1 50 Smokeless Tobacco: Never Alcohol Use Standard Drinks/Week Comments No 0 (1 standard drink = 0.6 oz pur e alcohol) PHQ-2 Answer Date Recorded PHQ-2 Score 0 04/13/2019 Sex and Gender Information Value Date Recorded Sex Assigned at Not on file Legal Sex Male 6:28 AM JET OPERATOR Gender Identity Not on file Sexual [...] on filedocumented in this encounter Care Teams Turning Machine Operator Relationship Specialty Start Date End Date Paulo Stephens MD PCP - General 11/15/17 Nina Kuhn, LILI Registered Nurse Pain Management 11/15/17 08/27/24 Fela Osuna, RN Registered Nurse 01/02/18 08/27/24 [place] [address] [address] [facility] [address] [place] [address] Nurse Practitioner Nurse Practitioner 08/28/24 documented as of this encounter
--- OUTSIDE RECORDS SUMMARY | 2024-10-25 12:21 | XMS_ITS | Clinical Summary ---
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 Gender Identity Not on file Sexual Orientation Not on file Last Filed Vital Signs Vital Sign Reading Time Taken Comments Blood Pressure 98/60 02/03/2023 1:15 PM CDT Pulse 73 02/03/2023 1:15 PM CDT Temperature 36.7 C (98 F) 02/03/2023 1:15 PM CDT Respiratory Rate 18 [...] Influenza Immunization (#1) 2024 SARS-COV-2 Immunization ( - season) 2024 11/24/2020, 11/03/2020 Respiratory Syncytial Virus [...] patient's age to complete this topic Insurance [facility] Care Teams Speech Professor Relationship Specialty Start Date End Date Paulo Stephens [address] [place] [address] PCP - General Family Medicine 06/02/21 Gutierrez Mckinley MD [address] [facility] [place] [id number] Consulting Physician Oncology 06/02/21
--- OUTSIDE RECORDS SUMMARY | 2024-10-25 12:21 | XMS_ITS | Clinical Summary ---
Author Organization [facility] Address [address] [place] [address] Care Team Providers Care Hangar Attendant Name Role Phone Unavailable Primary Care Provider [...]
--- OUTSIDE RECORDS SUMMARY | 2024-10-25 12:21 | XMS_ITS | Continuity of Care Document ---
Author Organization Located within [facility] Address [address] [place] [address] [address] [place] [address] Phone Care Team Providers Care Mixer Dry Food Products Name Role Phone Wang OD, Michael Unavailable Unavailable Procedures Procedure Date Office/outpatient Visit, Est Office/outpatient Visit, New Advance Directives Directive Yes / No Effective Date File Name No Information Encounters Encounter Description Practice Location Reason(s) For Visit Diagnoses Date Provider Providers Copied on Encounter Office[place] [facility] [place] [address] [place] [address] [address], [place], [place], [id number], tel:[phone] [facility] No Information Mar-3 1-200 7 Wang OD Michael. [address] [facility] , [address], [place], [address], [place]. tel:[phone] Office/outpat ient Visit, [facility], [address] [place] [address] [address], [place], [place], [id number], tel:[phone] [facility] No Information Mar-2 9-200 7 Wang OD Michael. [address] , [address], [place], [address], [place]. tel:[phone] Referring Provider: Cachorro Slade MD C, [address] [facility] [address], [place], [address]. tel:[phone] Family History Family Member Type Diagnosis Age At Onset No Information Payers Payer name Insurance type Covered constitution party ID Authoriza tion(s) [place] CI [id number] Social History Type Description Quantity Date Captured Comments Sex Male Smoking Status No Information Chief Complaint And Reason For Visit No Information Reason For Referral Reason For Referral No Information History Of Present Illness Encounter Date Complaint History Of Prese nt Illness No Information Functional Status Date Functional Assessmen t No Information Instructions Date Instruction Additional Infor mation No Information Assessments Type Assessment Date No Information Patient Care Teams Name Effective Dates (start - stop) Status Members No Information
--- OUTSIDE RECORDS SUMMARY | 2024-10-25 12:21 | XMS_ITS | Encounter Summary ---
Author Organization [facility] Address 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 Gender Identity Not on file Sexual Orientation Not on file documented as of this encounter Plan of Treatment Upcoming Encounters Date Type Department Care Team (Late st Contact Info) Description 01/28/2025 11:45 AM CDT Office Visit [facility] Oncology and Hematology - [place] [address] [facility] [address] [place] [address] Felix Franco MD [address] [facility] [address] [place] [address] documented as of this encounter Visit Diagnoses Not on filedocumented in this encounter Care Teams Blade Boner Relationship Specialty Start Date End Date Paulo Stephens MD [address] [place] [phone] PCP - General Family Practice 09/19/23 documented as of this encounter
[2024-10-25 12:40] LABS: Alanine Aminotransferase 20 U/L (6-50); Albumin Level 3.3 g/dL (3.5-5.1); Alkaline Phosphatase 90 U/L (38-126); Anion Gap 7 mmol/L (4-12); Aspartate Amino Transferase 28 U/L (17-59); Blood Urea Nitrogen 22 mg/dL (9-20); Calcium 8.3 mg/dL (8.4-10.2); Carbon Dioxide 30 mmol/L (22-30); Chloride 99 mmol/L (98-107); Estimated CRCL calculation 60 ml/min; Estimated Glomerular Filt Rate > 60; Glucose 97 mg/dL (65-110); Potassium 4.3 mmol/L (3.4-5.0); Sodium 136 mmol/L (137-145)
[2024-10-25 12:47] LABS: NT Pro B Type Natriuretic Pept 6940 pg/mL (19.9-100)
--- NOTE | 2024-10-25 12:52 | PC.NURSE ---
Pt politely declined straight catheterization for urine sample. States will try to give a sample with urinal.
--- NOTE | 2024-10-25 13:13 | PM.IMHP ---
H&P: [facility] History of Present Illness Date/Time: 10/25/24 13:13 Chief Complaint: Shortness of Breath, Lower Extremity Swelling Narrative: 69 y/o M presents here with shortness of breath and lower extremity swelling with PMH of COPD, CHF, hypertension, peripheral neuropathy, secondary polycythemia, CVA (08/2023), pulmonary embolism (right middle lobe, 09/01/2023), and chronic pain on pain pump (hydromorphone, bupivacaine, clonidine). The patient presents here from home via EMS for further evaluation of shortness of breath and bilateral lower extremity edema. He reports the shortness of breath has been worsening over the last 10 days. It is accompanied by fatigue. Denies associated cough, congestion, rhinorrhea, fever, chills, body aches, N/V/D, or chest pain. He also noted he has had bilateral lower extremity edema for the past year, reports the LE swelling has worsened over the last 2 months. reports that they recently saw his PCP 2.5 weeks ago and the patient's diuretic was changed. He was previously Torsemide 20 mg daily -> Bumex 1 mg BID due to his blood pressure becoming soft. He is a current everyday smoker - 0.5 to 1 PPD x 60 years. Initial VS at presentation: 97.7? F, HR 94, RR 16, 100/76, and 79% on room air. Now 95% on BiPAP. ED workup showed: No leukocytosis, no anemia, INR 2.2, initial ABG showed 0256.7/HC03 27.6/O2 saturation 90.3% on 10 L non-rebreather, creatinine 1.0 and GFR >60, BNP 6940, and viral PCR negative. CXR showed mild pulmonary vascular congestion without focal infiltrate or effusion. Initial EKG showed atrial fibrillation, possible right ventricular hypertrophy, atrial lateral MA of indeterminate age, rate 78. Awaiting formal read. Review of Systems Review of Systems: All systems reviewed & are unremarkable except as noted in HPI and below [facility] Past Medical History Medical History (Updated 10/25/24 @ 13:50 by Milena Espinoza, SHYAM) Secondary polycythemia Tobacco abuse Chronic back pain pain pump insertion Cervical vertebral fusion Left carpal tunnel syndrome Peripheral neuropathy CVA (cerebral vascular accident) Colon ulcer Colonic mass Positive colorectal cancer screening using Cologuard test Chronic narcotic use HTN (hypertension) Surgical History Surgical History S/P cervical spinal fusion Family History Family History Mother Father Social History Social History Smoking packs per day: 1 Smoking cigarettes per day: 20.0 Years smoked: 50 Smoking pack-years: 50.00 Smoking status: Current every day smoker Tobacco type: cigarettes Second hand tobacco smoke exposure: Yes Additional smoking assessment comments: pt stated he started smoking at the age of 4 Alcohol intake: never Substance use: never Substance use type: does not use Do You Feel Safe in your Home?: Yes Lack of Transportation: No Lack of Food: Never True Current Housing: I Have Housing Concerned About Future Housing: No Difficulty Paying Gas/Electric Bills: No Difficulty Paying for Meds: No Currently Unemployed: No Education: Decline to Answer Difficulty w/ Childcare or Family Care: No Living arrangements: with family Spiritual care concerns: No Meds Home Medications and Allergies Home Medications ?Medication ?Instructions ?Recorded ?Confirmed ?Type apixaban 5 mg tablet (Eliquis) 5 mg PO Q12HR #60 tabs 09/18/23 10/25/24 Rx atorvastatin 40 mg tablet 40 mg PO DAILY #30 tabs 09/18/23 10/25/24 Rx mirtazapine 15 mg tablet 15 mg PO HS #30 tabs 09/18/23 10/25/24 Rx oxycodone 10 mg tablet 10 mg PO TID PRN Pain #12 tabs 09/18/23 04/30/24 Rx potassium chloride 20 mEq 20 meq PO BID 01/09/24 10/25/24 History tablet,extended release mecobalamin (vitamin B12) 500 mcg 500 mcg PO DAILY 04/24/24 04/30/24 History chewable tablet umeclidinium 62.5 mcg-vilanterol See Rx Instructions .Route 07/23/24 10/25/24 Rx 25 mcg/actuation powdr for .COMPLEX #60 ea inhalation (Anoro Ellipta) folic acid 800 mcg tablet 0.8 mg PO DAILY 08/06/24 10/25/24 History pyridoxine (vitamin B6) 100 mg 100 mg PO DAILY 08/06/24 10/25/24 History tablet albuterol sulfate 90 mcg/actuation See Rx Instructions .Route 08/21/24 10/25/24 Rx aerosol inhaler .COMPLEX #8.5 grams Allergies Allergy/AdvReac Type Severity Reaction Status Date / Time pregabalin Allergy Hallucinati Verified 10/25/24 11:04 ng Vital Signs Vital Signs - 24 hr 10/25/24 10:51 10/25/24 10:51 10/25/24 10:52 Temperature Pulse Rate 94 113 H Respiratory Rate 16 22 H Blood Pressure 100/76 100/76 Pulse Oximetry 79 L 80 L Oxygen Delivery Nasal Cannula Oxygen Flow Rate 3 10/25/24 10:52 10/25/24 10:57 10/25/24 10:59 Temperature 97.7 F Pulse Rate Respiratory Rate Blood Pressure Pulse Oximetry 84 L 91 Oxygen Delivery Nasal Cannula Non-Rebreather Mask Oxygen Flow Rate 5 10 10/25/24 11:01 10/25/24 11:13 10/25/24 11:19 Temperature Pulse Rate 102 H 78 Respiratory Rate 17 22 H Blood Pressure 96/69 L Pulse Oximetry 91 97 97 Oxygen Delivery BiPAP BiPAP Oxygen Flow Rate 10/25/24 11:30 10/25/24 11:41 10/25/24 11:47 Temperature Pulse Rate 74 71 75 Respiratory Rate 17 14 Blood Pressure Pulse Oximetry 98 95 96 Oxygen Delivery Oxygen Flow Rate 10/25/24 11:57 10/25/24 12:30 10/25/24 13:09 Temperature Pulse Rate 78 97 81 Respiratory Rate 15 27 H Blood Pressure 103/78 104/71 Pulse Oximetry 95 95 95 Oxygen Delivery BiPAP Oxygen Flow Rate Exam Narrative: thickened and erythematous skin to BLE, consistent with chronic LE swelling. bibasilar crackles, mild tachyonbea Const: General: comfortable and no acute distress Other: , male, nontoxic appearance HENMT: Face/Nose/Sinus: Normal nares present Mouth: Yes dry mucous membranes Other: BiPAP in place, tolerating well Eyes: General: appearance normal, both eyes and all related structures Sclera: sclerae normal Pupils: Equal, round and reactive pupils present EOM: EOMs intact bilaterally Resp: Other: Mild tachypnea. Bibasilar crackles. No other adventitious lung sounds on exam. Cardio: Rate: regular rate Other: Frequent ectopy, no murmur or rub. GI: Other: Abdomen soft, nondistended, nontender. Skin: Other: Thickened/leathery skin to bilateral lower extremities with erythema. No weeping, drainage, or open wounds. Neuro: Speech: normal speech Motor exam (neuro): 5/5 motor strength present throughout Sensory Exam: normal sensation Other: A&O x4 Extrem: General: normal exam except as noted and edema Other: Skin thickened and erythematous, symmetric. 2+ pitting edema to BLE, symmetric. Psych: Mental Status: mental status grossly normal Affect: normal affect Other: Good insight and judgment, pleasant H&P: Results Labs Labs: Short CBC 10/25/24 Range/Units 11:18 WBC 7.5 (4.5-10.0) K/mm3 Hgb 16.0 (14.0-18.0) g/dL Hct 49.8 (42.0-52.0) % Plt Count 217 (150-375) k/mm3 BMP 10/25/24 12:02 Sodium 136 L Potassium 4.3 Chloride 99 Carbon Dioxide 30 BUN 22 H Creatinine 1.00 Glucose 97 Calcium 8.3 L Liver Function 10/25/24 Range/Units 12:02 Total Bilirubin 2.0 H (0.2-1.3) mg/dL AST 28 (17-59) U/L ALT 20 (6-50) U/L Alkaline Phosphatase 90 (38-126) U/L Albumin 3.3 L (3.5-5.1) g/dL Assessment and Plan Assessment and plan (1) Acute hypoxic respiratory failure: Code(s): J96.01 - Acute respiratory failure with hypoxia Status: Acute Assessment and Plan: - CXR: Mild pulmonary vascular congestion, without focal infiltrate or effusion. - EKG, initial: Atrial fibrillation, rate 78, possible right ventricular hypertrophy, anterolateral MA of indeterminate age. - BNP elevated, see plan below - viral PCR negative - Hgb 16.0 - ABG, initial: 02 56.7, HC03 27.6, O2 saturation 90.3%, oxyhemoglobin 84.0% on 10L NRB. - initial O2 sat 79% on patient's home O2 of 3 L NC. Currently requiring BiPAP. Will trial patient back on his supplemental O2 this evening. - suspect acute hypoxic respiratory failure secondary to CHF exacerbation. Low suspicion for COPD component, no wheezing on exam. BP soft, will initiate diuretic once improved. (2) CHF (congestive heart failure): Qualifiers: Heart failure chronicity: acute on chronic Heart failure type: diastolic Qualified Code(s): I50.33 - Acute on chronic diastolic (congestive) heart failure Code(s): I50.9 - Heart failure, unspecified Status: Acute Assessment and Plan: - suspect acute on chronic CHF - BNP 6940 - most recent echo (08/2023): D shaped septum in systole/diastole consistent with are the pressure and/or volume overload, systolic function normal with estimated EF of 60 65%, grade 1 diastolic dysfunction, RV chamber severely enlarged, RV systolic function moderate to severely reduced (finding suggestive of Matos sign, mild pulmonary hypertension. See full report for details. - update echo - patient was recently changed from torsemide to Bumex 1 mg b.i.d. due to hypotension. BP currently soft, will give albumin 25G Q6 x4. Once BP improved, will trial Bumex 1 mg IV x1. If tolerating well will increase to Bumex 1 mg IV b.i.d.. - monitor I&Os and daily weights - trend renal function (3) HTN (hypertension): Qualifiers: Hypertension type: primary hypertension Qualified Code(s): I10 - Essential (primary) hypertension Code(s): I10 - Essential (primary) hypertension Status: Chronic Assessment and Plan: - chronic, currently 99/79 - not currently on any anti-hypertensive medications - monitor Plan Diet: Heart healthy GI Prophylaxis: Not currently indicated DVT Prophylaxis: Eliquis Lines: Peripheral Code Status: Full code Quality VTE Prophylaxis VTE prophylaxis: pharmacologic ordered Hospitalist MIPS Advance Care Plan I have confirmed that the patient's Advanced Care Plan is present, code status is documented, or surrogate decision maker is listed in patient medical record.: Yes Medication Reconciliation I have utilized all available resources to obtain, update and review the patients current medications (includes all prescriptions, OTC, herbals, cannabis, and nutritional supplements).: Yes
[2024-10-25] MEDS: ALBUMIN HUMAN 25% 25 GM/100 ML 100 ML IVPB ×3 (13:27→23:58)
[2024-10-25 13:45] LABS: Add Urine Microscopic? NO; Appearance Urine Clear (Clear); Bilirubin Urine Negative (Negative); Blood Urine Negative (Negative); Color Urine Yellow (Yellow); Glucose Urine UA Negative (Negative); Ketones Urine Negative (Negative); Leukocyte Esterase Ur Negative LEU/UL (Negative); Nitrate Urine Negative (Negative); Protein Urine Negative (Negative); Specific Grav Ur 1.011 (1.001-1.035); Urobilinogen Urine 0.2 mg/dL (<2.0); pH Urine 5.5 (5.0-9.0)
[2024-10-25] MEDS: PERFLUTREN LIPID MICROSPHERES 1.5 ML VIAL DILUTED TO 10 ML TOTAL VOLUME IV PUSH (15:10)
--- NOTE | 2024-10-25 15:47 | IVDEFINITY ---
Prior to administration of IV Definity the patient was educated on the risks and benefits of the imaging enhancing agent including potential adverse side effects. The patient verbalized understanding. Allergies were verified. No exclusion criteria were identified and at least one of the following inclusion criteria were met: 1) physician request, 2) patient technically difficult to image (per the [place] [employer] Echocardi[employer] guidelines of two or more segments not discernable within the apical view), or 3) questionable left ventricular function. ?
[2024-10-25] MEDS: BUMETANIDE INJ 1 MG/4 ML VIAL IV PUSH (16:34)
[2024-10-25] MEDS: POTASSIUM CHLORIDE 20 MEQ ER TABLET PO (16:35)
--- NOTE | 2024-10-25 18:56 | ADMGEN ---
This patient, Carlo Hernandez, was admitted to IMU Room [id number]. Patient/family oriented to hospital policies and general routines including ID bracelet, bed and alarms, visiting hours, pain management, procedures, bathroom and other care routines, personal items, smoking policy, room service/diet, and visiting hours. Information on how to activate the Rapid Response Team has been discussed. Patient/Family are encouraged to report perceived risks to care and to ask questions if they do not understand what they are told or what they should do.
[2024-10-25] MEDS: MIRTAZAPINE 15 MG TABLET PO (20:13)
[2024-10-25] MEDS: APIXABAN 5 MG TABLET PO (20:13)
[2024-10-26] VITALS (26 sets, daily range): BP systolic 88–112; BP diastolic 51–89; PULSE 64–89; RESP 11–24; TEMP 36.1–36.4; O2SAT 86–94
[2024-10-26] MEDS: ALBUMIN HUMAN 25% 25 GM/100 ML 100 ML IVPB (05:36)
[2024-10-26] MEDS: POTASSIUM CHLORIDE 20 MEQ ER TABLET PO ×2 (08:33→16:23)
[2024-10-26] MEDS: ATORVASTATIN 40 MG TABLET PO (08:33)
[2024-10-26] MEDS: FOLIC ACID 0.4 MG TABLET 0.8 MG PO (08:33)
[2024-10-26] MEDS: APIXABAN 5 MG TABLET PO ×2 (08:33→22:30)
[2024-10-26] MEDS: PYRIDOXINE HCL 50 MG TABLET 100 MG PO (08:33)
--- NOTE | 2024-10-26 09:04 | PM.IMPN ---
Progress Note: A&P Assessment and Plan (1) Acute hypoxic respiratory failure: Code(s): J96.01 - Acute respiratory failure with hypoxia Status: Acute Assessment and Plan: - CXR: Mild pulmonary vascular congestion, without focal infiltrate or effusion. - EKG, initial: Atrial fibrillation, rate 78, possible right ventricular hypertrophy, anterolateral RI of indeterminate age. - BNP elevated, see plan below - viral PCR negative - Hgb 16.0 - ABG, initial: 02 56.7, HC03 27.6, O2 saturation 90.3%, oxyhemoglobin 84.0% on 10L NRB. - initial O2 sat 79% on patient's home O2 of 3 L NC. Currently requiring BiPAP. Will trial patient back on his supplemental O2 this evening. - suspect acute hypoxic respiratory failure secondary to CHF exacerbation. Low suspicion for COPD component, no wheezing on exam. BP soft, will initiate diuretic once improved. (2) CHF (congestive heart failure): Qualifiers: Heart failure chronicity: acute on chronic Heart failure type: diastolic Qualified Code(s): I50.33 - Acute on chronic diastolic (congestive) heart failure Code(s): I50.9 - Heart failure, unspecified Status: Acute (3) HTN (hypertension): Qualifiers: Hypertension type: primary hypertension Qualified Code(s): I10 - Essential (primary) hypertension Code(s): I10 - Essential (primary) hypertension Status: Chronic Assessment and Plan: - chronic, currently 99/79 - not currently on any anti-hypertensive medications - monitor Plan This Is a 69-year-old male who presents to the ED with worsening shortness of breath. Uses oxygen at home 3 L by nasal cannula. Worsening shortness of breath over the past 10 days. History of CHF and COPD and continues to smoke. Associated fatigue. Also noted bilateral lower extremity edema for the past year worsened over the past 2 months. Patient diuretic was changed recently to Bumex from torsemide. On ED arrival patient was saturating in mid 80s on 4 L oxygen via nasal cannula. Patient was placed on BiPAP. Patient was afebrile. Laboratory studies showed normal WBC 7.5 hemoglobin of 16 platelet of 217. Came panel was unremarkable. INR was 2.2 BNP elevated at 6940. Influenza RSV COVID swab was negative. Urinalysis negative for infection. ABG showed 7.43/42/56/27. Chest x-ray showed mild pulmonary vascular congestion without focal infiltrate or effusion. Acute on chronic congestive heart failure- most recent echo (08/2023): D shaped septum in systole/diastole consistent with are the pressure and/or volume overload, systolic function normal with estimated EF of 60 65%, grade 1 diastolic dysfunction, RV chamber severely enlarged, RV systolic function moderate to severely reduced (finding suggestive of Matos sign, mild pulmonary hypertension. See full report for details. Reordered echo BP soft received albumin. Continue with Bumex IV. 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 No new complaints. Patient desaturated when off BiPAP. Back on BiPAP again. No chest pain. Legs are swollen Review of Systems Review of Systems: All systems reviewed & are unremarkable except as noted in HPI and below Exam Narrative: APPEARANCE: Ill-appearing not in acute distress HEAD: normocephalic, atraumatic. EYES: PERRLA/EOMI, conjunctivae clear. NECK: Supple. No adenopathy, no masses. RESPIRATORY: Congestive lung sounds bilaterally no respiratory distress on BiPAP CARDIOVASCULAR: Regular rate and rhythm without murmurs rubs or gallops. ABDOMINAL: Soft, nontender, nondistended, normal bowel sounds MUSCULOSKELETAL: Lower extremity edema bilaterally with changes of stasis dermatitis NEURO: Alert. Cranial nerves II through XII intact. SKIN: Warm, dry. Normal Color Objective Data Vital Signs Vital Signs: Vital Signs - 24 hr 10/25/24 10:51 10/25/24 10:51 10/25/24 10:52 Temperature Pulse Rate 94 113 H Respiratory Rate 16 22 H Blood Pressure 100/76 100/76 Pulse Oximetry 79 L 80 L Oxygen Delivery Nasal Cannula Oxygen Flow Rate 3 Fraction of Inspired Oxygen 10/25/24 10:52 10/25/24 10:57 10/25/24 10:59 Temperature 97.7 F Pulse Rate Respiratory Rate Blood Pressure Pulse Oximetry 84 L 91 Oxygen Delivery Nasal Cannula Non-Rebreather Mask Oxygen Flow Rate 5 10 Fraction of Inspired Oxygen 10/25/24 11:01 10/25/24 11:13 10/25/24 11:19 Temperature Pulse Rate 102 H 78 Respiratory Rate 17 22 H Blood Pressure 96/69 L Pulse Oximetry 91 97 97 Oxygen Delivery BiPAP BiPAP Oxygen Flow Rate Fraction of Inspired Oxygen 10/25/24 11:30 10/25/24 11:41 10/25/24 11:47 Temperature Pulse Rate 74 71 75 Respiratory Rate 17 14 Blood Pressure Pulse Oximetry 98 95 96 Oxygen Delivery Oxygen Flow Rate Fraction of Inspired Oxygen 10/25/24 11:57 10/25/24 12:30 10/25/24 13:09 Temperature Pulse Rate 78 97 81 Respiratory Rate 15 27 H Blood Pressure 103/78 104/71 Pulse Oximetry 95 95 95 Oxygen Delivery BiPAP Oxygen Flow Rate Fraction of Inspired Oxygen 10/25/24 13:29 10/25/24 13:31 10/25/24 14:46 Temperature Pulse Rate 86 82 74 Respiratory Rate 20 16 13 Blood Pressure 99/79 L 114/66 98/75 L Pulse Oximetry 97 96 92 Oxygen Delivery Oxygen Flow Rate Fraction of Inspired Oxygen 10/25/24 14:47 10/25/24 15:16 10/25/24 15:31 Temperature Pulse Rate 71 70 70 Respiratory Rate 14 13 12 Blood Pressure 106/77 108/79 Pulse Oximetry 90 92 Oxygen Delivery Oxygen Flow Rate Fraction of Inspired Oxygen 10/25/24 16:01 10/25/24 16:02 10/25/24 16:35 Temperature Pulse Rate 71 85 88 Respiratory Rate 20 18 23 H Blood Pressure 103/75 Pulse Oximetry 94 92 93 Oxygen Delivery BiPAP Oxygen Flow Rate Fraction of Inspired Oxygen 10/25/24 16:39 10/25/24 17:25 10/25/24 18:00 Temperature 96.8 F L Pulse Rate 99 86 Respiratory Rate 18 12 Blood Pressure 107/79 100/62 Pulse Oximetry 92 95 94 Oxygen Delivery BiPAP Oxygen Flow Rate Fraction of Inspired Oxygen 60 10/25/24 18:29 10/25/24 19:50 10/25/24 20:00 Temperature 97.4 F L Pulse Rate 82 74 74 Respiratory Rate 25 H 16 26 H Blood Pressure 98/62 L Pulse Oximetry 95 94 95 Oxygen Delivery BiPAP BiPAP Oxygen Flow Rate Fraction of Inspired Oxygen 10/25/24 20:00 10/25/24 20:00 10/25/24 22:00 Temperature Pulse Rate 75 69 Respiratory Rate Blood Pressure Pulse Oximetry Oxygen Delivery BiPAP Oxygen Flow Rate Fraction of Inspired Oxygen 60 10/25/24 22:29 10/26/24 00:00 10/26/24 00:00 Temperature 97.6 F Pulse Rate 69 74 74 Respiratory Rate 17 18 18 Blood Pressure 109/82 Pulse Oximetry 92 94 94 Oxygen Delivery BiPAP BiPAP Oxygen Flow Rate Fraction of Inspired Oxygen 60 10/26/24 00:00 10/26/24 02:00 10/26/24 02:15 Temperature Pulse Rate 72 67 66 Respiratory Rate 14 Blood Pressure Pulse Oximetry 91 Oxygen Delivery BiPAP Oxygen Flow Rate Fraction of Inspired Oxygen 10/26/24 03:57 10/26/24 04:00 10/26/24 04:00 Temperature 97.1 F L Pulse Rate 66 66 67 Respiratory Rate 16 Blood Pressure 105/64 Pulse Oximetry 91 91 Oxygen Delivery BiPAP Oxygen Flow Rate 10 Fraction of Inspired Oxygen 60 10/26/24 05:17 10/26/24 06:00 10/26/24 08:00 Temperature Pulse Rate 64 68 Respiratory Rate 13 21 H Blood Pressure Pulse Oximetry 93 92 Oxygen Delivery BiPAP BiPAP Oxygen Flow Rate Fraction of Inspired Oxygen 60 10/26/24 08:00 10/26/24 08:00 Temperature 96.9 F L Pulse Rate 65 68 Respiratory Rate 21 H Blood Pressure 112/89 Pulse Oximetry 92 Oxygen Delivery Oxygen Flow Rate Fraction of Inspired Oxygen Intake/Output Intake/Output: Intake & Output 10/23/24 10/24/24 10/25/24 10/26/24 23:59 23:59 23:59 23:59 Intake Total 200 200 Output Total 200 Balance 200 0 Meds/Results Medications: Active Medications Generic Name Dose Route Start Last Admin Trade Name Freq PRN Reason Stop Dose Admin Albuterol 2 puff 10/25/24 13:50 Albuterol Sulfate (*Sp) Aerosol 1 Puff INHALATION QID PRN Shortness Of Breath/Wheezing Albuterol/Ipratropium 3 ml 10/25/24 13:51 Ipratropium 0.5 Mg/Albuterol Sulfate 2.5 Mg Ampul.Neb 3 Ml INHALATION Q6HRT PRN Shortness Of Breath Apixaban 5 mg 10/25/24 21:00 10/26/24 08:33 Apixaban 5 Mg Tablet PO 5 mg Q12HR SONIDO Administration Atorvastatin Calcium 40 mg 10/26/24 09:00 10/26/24 08:33 Atorvastatin 40 Mg Tablet PO 40 mg DAILY SONIDO Administration Folic Acid 0.8 mg 10/26/24 09:00 10/26/24 08:33 Folic Acid 0.4 Mg Tablet PO 0.8 mg QAM [facility] Administration Mirtazapine 15 mg 10/25/24 21:00 10/25/24 20:13 Mirtazapine 15 Mg Tablet PO 15 mg HS SONIDO Administration Potassium Chloride 20 meq 10/25/24 17:00 10/26/24 08:33 Potassium Chloride 20 Meq Er Tablet PO 20 meq BID SONIDO Administration Pyridoxine HCl 100 mg 10/26/24 09:00 10/26/24 08:33 Pyridoxine Hcl 50 Mg Tablet PO 100 mg QAM [facility] Administration Umeclidinium/Vilanterol 1 puff 10/26/24 08:00 Umeclidinium/Vilanterol 62.5-25 Mcg Ellipta INHALATION DAILYRT [facility] Radiology Results: ITS Impressions Chest X-Ray 10/25/24 11:23 IMPRESSION: Mild pulmonary vascular congestion, without focal infiltrate or effusion. Labs Labs: Laboratory Results - last 24 hr 10/25/24 10/25/24 10/25/24 11:01 11:18 12:02 WBC 7.5 RBC 5.13 Hgb 16.0 Hct 49.8 MCV 97.1 MCH 31.2 MCHC 32.1 RDW 17.9 H Plt Count 217 MPV 12.1 H Immature Gran % (Auto) 0.3 Neut % (Auto) 71.6 Lymph % (Auto) 19.0 D[place]key % (Auto) 7.9 Eos % (Auto) 0.7 Baso % (Auto) 0.5 Lymph # (Auto) 1.42 [place] # (Auto) 0.6 Eos # (Auto) 0.1 Baso # (Auto) 0.0 Abs Immat Gran (auto) 0.02 Absolute Neuts (auto) 5.4 Absolute Nucleated RBC 0.000 Nucleated RBC % 0.0 PT 24.7 H INR 2.2 APTT 46.4 H Puncture Site Left radial ABG pH 7.431 ABG pCO2 42.4 ABG pO2 56.7 L ABG PO2/FiO2 Ratio 0.71 ABG HCO3 27.6 H ABG O2 Saturation 90.3 L ABG O2 Content 20.0 ABG Base Excess 2.9 A-a Gradient 469.2 Oxyhemoglobin 84.0 L* Carboxyhemoglobin 5.0 H Methemoglobin 0.2 Reduced Hemoglobin 10.8 H Total Hemoglobin 17.0 O2 Delivery Device Non-rebreather mask O2 Liters/Min 10.0 FiO2 80 Sodium 136 L Potassium 4.3 Chloride 99 Carbon Dioxide 30 Anion Gap 7 BUN 22 H Creatinine 1.00 Estim Creat Clear Calc 60 Estimated GFR > 60 Glucose 97 Calcium 8.3 L Total Bilirubin 2.0 H AST 28 ALT 20 Alkaline Phosphatase 90 NT-Pro-B Natriuret Pep 6940 H Total Protein 7.0 Albumin 3.3 L Urine Color Urine Appearance Urine pH Ur Specific [place] Urine Protein Urine Glucose (UA) Urine Ketones Ur Blood (Man) Urine Nitrate Urine Bilirubin Urine Urobilinogen Leukocyte Esterase Rfl Influenza A (RT-PCR) Negative Influenza B (RT-PCR) Negative RSV (RT-PCR) Negative SARS-CoV-2 RNA (RT-PCR) Negative 10/25/24 13:30 WBC RBC Hgb Hct MCV MCH MCHC RDW Plt Count MPV Immature Gran % (Auto) Neut % (Auto) Lymph % (Auto) [place] % (Auto) Eos % (Auto) Baso % (Auto) Lymph # (Auto) [place] # (Auto) Eos # (Auto) Baso # (Auto) Abs Immat Gran (auto) Absolute Neuts (auto) Absolute Nucleated RBC Nucleated RBC % PT INR APTT Puncture Site ABG pH ABG pCO2 ABG pO2 ABG PO2/FiO2 Ratio ABG HCO3 ABG O2 Saturation ABG O2 Content ABG Base Excess A-a Gradient Oxyhemoglobin Carboxyhemoglobin Methemoglobin Reduced Hemoglobin Total Hemoglobin O2 Delivery Device O2 Liters/Min FiO2 Sodium Potassium Chloride Carbon Dioxide Anion Gap BUN Creatinine Estim Creat Clear Calc Estimated GFR Glucose Calcium Total Bilirubin AST ALT Alkaline Phosphatase NT-Pro-B Natriuret Pep Total Protein Albumin Urine Color Yellow Urine Appearance Clear Urine pH 5.5 Ur Specific [place] 1.011 Urine Protein Negative Urine Glucose (UA) Negative Urine Ketones Negative Ur Blood (Man) Negative Urine Nitrate Negative Urine Bilirubin Negative Urine Urobilinogen 0.2 Leukocyte Esterase Rfl Negative Influenza A (RT-PCR) Influenza B (RT-PCR) RSV (RT-PCR) SARS-CoV-2 RNA (RT-PCR)
[2024-10-26] MEDS: BUMETANIDE INJ 1 MG/4 ML VIAL IV PUSH ×2 (09:42→16:22)
[2024-10-26 09:44] LABS: Basophils Percent Auto 0.5 % (0.2-1.2); Eosinophils Absolute Auto 0.1 K/mm3 (0-0.3); Hematocrit 46.6 % (42.0-52.0); Hemoglobin 14.6 g/dL (14.0-18.0); Immature Granulocyte Absolute 0.02 K/mm3 (0.00-0.031); Immature Granulocyte Percent A 0.3 % (0-0.5); Lymphocytes Percent Auto 18.1 % (18.3-44.2); Mean Corpuscular HGB Conc 31.3 g/dl (32-36); Mean Corpuscular Hemoglobin 30.8 pg (26-34); Mean Corpuscular Volume 98.3 fl (80-100); Mean Platelet Volume 11.2 fl (7.4-10.4); Monocytes Absolute Auto 0.4 K/mm3 (0.1-0.6); Monocytes Percent Auto 6.5 % (2.6-8.5); Neutrophils Absolute Auto 4.8 K/mm3 (1.3-6.7); Neutrophils Percent Auto 72.6 % (45.5-73.1); Platelet Count Result 157 k/mm3 (150-375); Red Blood Count 4.74 M/mm3 (4.6-6.20); Red Cell Distribution Width 16.9 % (11.5-14.5); White Blood Count 6.6 K/mm3 (4.5-10.0)
[2024-10-26] MEDS: UMECLIDINIUM/VILANTEROL 62.5-25 MCG ELLIPTA 1 PUFF INHALATION (09:54)
[2024-10-26 10:13] LABS: Alanine Aminotransferase 17 U/L (6-50); Albumin Level 4.4 g/dL (3.5-5.1); Alkaline Phosphatase 62 U/L (38-126); Anion Gap 12 mmol/L (4-12); Aspartate Amino Transferase 23 U/L (17-59); Bilirubin,Total 3.1 mg/dL (0.2-1.3); Blood Urea Nitrogen 25 mg/dL (9-20); Calcium 8.8 mg/dL (8.4-10.2); Carbon Dioxide 29 mmol/L (22-30); Chloride 96 mmol/L (98-107); Estimated CRCL calculation 48 ml/min; Estimated Glomerular Filt Rate > 60; Glucose 152 mg/dL (65-110); Potassium 5.1 mmol/L (3.4-5.0); Sodium 137 mmol/L (137-145)
[2024-10-27] VITALS (43 sets, daily range): BP systolic 84–134; BP diastolic 50–94; PULSE 66–155; RESP 10–27; TEMP 36.5–37.4; O2SAT 85–97
[2024-10-27 05:16] LABS: Basophils Percent Auto 0.4 % (0.2-1.2); Eosinophils Absolute Auto 0.2 K/mm3 (0-0.3); Eosinophils Percent Auto 1.8 % (0-4.4); Hemoglobin 14.4 g/dL (14.0-18.0); Immature Granulocyte Absolute 0.02 K/mm3 (0.00-0.031); Immature Granulocyte Percent A 0.2 % (0-0.5); Lymphocytes Absolute Auto 1.86 K/mm3 (0.9-3.2); Lymphocytes Percent Auto 22.1 % (18.3-44.2); Mean Corpuscular HGB Conc 31.3 g/dl (32-36); Mean Corpuscular Volume 98.9 fl (80-100); Mean Platelet Volume 11.1 fl (7.4-10.4); Monocytes Percent Auto 11.3 % (2.6-8.5); Neutrophils Absolute Auto 5.4 K/mm3 (1.3-6.7); Neutrophils Percent Auto 64.2 % (45.5-73.1); Platelet Count Result 156 k/mm3 (150-375); Red Blood Count 4.65 M/mm3 (4.6-6.20); Red Cell Distribution Width 17.1 % (11.5-14.5); White Blood Count 8.4 K/mm3 (4.5-10.0)
[2024-10-27 05:28] LABS: Alanine Aminotransferase 16 U/L (6-50); Alkaline Phosphatase 68 U/L (38-126); Anion Gap 8 mmol/L (4-12); Aspartate Amino Transferase 22 U/L (17-59); Bilirubin,Total 2.8 mg/dL (0.2-1.3); Blood Urea Nitrogen 29 mg/dL (9-20); Calcium 8.6 mg/dL (8.4-10.2); Carbon Dioxide 32 mmol/L (22-30); Chloride 96 mmol/L (98-107); Estimated CRCL calculation 47 ml/min; Estimated Glomerular Filt Rate 59; Glucose 91 mg/dL (65-110); Magnesium 2.3 mg/dL (1.6-2.3); Potassium 5.2 mmol/L (3.4-5.0); Sodium 136 mmol/L (137-145)
[2024-10-27] MEDS: BUMETANIDE INJ 1 MG/4 ML VIAL IV PUSH (10:05)
--- NOTE | 2024-10-27 10:07 | PM.CNCAR ---
Assessment and Plan Assessment and plan (1) CHF (congestive heart failure): Qualifiers: Heart failure type: diastolic Heart failure chronicity: acute on chronic Qualified Code(s): I50.33 - Acute on chronic diastolic (congestive) heart failure Code(s): I50.9 - Heart failure, unspecified Status: Acute Plan 69-year-old man with worsening shortness of breath. At baseline he has significant COPD and evidence of chronic right heart failure. What is new is that he has left ventricular systolic dysfunction that was not noted echocardiographically 1 year ago. Unfortunately he continues to smoke. Systemic anticoagulation is very important as is obvious and is being appropriately continued. I would recommend advancing his Bumex dosage to 2 mg q.12 hours for now and would like to try starting Entresto for his LV systolic dysfunction. Will follow with you during this hospitalization and afterward our office. Timoteo Winchester MD [facility] History of Present Illness History of Present Illness Consult date/time: 10/27/24 10:07 Reason For Visit: Hypoxia/Pulmonary Edema Narrative: This is a 69-year-old man on known to me I am seeing him at the request of the hospitalist today because of evidence of pulmonary edema on arrival. The patient is a poor historian regarding his medical problems he was brought to the hospital a couple of days ago according to the chart because of weakness and dyspnea. At this time he can not remember why he was brought to the hospital. He says that he feels fairly comfortable this morning and offers no complaints although he is on a BiPAP device in room 207. He has a history of previous CVA and was seen by our service in consultation in August of 2023 to determine if there was a cardioembolic source for his CVA. He apparently was found to have pulmonary embolism and was started on anticoagulation. His cardiac evaluation did not show any structural heart disease that would explained a cardioembolic event echo/bubble study was negative and following discharge in event monitor demonstrated no evidence of atrial fibrillation. He is cared for at home with his family and was apparently brought into the hospital because of dyspnea. His chest x-ray on arrival demonstrated evidence of some pulmonary edema. He is receiving Bumex intravenously at the same dosage she takes oral Bumex at home. The nursing staff tell me this morning that his oxygenation is still poor on room air and requires a BiPAP device at this point. His chest x-ray this morning is appears to still show evidence of some pulmonary edema along with his significant chronic lung disease. He is a long-standing smoker with evidence of chronic COPD and I believe he requires oxygen supplementation at home at baseline. Of note is that he had an echocardiogram done during this hospitalization which appears to show a decline in left ventricular systolic function his ejection fraction is 35-40% where by report was normal in August of 2023. He denies any symptoms of chest pain. He does have chronic lower extremity edema which she does not think is any worse than his baseline. The patient has evidence of significant pulmonary hypertension and right heart failure on echocardiogram both now as well as last year. This was attributed to his chronic lung disease as well as history of PE. He is anticoagulated with apixaban and in this setting is being seen in consultation. Review of Systems Review of Systems: ROS unobtainable: Yes unobtainable due to mental status Constitutional: Comments: Do not believe the patient is a reliable historian for review of systems [facility] Past Medical History Medical History (Updated 10/25/24 @ 13:50 by Milena Espinoza APRN) Secondary polycythemia Tobacco abuse Chronic back pain pain pump insertion Cervical vertebral fusion Left carpal tunnel syndrome Peripheral neuropathy CVA (cerebral vascular accident) Colon ulcer Colonic mass Positive colorectal cancer screening using Cologuard test Chronic narcotic use HTN (hypertension) Surgical History Surgical History S/P cervical spinal fusion Family History Family History Mother Father Social History Social History Smoking packs per day: 0.5 Smoking cigarettes per day: 10.0 Years smoked: 50 Smoking pack-years: 25.00 Smoking status: Current every day smoker Tobacco type: cigarettes Second hand tobacco smoke exposure: Yes Additional smoking assessment comments: pt stated he started smoking at the age of 4 Alcohol intake: never Substance use: never Substance use type: does not use Do You Feel Safe in your Home?: Yes Lack of Transportation: YES Lack of Food: Never True Current Housing: I Have Housing Concerned About Future Housing: No Difficulty Paying Gas/Electric Bills: No Difficulty Paying for Meds: No Currently Unemployed: No Education: Bachelor's Degree Difficulty w/ Childcare or Family Care: No Living arrangements: with family Spiritual care concerns: No Meds Home Medications and Allergies Home Medications ?Medication ?Instructions ?Recorded ?Confirmed ?Type apixaban 5 mg tablet (Eliquis) 5 mg PO Q12HR #60 tabs 09/18/23 10/25/24 Rx mirtazapine 15 mg tablet 15 mg PO HS #30 tabs 09/18/23 10/25/24 Rx oxycodone 10 mg tablet 10 mg PO TID PRN Pain #12 tabs 09/18/23 10/25/24 Rx potassium chloride 20 mEq 20 meq PO BID 01/09/24 10/25/24 History tablet,extended release mecobalamin (vitamin B12) 500 mcg 500 mcg PO EVERY OTHER DAY 04/24/24 10/25/24 History chewable tablet umeclidinium 62.5 mcg-vilanterol See Rx Instructions .Route 07/23/24 10/25/24 Rx 25 mcg/actuation powdr for .COMPLEX #60 ea inhalation (Anoro Ellipta) folic acid 800 mcg tablet 0.8 mg PO DAILY 08/06/24 10/25/24 History pyridoxine (vitamin B6) 100 mg 100 mg PO DAILY 08/06/24 10/25/24 History tablet albuterol sulfate 90 mcg/actuation See Rx Instructions .Route 08/21/24 10/25/24 Rx aerosol inhaler .COMPLEX #8.5 grams atorvastatin 40 mg tablet 40 mg PO HS 10/25/24 10/25/24 History bumetanide 1 mg tablet 1 mg PO Q12H 10/25/24 10/25/24 History triamcinolone acetonide 0.1 % 1 applic topical BID 10/25/24 10/25/24 History topical cream Allergies Allergy/AdvReac Type Severity Reaction Status Date / Time pregabalin Allergy Hallucinati Verified 10/25/24 11:04 ng Vital Signs Vital Signs - 24 hr 10/26/24 11:30 10/26/24 11:44 10/26/24 12:00 Temperature 36.1 C L Pulse Rate 80 88 82 Respiratory Rate 22 H 11 L Blood Pressure 99/66 L Pulse Oximetry 93 92 Oxygen Delivery BiPAP Oxygen Flow Rate Fraction of Inspired Oxygen 60 10/26/24 14:00 10/26/24 14:15 10/26/24 16:00 Temperature Pulse Rate 75 71 76 Respiratory Rate 20 Blood Pressure Pulse Oximetry 93 Oxygen Delivery BiPAP Oxygen Flow Rate Fraction of Inspired Oxygen 10/26/24 16:00 10/26/24 16:00 10/26/24 18:00 Temperature 36.2 C L Pulse Rate 71 82 89 Respiratory Rate 20 15 Blood Pressure 104/58 L Pulse Oximetry 93 94 Oxygen Delivery BiPAP Oxygen Flow Rate Fraction of Inspired Oxygen 60 10/26/24 20:00 10/26/24 20:00 10/26/24 20:06 Temperature 36.2 C L Pulse Rate 80 81 80 Respiratory Rate 14 19 Blood Pressure 88/51 L Pulse Oximetry 91 91 Oxygen Delivery BiPAP Oxygen Flow Rate Fraction of Inspired Oxygen 10/26/24 22:00 10/26/24 22:19 10/26/24 22:22 Temperature Pulse Rate 79 85 76 Respiratory Rate 22 H 20 Blood Pressure Pulse Oximetry 86 L 90 Oxygen Delivery BiPAP BiPAP Oxygen Flow Rate Fraction of Inspired Oxygen 70 10/26/24 22:30 10/26/24 23:48 10/26/24 23:54 Temperature 36.3 C L Pulse Rate 80 81 81 Respiratory Rate 14 24 H 24 H Blood Pressure 94/58 L Pulse Oximetry 91 92 92 Oxygen Delivery BiPAP BiPAP Oxygen Flow Rate Fraction of Inspired Oxygen 70 70 10/27/24 00:00 10/27/24 02:00 10/27/24 02:20 Temperature Pulse Rate 71 70 70 Respiratory Rate 14 Blood Pressure Pulse Oximetry 90 Oxygen Delivery BiPAP Oxygen Flow Rate Fraction of Inspired Oxygen 10/27/24 04:00 10/27/24 04:00 10/27/24 04:49 Temperature 36.5 C Pulse Rate 68 69 66 Respiratory Rate 16 12 Blood Pressure 98/58 L Pulse Oximetry 90 90 Oxygen Delivery BiPAP Oxygen Flow Rate Fraction of Inspired Oxygen 10/27/24 05:15 10/27/24 06:00 10/27/24 08:00 Temperature Pulse Rate 68 69 75 Respiratory Rate 16 10 L Blood Pressure 106/68 Pulse Oximetry 90 97 Oxygen Delivery BiPAP Oxygen Flow Rate Fraction of Inspired Oxygen 70 10/27/24 09:46 Temperature Pulse Rate 94 Respiratory Rate 22 H Blood Pressure Pulse Oximetry 91 Oxygen Delivery High Flow Therapy with Na Oxygen Flow Rate 60 Fraction of Inspired Oxygen Exam Const: General: comfortable Other: Elderly chronically ill-appearing man appearing older than his stated age wearing a BiPAP mask appears to be responsive and cooperative however and in good spirits HENMT: Mouth: Yes moist mucous membranes Eyes: Sclera: sclerae normal Neck: Neck: supple Resp: Effort & Inspection: normal respiratory effort Other: Patient has scattered rhonchi in both lung nix Cardio: Rate: regular rate Rhythm: regular rhythm Other: For cardiac auscultation is difficult with airway noise GI: GI Palp: Yes Soft to palpation Auscultation: normal bowel sounds Skin: General skin exam: normal color Neuro: Other: Alert and oriented and responsive at this time Extrem: Other: Adequate perfusion, patient has chronic venous stasis edema bilaterally Results Labs and Meds 10/27/24 04:24 10/27/24 04:24 Lab results: Cardiac Enzymes 10/26/24 10/27/24 Range/Units 09:38 04:24 AST 23 22 (17-59) U/L CBC 10/27/24 Range/Units 04:24 WBC 8.4 (4.5-10.0) K/mm3 RBC 4.65 (4.6-6.20) M/mm3 Hgb 14.4 (14.0-18.0) g/dL Hct 46.0 (42.0-52.0) % Plt Count 156 (150-375) k/mm3 Lymph # (Auto) 1.86 (0.9-3.2) K/mm3 Thurston # (Auto) 1.0 H (0.1-0.6) K/mm3 Eos # (Auto) 0.2 (0-0.3) K/mm3 Baso # (Auto) 0.0 (0.0-0.1) K/mm3 Comprehensive Metabolic Panel 10/26/24 10/27/24 Range/Units 09:38 04:24 Sodium 137 136 L (137-145) mmol/L Potassium 5.1 H 5.2 H (3.4-5.0) mmol/L Chloride 96 L 96 L (98-107) mmol/L Carbon Dioxide 29 32 H (22-30) mmol/L BUN 25 H 29 H (9-20) mg/dL Creatinine 1.17 1.21 (0.7-1.3) mg/dL Glucose 152 H 91 (65-110) mg/dL Calcium 8.8 8.6 (8.4-10.2) mg/dL AST 23 22 (17-59) U/L ALT 17 16 (6-50) U/L Alkaline Phosphatase 62 68 (38-126) U/L Total Protein 7.0 7.0 (6.3-8.2) g/dL Albumin 4.4 4.0 (3.5-5.1) g/dL Intake and Output 10/26/24 10/27/24 10/27/24 23:59 07:59 15:59 Intake Total 310 750 Output Total 650 700 Balance -340 50 Intake: IV 100 Albumin Human 25% 25 gm/100 ml 100 100 ml @ 60 mls/hr IVPB Q6HR [facility] Rx#:[id number] Oral 210 750 Output: Urine 650 700 Catheter Urine 0 External/Condom 0 Patient Weight 10/27/24 23:59 Weight 82.8 kg
[2024-10-27] MEDS: ALBUMIN HUMAN 25% 25 GM/100 ML 200 ML IVPB ×2 (13:10→21:05)
[2024-10-27 13:48] LABS: Alveolar/Arterial O2 Gradient 594.3 mmHg; Base Excess ABG 5.4 mEq/l (+/-2.0); Fractional Inspired Oxygen 100 %; HCO3 ABG 32.1 mEq/l (22.0-26.0); Oxygen Content ABG 19.3 %vol (16.0-22.0); Oxygen Saturation ABG 91.8 % (95.0-100.0); Oxyhemoglobin 90.3 % THb (90.0-100.0); PCO2 ABG 54.7 mmHg (35.0-45.0); PO2 FiO2 Ratio Arterial Blood 0.64 %; Total Hemoglobin 15.2 g/dL (12.0-18.0); pH ABG 7.386 (7.350-7.450)
[2024-10-27 13:52] LABS: Device BIPAP; Expiratory Pressure 6 cmH2O; Inspiratory Pressure 12 cmH2O; Modified Allen's Test Pass; Site Drawn LEFT RADIAL
[2024-10-27] MEDS: IPRATROPIUM 0.5 MG/ALBUTEROL SULFATE 2.5 MG AMPUL.NEB 3 ML INHALATION ×2 (13:59→20:05)
--- NOTE | 2024-10-27 13:59 | P.PNIM_ITS ---
Progress Note: A&P Assessment and Plan (1) Acute hypoxic respiratory failure: Code(s): J96.01 - Acute respiratory failure with hypoxia Status: Acute (2) CHF (congestive heart failure): Qualifiers: Heart failure type: diastolic Heart failure chronicity: acute on chronic Qualified Code(s): I50.33 - Acute on chronic diastolic (congestive) heart failure Code(s): I50.9 - Heart failure, unspecified Status: Acute (3) HTN (hypertension): Qualifiers: Hypertension type: primary hypertension Qualified Code(s): I10 - Essential (primary) hypertension Code(s): I10 - Essential (primary) hypertension Status: Chronic Plan This Is a 69-year-old male who presents to the ED with worsening shortness of breath. Uses oxygen at home 3 L by nasal cannula. Worsening shortness of breath over the past 10 days. History of CHF and COPD and continues to smoke. Associated fatigue. Also noted bilateral lower extremity edema for the past year worsened over the past 2 months. Patient diuretic was changed recently to Bumex from torsemide. On ED arrival patient was saturating in mid 80s on 4 L oxygen via nasal cannula. Patient was placed on BiPAP. Patient was afebrile. Laboratory studies showed normal WBC 7.5 hemoglobin of 16 platelet of 217. Came panel was unremarkable. INR was 2.2 BNP elevated at 6940. Influenza RSV COVID swab was negative. Urinalysis negative for infection. ABG showed 7.43/42/56/27. Chest x-ray showed mild pulmonary vascular congestion without focal infiltrate or effusion. Acute on chronic congestive heart failure- most recent echo (08/2023): D shaped septum in systole/diastole consistent with are the pressure and/or volume overload, systolic function normal with estimated EF of 60 65%, grade 1 diastolic dysfunction, RV chamber severely enlarged, RV systolic function modera te to severely reduced (finding suggestive of Matos sign, mild pulmonary hypertension. See full report for details. Reordered echo WHICH SHOWED LOWERED EF TO 35-40% grade 1 diastolic dysfunction right ventricular volume and pressure overload pulmonary hypertension 68 mm Hg. Cardiology consulted BP soft received albumin. Continue with Bumex IV. Will schedule IV albumin. Will also start broad-spectrum antibiotics to cover for possible pneumonia. 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 SHORT PERIODS ON AIRVO NOTED. STILL DESATURATES SIGNIFICANTLY TO BE OFF BIPAP. Review of Systems Review of Systems: All systems reviewed & are unremarkable except as noted in HPI and below Exam Narrative: APPEARANCE: Ill-appearing not in acute distress HEAD: normocephalic, atraumatic. EYES: PERRLA/EOMI, conjunctivae clear. NECK: Supple. No adenopathy, no masses. RESPIRATORY: Congestive lung sounds bilaterally no respiratory distress on BiPAP CARDIOVASCULAR: Regular rate and rhythm without murmurs rubs or gallops. ABDOMINAL: Soft, nontender, nondistended, normal bowel sounds MUSCULOSKELETAL: Lower extremity edema bilaterally with changes of stasis dermatitis NEURO: Alert. Cranial nerves II through XII intact. SKIN: Warm, dry. Normal Color Objective Data Vital Signs Vital Signs: Vital Signs - 24 hr 10/26/24 14:00 10/26/24 14:15 10/26/24 16:00 Temperature Pulse Rate 75 71 76 Respiratory Rate 20 Blood Pressure Pulse Oximetry 93 Oxygen Delivery BiPAP Oxygen Flow Rate Fraction of Inspired Oxygen 10/26/24 16:00 10/26/24 16:00 10/26/24 18:00 Temperature 97.2 F L Pulse Rate 71 82 89 Respiratory Rate 20 15 Blood Pressure 104/58 L Pulse Oximetry 93 94 Oxygen Delivery BiPAP Oxygen Flow Rate Fraction of Inspired Oxygen 60 10/26/24 20:00 10/26/24 20:00 10/26/24 20:06 Temperature 97.2 F L Pulse Rate 80 81 80 Respiratory Rate 14 19 Blood Pressure 88/51 L Pulse Oximetry 91 91 Oxygen Delivery BiPAP Oxygen Flow Rate Fraction of Inspired Oxygen 10/26/24 22:00 10/26/24 22:19 10/26/24 22:22 Temperature Pulse Rate 79 85 76 Respiratory Rate 22 H 20 Blood Pressure Pulse Oximetry 86 L 90 Oxygen Delivery BiPAP BiPAP Oxygen Flow Rate Fraction of Inspired Oxygen 70 10/26/24 22:30 10/26/24 23:48 10/26/24 23:54 Temperature 97.4 F L Pulse Rate 80 81 81 Respiratory Rate 14 24 H 24 H Blood Pressure 94/58 L Pulse Oximetry 91 92 92 Oxygen Delivery BiPAP BiPAP Oxygen Flow Rate Fraction of Inspired Oxygen 70 70 10/27/24 00:00 10/27/24 02:00 10/27/24 02:20 Temperature Pulse Rate 71 70 70 Respiratory Rate 14 Blood Pressure Pulse Oximetry 90 Oxygen Delivery BiPAP Oxygen Flow Rate Fraction of Inspired Oxygen 10/27/24 04:00 10/27/24 04:00 10/27/24 04:49 Temperature 97.7 F Pulse Rate 68 69 66 Respiratory Rate 16 12 Blood Pressure 98/58 L Pulse Oximetry 90 90 Oxygen Delivery BiPAP Oxygen Flow Rate Fraction of Inspired Oxygen 10/27/24 05:15 10/27/24 06:00 10/27/24 08:00 Temperature Pulse Rate 68 69 75 Respiratory Rate 16 10 L Blood Pressure 106/68 Pulse Oximetry 90 97 Oxygen Delivery BiPAP Oxygen Flow Rate Fraction of Inspired Oxygen 70 10/27/24 08:00 10/27/24 08:00 10/27/24 09:46 Temperature Pulse Rate 94 94 94 Respiratory Rate 22 H 22 H Blood Pressure Pulse Oximetry 91 91 Oxygen Delivery High Flow Therapy with Na High Flow Therapy with Na Oxygen Flow Rate 60 60 Fraction of Inspired Oxygen 100 10/27/24 10:00 10/27/24 11:39 10/27/24 11:39 Temperature Pulse Rate 97 97 97 Respiratory Rate 22 H Blood Pressure Pulse Oximetry 91 Oxygen Delivery High Flow Therapy with Na Oxygen Flow Rate 60 Fraction of Inspired Oxygen 100 10/27/24 12:00 10/27/24 12:53 Temperature Pulse Rate 76 Respiratory Rate 17 Blood Pressure 87/60 L 92/60 L Pulse Oximetry 95 92 Oxygen Delivery Oxygen Flow Rate Fraction of Inspired Oxygen Intake/Output Intake/Output: Intake & Output 10/24/24 10/25/24 10/26/24 10/27/24 23:59 23:59 23:59 23:59 Intake Total 200 750 750 Output Total 850 700 Balance 200 -100 50 Meds/Results Medications: Active Medications Generic Name Dose Route Start Last Admin Trade Name Freq PRN Reason Stop Dose Admin Albuterol 2 puff 10/25/24 13:50 Albuterol Sulfate (*Sp) Aerosol 1 Puff INHALATION QID PRN Shortness Of Breath/Wheezing Albuterol/Ipratropium 3 ml 10/27/24 14:00 10/27/24 13:59 Ipratropium 0.5 Mg/Albuterol Sulfate 2.5 Mg Ampul.Neb 3 Ml INHALATION 3 ml Q6HRT SONIDO Administration Apixaban 5 mg 10/25/24 21:00 10/27/24 10:04 Apixaban 5 Mg Tablet PO Not Given Q12HR [facility] Atorvastatin Calcium 40 mg 10/26/24 09:00 10/27/24 10:01 Atorvastatin 40 Mg Tablet PO Not Given DAILY [facility] Bumetanide 2 mg 10/27/24 17:00 Bumetanide Inj 1 Mg/4 Ml Vial IV PUSH BID [facility] Enoxaparin Sodium 80 mg 10/27/24 21:00 Enoxaparin 80 Mg/0.8 Ml Syringe SUB-Q Q12HR [facility] Folic Acid 0.8 mg 10/26/24 09:00 10/27/24 10:01 Folic Acid 0.4 Mg Tablet PO Not Given QAM [facility] Albumin Human 200 mls @ 60 mls/hr 10/27/24 12:56 10/27/24 13:10 Albutein IVPB 10/27/24 16:15 60 mls/hr ONCE ONE Administration Albumin Human 200 mls @ 60 mls/hr 10/27/24 14:00 Albutein IVPB Q8HR SONID[facility] Mirtazapine 15 mg 10/25/24 21:00 10/25/24 20:13 Mirtazapine 15 Mg Tablet PO 15 mg HS [facility] Administration Potassium Chloride 20 meq 10/25/24 17:00 10/27/24 10:02 Potassium Chloride 20 Meq Er Tablet PO Not Given BID [facility] Pyridoxine HCl 100 mg 10/26/24 09:00 10/27/24 10:02 Pyridoxine Hcl 50 Mg Tablet PO Not Given QAM [facility] Sacubitril/Valsartan 1 tab 10/27/24 21:00 Sacubitril/Valsartan 24-26 Mg Tablet PO Q12HR [facility] Umeclidinium/Vilanterol 1 puff 10/26/24 08:00 10/27/24 09:45 Umeclidinium/Vilanterol 62.5-25 Mcg Ellipta INHALATION Not Given DAILYRT [facility] Radiology Results: ITS Impressions Chest X-Ray 10/27/24 13:20 IMPRESSION: 1. Stable diffuse lung disease, consistent with pulmonary edema versus pneumonia superimposed on emphysema. 2. Stable small right pleural effusion. 3. Cardiomegaly. Labs Labs: Laboratory Results - last 24 hr 10/27/24 10/27/24 04:24 13:41 WBC 8.4 RBC 4.65 Hgb 14.4 Hct 46.0 MCV 98.9 MCH 31.0 MCHC 31.3 L RDW 17.1 H Plt Count 156 MPV 11.1 H Immature Gran % (Auto) 0.2 Neut % (Auto) 64.2 Lymph % (Auto) 22.1 [place]rill % (Auto) 11.3 H Eos % (Auto) 1.8 Baso % (Auto) 0.4 Lymph # (Auto) 1.86 [place]rill # (Auto) 1.0 H Eos # (Auto) 0.2 Baso # (Auto) 0.0 Abs Immat Gran (auto) 0.02 Absolute Neuts (auto) 5.4 Absolute Nucleated RBC 0.000 Nucleated RBC % 0.0 Puncture Site Left radial ABG pH 7.386 ABG pCO2 54.7 H ABG pO2 64.0 L ABG PO2/FiO2 Ratio 0.64 ABG HCO3 32.1 H ABG O2 Saturation 91.8 L ABG O2 Content 19.3 ABG Base Excess 5.4 A-a Gradient 594.3 Oxyhemoglobin 90.3 Total Hemoglobin 15.2 O2 Delivery Device Bipap O2 Liters/Min Not Reportable FiO2 100 Expiratory Pressure 6 Inspiratory Pressure 12 Sodium 136 L Potassium 5.2 H Chloride 96 L Carbon Dioxide 32 H Anion Gap 8 BUN 29 H Creatinine 1.21 Estim Creat Clear Calc 47 Estimated GFR 59 Glucose 91 Calcium 8.6 Magnesium 2.3 Total Bilirubin 2.8 H AST 22 ALT 16 Alkaline Phosphatase 68 Total Protein 7.0 Albumin 4.0
[2024-10-27] MEDS: CEFEPIME 2 GM/NS 50 ML 2 GM/50 ML BAG IVPB (16:46)
[2024-10-27] MEDS: AZITHROMYCIN 500 MG/NS 250 ML 500 MG/250 ML BAG 250 MG IVPB (16:46)
[2024-10-27] MEDS: BUMETANIDE INJ 1 MG/4 ML VIAL 2 MG IV PUSH (16:46)
[2024-10-27] MEDS: methylPREDNISolone SOD SUCC 40 MG VIAL IV PUSH ×2 (18:14→23:54)
--- NOTE | 2024-10-27 18:25 | P.PNCROSS_ITS ---
Event Note Event Note Event Note: patient continued to desaturate despite 100% FIO2 on BIPAP. remained on contino us bipap. discused with family at bedside regarding intubation and mechanical ventilation. patient full code and patient and family agreeable for intubation and mechnical ventilation. discussed with the assistant toddler teacher and will transfer to ICU for further care.
--- NOTE | 2024-10-27 18:25 | PM.EVENT ---
Event Note Event Note Event Note: patient continued to desaturate despite 100% FIO2 on BIPAP. remained on continous bipap. discused with family at bedside regarding intubation and mechanical ventilation. patient full code and patient and family agreeable for intubation and mechnical ventilation. discussed with the torch operator and will transfer to ICU for further care.
[2024-10-27] MEDS: MIDAZOLAM HCL (*CRX) 2 MG/2 ML VIAL IV PUSH (18:47)
[2024-10-27] MEDS: ROCURONIUM BROMIDE 50 MG/5 ML VIAL IV PUSH ×3 (18:47→20:03)
[2024-10-27] MEDS: ETOMIDATE 20 MG/10 ML AMPUL 24 MG IV PUSH (18:47)
[2024-10-27] MEDS: FENTANYL 2,500MCG/NS250ML(*CRX 2,500 MCG/250 ML BAG IV CONT (18:48)
[2024-10-27] MEDS: MIDAZOLAM 100MG/NS 100ML(*CRX) 100 MG/100 ML BAG IV CONT (18:49)
--- NOTE | 2024-10-27 19:00 | WPDPROCEDUR ---
Procedures Intubation Intubation Date: 10/27/24 Intubation Time: 06:35 Consent: Consent was obtained from the patient and his spouse, both agree to intubation as he was desaturating on BiPAP, 100% FiO2, A pre-procedural Time-Out was completed immediately before starting the procedure and confirmed: Patient Identification, Site, Procedure, Patient Position and the Availability of Requisite Equipment: Yes Sedative: etomidate Paralytic: rocuronium Laryngoscope: fiber optic video scope Assist device used: fiber optic device ET tube size: 8 Tube secured depth (cm): 24 Tube secured location: lips Tube placement confirmation: visualized tube passing through cords, equal breath sounds bilaterally, no breath sounds over epigastrium and confirmation by capnometry Patient tolerated procedure: well and no complications Intubation complications: none Additional comments: Patient was intubated with 1 attempt
--- NOTE | 2024-10-27 19:02 | WPDPROCEDUR ---
Procedures Central Line Placement Left IJ: Central Line Date: 10/27/24 Central Line Time: 19:02 Discussed w/ the patient/family/POA,the placement of a central venous catheter, including its clinical necessity/indication & associated potential risks, benifits and alternatives.: Yes The patient/family/POA understand(s) and acknowledge(s) the need to proceed with central venous catheter insertion as an important element of the patient's clinical management.: Yes Consent: I have discussed with the patient and/or surrogate, the non-emergent placement of a central venous catheter, including its clinical necessity/indication and associated potential risks and complications. The patient and/or surrogate understand(s) and acknowledge(s) the need to proceed with central venous catheter insertion as an important element of the patient's clinical management. Time Out Performed: Yes Patient Position: supine Patient placed on monitor/pulse ox: Yes Provider Prep: mask, sterile gown, sterile gloves, Max. sterile barrier precautions, cap and hand hygiene with conventional soap/water or alcohol based hand rub Central line prep: 2% Chlorhexidine scrub Local anesthesia used: lidocaine 1% Amount of anesthesia used (ml): 3 Sterile US Technique with sterile gel/sterile probe covers: Yes Central line lumen inserted: triple Surinamese: 7 Length (cm): 20 Depth of Insertion (cm): 20 Post Procedure: sutured in place, good blood return, all ports aspirated, flushed, capped, transparent dressing, hemostatic product, antimicrobial product, securement product and aseptic technique maintained throughout procedure Post procedure x-ray: tip of catheter in good position and no pneumothorax seen Patient tolerated procedure: well Complications: none
--- NOTE | 2024-10-27 19:03 | P.CONIN_ITS ---
Assessment and Plan Assessment and plan (1) Acute hypoxic respiratory failure: Code(s): J96.01 - Acute respiratory failure with hypoxia Status: Acute Assessment and Plan: Acute hypoxic respiratory failure likely related to CHF, emphysema/COPD, pneumonia -10/27/2024: Patient intubated after failing BiPAP 14/8, 100% FiO2 -currently on CMV mode of ventilation peep of 8, 100% FiO2, will obtain ABG after 1 hour of intubation -post intubation chest x-ray reviewed, central line in place, ET tube was pulled back 2 cm and repeat chest x-ray of showed 80 tube in appropriate position -KUB showed appropriate positioning of the OG tube -sedated with fentanyl and Versed infusion, maintain RASS of 0 to -2 -continue bronchodilators (2) CHF (congestive heart failure): Qualifiers: Heart failure type: diastolic Heart failure chronicity: acute on chronic Qualified Code(s): I50.33 - Acute on chronic diastolic (congestive) heart failure Code(s): I50.9 - Heart failure, unspecified Status: Acute Assessment and Plan: Patient on Entresto, bumetanide, SBP in the 80s will hold for now -on vasopressors -cardiology following the patient (3) Pulmonary edema: Code(s): J81.1 - Chronic pulmonary edema Status: Acute Assessment and Plan: Patient is on mechanical ventilation, , (4) Sepsis: Code(s): A41.9 - Sepsis, unspecified organism Status: Acute Assessment and Plan: Patient dropped his blood pressures post intubation, -likely related to pneumonia, positive-pressure ventilation, worsening infection -patient diuresing well, negative fluid balance -will give albumin for intravascular volume expansion -continue azithromycin, cefepime, vancomycin (10/27) -10/27: Obtain sputum and blood cultures (5) Pneumonia: Code(s): J18.9 - Pneumonia, unspecified organism Status: Acute Assessment and Plan: Antibiotics as above Plan DVT prophylaxis: Therapeutic Lovenox Stress ulcer prophylaxis: Protonix Nutrition: NPO, will start tube feeds in a Code Status: Full code Critical Care Time Spent: 84 minutes Discussed with patient and his spouse separately regarding intubation, patient's condition and plan of care. I answered all the questions. Due to a high probability of clinically significant, life threatening deterioration, the patient required my highest level of preparedness to intervene emergently and I personally spent this critical care time directly and personally managing the patient. This critical care time included obtaining a history; examining the patient; pulse oximetry; ordering and review of studies; arranging urgent treatment with development of a management plan; evaluation of patient's response to treatment; frequent reassessment; and discussions with other providers. It was exclusive of separately billable procedures and treating other patients and teaching time. Please see Assessment and Plan section and the rest of the note for further information on patient assessment and treatment This dictation may have been done utilizing a voice recognition system. Attempts have been made to correct errors. However, there may be uncorrected grammatical, spelling, and recognitions errors present. [facility] Consult Note Consult date: 10/27/24 Reason for consult: Acute hypoxic respiratory failure, CHF exacerbation, COPD exacerbation HPI: Cralo Hernandez is a 69 year old male a past medical history of tobacco abuse, COPD, congestive heart failure, cardiomyopathy, chronic narcotic use, hypertension, chronic back pain, secondary polycythemia, peripheral neuropathy, history of CVA 08/2023, pulmonary embolism (right middle lobe on 09/01/2023 on chronic anticoagulation) on pain pump presented the ED on 10/26/2023 with complains of shortness of breath, bilateral lower extremity edema. He had been having shortness of breath which was worsening for the last 10 days prior to his admission, and he also complained of fatigue, denies any cough, congestion, rhinorrhea, fevers, chills, body aches, nausea, vomiting, chest pain, diarrhea. He also noted that his lower extremities bilaterally had edema for the past year but has worsened since the last 2 months. He had seen a PCP 15 20 days prior to admission were changes diuretics. In the ER patient was negative for influenza, COVID, RSV. Chest X showed mild vascular congestion without focal infiltrate or effusion. EKG initially as she has shown atrial fibrillation. Patient was admitted to the IMU for further management 10/27/2024 evening patient was transferred to the ICU as he was on BiPAP 14/8, 100% FiO2, patient was saturating in the 80s, was tired and exhausted and consented to intubation and placing him on a mechanical ventilation. I also discussed with his who consented for intubation. Patient was successfully intubated infested improved central line in the left IJ was inserted. Patient currently sedated and paralyzed Review of Systems 2 Review of Systems: ROS unobtainable: Yes unobtainable due to endotracheal tube, unobtainable due to medical condition and unobtainable due to mental status PMFSH Past Medical History Medical History (Updated 10/27/24 @ 19:24 by Jenn Alarcon MD) Secondary polycythemia Tobacco abuse Chronic back pain pain pump insertion Cervical vertebral fusion Left carpal tunnel syndrome Peripheral neuropathy CVA (cerebral vascular accident) Colon ulcer Colonic mass Positive colorectal cancer screening using Cologuard test Chronic narcotic use HTN (hypertension) Surgical History Surgical History S/P cervical spinal fusion Family History Family History Mother Father Social History Social History Smoking packs per day: 0.5 Smoking cigarettes per day: 10.0 Years smoked: 50 Smoking pack-years: 25.00 Smoking status: Current every day smoker Tobacco type: cigarettes Second hand tobacco smoke exposure: Yes Additional smoking assessment comments: pt stated he started smoking at the age of 4 Alcohol intake: never Substance use: never Substance use type: does not use Do You Feel Safe in your Home?: Yes Lack of Transportation: YES Lack of Food: Never True Current Housing: I Have Housing Concerned About Future Housing: No Difficulty Paying Gas/Electric Bills: No Difficulty Paying for Meds: No Currently Unemployed: No Education: Bachelor's Degree Difficulty w/ Childcare or Family Care: No Living arrangements: with family Spiritual care concerns: No Meds Home Medications and Allergies Home Medications ?Medication ?Instructions ?Recorded ?Confirmed ?Type apixaban 5 mg tablet (Eliquis) 5 mg PO Q12HR #60 tabs 09/18/23 10/25/24 Rx mirtazapine 15 mg tablet 15 mg PO HS #30 tabs 09/18/23 10/25/24 Rx oxycodone 10 mg tablet 10 mg PO TID PRN Pain #12 tabs 09/18/23 10/25/24 Rx potassium chloride 20 mEq 20 meq PO BID 01/09/24 10/25/24 History tablet,extended release mecobalamin (vitamin B12) 500 mcg 500 mcg PO EVERY OTHER DAY 04/24/24 10/25/24 History chewable tablet umeclidinium 62.5 mcg-vilanterol See Rx Instructions .Route 07/23/24 10/25/24 Rx 25 mcg/actuation powdr for .COMPLEX #60 ea inhalation (Anoro Ellipta) folic acid 800 mcg tablet 0.8 mg PO DAILY 08/06/24 10/25/24 History pyridoxine (vitamin B6) 100 mg 100 mg PO DAILY 08/06/24 10/25/24 History tablet albuterol sulfate 90 mcg/actuation See Rx Instructions .Route 08/21/24 10/25/24 Rx aerosol inhaler .COMPLEX #8.5 grams atorvastatin 40 mg tablet 40 mg PO HS 10/25/24 10/25/24 History bumetanide 1 mg tablet 1 mg PO Q12H 10/25/24 10/25/24 History triamcinolone acetonide 0.1 % 1 applic topical BID 10/25/24 10/25/24 History topical cream Allergies Allergy/AdvReac Type Severity Reaction Status Date / Time pregabalin Allergy Hallucinati Verified 10/25/24 11:04 ng Vital Signs Vital Signs - 24 hr 10/26/24 20:00 10/26/24 20:00 10/26/24 20:06 Temperature 97.2 F L Pulse Rate 80 81 80 Respiratory Rate 14 19 Blood Pressure 88/51 L Pulse Oximetry 91 91 Oxygen Delivery BiPAP Oxygen Flow Rate Fraction of Inspired Oxygen 10/26/24 22:00 10/26/24 22:19 10/26/24 22:22 Temperature Pulse Rate 79 85 76 Respiratory Rate 22 H 20 Blood Pressure Pulse Oximetry 86 L 90 Oxygen Delivery BiPAP BiPAP Oxygen Flow Rate Fraction of Inspired Oxygen 70 10/26/24 22:30 10/26/24 23:48 10/26/24 23:54 Temperature 97.4 F L Pulse Rate 80 81 81 Respiratory Rate 14 24 H 24 H Blood Pressure 94/58 L Pulse Oximetry 91 92 92 Oxygen Delivery BiPAP BiPAP Oxygen Flow Rate Fraction of Inspired Oxygen 70 70 10/27/24 00:00 10/27/24 02:00 10/27/24 02:20 Temperature Pulse Rate 71 70 70 Respiratory Rate 14 Blood Pressure Pulse Oximetry 90 Oxygen Delivery BiPAP Oxygen Flow Rate Fraction of Inspired Oxygen 10/27/24 04:00 10/27/24 04:00 10/27/24 04:49 Temperature 97.7 F Pulse Rate 68 69 66 Respiratory Rate 16 12 Blood Pressure 98/58 L Pulse Oximetry 90 90 Oxygen Delivery BiPAP Oxygen Flow Rate Fraction of Inspired Oxygen 10/27/24 05:15 10/27/24 06:00 10/27/24 08:00 Temperature Pulse Rate 68 69 75 Respiratory Rate 16 10 L Blood Pressure 106/68 Pulse Oximetry 90 97 Oxygen Delivery BiPAP Oxygen Flow Rate Fraction of Inspired Oxygen 70 10/27/24 08:00 10/27/24 08:00 10/27/24 09:46 Temperature Pulse Rate 94 94 94 Respiratory Rate 22 H 22 H Blood Pressure Pulse Oximetry 91 91 Oxygen Delivery High Flow Therapy with Na High Flow Therapy with Na Oxygen Flow Rate 60 60 Fraction of Inspired Oxygen 100 10/27/24 10:00 10/27/24 10:30 10/27/24 11:39 Temperature Pulse Rate 97 81 97 Respiratory Rate 22 H 22 H Blood Pressure Pulse Oximetry 93 91 Oxygen Delivery BiPAP High Flow Therapy with Na Oxygen Flow Rate 60 Fraction of Inspired Oxygen 100 10/27/24 11:39 10/27/24 12:00 10/27/24 12:53 Temperature Pulse Rate 97 76 Respiratory Rate 17 Blood Pressure 87/60 L 92/60 L Pulse Oximetry 95 92 Oxygen Delivery Oxygen Flow Rate Fraction of Inspired Oxygen 10/27/24 13:59 10/27/24 14:01 10/27/24 14:03 Temperature Pulse Rate 76 83 75 Respiratory Rate 22 H 16 Blood Pressure Pulse Oximetry 91 Oxygen Delivery BiPAP Oxygen Flow Rate Fraction of Inspired Oxygen 10/27/24 14:10 10/27/24 16:00 10/27/24 16:00 Temperature 97.9 F Pulse Rate 82 87 87 Respiratory Rate 22 H 18 18 Blood Pressure 90/50 L Pulse Oximetry 91 93 93 Oxygen Delivery BiPAP BiPAP Oxygen Flow Rate Fraction of Inspired Oxygen 100 100 10/27/24 16:00 10/27/24 17:34 10/27/24 18:00 Temperature Pulse Rate 87 89 Respiratory Rate 22 H Blood Pressure Pulse Oximetry 90 Oxygen Delivery BiPAP Oxygen Flow Rate Fraction of Inspired Oxygen 10/27/24 18:48 10/27/24 18:49 Temperature Pulse Rate 81 76 Respiratory Rate 27 H 27 H Blood Pressure Pulse Oximetry Oxygen Delivery Oxygen Flow Rate Fraction of Inspired Oxygen Exam 2 Narrative: General: Intubated, sedated and paralyzed HEENT:? Pupils equal reactive, sclera is clear Neck:? Sub Respiratory:? Coarse breath sounds bilaterally, decreased at bases, rales bilateral lower lobes, adequate air entry, no wheezing Cardiac:? S1-S2 is normal bolus sinus rhythm, rate control Abdomen:? Soft, nontender, nondistended,, hypoactive bowels Extremities:? Bilateral lower extremity edema, palpable pedal pulses Neuro:? Patient intubated, sedated. Prior to intubation patient was awake, alert, was talking and answering questions and following commands appropriately Skin:? Chronic venous stasis change Psych:? Unable to assess at this Results Labs 10/27/24 04:24 10/27/24 04:24 Labs: Short CBC 10/27/24 Range/Units 04:24 WBC 8.4 (4.5-10.0) K/mm3 Hgb 14.4 (14.0-18.0) g/dL Hct 46.0 (42.0-52.0) % Plt Count 156 (150-375) k/mm3 BMP 10/27/24 04:24 Sodium 136 L Potassium 5.2 H Chloride 96 L Carbon Dioxide 32 H BUN 29 H Creatinine 1.21 Glucose 91 Calcium 8.6 Liver Function 10/27/24 Range/Units 04:24 Total Bilirubin 2.8 H (0.2-1.3) mg/dL AST 22 (17-59) U/L ALT 16 (6-50) U/L Alkaline Phosphatase 68 (38-126) U/L Albumin 4.0 (3.5-5.1) g/dL Quality VTE Prophylaxis VTE prophylaxis: pharmacologic ordered Hospitalist [facility] Advance Care Plan I have confirmed that the patient's Advanced Care Plan is present, code status is documented, or surrogate decision maker is listed in patient medical record.: Yes Medication Reconciliation I have utilized all available resources to obtain, update and review the patients current medications (includes all prescriptions, OTC, herbals, cannabis, and nutritional supplements).: Yes
[2024-10-27] MEDS: NOREPINEPHRINE 8 MG/D5W 250 ML 8 MG/250 ML BAG 9.38 MG IV CONT (19:07)
[2024-10-27 19:27] LABS: Anion Gap 11 mmol/L (4-12); Blood Urea Nitrogen 34 mg/dL (9-20); Calcium 8.9 mg/dL (8.4-10.2); Carbon Dioxide 29 mmol/L (22-30); Chloride 95 mmol/L (98-107); Estimated CRCL calculation 50 ml/min; Estimated Glomerular Filt Rate > 60; Glucose 113 mg/dL (65-110); Potassium 4.8 mmol/L (3.4-5.0); Sodium 135 mmol/L (137-145)
[2024-10-27 19:29] LABS: INR 2.3; Prothrombin Time 25.3 Seconds (11.1-14.7)
[2024-10-27 19:30] LABS: Partial Thromboplastin Time 42.5 Seconds (22.3-36.8)
[2024-10-27] MEDS: ALBUMIN HUMAN 25% 25 GM/100 ML 100 ML IVPB (19:41)
[2024-10-27 20:28] LABS: MRSA (PCR) NOT DETECTED (NOT DETECTE)
[2024-10-27 20:33] LABS: Lactic Acid Reflex 2.6 mmol/L (0.7-2.0)
[2024-10-27 20:48] LABS: Alveolar/Arterial O2 Gradient 601.7 mmHg; Base Excess ABG -2.6 mEq/l (+/-2.0); Fractional Inspired Oxygen 100 %; HCO3 ABG 24.9 mEq/l (22.0-26.0); Oxygen Content ABG 18.5 %vol (16.0-22.0); PCO2 ABG 53.3 mmHg (35.0-45.0); PO2 FiO2 Ratio Arterial Blood 0.58 %; Total Hemoglobin 15.6 g/dL (12.0-18.0)
[2024-10-27] MEDS: PANTOPRAZOLE SODIUM IV 40 MG VIAL IV PUSH (21:04)
[2024-10-27] MEDS: VANCOMYCIN 2,000 MG/NS 500 ML 2,000 MG/500 ML BAG 250 MG IVPB (21:14)
[2024-10-27] MEDS: ENOXAPARIN 80 MG/0.8 ML SYRINGE SUB-Q (21:22)
[2024-10-27] MEDS: MINERAL OIL/WHITE PETROLATUM OINTMENT 1 APPLIC EACH EYE (21:22)
[2024-10-27] MEDS: CENTRAL LINE FLUSH 10 ML IV PUSH (21:23)
[2024-10-27] MEDS: CISATRACURIUM BESYLATE 200 MG in DEXTROSE 5% 80 ML 7.45 ML IV CONT (21:26)
[2024-10-27 23:03] LABS: Oxygen Saturation ABG 86.6 % (95.0-100.0); pH ABG 7.287 (7.350-7.450)
[2024-10-27 23:04] LABS: Arterial Blood Gas Vent Mode CMV; Arterial Blood Gas Ventilator rate 22 /MIN; Device VENTILATOR; Modified Allen's Test Pass; Oxyhemoglobin 84.4 % THb (90.0-100.0); Site Drawn LEFT RADIAL
[2024-10-27 23:05] LABS: Arterial Blood Gas PEEP 8 cmH2O; Arterial Blood Gas Tidal Volume 450 ml
[2024-10-27 23:18] LABS: Alveolar/Arterial O2 Gradient 548.8 mmHg; Base Excess ABG -4.1 mEq/l (+/-2.0); Fractional Inspired Oxygen 100 %; HCO3 ABG 24.5 mEq/l (22.0-26.0); Oxygen Content ABG 20.4 %vol (16.0-22.0); Oxygen Saturation ABG 96.7 % (95.0-100.0); Oxyhemoglobin 95.1 % THb (90.0-100.0); PCO2 ABG 59.8 mmHg (35.0-45.0); PO2 ABG 104.4 mmHg (80.0-100.0); PO2 FiO2 Ratio Arterial Blood 1.04 %; Total Hemoglobin 15.2 g/dL (12.0-18.0)
[2024-10-27 23:20] LABS: Device VENTILATOR; Modified Allen's Test Pass; Site Drawn LEFT RADIAL; pH ABG 7.231 (7.350-7.450)
[2024-10-27 23:21] LABS: Arterial Blood Gas PEEP 10 cmH2O; Arterial Blood Gas Tidal Volume 400 ml; Arterial Blood Gas Vent Mode CMV; Arterial Blood Gas Ventilator rate 26 /MIN
[2024-10-27 23:22] LABS: Reflex Lactic Acid Yes or No Add Lactic
[2024-10-27 23:48] LABS: Lactic Acid 2.7 mmol/L (0.7-2.0)
[2024-10-28] VITALS (46 sets, daily range): BP systolic 80–133; BP diastolic 58–83; PULSE 78–122; RESP 24–26; TEMP 35.8–37.4; O2SAT 91–96
[2024-10-28 00:31] LABS: Glucose Point of Care 126 mg/dl (65-105)
[2024-10-28] MEDS: IPRATROPIUM 0.5 MG/ALBUTEROL SULFATE 2.5 MG AMPUL.NEB 3 ML INHALATION ×3 (01:32→19:37)
--- NOTE | 2024-10-28 01:57 | ADMGEN ---
This patient, Cralo Hernandez, was admitted to Intensive Care Unit-2. Patient/family oriented to hospital policies and general routines including ID bracelet, bed and alarms, visiting hours, pain management, procedures, bathroom and other care routines, personal items, smoking policy, room service/diet, and visiting hours. Information on how to activate the Rapid Response Team has been discussed. Patient/Family are encouraged to report perceived risks to care and to ask questions if they do not understand what they are told or what they should do. Daylight Savings Time For Daylight Savings Time Ending in the Fall - Clocks are moved back. For Daylight Savings Time Beginning in the Spring - Clocks are moved ahead. For [facility], the time of change occurs at 0200 hrs. Time is taken from the server manager. This entry on the patient's chart recognizes the change in time reflected during documentation. Example: 2 entries for vital signs may be charted for 0200 hrs.
[2024-10-28] MEDS: ALBUMIN HUMAN 25% 25 GM/100 ML 200 ML IVPB (03:52)
[2024-10-28] MEDS: CEFEPIME 2 GM/NS 50 ML 2 GM/50 ML BAG IVPB ×2 (05:14→17:22)
[2024-10-28] MEDS: CENTRAL LINE FLUSH 10 ML IV PUSH ×3 (05:15→21:01)
[2024-10-28] MEDS: methylPREDNISolone SOD SUCC 40 MG VIAL IV PUSH ×3 (05:15→21:01)
[2024-10-28 05:18] LABS: Fractional Inspired Oxygen 100 %; HCO3 ABG 24.8 mEq/l (22.0-26.0); Oxygen Content ABG 18.5 %vol (16.0-22.0); PO2 ABG 64.8 mmHg (80.0-100.0); PO2 FiO2 Ratio Arterial Blood 0.65 %; Total Hemoglobin 15.6 g/dL (12.0-18.0)
[2024-10-28 05:20] LABS: PCO2 ABG 73.2 mmHg (35.0-45.0); pH ABG 7.147 (7.350-7.450)
[2024-10-28 05:21] LABS: Device VENTILATOR; Modified Allen's Test Pass; Oxygen Saturation ABG 85.4 % (95.0-100.0); Oxyhemoglobin 84.4 % THb (90.0-100.0); Site Drawn LEFT RADIAL
[2024-10-28 05:22] LABS: Arterial Blood Gas PEEP 10 cmH2O; Arterial Blood Gas Tidal Volume 400 ml; Arterial Blood Gas Vent Mode CMV; Arterial Blood Gas Ventilator rate 26 /MIN
[2024-10-28 05:37] LABS: Basophils Percent Auto 0.2 % (0.2-1.2); Hematocrit 46.2 % (42.0-52.0); Hemoglobin 14.5 g/dL (14.0-18.0); Immature Granulocyte Absolute 0.08 K/mm3 (0.00-0.031); Immature Granulocyte Percent A 0.8 % (0-0.5); Lymphocytes Absolute Auto 0.34 K/mm3 (0.9-3.2); Lymphocytes Percent Auto 3.4 % (18.3-44.2); Mean Corpuscular HGB Conc 31.4 g/dl (32-36); Mean Corpuscular Hemoglobin 31.5 pg (26-34); Mean Corpuscular Volume 100.4 fl (80-100); Mean Platelet Volume 10.8 fl (7.4-10.4); Monocytes Absolute Auto 0.8 K/mm3 (0.1-0.6); Monocytes Percent Auto 7.5 % (2.6-8.5); Neutrophils Absolute Auto 8.8 K/mm3 (1.3-6.7); Neutrophils Percent Auto 88.1 % (45.5-73.1); Nucleated Red Blood Cells Perc 0.4 % (0.0-0.2); Platelet Count Result 148 k/mm3 (150-375)
[2024-10-28 05:48] LABS: Alanine Aminotransferase 146 U/L (6-50); Albumin Level 5.4 g/dL (3.5-5.1); Alkaline Phosphatase 51 U/L (38-126); Anion Gap 18 mmol/L (4-12); Aspartate Amino Transferase 355 U/L (17-59); Blood Urea Nitrogen 34 mg/dL (9-20); Calcium 9.2 mg/dL (8.4-10.2); Carbon Dioxide 24 mmol/L (22-30); Chloride 94 mmol/L (98-107); Estimated CRCL calculation 44 ml/min; Estimated Glomerular Filt Rate 45; Glucose 132 mg/dL (65-110); Magnesium 2.2 mg/dL (1.6-2.3); Phosphorus 6.4 mg/dL (2.5-4.5); Potassium 5.5 mmol/L (3.4-5.0); Sodium 136 mmol/L (137-145)
[2024-10-28 05:49] LABS: Lactic Acid Reflex 4.1 mmol/L (0.7-2.0)
[2024-10-28 05:58] LABS: INR 3.8; Prothrombin Time 37.6 Seconds (11.1-14.7)
[2024-10-28 05:59] LABS: Partial Thromboplastin Time 57.4 Seconds (22.3-36.8)
[2024-10-28] MEDS: INSULIN HUMAN REGULAR (*BKC) 100 UNITS/ML 10 UNITS IV PUSH (07:25)
[2024-10-28] MEDS: SODIUM CHLORIDE 0.9% IV 1,000 ML 999 ML IV CONT (07:25)
[2024-10-28] MEDS: DEXTROSE 50% 25 GM/50 ML SYRINGE IV PUSH (07:25)
[2024-10-28] MEDS: SODIUM BICARBONATE 8.4% 50 MEQ/50 ML SYRINGE IV PUSH (07:25)
[2024-10-28 07:33] LABS: Glucose Point of Care 141 mg/dl (65-105)
[2024-10-28] MEDS: SODIUM ZIRCONIUM CYCLOSILICATE 10 GM POWD.PACK PO ×2 (07:36→15:15)
[2024-10-28] MEDS: ALBUTEROL SULFATE NEB 2.5 MG/3 ML INH 10 MG INHALATION (07:44)
[2024-10-28] MEDS: CALCIUM GLUC 1,000 MG/NS 50 ML 1,000 MG/50 ML BAG 100 MG IVPB (07:45)
[2024-10-28] MEDS: MINERAL OIL/WHITE PETROLATUM OINTMENT 1 APPLIC EACH EYE ×2 (08:17→20:50)
[2024-10-28] MEDS: ATORVASTATIN 40 MG TABLET PO (08:17)
[2024-10-28] MEDS: ENOXAPARIN 80 MG/0.8 ML SYRINGE SUB-Q ×2 (08:17→20:46)
[2024-10-28] MEDS: PANTOPRAZOLE SODIUM IV 40 MG VIAL IV PUSH (08:17)
[2024-10-28 08:23] LABS: Hepatitis B Surface Antigen Negative (Negative)
[2024-10-28 08:29] LABS: HAV RESULT Negative (Negative); Hepatitis B Core IgM Result Negative (Negative)
--- NOTE | 2024-10-28 08:34 | WPDINTPN ---
Progress Note: A&P Assessment and Plan (1) Acute hypoxic respiratory failure: Code(s): J96.01 - Acute respiratory failure with hypoxia Status: Acute Assessment and Plan: Acute hypoxic respiratory failure likely related to CHF, emphysema/COPD, pneumonia -10/27/2024: Patient intubated after failing BiPAP 14/8, 100% FiO2 -currently on CMV mode of ventilation, peep of 10, 100% FiO2, -ABGs and chest x-ray reviewed, ventilator adjusted -repeat ABGs -continue bronchodilators, will start Pulmicort -sedated with fentanyl and Versed infusion, maintain RASS of 0 to -2 -started on the Nimbex infusion for ventilator synchrony -patient placed in prone position (2) CHF (congestive heart failure): Qualifiers: Heart failure type: diastolic Heart failure chronicity: acute on chronic Qualified Code(s): I50.33 - Acute on chronic diastolic (congestive) heart failure Code(s): I50.9 - Heart failure, unspecified Status: Acute Assessment and Plan: Patient on Entresto, bumetanide, SBP in the 80s will hold for now -on vasopressors -cardiology following the patient 10/25/2024: Echocardiogram Summary 1. Left ventricular chamber dimension is normal. 2. Left ventricular systolic function is moderately reduced, estimated at 35-40%. 3. There is mildly increased left ventricular wall thickness. 4. The left ventricular diastolic function is grade I diastolic dysfunction. 5. Right ventricular chamber dimension is severely enlarged. 6. Right ventricular systolic function is reduced. 7. Flattening of the septum in diastole and systole consistent with right ventricular volume and pressure overload. 8. Right atrial chamber dimension is severely enlarged. 9. There is mild tricuspid valve regurgitation. 10. Pulmonary hypertension, estimated pulmonary arterial systolic pressure is 68 mmHg. 11. Normal inferior vena cava with no collapse upon inspiration consistent with elevated right atrial pressure, 15 mmHg. (3) Pulmonary edema: Code(s): J81.1 - Chronic pulmonary edema Status: Acute Assessment and Plan: Patient is on mechanical ventilation, -peep of 10 -hold diuretics due to patient on pressors (4) Sepsis: Code(s): A41.9 - Sepsis, unspecified organism Status: Acute Assessment and Plan: Patient dropped his blood pressures post intubation, sepsis now with shock -likely related to cardiogenic versus septic shock, pneumonia, positive-pressure ventilation, worsening infection -patient was also over diuresed, negative fluid balance -status post albumin for intravascular volume expansion -continue azithromycin, cefepime, vancomycin (10/27) -10/27: Obtain sputum and blood cultures -elevated lactic acid, will give 1 L of IV fluid bolus -trend lactic acids (5) Pneumonia: Code(s): J18.9 - Pneumonia, unspecified organism Status: Acute Assessment and Plan: Antibiotics as above Plan DVT prophylaxis: Therapeutic Lovenox Stress ulcer prophylaxis: Protonix Nutrition: NPO, patient prone position, will hold tube feeds for now Code Status: Full code Critical Care Time Spent: 39 minutes Discussed with patient's and son and updated them with patient's condition and plan of care. I answered all the questions. Due to a high probability of clinically significant, life threatening deterioration, the patient required my highest level of preparedness to intervene emergently and I personally spent this critical care time directly and personally managing the patient. This critical care time included obtaining a history; examining the patient; pulse oximetry; ordering and review of studies; arranging urgent treatment with development of a management plan; evaluation of patient's response to treatment; frequent reassessment; and discussions with other providers. It was exclusive of separately billable procedures and treating other patients and teaching time. Please see Assessment and Plan section and the rest of the note for further information on patient assessment and treatment This dictation may have been done utilizing a voice recognition system. Attempts have been made to correct errors. However, there may be uncorrected grammatical, spelling, and recognitions errors present. Subjective Date/time seen: 10/28/24 08:34 Interval history: Reason for consult: Acute hypoxic respiratory failure, CHF exacerbation, COPD exacerbation, Shock 10/28: To the ICU, remains intubated on CMV mode of ventilation, peep of 10, 100% FiO2. Patient is in prone position. Sedated with fentanyl, Versed. Nimbex for ventilator synchrony. Afebrile, adequate urine output, worsening renal function, lactic acid is 4.1, potassium 5.5. Remains on Levophed Review of Systems Review of Systems: ROS unobtainable: Yes unobtainable due to endotracheal tube, unobtainable due to medical condition and unobtainable due to mental status Exam Narrative: General: Intubated, sedated and paralyzed. In prone position HEENT:? Pupils equal reactive, sclera is clear Neck:? Sub Respiratory:? Coarse breath sounds bilaterally, decreased at bases, rales bilateral lower lobes, adequate air entry, no wheezing Cardiac:? S1-S2 is normal bolus sinus rhythm, rate control Abdomen:? Soft, nontender, nondistended,, hypoactive bowels Extremities:? Bilateral lower extremity edema, palpable pedal pulses, Neuro:? Patient intubated, sedated. Prior to intubation patient was awake, alert, was talking and answering questions and following commands appropriately Skin:? Chronic venous stasis change, b/l Planter aspects of the feet with scaly skin Psych:? Unable to assess at this Objective Data Vital Signs Vital Signs: Vital Signs - 24 hr 10/27/24 08:00 10/27/24 08:00 10/27/24 08:00 Temperature Pulse Rate 75 94 94 Respiratory Rate 10 L 22 H Blood Pressure 106/68 Pulse Oximetry 97 91 Oxygen Delivery High Flow Therapy with Na Oxygen Flow Rate 60 Fraction of Inspired Oxygen 100 10/27/24 09:46 10/27/24 10:00 10/27/24 10:30 Temperature Pulse Rate 94 97 81 Respiratory Rate 22 H 22 H Blood Pressure Pulse Oximetry 91 93 Oxygen Delivery High Flow Therapy with Na BiPAP Oxygen Flow Rate 60 Fraction of Inspired Oxygen 10/27/24 11:39 10/27/24 11:39 10/27/24 12:00 Temperature Pulse Rate 97 97 76 Respiratory Rate 22 H 17 Blood Pressure 87/60 L Pulse Oximetry 91 95 Oxygen Delivery High Flow Therapy with Na Oxygen Flow Rate 60 Fraction of Inspired Oxygen 100 10/27/24 12:53 10/27/24 13:59 10/27/24 14:01 Temperature Pulse Rate 76 83 Respiratory Rate 22 H Blood Pressure 92/60 L Pulse Oximetry 92 91 Oxygen Delivery BiPAP Oxygen Flow Rate Fraction of Inspired Oxygen 10/27/24 14:03 10/27/24 14:10 10/27/24 16:00 Temperature 97.9 F Pulse Rate 75 82 87 Respiratory Rate 16 22 H 18 Blood Pressure 90/50 L Pulse Oximetry 91 93 Oxygen Delivery BiPAP Oxygen Flow Rate Fraction of Inspired Oxygen 100 10/27/24 16:00 10/27/24 16:00 10/27/24 17:34 Temperature Pulse Rate 87 87 Respiratory Rate 18 22 H Blood Pressure Pulse Oximetry 93 90 Oxygen Delivery BiPAP BiPAP Oxygen Flow Rate Fraction of Inspired Oxygen 100 10/27/24 18:00 10/27/24 18:48 10/27/24 18:49 Temperature Pulse Rate 89 81 76 Respiratory Rate 27 H 27 H Blood Pressure Pulse Oximetry Oxygen Delivery Oxygen Flow Rate Fraction of Inspired Oxygen 10/27/24 19:03 10/27/24 19:07 10/27/24 20:00 Temperature 99.0 F Pulse Rate 88 82 128 H Respiratory Rate 26 H Blood Pressure 84/60 L 134/93 H Pulse Oximetry 90 89 L Oxygen Delivery Mechanical Ventilation Oxygen Flow Rate Fraction of Inspired Oxygen 100 10/27/24 20:00 10/27/24 20:00 10/27/24 20:00 Temperature Pulse Rate 128 H 128 H 128 H Respiratory Rate 26 H 26 H Blood Pressure Pulse Oximetry Oxygen Delivery Oxygen Flow Rate Fraction of Inspired Oxygen 10/27/24 20:00 10/27/24 20:00 10/27/24 20:00 Temperature Pulse Rate 122 H Respiratory Rate Blood Pressure 134/93 H Pulse Oximetry Oxygen Delivery Mechanical Ventilation Oxygen Flow Rate Fraction of Inspired Oxygen 100 100 10/27/24 20:06 10/27/24 20:16 10/27/24 21:00 Temperature Pulse Rate 128 H 128 H 112 H Respiratory Rate 24 H 24 H Blood Pressure 94/73 L Pulse Oximetry Oxygen Delivery Oxygen Flow Rate Fraction of Inspired Oxygen 10/27/24 21:15 10/27/24 21:26 10/27/24 21:30 Temperature Pulse Rate 104 H 91 90 Respiratory Rate 15 12 Blood Pressure 87/69 L 87/69 L Pulse Oximetry 93 Oxygen Delivery Oxygen Flow Rate Fraction of Inspired Oxygen 100 10/27/24 21:30 10/27/24 21:38 10/27/24 22:00 Temperature Pulse Rate 92 88 107 H Respiratory Rate Blood Pressure 86/69 L 117/79 Pulse Oximetry 85 L Oxygen Delivery Mechanical Ventilation Oxygen Flow Rate Fraction of Inspired Oxygen 100 10/27/24 22:00 10/27/24 22:00 10/27/24 22:00 Temperature Pulse Rate 107 H 107 H 107 H Respiratory Rate 26 H Blood Pressure 117/79 Pulse Oximetry Oxygen Delivery Oxygen Flow Rate Fraction of Inspired Oxygen 10/27/24 22:00 10/27/24 22:06 10/27/24 22:15 Temperature Pulse Rate 107 H 110 H 110 H Respiratory Rate 26 H Blood Pressure 114/81 Pulse Oximetry 95 Oxygen Delivery Mechanical Ventilation Oxygen Flow Rate Fraction of Inspired Oxygen 100 10/27/24 22:30 10/27/24 22:45 10/27/24 23:00 Temperature 99.3 F Pulse Rate 119 H 121 H 126 H Respiratory Rate 26 H Blood Pressure 128/94 H 128/94 H 130/94 H Pulse Oximetry 96 Oxygen Delivery Oxygen Flow Rate Fraction of Inspired Oxygen 10/27/24 23:00 10/27/24 23:00 10/27/24 23:15 Temperature Pulse Rate 125 H 125 H 155 H Respiratory Rate 26 H 26 H Blood Pressure 130/94 H 130/94 H 130/90 Pulse Oximetry Oxygen Delivery Oxygen Flow Rate Fraction of Inspired Oxygen 10/27/24 23:15 10/27/24 23:24 10/27/24 23:30 Temperature Pulse Rate 155 H 125 H 125 H Respiratory Rate Blood Pressure 130/90 120/85 Pulse Oximetry 95 Oxygen Delivery Mechanical Ventilation Oxygen Flow Rate Fraction of Inspired Oxygen 100 10/27/24 23:30 10/27/24 23:45 10/28/24 00:00 Temperature Pulse Rate 110 H 124 H 122 H Respiratory Rate 26 H Blood Pressure 114/81 117/81 111/81 Pulse Oximetry Oxygen Delivery Oxygen Flow Rate Fraction of Inspired Oxygen 10/28/24 00:00 10/28/24 00:00 10/28/24 00:00 Temperature 99.4 F Pulse Rate 122 H 122 H Respiratory Rate 26 H 26 H Blood Pressure 111/81 Pulse Oximetry 94 94 Oxygen Delivery Oxygen Flow Rate Fraction of Inspired Oxygen 100 100 10/28/24 00:00 10/28/24 00:00 10/28/24 00:00 Temperature Pulse Rate 121 H 121 H Respiratory Rate 26 H Blood Pressure 111/81 Pulse Oximetry Oxygen Delivery Mechanical Ventilation Oxygen Flow Rate Fraction of Inspired Oxygen 100 10/28/24 00:00 10/28/24 00:00 10/28/24 00:15 Temperature Pulse Rate 121 H 121 H 119 H Respiratory Rate 26 H 26 H Blood Pressure 106/83 Pulse Oximetry Oxygen Delivery Oxygen Flow Rate Fraction of Inspired Oxygen 10/28/24 01:36 10/28/24 01:36 10/28/24 01:46 Temperature Pulse Rate 112 H 112 H 112 H Respiratory Rate 26 H 26 H Blood Pressure Pulse Oximetry 95 Oxygen Delivery Mechanical Ventilation Oxygen Flow Rate Fraction of Inspired Oxygen 100 03/09/25 01:55 10/28/24 01:55 10/28/24 01:55 Temperature 98.9 F Pulse Rate 110 H 110 H 110 H Respiratory Rate 26 H 26 H Blood Pressure 97/68 L Pulse Oximetry 95 95 Oxygen Delivery Oxygen Flow Rate Fraction of Inspired Oxygen 100 10/28/24 01:59 10/28/24 01:59 10/28/24 01:59 Temperature Pulse Rate 110 H 110 H 110 H Respiratory Rate 26 H 26 H Blood Pressure 95/71 L 95/71 L Pulse Oximetry Oxygen Delivery Oxygen Flow Rate Fraction of Inspired Oxygen 10/28/24 01:59 10/28/24 04:00 10/28/24 04:00 Temperature Pulse Rate 110 H 109 H Respiratory Rate 26 H Blood Pressure Pulse Oximetry Oxygen Delivery Mechanical Ventilation Oxygen Flow Rate Fraction of Inspired Oxygen 100 10/28/24 04:00 10/28/24 04:00 10/28/24 04:00 Temperature 98.4 F Pulse Rate 109 H 109 H Respiratory Rate 26 H 26 H Blood Pressure 98/69 L Pulse Oximetry 94 94 Oxygen Delivery Oxygen Flow Rate Fraction of Inspired Oxygen 100 100 10/28/24 04:00 10/28/24 04:00 10/28/24 04:00 Temperature Pulse Rate 110 H 110 H 110 H Respiratory Rate 26 H 26 H Blood Pressure 98/69 L 98/69 L Pulse Oximetry Oxygen Delivery Oxygen Flow Rate Fraction of Inspired Oxygen 10/28/24 04:00 10/28/24 05:26 10/28/24 06:00 Temperature Pulse Rate 110 H 107 H 96 Respiratory Rate 26 H 26 H Blood Pressure Pulse Oximetry 93 95 Oxygen Delivery Mechanical Ventilation Oxygen Flow Rate Fraction of Inspired Oxygen 100 100 10/28/24 06:00 10/28/24 06:00 10/28/24 06:00 Temperature 98.0 F Pulse Rate 96 96 96 Respiratory Rate 26 H 26 H Blood Pressure 92/68 L 92/68 L Pulse Oximetry 95 Oxygen Delivery Oxygen Flow Rate Fraction of Inspired Oxygen 10/28/24 06:00 10/28/24 06:00 10/28/24 06:00 Temperature Pulse Rate 96 96 96 Respiratory Rate 26 H 26 H Blood Pressure 92/68 L Pulse Oximetry Oxygen Delivery Oxygen Flow Rate Fraction of Inspired Oxygen 10/28/24 07:57 Temperature 97.7 F Pulse Rate 86 Respiratory Rate 26 H Blood Pressure 91/66 L Pulse Oximetry 96 Oxygen Delivery Oxygen Flow Rate Fraction of Inspired Oxygen Intake/Output Intake/Output: Intake & Output 10/25/24 10/26/24 10/27/24 10/29/24 23:59 23:59 23:59 00:59 Intake Total 751 966 9444.8 568.9 Output Total 850 2100 300 Balance 200 -100 140.8 268.9 Meds/Results Medications: Active Medications Generic Name Dose Route Start Last Admin Trade Name Freq PRN Reason Stop Dose Admin Albuterol/Ipratropium 3 ml 10/27/24 14:00 10/28/24 07:45 Ipratropium 0.5 Mg/Albuterol Sulfate 2.5 Mg Ampul.Neb 3 Ml INHALATION Not Given Q6HRT SONIDO Atorvastatin Calcium 40 mg 10/26/24 09:00 10/28/24 08:17 Atorvastatin 40 Mg Tablet PO 40 mg DAILY SONIDO Administration Bumetanide 2 mg 10/27/24 17:00 10/27/24 16:46 Bumetanide Inj 1 Mg/4 Ml Vial IV PUSH 2 mg BID SONIDO Administration Enoxaparin Sodium 80 mg 10/27/24 21:00 10/28/24 08:17 Enoxaparin 80 Mg/0.8 Ml Syringe SUB-Q 80 mg Q12HR SONIDO Administration Cefepime HCl 2 gm in 50 mls @ 100 mls/hr 10/27/24 17:00 10/28/24 05:44 Maxipime 2 Gm/Ns 50 Ml IVPB Infused Q12H SONIDO Infusion Azithromycin 500 mg in 250 mls @ 250 mls/hr 10/27/24 15:00 10/27/24 16:46 Zithromax IVPB 250 mls/hr Q24H SONIDO Administration Albumin Human 200 mls @ 60 mls/hr 10/27/24 20:00 10/28/24 07:13 Albutein IVPB Infused Q8H SONIDO Infusion Fentanyl Citrate 2,500 mcg in 250 mls @ 10 mls/hr 10/27/24 18:40 10/28/24 06:00 Fentanyl 2,500 Mcg/Ns 250 Ml IV CONT 100 mcg/hr .Q25H SONIDO 10 mls/hr Titration Protocol 100 MCG/HR Midazolam HCl 100 mg in 100 mls @ 2 mls/hr 10/27/24 18:40 10/28/24 06:00 Versed 100 Mg/Ns 100 Ml IV CONT 3 mg/hr .Q50H SONIDO 3 mls/hr Titration Protocol 2 MG/HR Norepinephrine Bitartrate 8 mg in 250 mls @ 13.125 mls/hr 10/27/24 18:50 10/28/24 06:00 Levophed 8 Mg/D5w 250 Ml IV CONT 0 mcg/min .Q19H3M SONIDO 0 mls/hr Titration Protocol 7 MCG/MIN Cisatracurium Besylate 200 mg/ 100 mls @ 4.968 mls/hr 10/27/24 20:55 10/28/24 06:00 Dextrose IV CONT 2 mcg/kg/min .Q20H8M SONIDO 4.97 mls/hr Titration Protocol 2 MCG/KG/MIN Vancomycin HCl 1,500 mg in 500 mls @ 250 mls/hr 10/28/24 21:00 Vancomycin 1,500 Mg/Ns 500 Ml IVPB Q24H SONIDO Methylprednisolone Sodium Succinate 40 mg 10/27/24 17:00 10/28/24 05:15 Methylprednisolone Sod Succ 40 Mg Vial IV PUSH 40 mg Q8HR SONIDO Administration Multi-Ingred Cream/Lotion/Oil/Oint 1 applic 10/27/24 21:00 10/28/24 08:17 Mineral Oil/White Petrolatum Ointment EACH EYE 1 applic Q12HR SONIDO Administration Pantoprazole Sodium 40 mg 10/27/24 19:55 10/28/24 08:17 Pantoprazole Sodium Iv 40 Mg Vial IV PUSH 40 mg QAM SONIDO Administration Pyridoxine HCl 100 mg 10/26/24 09:00 10/27/24 10:02 Pyridoxine Hcl 50 Mg Tablet PO Not Given QAM SONIDO Sacubitril/Valsartan 1 tab 10/27/24 21:00 10/27/24 21:20 Sacubitril/Valsartan 24-26 Mg Tablet PO Not Given Q12HR SONIDO Sodium Chloride 10 ml 10/27/24 22:00 10/28/24 05:15 Central Line Flush IV PUSH 10 ml Q8HR SONIDO Administration Sodium Chloride 20 ml 10/27/24 19:20 Central Line Flush IV PUSH PRN PRN after blood draws Sodium Zirconium Cyclosilicate 10 gm 10/28/24 14:00 Sodium Zirconium Cyclosilicate 10 Gm Powd.Pack PO 10/28/24 14:01 ONCE ONE Umeclidinium/Vilanterol 1 puff 10/26/24 08:00 10/28/24 08:23 Umeclidinium/Vilanterol 62.5-25 Mcg Ellipta INHALATION Not Given DAILYRT [facility] Radiology Results: ITS Impressions Chest X-Ray 10/28/24 06:35 Impression: Mild bibasilar pulmonary edema with small bilateral pleural effusions. Support tubes, as above. Labs Labs: Laboratory Results - last 24 hr 10/27/24 10/27/24 10/27/24 13:41 19:09 20:19 WBC RBC Hgb Hct MCV MCH MCHC RDW Plt Count MPV Immature Gran % (Auto) Neut % (Auto) Lymph % (Auto) Hendricks % (Auto) Eos % (Auto) Baso % (Auto) Lymph # (Auto) Hendricks # (Auto) Eos # (Auto) Baso # (Auto) Abs Immat Gran (auto) Absolute Neuts (auto) Absolute Nucleated RBC Nucleated RBC % PT 25.3 H INR 2.3 APTT 42.5 H Puncture Site Left radial ABG pH 7.386 ABG pCO2 54.7 H ABG pO2 64.0 L ABG PO2/FiO2 Ratio 0.64 ABG HCO3 32.1 H ABG O2 Saturation 91.8 L ABG O2 Content 19.3 ABG Base Excess 5.4 A-a Gradient 594.3 Oxyhemoglobin 90.3 Total Hemoglobin 15.2 O2 Delivery Device Bipap O2 Liters/Min Not Reportable Minute Volume Vent Rate Vent Mode FiO2 100 Expiratory Pressure 6 Tidal Volume PEEP Inspiratory Pressure 12 Peak Inspir Pressure Pressure Support Sodium 135 L Potassium 4.8 Chloride 95 L Carbon Dioxide 29 Anion Gap 11 BUN 34 H Creatinine 1.09 Estim Creat Clear Calc 50 Estimated GFR > 60 Glucose 113 H POC Capillary Glucose Lactic Acid 2.6 H Calcium 8.9 Phosphorus Magnesium Total Bilirubin AST ALT Alkaline Phosphatase Total Protein Albumin Nasal MRSA (PCR) Not detected Hepatitis A IgM Ab Hep Bs Antigen Hep B Core IgM Ab 10/27/24 10/27/24 10/27/24 20:45 22:30 23:36 WBC RBC Hgb Hct MCV MCH MCHC RDW Plt Count MPV Immature Gran % (Auto) Neut % (Auto) Lymph % (Auto) Hendricks % (Auto) Eos % (Auto) Baso % (Auto) Lymph # (Auto) Hendricks # (Auto) Eos # (Auto) Baso # (Auto) Abs Immat Gran (auto) Absolute Neuts (auto) Absolute Nucleated RBC Nucleated RBC % PT INR APTT Puncture Site Left radial Left radial ABG pH 7.287 L* 7.231 L* ABG pCO2 53.3 H 59.8 H ABG pO2 58.0 L 104.4 H ABG PO2/FiO2 Ratio 0.58 1.04 ABG HCO3 24.9 24.5 ABG O2 Saturation 86.6 L* 96.7 ABG O2 Content 18.5 20.4 ABG Base Excess -2.6 -4.1 A-a Gradient 601.7 548.8 Oxyhemoglobin 84.4 L* 95.1 Total Hemoglobin 15.6 15.2 O2 Delivery Device Ventilator Ventilator O2 Liters/Min Not Reportable Not Reportable Minute Volume Not Reportable Not Reportable Vent Rate 22 26 Vent Mode Cmv Cmv FiO2 100 100 Expiratory Pressure Tidal Volume 450 400 PEEP 8 10 Inspiratory Pressure Peak Inspir Pressure Not Reportable Not Reportable Pressure Support Not Reportable Not Reportable Sodium Potassium Chloride Carbon Dioxide Anion Gap BUN Creatinine Estim Creat Clear Calc Estimated GFR Glucose POC Capillary Glucose Lactic Acid 2.7 H Calcium Phosphorus Magnesium Total Bilirubin AST ALT Alkaline Phosphatase Total Protein Albumin Nasal MRSA (PCR) Hepatitis A IgM Ab Hep Bs Antigen Hep B Core IgM Ab 10/28/24 10/28/24 10/28/24 00:29 05:16 05:32 WBC 10.0 RBC 4.60 Hgb 14.5 Hct 46.2 MCV 100.4 H MCH 31.5 MCHC 31.4 L RDW 17.0 H Plt Count 148 L MPV 10.8 H Immature Gran % (Auto) 0.8 H Neut % (Auto) 88.1 H Lymph % (Auto) 3.4 L Hendricks % (Auto) 7.5 Eos % (Auto) 0.0 Baso % (Auto) 0.2 Lymph # (Auto) 0.34 L Hendricks # (Auto) 0.8 H Eos # (Auto) 0.0 Baso # (Auto) 0.0 Abs Immat Gran (auto) 0.08 H Absolute Neuts (auto) 8.8 H Absolute Nucleated RBC 0.040 H Nucleated RBC % 0.4 H PT 37.6 H D INR 3.8 APTT 57.4 H Puncture Site Left radial ABG pH 7.147 L* ABG pCO2 73.2 H* ABG pO2 64.8 L ABG PO2/FiO2 Ratio 0.65 ABG HCO3 24.8 ABG O2 Saturation 85.4 L* ABG O2 Content 18.5 ABG Base Excess -6.0 A-a Gradient 575.0 Oxyhemoglobin 84.4 L* Total Hemoglobin 15.6 O2 Delivery Device Ventilator O2 Liters/Min Not Reportable Minute Volume Not Reportable Vent Rate 26 Vent Mode Cmv FiO2 100 Expiratory Pressure Tidal Volume 400 PEEP 10 Inspiratory Pressure Peak Inspir Pressure Not Reportable Pressure Support Not Reportable Sodium 136 L Potassium 5.5 H Chloride 94 L Carbon Dioxide 24 Anion Gap 18 H BUN 34 H Creatinine 1.52 H Estim Creat Clear Calc 44 Estimated GFR 45 L Glucose 132 H POC Capillary Glucose 126 H Lactic Acid 4.1 H* Calcium 9.2 Phosphorus 6.4 H Magnesium 2.2 Total Bilirubin 7.0 H AST 355 H ALT 146 H Alkaline Phosphatase 51 Total Protein 8.0 Albumin 5.4 H Nasal MRSA (PCR) Hepatitis A IgM Ab Negative Hep Bs Antigen Negative Hep B Core IgM Ab Negative 10/28/24 07:28 WBC RBC Hgb Hct MCV MCH MCHC RDW Plt Count MPV Immature Gran % (Auto) Neut % (Auto) Lymph % (Auto) Hendricks % (Auto) Eos % (Auto) Baso % (Auto) Lymph # (Auto) Hendricks # (Auto) Eos # (Auto) Baso # (Auto) Abs Immat Gran (auto) Absolute Neuts (auto) Absolute Nucleated RBC Nucleated RBC % PT INR APTT Puncture Site ABG pH ABG pCO2 ABG pO2 ABG PO2/FiO2 Ratio ABG HCO3 ABG O2 Saturation ABG O2 Content ABG Base Excess A-a Gradient Oxyhemoglobin Total Hemoglobin O2 Delivery Device O2 Liters/Min Minute Volume Vent Rate Vent Mode FiO2 Expiratory Pressure Tidal Volume PEEP Inspiratory Pressure Peak Inspir Pressure Pressure Support Sodium Potassium Chloride Carbon Dioxide Anion Gap BUN Creatinine Estim Creat Clear Calc Estimated GFR Glucose POC Capillary Glucose 141 H Lactic Acid Calcium Phosphorus Magnesium Total Bilirubin AST ALT Alkaline Phosphatase Total Protein Albumin Nasal MRSA (PCR) Hepatitis A IgM Ab Hep Bs Antigen Hep B Core IgM Ab Quality VTE Prophylaxis VTE prophylaxis: pharmacologic ordered
[2024-10-28 08:40] LABS: Hepatitis C Virus Antibody Negative (Negative)
[2024-10-28] MEDS: PYRIDOXINE HCL 50 MG TABLET 100 MG PO (08:54)
--- NOTE | 2024-10-28 08:54 | PM.PNCARD ---
Progress Note: A&P Assessment and Plan (1) Cor pulmonale: Code(s): I27.81 - Cor pulmonale (chronic) Status: Acute (2) CHF (congestive heart failure): Qualifiers: Heart failure type: diastolic Heart failure chronicity: acute on chronic Qualified Code(s): I50.33 - Acute on chronic diastolic (congestive) heart failure Code(s): I50.9 - Heart failure, unspecified Status: Acute Plan 69-year-old man with: Acute on chronic respiratory insufficiency with significant underlying lung disease and now with left ventricular systolic dysfunction as well. Patient is now on ventilator support in the ICU. His chest x-ray and physical exam are not impressive for pulmonary congestion at all. The reason for his decompensation at this point is not entirely clear. He does have a history of pulmonary embolism but has been chronically anticoagulated making this very unlikely. Systolic hypotension at this time precludes guideline directed medical therapy for systolic dysfunction Timoteo Winchester MD [facility] Subjective Date/time seen: Date of service: 10/28/24 08:54 Interval history: Follow-up visit in this 69-year-old man with: Respiratory insufficiency with significant hypoxemia requiring admission to the hospital and then requiring transfer to the ICU yesterday for intubation and mechanical ventilator support. Patient has a previous history of atrial fibrillation and pulmonary embolism as well as significant chronic COPD. Echocardiogram during this hospitalization demonstrates chronic findings of RV dysfunction and pulmonary hypertension but also new finding of left ventricular systolic dysfunction. Exam Const: Other: Elderly white male sedated on ventilator in prone position HENMT: Mouth: Yes moist mucous membranes Eyes: Sclera: sclerae normal Neck: Neck: no JVD Resp: Effort & Inspection: normal respiratory effort Auscultation: clear to auscultation bilaterally Other: Breath sounds are remarkably clear throughout both lung nix Cardio: Rate: regular rate Rhythm: regular rhythm GI: GI Palp: Yes Soft to palpation Auscultation: normal bowel sounds Skin: General skin exam: normal color Neuro: Other: Sedated on ventilator Extrem: Other: Chronic lower extremity edema, adequate perfusion Objective Data Vital Signs Vital Signs: Vital Signs - 24 hr 10/27/24 08:00 10/27/24 08:00 10/27/24 08:00 Temperature Pulse Rate 75 94 94 Respiratory Rate 10 L 22 H Blood Pressure 106/68 Pulse Oximetry 97 91 Oxygen Delivery High Flow Therapy with Na Oxygen Flow Rate 60 Fraction of Inspired Oxygen 100 10/27/24 09:46 10/27/24 10:00 10/27/24 10:30 Temperature Pulse Rate 94 97 81 Respiratory Rate 22 H 22 H Blood Pressure Pulse Oximetry 91 93 Oxygen Delivery High Flow Therapy with Na BiPAP Oxygen Flow Rate 60 Fraction of Inspired Oxygen 10/27/24 11:39 10/27/24 11:39 10/27/24 12:00 Temperature Pulse Rate 97 97 76 Respiratory Rate 22 H 17 Blood Pressure 87/60 L Pulse Oximetry 91 95 Oxygen Delivery High Flow Therapy with Na Oxygen Flow Rate 60 Fraction of Inspired Oxygen 100 10/27/24 12:53 10/27/24 13:59 10/27/24 14:01 Temperature Pulse Rate 76 83 Respiratory Rate 22 H Blood Pressure 92/60 L Pulse Oximetry 92 91 Oxygen Delivery BiPAP Oxygen Flow Rate Fraction of Inspired Oxygen 10/27/24 14:03 10/27/24 14:10 10/27/24 16:00 Temperature 36.6 C Pulse Rate 75 82 87 Respiratory Rate 16 22 H 18 Blood Pressure 90/50 L Pulse Oximetry 91 93 Oxygen Delivery BiPAP Oxygen Flow Rate Fraction of Inspired Oxygen 100 10/27/24 16:00 10/27/24 16:00 10/27/24 17:34 Temperature Pulse Rate 87 87 Respiratory Rate 18 22 H Blood Pressure Pulse Oximetry 93 90 Oxygen Delivery BiPAP BiPAP Oxygen Flow Rate Fraction of Inspired Oxygen 100 10/27/24 18:00 10/27/24 18:48 10/27/24 18:49 Temperature Pulse Rate 89 81 76 Respiratory Rate 27 H 27 H Blood Pressure Pulse Oximetry Oxygen Delivery Oxygen Flow Rate Fraction of Inspired Oxygen 10/27/24 19:03 10/27/24 19:07 10/27/24 20:00 Temperature 37.2 C Pulse Rate 88 82 128 H Respiratory Rate 26 H Blood Pressure 84/60 L 134/93 H Pulse Oximetry 90 89 L Oxygen Delivery Mechanical Ventilation Oxygen Flow Rate Fraction of Inspired Oxygen 100 10/27/24 20:00 10/27/24 20:00 10/27/24 20:00 Temperature Pulse Rate 128 H 128 H 128 H Respiratory Rate 26 H 26 H Blood Pressure Pulse Oximetry Oxygen Delivery Oxygen Flow Rate Fraction of Inspired Oxygen 10/27/24 20:00 10/27/24 20:00 10/27/24 20:00 Temperature Pulse Rate 122 H Respiratory Rate Blood Pressure 134/93 H Pulse Oximetry Oxygen Delivery Mechanical Ventilation Oxygen Flow Rate Fraction of Inspired Oxygen 100 100 10/27/24 20:06 10/27/24 20:16 10/27/24 21:00 Temperature Pulse Rate 128 H 128 H 112 H Respiratory Rate 24 H 24 H Blood Pressure 94/73 L Pulse Oximetry Oxygen Delivery Oxygen Flow Rate Fraction of Inspired Oxygen 10/27/24 21:15 10/27/24 21:26 10/27/24 21:30 Temperature Pulse Rate 104 H 91 90 Respiratory Rate 15 12 Blood Pressure 87/69 L 87/69 L Pulse Oximetry 93 Oxygen Delivery Oxygen Flow Rate Fraction of Inspired Oxygen 100 10/27/24 21:30 10/27/24 21:38 10/27/24 22:00 Temperature Pulse Rate 92 88 107 H Respiratory Rate Blood Pressure 86/69 L 117/79 Pulse Oximetry 85 L Oxygen Delivery Mechanical Ventilation Oxygen Flow Rate Fraction of Inspired Oxygen 100 10/27/24 22:00 10/27/24 22:00 10/27/24 22:00 Temperature Pulse Rate 107 H 107 H 107 H Respiratory Rate 26 H Blood Pressure 117/79 Pulse Oximetry Oxygen Delivery Oxygen Flow Rate Fraction of Inspired Oxygen 10/27/24 22:00 10/27/24 22:06 10/27/24 22:15 Temperature Pulse Rate 107 H 110 H 110 H Respiratory Rate 26 H Blood Pressure 114/81 Pulse Oximetry 95 Oxygen Delivery Mechanical Ventilation Oxygen Flow Rate Fraction of Inspired Oxygen 100 10/27/24 22:30 10/27/24 22:45 10/27/24 23:00 Temperature 37.4 C Pulse Rate 119 H 121 H 126 H Respiratory Rate 26 H Blood Pressure 128/94 H 128/94 H 130/94 H Pulse Oximetry 96 Oxygen Delivery Oxygen Flow Rate Fraction of Inspired Oxygen 10/27/24 23:00 10/27/24 23:00 10/27/24 23:15 Temperature Pulse Rate 125 H 125 H 155 H Respiratory Rate 26 H 26 H Blood Pressure 130/94 H 130/94 H 130/90 Pulse Oximetry Oxygen Delivery Oxygen Flow Rate Fraction of Inspired Oxygen 10/27/24 23:15 10/27/24 23:24 10/27/24 23:30 Temperature Pulse Rate 155 H 125 H 125 H Respiratory Rate Blood Pressure 130/90 120/85 Pulse Oximetry 95 Oxygen Delivery Mechanical Ventilation Oxygen Flow Rate Fraction of Inspired Oxygen 100 03/08/25 23:30 10/27/24 23:45 10/28/24 00:00 Temperature Pulse Rate 110 H 124 H 122 H Respiratory Rate 26 H Blood Pressure 114/81 117/81 111/81 Pulse Oximetry Oxygen Delivery Oxygen Flow Rate Fraction of Inspired Oxygen 10/28/24 00:00 10/28/24 00:00 10/28/24 00:00 Temperature 37.4 C Pulse Rate 122 H 122 H Respiratory Rate 26 H 26 H Blood Pressure 111/81 Pulse Oximetry 94 94 Oxygen Delivery Oxygen Flow Rate Fraction of Inspired Oxygen 100 100 10/28/24 00:00 10/28/24 00:00 10/28/24 00:00 Temperature Pulse Rate 121 H 121 H Respiratory Rate 26 H Blood Pressure 111/81 Pulse Oximetry Oxygen Delivery Mechanical Ventilation Oxygen Flow Rate Fraction of Inspired Oxygen 100 10/28/24 00:00 10/28/24 00:00 10/28/24 00:15 Temperature Pulse Rate 121 H 121 H 119 H Respiratory Rate 26 H 26 H Blood Pressure 106/83 Pulse Oximetry Oxygen Delivery Oxygen Flow Rate Fraction of Inspired Oxygen 10/28/24 01:36 10/28/24 01:36 10/28/24 01:46 Temperature Pulse Rate 112 H 112 H 112 H Respiratory Rate 26 H 26 H Blood Pressure Pulse Oximetry 95 Oxygen Delivery Mechanical Ventilation Oxygen Flow Rate Fraction of Inspired Oxygen 100 10/28/24 01:55 10/28/24 01:55 10/28/24 01:55 Temperature 37.2 C Pulse Rate 110 H 110 H 110 H Respiratory Rate 26 H 26 H Blood Pressure 97/68 L Pulse Oximetry 95 95 Oxygen Delivery Oxygen Flow Rate Fraction of Inspired Oxygen 100 10/28/24 01:59 10/28/24 01:59 10/28/24 01:59 Temperature Pulse Rate 110 H 110 H 110 H Respiratory Rate 26 H 26 H Blood Pressure 95/71 L 95/71 L Pulse Oximetry Oxygen Delivery Oxygen Flow Rate Fraction of Inspired Oxygen 10/28/24 01:59 10/28/24 04:00 10/28/24 04:00 Temperature Pulse Rate 110 H 109 H Respiratory Rate 26 H Blood Pressure Pulse Oximetry Oxygen Delivery Mechanical Ventilation Oxygen Flow Rate Fraction of Inspired Oxygen 100 10/28/24 04:00 10/28/24 04:00 10/28/24 04:00 Temperature 36.9 C Pulse Rate 109 H 109 H Respiratory Rate 26 H 26 H Blood Pressure 98/69 L Pulse Oximetry 94 94 Oxygen Delivery Oxygen Flow Rate Fraction of Inspired Oxygen 100 100 10/28/24 04:00 10/28/24 04:00 10/28/24 04:00 Temperature Pulse Rate 110 H 110 H 110 H Respiratory Rate 26 H 26 H Blood Pressure 98/69 L 98/69 L Pulse Oximetry Oxygen Delivery Oxygen Flow Rate Fraction of Inspired Oxygen 10/28/24 04:00 10/28/24 05:26 10/28/24 06:00 Temperature Pulse Rate 110 H 107 H 96 Respiratory Rate 26 H 26 H Blood Pressure Pulse Oximetry 93 95 Oxygen Delivery Mechanical Ventilation Oxygen Flow Rate Fraction of Inspired Oxygen 100 100 10/28/24 06:00 10/28/24 06:00 10/28/24 06:00 Temperature 36.7 C Pulse Rate 96 96 96 Respiratory Rate 26 H 26 H Blood Pressure 92/68 L 92/68 L Pulse Oximetry 95 Oxygen Delivery Oxygen Flow Rate Fraction of Inspired Oxygen 10/28/24 06:00 10/28/24 06:00 10/28/24 06:00 Temperature Pulse Rate 96 96 96 Respiratory Rate 26 H 26 H Blood Pressure 92/68 L Pulse Oximetry Oxygen Delivery Oxygen Flow Rate Fraction of Inspired Oxygen 10/28/24 07:45 10/28/24 07:45 10/28/24 07:57 Temperature 36.5 C Pulse Rate 92 92 86 Respiratory Rate 24 H 26 H Blood Pressure 91/66 L Pulse Oximetry 95 96 Oxygen Delivery Mechanical Ventilation Oxygen Flow Rate Fraction of Inspired Oxygen 100 Intake/Output Intake/Output: Intake & Output 10/25/24 10/26/24 10/27/24 10/29/24 23:59 23:59 23:59 00:59 Intake Total 760 297 3723.8 568.9 Output Total 850 2100 300 Balance 200 -100 140.8 268.9 Meds/Results Medications: Active Medications Generic Name Dose Route Start Last Admin Trade Name Freq PRN Reason Stop Dose Admin Albuterol/Ipratropium 3 ml 10/27/24 14:00 10/28/24 07:45 Ipratropium 0.5 Mg/Albuterol Sulfate 2.5 Mg Ampul.Neb 3 Ml INHALATION Not Given Q6HRT [facility] Atorvastatin Calcium 40 mg 10/26/24 09:00 10/28/24 08:17 Atorvastatin 40 Mg Tablet PO 40 mg DAILY SONIDO Administration Budesonide 0.5 mg 10/28/24 08:45 Budesonide Respule Neb 0.5 Mg/2 Ml Amp INHALATION Q12HRT SONIDO Bumetanide 2 mg 10/27/24 17:00 10/27/24 16:46 Bumetanide Inj 1 Mg/4 Ml Vial IV PUSH 2 mg BID SONIDO Administration Enoxaparin Sodium 80 mg 10/27/24 21:00 10/28/24 08:17 Enoxaparin 80 Mg/0.8 Ml Syringe SUB-Q 80 mg Q12HR SONIDO Administration Cefepime HCl 2 gm in 50 mls @ 100 mls/hr 10/27/24 17:00 10/28/24 05:44 Maxipime 2 Gm/Ns 50 Ml IVPB Infused Q12H SONIDO Infusion Azithromycin 500 mg in 250 mls @ 250 mls/hr 10/27/24 15:00 10/27/24 16:46 Zithromax IVPB 250 mls/hr Q24H SONIDO Administration Albumin Human 200 mls @ 60 mls/hr 10/27/24 20:00 10/28/24 07:13 Albutein IVPB Infused Q8H SONIDO Infusion Fentanyl Citrate 2,500 mcg in 250 mls @ 10 mls/hr 10/27/24 18:40 10/28/24 06:00 Fentanyl 2,500 Mcg/Ns 250 Ml IV CONT 100 mcg/hr .Q25H SOINDO 10 mls/hr Titration Protocol 100 MCG/HR Midazolam HCl 100 mg in 100 mls @ 2 mls/hr 10/27/24 18:40 10/28/24 06:00 Versed 100 Mg/Ns 100 Ml IV CONT 3 mg/hr .Q50H SONIDO 3 mls/hr Titration Protocol 2 MG/HR Norepinephrine Bitartrate 8 mg in 250 mls @ 13.125 mls/hr 10/27/24 18:50 10/28/24 06:00 Levophed 8 Mg/D5w 250 Ml IV CONT 0 mcg/min .Q19H3M SONIDO 0 mls/hr Titration Protocol 7 MCG/MIN Cisatracurium Besylate 200 mg/ 100 mls @ 4.968 mls/hr 10/27/24 20:55 10/28/24 06:00 Dextrose IV CONT 2 mcg/kg/min .Q20H8M SONIDO 4.97 mls/hr Titration Protocol 2 MCG/KG/MIN Vancomycin HCl 1,500 mg in 500 mls @ 250 mls/hr 10/28/24 21:00 Vancomycin 1,500 Mg/Ns 500 Ml IVPB Q24H SONIDO Methylprednisolone Sodium Succinate 40 mg 10/27/24 17:00 10/28/24 05:15 Methylprednisolone Sod Succ 40 Mg Vial IV PUSH 40 mg Q8HR SONIDO Administration Multi-Ingred Cream/Lotion/Oil/Oint 1 applic 10/27/24 21:00 10/28/24 08:17 Mineral Oil/White Petrolatum Ointment EACH EYE 1 applic Q12HR SONIDO Administration Pantoprazole Sodium 40 mg 10/27/24 19:55 10/28/24 08:17 Pantoprazole Sodium Iv 40 Mg Vial IV PUSH 40 mg QAM SONIDO Administration Pyridoxine HCl 100 mg 10/26/24 09:00 10/27/24 10:02 Pyridoxine Hcl 50 Mg Tablet PO Not Given QAM SONIDO Sacubitril/Valsartan 1 tab 10/27/24 21:00 10/27/24 21:20 Sacubitril/Valsartan 24-26 Mg Tablet PO Not Given Q12HR SONIDO Sodium Chloride 10 ml 10/27/24 22:00 10/28/24 05:15 Central Line Flush IV PUSH 10 ml Q8HR SONIDO Administration Sodium Chloride 20 ml 10/27/24 19:20 Central Line Flush IV PUSH PRN PRN after blood draws Sodium Zirconium Cyclosilicate 10 gm 10/28/24 14:00 Sodium Zirconium Cyclosilicate 10 Gm Powd.Pack PO 10/28/24 14:01 ONCE ONE Umeclidinium/Vilanterol 1 puff 10/26/24 08:00 10/28/24 08:23 Umeclidinium/Vilanterol 62.5-25 Mcg Ellipta INHALATION Not Given DAILYRT [facility] Radiology Results: ITS Impressions Chest X-Ray 10/28/24 06:35 Impression: Mild bibasilar pulmonary edema with small bilateral pleural effusions. Support tubes, as above. Labs Labs: Laboratory Results - last 24 hr 10/27/24 10/27/24 10/27/24 13:41 19:09 20:19 WBC RBC Hgb Hct MCV MCH MCHC RDW Plt Count MPV Immature Gran % (Auto) Neut % (Auto) Lymph % (Auto) [place] % (Auto) Eos % (Auto) Baso % (Auto) Lymph # (Auto) [place] # (Auto) Eos # (Auto) Baso # (Auto) Abs Immat Gran (auto) Absolute Neuts (auto) Absolute Nucleated RBC Nucleated RBC % PT 25.3 H INR 2.3 APTT 42.5 H Puncture Site Left radial ABG pH 7.386 ABG pCO2 54.7 H ABG pO2 64.0 L ABG PO2/FiO2 Ratio 0.64 ABG HCO3 32.1 H ABG O2 Saturation 91.8 L ABG O2 Content 19.3 ABG Base Excess 5.4 A-a Gradient 594.3 Oxyhemoglobin 90.3 Total Hemoglobin 15.2 O2 Delivery Device Bipap O2 Liters/Min Not Reportable Minute Volume Vent Rate Vent Mode FiO2 100 Expiratory Pressure 6 Tidal Volume PEEP Inspiratory Pressure 12 Peak Inspir Pressure Pressure Support Sodium 135 L Potassium 4.8 Chloride 95 L Carbon Dioxide 29 Anion Gap 11 BUN 34 H Creatinine 1.09 Estim Creat Clear Calc 50 Estimated GFR > 60 Glucose 113 H POC Capillary Glucose Lactic Acid 2.6 H Calcium 8.9 Phosphorus Magnesium Total Bilirubin AST ALT Alkaline Phosphatase Total Protein Albumin Nasal MRSA (PCR) Not detected Hepatitis A IgM Ab Hep Bs Antigen Hep B Core IgM Ab Hepatitis C Ab Screen 10/27/24 10/27/24 10/27/24 20:45 22:30 23:36 WBC RBC Hgb Hct MCV MCH MCHC RDW Plt Count MPV Immature Gran % (Auto) Neut % (Auto) Lymph % (Auto) [place] % (Auto) Eos % (Auto) Baso % (Auto) Lymph # (Auto) [place] # (Auto) Eos # (Auto) Baso # (Auto) Abs Immat Gran (auto) Absolute Neuts (auto) Absolute Nucleated RBC Nucleated RBC % PT INR APTT Puncture Site Left radial Left radial ABG pH 7.287 L* 7.231 L* ABG pCO2 53.3 H 59.8 H ABG pO2 58.0 L 104.4 H ABG PO2/FiO2 Ratio 0.58 1.04 ABG HCO3 24.9 24.5 ABG O2 Saturation 86.6 L* 96.7 ABG O2 Content 18.5 20.4 ABG Base Excess -2.6 -4.1 A-a Gradient 601.7 548.8 Oxyhemoglobin 84.4 L* 95.1 Total Hemoglobin 15.6 15.2 O2 Delivery Device Ventilator Ventilator O2 Liters/Min Not Reportable Not Reportable Minute Volume Not Reportable Not Reportable Vent Rate 22 26 Vent Mode Cmv Cmv FiO2 100 100 Expiratory Pressure Tidal Volume 450 400 PEEP 8 10 Inspiratory Pressure Peak Inspir Pressure Not Reportable Not Reportable Pressure Support Not Reportable Not Reportable Sodium Potassium Chloride Carbon Dioxide Anion Gap BUN Creatinine Estim Creat Clear Calc Estimated GFR Glucose POC Capillary Glucose Lactic Acid 2.7 H Calcium Phosphorus Magnesium Total Bilirubin AST ALT Alkaline Phosphatase Total Protein Albumin Nasal MRSA (PCR) Hepatitis A IgM Ab Hep Bs Antigen Hep B Core IgM Ab Hepatitis C Ab Screen 10/28/24 10/28/24 10/28/24 00:29 05:16 05:32 WBC 10.0 RBC 4.60 Hgb 14.5 Hct 46.2 MCV 100.4 H MCH 31.5 MCHC 31.4 L RDW 17.0 H Plt Count 148 L MPV 10.8 H Immature Gran % (Auto) 0.8 H Neut % (Auto) 88.1 H Lymph % (Auto) 3.4 L [place] % (Auto) 7.5 Eos % (Auto) 0.0 Baso % (Auto) 0.2 Lymph # (Auto) 0.34 L [place] # (Auto) 0.8 H Eos # (Auto) 0.0 Baso # (Auto) 0.0 Abs Immat Gran (auto) 0.08 H Absolute Neuts (auto) 8.8 H Absolute Nucleated RBC 0.040 H Nucleated RBC % 0.4 H PT 37.6 H D INR 3.8 APTT 57.4 H Puncture Site Left radial ABG pH 7.147 L* ABG pCO2 73.2 H* ABG pO2 64.8 L ABG PO2/FiO2 Ratio 0.65 ABG HCO3 24.8 ABG O2 Saturation 85.4 L* ABG O2 Content 18.5 ABG Base Excess -6.0 A-a Gradient 575.0 Oxyhemoglobin 84.4 L* Total Hemoglobin 15.6 O2 Delivery Device Ventilator O2 Liters/Min Not Reportable Minute Volume Not Reportable Vent Rate 26 Vent Mode Cmv FiO2 100 Expiratory Pressure Tidal Volume 400 PEEP 10 Inspiratory Pressure Peak Inspir Pressure Not Reportable Pressure Support Not Reportable Sodium 136 L Potassium 5.5 H Chloride 94 L Carbon Dioxide 24 Anion Gap 18 H BUN 34 H Creatinine 1.52 H Estim Creat Clear Calc 44 Estimated GFR 45 L Glucose 132 H POC Capillary Glucose 126 H Lactic Acid 4.1 H* Calcium 9.2 Phosphorus 6.4 H Magnesium 2.2 Total Bilirubin 7.0 H AST 355 H ALT 146 H Alkaline Phosphatase 51 Total Protein 8.0 Albumin 5.4 H Nasal MRSA (PCR) Hepatitis A IgM Ab Negative Hep Bs Antigen Negative Hep B Core IgM Ab Negative Hepatitis C Ab Screen Negative 10/28/24 07:28 WBC RBC Hgb Hct MCV MCH MCHC RDW Plt Count MPV Immature Gran % (Auto) Neut % (Auto) Lymph % (Auto) [place] % (Auto) Eos % (Auto) Baso % (Auto) Lymph # (Auto) [place] # (Auto) Eos # (Auto) Baso # (Auto) Abs Immat Gran (auto) Absolute Neuts (auto) Absolute Nucleated RBC Nucleated RBC % PT INR APTT Puncture Site ABG pH ABG pCO2 ABG pO2 ABG PO2/FiO2 Ratio ABG HCO3 ABG O2 Saturation ABG O2 Content ABG Base Excess A-a Gradient Oxyhemoglobin Total Hemoglobin O2 Delivery Device O2 Liters/Min Minute Volume Vent Rate Vent Mode FiO2 Expiratory Pressure Tidal Volume PEEP Inspiratory Pressure Peak Inspir Pressure Pressure Support Sodium Potassium Chloride Carbon Dioxide Anion Gap BUN Creatinine Estim Creat Clear Calc Estimated GFR Glucose POC Capillary Glucose 141 H Lactic Acid Calcium Phosphorus Magnesium Total Bilirubin AST ALT Alkaline Phosphatase Total Protein Albumin Nasal MRSA (PCR) Hepatitis A IgM Ab Hep Bs Antigen Hep B Core IgM Ab Hepatitis C Ab Screen
[2024-10-28] MEDS: BUDESONIDE RESPULE NEB 0.5 MG/2 ML AMP INHALATION ×2 (09:03→19:37)
[2024-10-28 09:14] LABS: Anion Gap 17 mmol/L (4-12); Blood Urea Nitrogen 36 mg/dL (9-20); Calcium 8.7 mg/dL (8.4-10.2); Carbon Dioxide 24 mmol/L (22-30); Chloride 96 mmol/L (98-107); Estimated CRCL calculation 44 ml/min; Estimated Glomerular Filt Rate 45; Glucose 169 mg/dL (65-110); Potassium 4.4 mmol/L (3.4-5.0); Sodium 137 mmol/L (137-145)
[2024-10-28 10:16] LABS: Lactic Acid Reflex 4.5 mmol/L (0.7-2.0)
[2024-10-28 11:47] LABS: Alveolar/Arterial O2 Gradient 564.8 mmHg; Carboxyhemoglobin 1.4 % THb (0-2.0); Fractional Inspired Oxygen 100 %; HCO3 ABG 23.9 mEq/l (22.0-26.0); Methemoglobin ABG 0.2 %THb (0-1.5); Oxygen Content ABG 19.6 %vol (16.0-22.0); Oxygen Saturation ABG 94.5 % (95.0-100.0); Oxyhemoglobin 94.1 % THb (90.0-100.0); PO2 ABG 87.1 mmHg (80.0-100.0); PO2 FiO2 Ratio Arterial Blood 0.87 %; Reduced Hemoglobin 4.3 %THb (0-5.0); Total Hemoglobin 14.8 g/dL (12.0-18.0)
[2024-10-28 11:48] LABS: Device VENTILATOR; PCO2 ABG 61.1 mmHg (35.0-45.0); Site Drawn ARTLINE; pH ABG 7.211 (7.350-7.450)
[2024-10-28 11:49] LABS: Arterial Blood Gas PEEP 10 cmH2O; Arterial Blood Gas Tidal Volume 470 ml; Arterial Blood Gas Vent Mode CMV; Arterial Blood Gas Ventilator rate 24 /MIN
--- NOTE | 2024-10-28 11:55 | WPDPROCEDUR ---
Procedures Arterial Line Arterial Line Date: 10/28/24 Arterial Line Time: 11:35 Discussed with the patient/family/POA, the placement of an arterial catheter, including its clinical necessity/indication and associated potential risks, benefits and alternatives.: Yes Patient/family/POA and/or understands and acknowledges the need to proceed with the arterial catheter insertion as an important element of the patient's clinical management.: Yes Time Out Performed: Yes Patient Position: supine [employer] Prep: sterile gown, sterile gloves, mask and hat Site: right and radial Site Prep: chlorhexidine and sterile drape Skin Anesthesia: none (pt sedated, and paralyzed) Technique used: ultrasound-guided Size (Gauge): 18 Length: 4.4 cm Closure/Dressing: suture, transparent dressing, hemostatic product, antimicrobial product and securement product Patient tolerated procedure: well Complications: none
[2024-10-28 12:48] LABS: Reflex Lactic Acid Yes or No Add Lactic
[2024-10-28 13:49] LABS: Lactic Acid 3.6 mmol/L (0.7-2.0)
[2024-10-28 14:06] LABS: Alveolar/Arterial O2 Gradient 498.8 mmHg; Arterial Blood Gas PEEP 8 cmH2O; Arterial Blood Gas Vent Mode CMV; Arterial Blood Gas Ventilator rate 24 /MIN; Base Excess ABG -1.6 mEq/l (+/-2.0); Device VENTILATOR; Fractional Inspired Oxygen 90 %; HCO3 ABG 24.7 mEq/l (22.0-26.0); Oxygen Content ABG 20.1 %vol (16.0-22.0); Oxygen Saturation ABG 96.7 % (95.0-100.0); Oxyhemoglobin 95.6 % THb (90.0-100.0); PCO2 ABG 47.4 mmHg (35.0-45.0); PO2 ABG 94.3 mmHg (80.0-100.0); PO2 FiO2 Ratio Arterial Blood 1.05 %; Site Drawn ARTLINE; Total Hemoglobin 14.9 g/dL (12.0-18.0); pH ABG 7.335 (7.350-7.450)
[2024-10-28 14:07] LABS: Arterial Blood Gas Tidal Volume 500 ml
--- NOTE | 2024-10-28 14:14 | P.PNIM_ITS ---
Progress Note: A&P Assessment and Plan (1) Acute hypoxic respiratory failure: Code(s): J96.01 - Acute respiratory failure with hypoxia Status: Acute (2) CHF (congestive heart failure): Qualifiers: Heart failure type: diastolic Heart failure chronicity: acute on chronic Qualified Code(s): I50.33 - Acute on chronic diastolic (congestive) heart failure Code(s): I50.9 - Heart failure, unspecified Status: Acute (3) HTN (hypertension): Qualifiers: Hypertension type: primary hypertension Qualified Code(s): I10 - Essential (primary) hypertension Code(s): I10 - Essential (primary) hypertension Status: Chronic Plan This Is a 69-year-old male who presents to the ED with worsening shortness of breath. Uses oxygen at home 3 L by nasal cannula. Worsening shortness of breath over the past 10 days. History of CHF and COPD and continues to smoke. Associated fatigue. Also noted bilateral lower extremity edema for the past year worsened over the past 2 months. Patient diuretic was changed recently to Bumex from torsemide. On ED arrival patient was saturating in mid 80s on 4 L oxygen via nasal cannula. Patient was placed on BiPAP. Patient was afebrile. Laboratory studies showed normal WBC 7.5 hemoglobin of 16 platelet of 217. Came panel was unremarkable. INR was 2.2 BNP elevated at 6940. Influenza RSV COVID swab was negative. Urinalysis negative for infection. ABG showed 7.43/42/56/27. Chest x-ray showed mild pulmonary vascular congestion without focal infiltrate or effusion. Acute on chronic congestive heart failure- most recent echo (08/2023): D shaped septum in systole/diastole consistent with are the pressure and/or volume overload, systolic function normal with estimated EF of 60 65%, grade 1 diastolic dysfunction, RV chamber severely enlarged, RV systolic function modera te to severely reduced (finding suggestive of Matos sign, mild pulmonary hypertension. See full report for details. Reordered echo WHICH SHOWED LOWERED EF TO 35-40% grade 1 diastolic dysfunction right ventricular volume and pressure overload pulmonary hypertension 68 mm Hg. Cardiology consulted. started on entresto. however on hold due to hypotension BP soft received albumin. Continue with Bumex IV. Will schedule IV albumin. Will also start broad-spectrum antibiotics to cover for possible pneumonia. CTA chest has been ordered however due to BiPAP not able to be done. started on vasopressor for hypotension Acute on chronic hypoxic respiratory failure this continued to worsen 10/27/24 requiring intubation and mechanical ventilation. per Critical care. 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 patient is sedated, remains on mechanical ventilation Review of Systems Review of Systems: ROS unobtainable: Yes unobtainable due to endotracheal tube and unobtainable due to mental status Exam Narrative: General: Intubated, sedated and paralyzed. In prone position HEENT:? Pupils equal reactive, sclera is clear Neck:? Sub Respiratory:? Coarse breath sounds bilaterally, decreased at bases, rales bi lateral lower lobes, adequate air entry, no wheezing Cardiac:? S1-S2 is normal bolus sinus rhythm, rate control Abdomen:? Soft, nontender, nondistended,, hypoactive bowels Extremities:? Bilateral lower extremity edema, palpable pedal pulses, Neuro:? Patient intubated, sedated. Prior to intubation patient was awake, alert, was talking and answering questions and following commands appropriately Skin:? Chronic venous stasis change, b/l Planter aspects of the feet with scaly skin Psych:? Unable to assess at this Objective Data Vital Signs Vital Signs: Vital Signs - 24 hr 10/27/24 13:59 10/27/24 14:01 10/27/24 14:03 Temperature Pulse Rate 76 83 75 Respiratory Rate 22 H 16 Blood Pressure Pulse Oximetry 91 Oxygen Delivery BiPAP Fraction of Inspired Oxygen 10/27/24 14:10 10/27/24 16:00 10/27/24 16:00 Temperature 97.9 F Pulse Rate 82 87 87 Respiratory Rate 22 H 18 18 Blood Pressure 90/50 L Pulse Oximetry 91 93 93 Oxygen Delivery BiPAP BiPAP Fraction of Inspired Oxygen 100 100 10/27/24 16:00 10/27/24 17:34 10/27/24 18:00 Temperature Pulse Rate 87 89 Respiratory Rate 22 H Blood Pressure Pulse Oximetry 90 Oxygen Delivery BiPAP Fraction of Inspired Oxygen 10/27/24 18:48 10/27/24 18:49 10/27/24 19:03 Temperature Pulse Rate 81 76 88 Respiratory Rate 27 H 27 H Blood Pressure Pulse Oximetry 90 Oxygen Delivery Mechanical Ventilation Fraction of Inspired Oxygen 100 10/27/24 19:07 10/27/24 20:00 10/27/24 20:00 Temperature 99.0 F Pulse Rate 82 128 H 128 H Respiratory Rate 26 H 26 H Blood Pressure 84/60 L 134/93 H Pulse Oximetry 89 L Oxygen Delivery Fraction of Inspired Oxygen 10/27/24 20:00 10/27/24 20:00 10/27/24 20:00 Temperature Pulse Rate 128 H 128 H Respiratory Rate 26 H Blood Pressure Pulse Oximetry Oxygen Delivery Mechanical Ventilation Fraction of Inspired Oxygen 100 10/27/24 20:00 10/27/24 20:00 10/27/24 20:06 Temperature Pulse Rate 122 H 128 H Respiratory Rate 24 H Blood Pressure 134/93 H Pulse Oximetry Oxygen Delivery Fraction of Inspired Oxygen 100 10/27/24 20:16 10/27/24 21:00 10/27/24 21:15 Temperature Pulse Rate 128 H 112 H 104 H Respiratory Rate 24 H Blood Pressure 94/73 L 87/69 L Pulse Oximetry Oxygen Delivery Fraction of Inspired Oxygen 10/27/24 21:26 10/27/24 21:30 10/27/24 21:30 Temperature Pulse Rate 91 90 92 Respiratory Rate 15 12 Blood Pressure 87/69 L 86/69 L Pulse Oximetry 93 Oxygen Delivery Fraction of Inspired Oxygen 100 10/27/24 21:38 10/27/24 22:00 10/27/24 22:00 Temperature Pulse Rate 88 107 H 107 H Respiratory Rate Blood Pressure 117/79 117/79 Pulse Oximetry 85 L Oxygen Delivery Mechanical Ventilation Fraction of Inspired Oxygen 100 10/27/24 22:00 10/27/24 22:00 10/27/24 22:00 Temperature Pulse Rate 107 H 107 H 107 H Respiratory Rate 26 H 26 H Blood Pressure Pulse Oximetry Oxygen Delivery Fraction of Inspired Oxygen 10/27/24 22:06 10/27/24 22:15 10/27/24 22:30 Temperature Pulse Rate 110 H 110 H 119 H Respiratory Rate Blood Pressure 114/81 128/94 H Pulse Oximetry 95 Oxygen Delivery Mechanical Ventilation Fraction of Inspired Oxygen 100 10/27/24 22:45 10/27/24 23:00 10/27/24 23:00 Temperature 99.3 F Pulse Rate 121 H 126 H 125 H Respiratory Rate 26 H 26 H Blood Pressure 128/94 H 130/94 H 130/94 H Pulse Oximetry 96 Oxygen Delivery Fraction of Inspired Oxygen 10/27/24 23:00 10/27/24 23:15 10/27/24 23:15 Temperature Pulse Rate 125 H 155 H 155 H Respiratory Rate 26 H Blood Pressure 130/94 H 130/90 130/90 Pulse Oximetry Oxygen Delivery Fraction of Inspired Oxygen 10/27/24 23:24 10/27/24 23:30 10/27/24 23:30 Temperature Pulse Rate 125 H 125 H 110 H Respiratory Rate 26 H Blood Pressure 120/85 114/81 Pulse Oximetry 95 Oxygen Delivery Mechanical Ventilation Fraction of Inspired Oxygen 100 10/27/24 23:45 10/28/24 00:00 10/28/24 00:00 Temperature Pulse Rate 124 H 122 H Respiratory Rate Blood Pressure 117/81 111/81 Pulse Oximetry Oxygen Delivery Fraction of Inspired Oxygen 100 10/28/24 00:00 10/28/24 00:00 10/28/24 00:00 Temperature 99.4 F Pulse Rate 122 H 122 H Respiratory Rate 26 H 26 H Blood Pressure 111/81 Pulse Oximetry 94 94 Oxygen Delivery Mechanical Ventilation Fraction of Inspired Oxygen 100 100 10/28/24 00:00 10/28/24 00:00 10/28/24 00:00 Temperature Pulse Rate 121 H 121 H 121 H Respiratory Rate 26 H 26 H Blood Pressure 111/81 Pulse Oximetry Oxygen Delivery Fraction of Inspired Oxygen 10/28/24 00:00 10/28/24 00:15 10/28/24 01:36 Temperature Pulse Rate 121 H 119 H 112 H Respiratory Rate 26 H 26 H Blood Pressure 106/83 Pulse Oximetry Oxygen Delivery Fraction of Inspired Oxygen 10/28/24 01:36 10/28/24 01:46 10/28/24 01:55 Temperature 98.9 F Pulse Rate 112 H 112 H 110 H Respiratory Rate 26 H 26 H Blood Pressure 97/68 L Pulse Oximetry 95 95 Oxygen Delivery Mechanical Ventilation Fraction of Inspired Oxygen 100 10/28/24 01:55 10/28/24 01:55 10/28/24 01:59 Temperature Pulse Rate 110 H 110 H 110 H Respiratory Rate 26 H 26 H Blood Pressure 95/71 L Pulse Oximetry 95 Oxygen Delivery Fraction of Inspired Oxygen 100 10/28/24 01:59 10/28/24 01:59 10/28/24 01:59 Temperature Pulse Rate 110 H 110 H 110 H Respiratory Rate 26 H 26 H Blood Pressure 95/71 L Pulse Oximetry Oxygen Delivery Fraction of Inspired Oxygen 10/28/24 04:00 10/28/24 04:00 10/28/24 04:00 Temperature Pulse Rate 109 H Respiratory Rate Blood Pressure Pulse Oximetry Oxygen Delivery Mechanical Ventilation Fraction of Inspired Oxygen 100 100 10/28/24 04:00 10/28/24 04:00 10/28/24 04:00 Temperature 98.4 F Pulse Rate 109 H 109 H 110 H Respiratory Rate 26 H 26 H 26 H Blood Pressure 98/69 L 98/69 L Pulse Oximetry 94 94 Oxygen Delivery Fraction of Inspired Oxygen 100 10/28/24 04:00 10/28/24 04:00 10/28/24 04:00 Temperature Pulse Rate 110 H 110 H 110 H Respiratory Rate 26 H 26 H Blood Pressure 98/69 L Pulse Oximetry Oxygen Delivery Fraction of Inspired Oxygen 10/28/24 05:26 10/28/24 06:00 10/28/24 06:00 Temperature Pulse Rate 107 H 96 96 Respiratory Rate 26 H Blood Pressure Pulse Oximetry 93 95 Oxygen Delivery Mechanical Ventilation Fraction of Inspired Oxygen 100 100 10/28/24 06:00 10/28/24 06:00 10/28/24 06:00 Temperature 98.0 F Pulse Rate 96 96 96 Respiratory Rate 26 H 26 H Blood Pressure 92/68 L 92/68 L 92/68 L Pulse Oximetry 95 Oxygen Delivery Fraction of Inspired Oxygen 10/28/24 06:00 10/28/24 06:00 10/28/24 07:45 Temperature Pulse Rate 96 96 92 Respiratory Rate 26 H 26 H Blood Pressure Pulse Oximetry 95 Oxygen Delivery Mechanical Ventilation Fraction of Inspired Oxygen 100 10/28/24 07:45 10/28/24 07:57 10/28/24 08:00 Temperature 97.7 F Pulse Rate 92 86 84 Respiratory Rate 24 H 26 H 24 H Blood Pressure 91/66 L 88/67 L Pulse Oximetry 96 Oxygen Delivery Fraction of Inspired Oxygen 10/28/24 08:00 10/28/24 08:00 10/28/24 08:00 Temperature Pulse Rate 84 84 84 Respiratory Rate 24 H 24 H Blood Pressure 88/67 L Pulse Oximetry Oxygen Delivery Fraction of Inspired Oxygen 10/28/24 08:00 10/28/24 08:00 10/28/24 08:00 Temperature Pulse Rate 95 Respiratory Rate Blood Pressure Pulse Oximetry Oxygen Delivery Mechanical Ventilation Fraction of Inspired Oxygen 100 100 10/28/24 09:03 10/28/24 09:15 10/28/24 09:30 Temperature Pulse Rate 89 83 82 Respiratory Rate 24 H Blood Pressure 81/61 L 80/65 L Pulse Oximetry Oxygen Delivery Fraction of Inspired Oxygen 10/28/24 09:48 10/28/24 09:55 10/28/24 10:00 Temperature Pulse Rate 88 83 84 Respiratory Rate Blood Pressure 89/63 L 90/71 L Pulse Oximetry Oxygen Delivery Fraction of Inspired Oxygen 10/28/24 10:00 10/28/24 10:00 10/28/24 10:00 Temperature 96.4 F L Pulse Rate 84 84 84 Respiratory Rate 24 H 24 H Blood Pressure 94/73 L 94/73 L 94/73 L Pulse Oximetry 94 Oxygen Delivery Fraction of Inspired Oxygen 10/28/24 10:00 10/28/24 10:00 10/28/24 10:53 Temperature Pulse Rate 84 84 102 H Respiratory Rate 24 H 24 H Blood Pressure Pulse Oximetry 93 Oxygen Delivery Mechanical Ventilation Fraction of Inspired Oxygen 100 10/28/24 11:50 10/28/24 12:00 10/28/24 12:00 Temperature Pulse Rate Respiratory Rate Blood Pressure Pulse Oximetry Oxygen Delivery Mechanical Ventilation Fraction of Inspired Oxygen 90 90 90 10/28/24 12:00 10/28/24 12:00 10/28/24 12:00 Temperature Pulse Rate 89 89 89 Respiratory Rate 24 H 24 H Blood Pressure 103/66 103/66 Pulse Oximetry Oxygen Delivery Fraction of Inspired Oxygen 10/28/24 12:00 10/28/24 12:00 10/28/24 12:00 Temperature 97.3 F L Pulse Rate 89 89 88 Respiratory Rate 24 H 24 H Blood Pressure 103/66 Pulse Oximetry 93 Oxygen Delivery Fraction of Inspired Oxygen 10/28/24 13:50 10/28/24 13:50 10/28/24 14:02 Temperature Pulse Rate 84 82 80 Respiratory Rate 24 H 24 H Blood Pressure Pulse Oximetry 94 Oxygen Delivery Mechanical Ventilation Fraction of Inspired Oxygen 90 Intake/Output Intake/Output: Intake & Output 10/25/24 10/26/24 10/27/24 10/29/24 23:59 23:59 23:59 00:59 Intake Total 138 073 9736.8 1769.8 Output Total 850 2100 300 Balance 200 -100 140.8 1469.8 Meds/Results Medications: Active Medications Generic Name Dose Route Start Last Admin Trade Name Freq PRN Reason Stop Dose Admin Albuterol/Ipratropium 3 ml 10/27/24 14:00 10/28/24 13:50 Ipratropium 0.5 Mg/Albuterol Sulfate 2.5 Mg Ampul.Neb 3 Ml INHALATION 3 ml Q6HRT SONIDO Administration Budesonide 0.5 mg 10/28/24 08:45 10/28/24 09:03 Budesonide Respule Neb 0.5 Mg/2 Ml Amp INHALATION 0.5 mg Q12HRT SONIDO Administration Bumetanide 2 mg 10/27/24 17:00 10/27/24 16:46 Bumetanide Inj 1 Mg/4 Ml Vial IV PUSH 2 mg BID SONIDO Administration Enoxaparin Sodium 80 mg 10/27/24 21:00 10/28/24 08:17 Enoxaparin 80 Mg/0.8 Ml Syringe SUB-Q 80 mg Q12HR SONIDO Administration Cefepime HCl 2 gm in 50 mls @ 100 mls/hr 10/27/24 17:00 10/28/24 05:44 Maxipime 2 Gm/Ns 50 Ml IVPB Infused Q12H SONIDO Infusion Azithromycin 500 mg in 250 mls @ 250 mls/hr 10/27/24 15:00 10/27/24 16:46 Zithromax IVPB 250 mls/hr Q24H SONIDO Administration Fentanyl Citrate 2,500 mcg in 250 mls @ 10 mls/hr 10/27/24 18:40 10/28/24 12:00 Fentanyl 2,500 Mcg/Ns 250 Ml IV CONT 100 mcg/hr .Q25H SONIDO 10 mls/hr Titration Protocol 100 MCG/HR Midazolam HCl 100 mg in 100 mls @ 2 mls/hr 10/27/24 18:40 10/28/24 12:00 Versed 100 Mg/Ns 100 Ml IV CONT 3 mg/hr .Q50H SONIDO 3 mls/hr Titration Protocol 2 MG/HR Norepinephrine Bitartrate 8 mg in 250 mls @ 18.75 mls/hr 10/27/24 18:50 10/28/24 12:00 Levophed 8 Mg/D5w 250 Ml IV CONT 10 mcg/min .[id number] SONIDO 18.75 mls/hr Titration Protocol 10 MCG/MIN Cisatracurium Besylate 200 mg/ 100 mls @ 4.968 mls/hr 10/27/24 20:55 10/28/24 12:00 Dextrose IV CONT 2 mcg/kg/min .Q20H8M SONIDO 4.97 mls/hr Titration Protocol 2 MCG/KG/MIN Vancomycin HCl 1,500 mg in 500 mls @ 250 mls/hr 10/28/24 21:00 Vancomycin 1,500 Mg/Ns 500 Ml IVPB Q24H SONIDO Methylprednisolone Sodium Succinate 40 mg 10/27/24 17:00 10/28/24 05:15 Methylprednisolone Sod Succ 40 Mg Vial IV PUSH 40 mg Q8HR SONIDO Administration Multi-Ingred Cream/Lotion/Oil/Oint 1 applic 10/27/24 21:00 10/28/24 08:17 Mineral Oil/White Petrolatum Ointment EACH EYE 1 applic Q12HR SONIDO Administration Pantoprazole Sodium 40 mg 10/27/24 19:55 10/28/24 08:17 Pantoprazole Sodium Iv 40 Mg Vial IV PUSH 40 mg QAM SONIDO Administration Sacubitril/Valsartan 1 tab 10/27/24 21:00 10/27/24 21:20 Sacubitril/Valsartan 24-26 Mg Tablet PO Not Given Q12HR SONIDO Sodium Chloride 10 ml 10/27/24 22:00 10/28/24 05:15 Central Line Flush IV PUSH 10 ml Q8HR SONIDO Administration Sodium Chloride 20 ml 10/27/24 19:20 Central Line Flush IV PUSH PRN PRN after blood draws Umeclidinium/Vilanterol 1 puff 10/26/24 08:00 10/28/24 08:23 Umeclidinium/Vilanterol 62.5-25 Mcg Ellipta INHALATION Not Given DAILYRT [facility] Radiology Results: ITS Impressions Chest X-Ray 10/28/24 06:35 Impression: Mild bibasilar pulmonary edema with small bilateral pleural effusions. Support tubes, as above. Labs Labs: Laboratory Results - last 24 hr 10/27/24 10/27/24 10/27/24 13:41 19:09 20:19 WBC RBC Hgb Hct MCV MCH MCHC RDW Plt Count MPV Immature Gran % (Auto) Neut % (Auto) Lymph % (Auto) [place] % (Auto) Eos % (Auto) Baso % (Auto) Lymph # (Auto) [place] # (Auto) Eos # (Auto) Baso # (Auto) Abs Immat Gran (auto) Absolute Neuts (auto) Absolute Nucleated RBC Nucleated RBC % PT 25.3 H INR 2.3 APTT 42.5 H Puncture Site Left radial ABG pH 7.386 ABG pCO2 54.7 H ABG pO2 64.0 L ABG PO2/FiO2 Ratio 0.64 ABG HCO3 32.1 H ABG O2 Saturation 91.8 L ABG O2 Content 19.3 ABG Base Excess 5.4 A-a Gradient 594.3 Oxyhemoglobin 90.3 Carboxyhemoglobin Methemoglobin Reduced Hemoglobin Total Hemoglobin 15.2 O2 Delivery Device Bipap O2 Liters/Min Not Reportable Minute Volume Vent Rate Vent Mode FiO2 100 Expiratory Pressure 6 Tidal Volume PEEP Inspiratory Pressure 12 Peak Inspir Pressure Pressure Support Sodium 135 L Potassium 4.8 Chloride 95 L Carbon Dioxide 29 Anion Gap 11 BUN 34 H Creatinine 1.09 Estim Creat Clear Calc 50 Estimated GFR > 60 Glucose 113 H POC Capillary Glucose Lactic Acid 2.6 H Calcium 8.9 Phosphorus Magnesium Total Bilirubin AST ALT Alkaline Phosphatase Total Protein Albumin Nasal MRSA (PCR) Not detected Hepatitis A IgM Ab Hep Bs Antigen Hep B Core IgM Ab Hepatitis C Ab Screen 10/27/24 10/27/24 10/27/24 20:45 22:30 23:36 WBC RBC Hgb Hct MCV MCH MCHC RDW Plt Count MPV Immature Gran % (Auto) Neut % (Auto) Lymph % (Auto) [place] % (Auto) Eos % (Auto) Baso % (Auto) Lymph # (Auto) [place] # (Auto) Eos # (Auto) Baso # (Auto) Abs Immat Gran (auto) Absolute Neuts (auto) Absolute Nucleated RBC Nucleated RBC % PT INR APTT Puncture Site Left radial Left radial ABG pH 7.287 L* 7.231 L* ABG pCO2 53.3 H 59.8 H ABG pO2 58.0 L 104.4 H ABG PO2/FiO2 Ratio 0.58 1.04 ABG HCO3 24.9 24.5 ABG O2 Saturation 86.6 L* 96.7 ABG O2 Content 18.5 20.4 ABG Base Excess -2.6 -4.1 A-a Gradient 601.7 548.8 Oxyhemoglobin 84.4 L* 95.1 Carboxyhemoglobin Methemoglobin Reduced Hemoglobin Total Hemoglobin 15.6 15.2 O2 Delivery Device Ventilator Ventilator O2 Liters/Min Not Reportable Not Reportable Minute Volume Not Reportable Not Reportable Vent Rate 22 26 Vent Mode Cmv Cmv FiO2 100 100 Expiratory Pressure Tidal Volume 450 400 PEEP 8 10 Inspiratory Pressure Peak Inspir Pressure Not Reportable Not Reportable Pressure Support Not Reportable Not Reportable Sodium Potassium Chloride Carbon Dioxide Anion Gap BUN Creatinine Estim Creat Clear Calc Estimated GFR Glucose POC Capillary Glucose Lactic Acid 2.7 H Calcium Phosphorus Magnesium Total Bilirubin AST ALT Alkaline Phosphatase Total Protein Albumin Nasal MRSA (PCR) Hepatitis A IgM Ab Hep Bs Antigen Hep B Core IgM Ab Hepatitis C Ab Screen 10/28/24 10/28/24 10/28/24 00:29 05:16 05:32 WBC 10.0 RBC 4.60 Hgb 14.5 Hct 46.2 MCV 100.4 H MCH 31.5 MCHC 31.4 L RDW 17.0 H Plt Count 148 L MPV 10.8 H Immature Gran % (Auto) 0.8 H Neut % (Auto) 88.1 H Lymph % (Auto) 3.4 L [place] % (Auto) 7.5 Eos % (Auto) 0.0 Baso % (Auto) 0.2 Lymph # (Auto) 0.34 L [place] # (Auto) 0.8 H Eos # (Auto) 0.0 Baso # (Auto) 0.0 Abs Immat Gran (auto) 0.08 H Absolute Neuts (auto) 8.8 H Absolute Nucleated RBC 0.040 H Nucleated RBC % 0.4 H PT 37.6 H D INR 3.8 APTT 57.4 H Puncture Site Left radial ABG pH 7.147 L* ABG pCO2 73.2 H* ABG pO2 64.8 L ABG PO2/FiO2 Ratio 0.65 ABG HCO3 24.8 ABG O2 Saturation 85.4 L* ABG O2 Content 18.5 ABG Base Excess -6.0 A-a Gradient 575.0 Oxyhemoglobin 84.4 L* Carboxyhemoglobin Methemoglobin Reduced Hemoglobin Total Hemoglobin 15.6 O2 Delivery Device Ventilator O2 Liters/Min Not Reportable Minute Volume Not Reportable Vent Rate 26 Vent Mode Cmv FiO2 100 Expiratory Pressure Tidal Volume 400 PEEP 10 Inspiratory Pressure Peak Inspir Pressure Not Reportable Pressure Support Not Reportable Sodium 136 L Potassium 5.5 H Chloride 94 L Carbon Dioxide 24 Anion Gap 18 H BUN 34 H Creatinine 1.52 H Estim Creat Clear Calc 44 Estimated GFR 45 L Glucose 132 H POC Capillary Glucose 126 H Lactic Acid 4.1 H* Calcium 9.2 Phosphorus 6.4 H Magnesium 2.2 Total Bilirubin 7.0 H AST 355 H ALT 146 H Alkaline Phosphatase 51 Total Protein 8.0 Albumin 5.4 H Nasal MRSA (PCR) Hepatitis A IgM Ab Negative Hep Bs Antigen Negative Hep B Core IgM Ab Negative Hepatitis C Ab Screen Negative 10/28/24 10/28/24 10/28/24 07:28 08:59 09:45 WBC RBC Hgb Hct MCV MCH MCHC RDW Plt Count MPV Immature Gran % (Auto) Neut % (Auto) Lymph % (Auto) [place] % (Auto) Eos % (Auto) Baso % (Auto) Lymph # (Auto) [place] # (Auto) Eos # (Auto) Baso # (Auto) Abs Immat Gran (auto) Absolute Neuts (auto) Absolute Nucleated RBC Nucleated RBC % PT INR APTT Puncture Site ABG pH ABG pCO2 ABG pO2 ABG PO2/FiO2 Ratio ABG HCO3 ABG O2 Saturation ABG O2 Content ABG Base Excess A-a Gradient Oxyhemoglobin Carboxyhemoglobin Methemoglobin Reduced Hemoglobin Total Hemoglobin O2 Delivery Device O2 Liters/Min Minute Volume Vent Rate Vent Mode FiO2 Expiratory Pressure Tidal Volume PEEP Inspiratory Pressure Peak Inspir Pressure Pressure Support Sodium 137 Potassium 4.4 Chloride 96 L Carbon Dioxide 24 Anion Gap 17 H BUN 36 H Creatinine 1.52 H Estim Creat Clear Calc 44 Estimated GFR 45 L Glucose 169 H POC Capillary Glucose 141 H Lactic Acid 4.5 H* Calcium 8.7 Phosphorus Magnesium Total Bilirubin AST ALT Alkaline Phosphatase Total Protein Albumin Nasal MRSA (PCR) Hepatitis A IgM Ab Hep Bs Antigen Hep B Core IgM Ab Hepatitis C Ab Screen 10/28/24 10/28/24 10/28/24 11:43 13:36 14:01 WBC RBC Hgb Hct MCV MCH MCHC RDW Plt Count MPV Immature Gran % (Auto) Neut % (Auto) Lymph % (Auto) [place] % (Auto) Eos % (Auto) Baso % (Auto) Lymph # (Auto) [place] # (Auto) Eos # (Auto) Baso # (Auto) Abs Immat Gran (auto) Absolute Neuts (auto) Absolute Nucleated RBC Nucleated RBC % PT INR APTT Puncture Site Artline Artline ABG pH 7.211 L* 7.335 L ABG pCO2 61.1 H* 47.4 H ABG pO2 87.1 94.3 ABG PO2/FiO2 Ratio 0.87 1.05 ABG HCO3 23.9 24.7 ABG O2 Saturation 94.5 L 96.7 ABG O2 Content 19.6 20.1 ABG Base Excess -5.0 -1.6 A-a Gradient 564.8 498.8 Oxyhemoglobin 94.1 95.6 Carboxyhemoglobin 1.4 Methemoglobin 0.2 Reduced Hemoglobin 4.3 Total Hemoglobin 14.8 14.9 O2 Delivery Device Ventilator Ventilator O2 Liters/Min Not Reportable Not Reportable Minute Volume Not Reportable Not Reportable Vent Rate 24 24 Vent Mode Cmv Cmv FiO2 100 90 Expiratory Pressure Tidal Volume 470 500 PEEP 10 8 Inspiratory Pressure Peak Inspir Pressure Not Reportable Not Reportable Pressure Support Not Reportable Not Reportable Sodium Potassium Chloride Carbon Dioxide Anion Gap BUN Creatinine Estim Creat Clear Calc Estimated GFR Glucose POC Capillary Glucose Lactic Acid 3.6 H Calcium Phosphorus Magnesium Total Bilirubin AST ALT Alkaline Phosphatase Total Protein Albumin Nasal MRSA (PCR) Hepatitis A IgM Ab Hep Bs Antigen Hep B Core IgM Ab Hepatitis C Ab Screen
[2024-10-28] MEDS: CISATRACURIUM BESYLATE 200 MG in DEXTROSE 5% 80 ML IV CONT (15:10)
[2024-10-28] MEDS: SODIUM CHLORIDE 0.9% IV 1,000 ML 75 ML IV CONT (15:10)
[2024-10-28] MEDS: AZITHROMYCIN 500 MG/NS 250 ML 500 MG/250 ML BAG 250 MG IVPB (15:13)
[2024-10-28] MEDS: NOREPINEPHRINE 8 MG/D5W 250 ML 8 MG/250 ML BAG 22.5 MG IV CONT (17:26)
[2024-10-28] MEDS: VANCOMYCIN 1,500 MG/NS 500 ML 1,500 MG/500 ML BAG 250 MG IVPB (20:41)
[2024-10-28 21:07] LABS: Alveolar/Arterial O2 Gradient 447.3 mmHg; Base Excess ABG -2.7 mEq/l (+/-2.0); Fractional Inspired Oxygen 80 %; Oxygen Content ABG 19.5 %vol (16.0-22.0); Oxygen Saturation ABG 94.7 % (95.0-100.0); Oxyhemoglobin 93.2 % THb (90.0-100.0); PCO2 ABG 43.5 mmHg (35.0-45.0); PO2 ABG 77.4 mmHg (80.0-100.0); PO2 FiO2 Ratio Arterial Blood 0.97 %; Total Hemoglobin 14.9 g/dL (12.0-18.0); pH ABG 7.342 (7.350-7.450)
[2024-10-28 21:09] LABS: Arterial Blood Gas PEEP 8 cmH2O; Arterial Blood Gas Tidal Volume 500 ml; Arterial Blood Gas Vent Mode CMV; Arterial Blood Gas Ventilator rate 24 /MIN; Device VENTILATOR; Site Drawn ARTLINE
[2024-10-28] MEDS: FENTANYL 2,500MCG/NS250ML(*CRX 2,500 MCG/250 ML BAG 10 MCG IV CONT (22:00)
[2024-10-29] VITALS (25 sets, daily range): BP systolic 87–119; BP diastolic 52–70; PULSE 70–89; RESP 24; TEMP 35.6–36.9; O2SAT 91–95; BMI 30.3
[2024-10-29] MEDS: IPRATROPIUM 0.5 MG/ALBUTEROL SULFATE 2.5 MG AMPUL.NEB 3 ML INHALATION ×2 (01:39→08:00)
[2024-10-29] MEDS: MIDAZOLAM 100MG/NS 100ML(*CRX) 100 MG/100 ML BAG IV CONT (03:17)
[2024-10-29 04:35] LABS: Alveolar/Arterial O2 Gradient 440.7 mmHg; Base Excess ABG 0.4 mEq/l (+/-2.0); Carboxyhemoglobin 1.2 % THb (0-2.0); Device VENTILATOR; Fractional Inspired Oxygen 80 %; HCO3 ABG 24.9 mEq/l (22.0-26.0); Methemoglobin ABG 0.1 %THb (0-1.5); Oxygen Content ABG 19.4 %vol (16.0-22.0); Oxygen Saturation ABG 96.8 % (95.0-100.0); Oxyhemoglobin 95.5 % THb (90.0-100.0); PCO2 ABG 39.6 mmHg (35.0-45.0); PO2 ABG 88.1 mmHg (80.0-100.0); Reduced Hemoglobin 3.2 %THb (0-5.0); Site Drawn ARTLINE; Total Hemoglobin 14.4 g/dL (12.0-18.0); pH ABG 7.416 (7.350-7.450)
[2024-10-29 04:36] LABS: Arterial Blood Gas PEEP 8 cmH2O; Arterial Blood Gas Tidal Volume 500 ml; Arterial Blood Gas Vent Mode CMV; Arterial Blood Gas Ventilator rate 24 /MIN
[2024-10-29] MEDS: CEFEPIME 2 GM/NS 50 ML 2 GM/50 ML BAG IVPB (05:38)
[2024-10-29] MEDS: methylPREDNISolone SOD SUCC 40 MG VIAL IV PUSH (05:38)
[2024-10-29] MEDS: CENTRAL LINE FLUSH 10 ML IV PUSH (05:38)
[2024-10-29 05:42] LABS: Basophils Percent Auto 0.1 % (0.2-1.2); Hematocrit 42.9 % (42.0-52.0); Immature Granulocyte Absolute 0.03 K/mm3 (0.00-0.031); Immature Granulocyte Percent A 0.2 % (0-0.5); Lymphocytes Absolute Auto 0.63 K/mm3 (0.9-3.2); Lymphocytes Percent Auto 4.8 % (18.3-44.2); Mean Corpuscular HGB Conc 32.6 g/dl (32-36); Mean Corpuscular Hemoglobin 31.2 pg (26-34); Mean Corpuscular Volume 95.5 fl (80-100); Mean Platelet Volume 10.9 fl (7.4-10.4); Monocytes Absolute Auto 0.4 K/mm3 (0.1-0.6); Monocytes Percent Auto 2.9 % (2.6-8.5); Neutrophils Absolute Auto 12.1 K/mm3 (1.3-6.7); Platelet Count Result 108 k/mm3 (150-375); Red Blood Count 4.49 M/mm3 (4.6-6.20); Red Cell Distribution Width 16.9 % (11.5-14.5); White Blood Count 13.1 K/mm3 (4.5-10.0)
[2024-10-29 05:50] LABS: Lactic Acid Reflex 2.6 mmol/L (0.7-2.0)
[2024-10-29 05:52] LABS: Alanine Aminotransferase 296 U/L (6-50); Albumin Level 3.9 g/dL (3.5-5.1); Alkaline Phosphatase 38 U/L (38-126); Anion Gap 11 mmol/L (4-12); Aspartate Amino Transferase 431 U/L (17-59); Bilirubin,Total 4.2 mg/dL (0.2-1.3); Blood Urea Nitrogen 40 mg/dL (9-20); Calcium 8.9 mg/dL (8.4-10.2); Carbon Dioxide 25 mmol/L (22-30); Chloride 99 mmol/L (98-107); Estimated CRCL calculation 54 ml/min; Estimated Glomerular Filt Rate 59; Glucose 154 mg/dL (65-110); Magnesium 2.2 mg/dL (1.6-2.3); Phosphorus 3.8 mg/dL (2.5-4.5); Potassium 4.4 mmol/L (3.4-5.0); Sodium 135 mmol/L (137-145)
[2024-10-29 05:54] LABS: INR 2.8; Prothrombin Time 30.1 Seconds (11.1-14.7)
[2024-10-29 05:55] LABS: Partial Thromboplastin Time 52.3 Seconds (22.3-36.8)
[2024-10-29] MEDS: CISATRACURIUM BESYLATE 200 MG in DEXTROSE 5% 80 ML IV CONT (07:42)
[2024-10-29] MEDS: BUDESONIDE RESPULE NEB 0.5 MG/2 ML AMP INHALATION (08:00)
[2024-10-29] MEDS: PANTOPRAZOLE SODIUM IV 40 MG VIAL IV PUSH (08:18)
[2024-10-29] MEDS: ENOXAPARIN 80 MG/0.8 ML SYRINGE SUB-Q (08:18)
[2024-10-29 08:38] LABS: Reflex Lactic Acid Yes or No Add Lactic
[2024-10-29] MEDS: MINERAL OIL/WHITE PETROLATUM OINTMENT 1 APPLIC EACH EYE (08:43)
--- NOTE | 2024-10-29 09:12 | WPDINTPN ---
Progress Note: A&P Assessment and Plan (1) Acute hypoxic respiratory failure: Code(s): J96.01 - Acute respiratory failure with hypoxia Status: Acute Assessment and Plan: Acute hypoxic respiratory failure likely related to CHF, emphysema/COPD, pneumonia -10/27/2024: Patient intubated after failing BiPAP 14/8, 100% FiO2 -currently on CMV mode of ventilation, peep of 8, 70% FiO2, -increase PEEP to 12 -ABGs and chest x-ray reviewed, ventilator adjusted -repeat ABGs -continue bronchodilators -sedated with fentanyl and Versed infusion, maintain RASS of 0 to -2 -started on the Nimbex infusion for ventilator synchrony -patient placed in prone position. Will placed in supine position see patient tolerates. -diuresis (2) CHF (congestive heart failure): Qualifiers: Heart failure type: diastolic Heart failure chronicity: acute on chronic Qualified Code(s): I50.33 - Acute on chronic diastolic (congestive) heart failure Code(s): I50.9 - Heart failure, unspecified Status: Acute Assessment and Plan: Patient on Entresto, bumetanide, SBP in the 80s will hold for now -off vasopressors -cardiology following the patient -resume Bumex 10/25/2024: Echocardiogram Summary 1. Left ventricular chamber dimension is normal. 2. Left ventricular systolic function is moderately reduced, estimated at 35-40%. 3. There is mildly increased left ventricular wall thickness. 4. The left ventricular diastolic function is grade I diastolic dysfunction. 5. Right ventricular chamber dimension is severely enlarged. 6. Right ventricular systolic function is reduced. 7. Flattening of the septum in diastole and systole consistent with right ventricular volume and pressure overload. 8. Right atrial chamber dimension is severely enlarged. 9. There is mild tricuspid valve regurgitation. 10. Pulmonary hypertension, estimated pulmonary arterial systolic pressure is 68 mmHg. 11. Normal inferior vena cava with no collapse upon inspiration consistent with elevated right atrial pressure, 15 mmHg. (3) Pulmonary edema: Code(s): J81.1 - Chronic pulmonary edema Status: Acute Assessment and Plan: Patient is on mechanical ventilation, -peep of 12 -resume diuretics (4) Sepsis: Code(s): A41.9 - Sepsis, unspecified organism Status: Acute Assessment and Plan: Patient dropped his blood pressures post intubation, sepsis now with shock -likely related to cardiogenic versus septic shock, pneumonia, positive-pressure ventilation, worsening infection -status post albumin for intravascular volume expansion -continue azithromycin, cefepime, vancomycin (10/27) -10/27: sputum and blood cultures negative to the now -Check Procal (5) Pneumonia: Code(s): J18.9 - Pneumonia, unspecified organism Status: Acute Assessment and Plan: Antibiotics as above Plan DVT prophylaxis: Therapeutic Lovenox Stress ulcer prophylaxis: Protonix Nutrition: NPO, Code Status: Full code Critical Care Time Spent: 30 minutes Due to a high probability of clinically significant, life threatening deterioration, the patient required my highest level of preparedness to intervene emergently and I personally spent this critical care time directly and personally managing the patient. This critical care time included obtaining a history; examining the patient; pulse oximetry; ordering and review of studies; arranging urgent treatment with development of a management plan; evaluation of patient's response to treatment; frequent reassessment; and discussions with other providers. It was exclusive of separately billable procedures and treating other patients and teaching time. Please see Assessment and Plan section and the rest of the note for further information on patient assessment and treatment This dictation may have been done utilizing a voice recognition system. Attempts have been made to correct errors. However, there may be uncorrected grammatical, spelling, and recognitions errors present. Subjective Date/time seen: 10/29/24 09:12 Overnight events reviewed. Afebrile Continues to be on mechanical ventilation 70% FiO2 and 8 of PEEP Off Levophed Continues to be sedated with Versed fentanyl and paralyzed with Nimbex npo Interval history: Reason for consult: Acute hypoxic respiratory failure, CHF exacerbation, COPD exacerbation, Shock Review of Systems Review of Systems: ROS unobtainable: Yes unobtainable due to endotracheal tube, unobtainable due to medical condition and unobtainable due to mental status Exam Narrative: General: Intubated, sedated and paralyzed. In prone position HEENT:? Pupils equal reactive, sclera is clear Neck:? Sub Respiratory:? Coarse breath sounds bilaterally, adequate air entry, no wheezing Cardiac:? S1-S2 is normal bolus sinus rhythm, rate control Abdomen:? Soft, nontender, nondistended,, hypoactive bowels Extremities:? Bilateral lower extremity edema, palpable pedal pulses, Neuro:? Patient intubated, sedated. And chemically paralyzed Skin:? Chronic venous stasis change, b/l Planter aspects of the feet with scaly skin Psych:? Unable to assess at this Objective Data Vital Signs Vital Signs: Vital Signs - 24 hr 10/28/24 09:15 10/28/24 09:30 10/28/24 09:48 Temperature Pulse Rate 83 82 88 Respiratory Rate Blood Pressure 81/61 L 80/65 L 89/63 L Pulse Oximetry Oxygen Delivery Fraction of Inspired Oxygen 10/28/24 09:55 10/28/24 10:00 10/28/24 10:00 Temperature 35.8 C L Pulse Rate 83 84 84 Respiratory Rate 24 H Blood Pressure 90/71 L 94/73 L Pulse Oximetry 94 Oxygen Delivery Fraction of Inspired Oxygen 10/28/24 10:00 10/28/24 10:00 10/28/24 10:00 Temperature Pulse Rate 84 84 84 Respiratory Rate 24 H 24 H Blood Pressure 94/73 L 94/73 L Pulse Oximetry Oxygen Delivery Fraction of Inspired Oxygen 10/28/24 10:00 10/28/24 10:53 10/28/24 11:50 Temperature Pulse Rate 84 102 H Respiratory Rate 24 H Blood Pressure Pulse Oximetry 93 Oxygen Delivery Mechanical Ventilation Fraction of Inspired Oxygen 100 90 10/28/24 12:00 10/28/24 12:00 10/28/24 12:00 Temperature Pulse Rate 89 Respiratory Rate Blood Pressure 103/66 Pulse Oximetry Oxygen Delivery Mechanical Ventilation Fraction of Inspired Oxygen 90 90 10/28/24 12:00 10/28/24 12:00 10/28/24 12:00 Temperature Pulse Rate 89 89 89 Respiratory Rate 24 H 24 H 24 H Blood Pressure 103/66 Pulse Oximetry Oxygen Delivery Fraction of Inspired Oxygen 10/28/24 12:00 10/28/24 12:00 10/28/24 13:50 Temperature 36.3 C L Pulse Rate 89 88 84 Respiratory Rate 24 H Blood Pressure 103/66 Pulse Oximetry 93 94 Oxygen Delivery Mechanical Ventilation Fraction of Inspired Oxygen 90 10/28/24 13:50 10/28/24 14:00 10/28/24 14:00 Temperature 36.4 C Pulse Rate 82 83 83 Respiratory Rate 24 H 24 H Blood Pressure 105/74 Pulse Oximetry 96 Oxygen Delivery Fraction of Inspired Oxygen 10/28/24 14:00 10/28/24 14:00 10/28/24 14:00 Temperature Pulse Rate 83 83 83 Respiratory Rate 24 H 24 H Blood Pressure 105/74 105/74 Pulse Oximetry Oxygen Delivery Fraction of Inspired Oxygen 10/28/24 14:00 10/28/24 14:02 10/28/24 14:47 Temperature Pulse Rate 83 80 Respiratory Rate 24 H 24 H Blood Pressure Pulse Oximetry Oxygen Delivery Fraction of Inspired Oxygen 80 10/28/24 15:00 10/28/24 15:10 10/28/24 15:10 Temperature Pulse Rate 84 99 99 Respiratory Rate 24 H 24 H Blood Pressure 84/58 L 133/81 133/81 Pulse Oximetry Oxygen Delivery Fraction of Inspired Oxygen 10/28/24 16:00 10/28/24 16:00 10/28/24 16:00 Temperature 36.6 C Pulse Rate 84 Respiratory Rate 24 H Blood Pressure 81/59 L Pulse Oximetry 91 Oxygen Delivery Mechanical Ventilation Fraction of Inspired Oxygen 80 80 10/28/24 16:00 10/28/24 16:00 10/28/24 16:00 Temperature Pulse Rate 84 84 84 Respiratory Rate 24 H 24 H Blood Pressure 81/59 L 81/59 L Pulse Oximetry Oxygen Delivery Fraction of Inspired Oxygen 10/28/24 16:00 10/28/24 16:00 10/28/24 17:00 Temperature Pulse Rate 84 79 106 H Respiratory Rate 24 H Blood Pressure Pulse Oximetry 91 Oxygen Delivery Mechanical Ventilation Fraction of Inspired Oxygen 80 10/28/24 17:19 10/28/24 17:26 10/28/24 17:26 Temperature Pulse Rate 98 94 94 Respiratory Rate Blood Pressure 116/77 119/79 119/79 Pulse Oximetry Oxygen Delivery Fraction of Inspired Oxygen 10/28/24 17:37 10/28/24 17:53 10/28/24 18:00 Temperature Pulse Rate 92 95 101 H Respiratory Rate Blood Pressure 119/74 120/77 Pulse Oximetry Oxygen Delivery Fraction of Inspired Oxygen 10/28/24 18:00 10/28/24 18:00 10/28/24 18:00 Temperature 36.8 C Pulse Rate 92 92 92 Respiratory Rate 24 H 24 H Blood Pressure 117/74 117/74 Pulse Oximetry 93 Oxygen Delivery Fraction of Inspired Oxygen 10/28/24 18:00 10/28/24 18:00 10/28/24 18:42 Temperature Pulse Rate 92 92 84 Respiratory Rate 24 H 24 H Blood Pressure 117/74 117/75 Pulse Oximetry Oxygen Delivery Fraction of Inspired Oxygen 10/28/24 19:37 10/28/24 19:37 10/28/24 19:37 Temperature Pulse Rate 82 86 Respiratory Rate 24 H Blood Pressure Pulse Oximetry 93 93 Oxygen Delivery Mechanical Ventilation Mechanical Ventilation Fraction of Inspired Oxygen 80 80 10/28/24 20:00 10/28/24 20:00 10/28/24 20:00 Temperature 36.9 C Pulse Rate 80 80 80 Respiratory Rate 24 H 24 H 24 H Blood Pressure 114/70 114/70 Pulse Oximetry 95 Oxygen Delivery Fraction of Inspired Oxygen 10/28/24 20:00 10/28/24 20:00 10/28/24 20:00 Temperature Pulse Rate 80 Respiratory Rate 24 H Blood Pressure Pulse Oximetry Oxygen Delivery Mechanical Ventilation Fraction of Inspired Oxygen 80 80 10/28/24 20:00 10/28/24 20:04 10/28/24 20:30 Temperature Pulse Rate 85 78 80 Respiratory Rate 24 H Blood Pressure 112/69 Pulse Oximetry Oxygen Delivery Fraction of Inspired Oxygen 10/28/24 20:45 10/28/24 21:00 10/28/24 21:05 Temperature Pulse Rate 80 86 88 Respiratory Rate Blood Pressure 109/67 104/66 Pulse Oximetry 92 Oxygen Delivery Mechanical Ventilation Fraction of Inspired Oxygen 80 10/28/24 22:00 10/28/24 22:00 10/28/24 22:00 Temperature Pulse Rate 85 85 85 Respiratory Rate 24 H 24 H 24 H Blood Pressure 120/73 Pulse Oximetry Oxygen Delivery Fraction of Inspired Oxygen 10/28/24 22:00 10/28/24 22:00 10/28/24 22:00 Temperature 36.9 C Pulse Rate 85 85 85 Respiratory Rate 24 H 24 H Blood Pressure 120/73 120/73 Pulse Oximetry 91 Oxygen Delivery Fraction of Inspired Oxygen 10/28/24 22:00 10/28/24 22:15 10/28/24 22:25 Temperature Pulse Rate 85 86 86 Respiratory Rate Blood Pressure 123/74 Pulse Oximetry 91 Oxygen Delivery Mechanical Ventilation Fraction of Inspired Oxygen 80 10/28/24 22:30 10/28/24 23:30 10/28/24 23:45 Temperature Pulse Rate 86 86 85 Respiratory Rate Blood Pressure 121/73 115/70 115/70 Pulse Oximetry Oxygen Delivery Fraction of Inspired Oxygen 10/29/24 00:00 10/29/24 00:00 10/29/24 00:00 Temperature Pulse Rate 89 Respiratory Rate Blood Pressure Pulse Oximetry Oxygen Delivery Mechanical Ventilation Fraction of Inspired Oxygen 80 80 10/29/24 00:00 10/29/24 00:00 10/29/24 00:00 Temperature 36.8 C Pulse Rate 89 89 89 Respiratory Rate 24 H 24 H Blood Pressure 117/70 117/70 117/70 Pulse Oximetry 91 Oxygen Delivery Fraction of Inspired Oxygen 10/29/24 00:00 10/29/24 00:00 10/29/24 01:39 Temperature Pulse Rate 89 89 87 Respiratory Rate 24 H 24 H Blood Pressure Pulse Oximetry 92 Oxygen Delivery Mechanical Ventilation Fraction of Inspired Oxygen 80 10/29/24 01:39 10/29/24 01:52 10/29/24 02:00 Temperature Pulse Rate 87 83 84 Respiratory Rate 24 H 24 H Blood Pressure Pulse Oximetry Oxygen Delivery Fraction of Inspired Oxygen 10/29/24 02:00 10/29/24 02:00 10/29/24 02:00 Temperature 36.6 C Pulse Rate 84 84 84 Respiratory Rate 24 H 24 H Blood Pressure 108/63 108/63 108/63 Pulse Oximetry 93 Oxygen Delivery Fraction of Inspired Oxygen 10/29/24 02:00 10/29/24 02:00 10/29/24 02:15 Temperature Pulse Rate 84 84 83 Respiratory Rate 24 H 24 H Blood Pressure 106/62 Pulse Oximetry Oxygen Delivery Fraction of Inspired Oxygen 10/29/24 03:00 10/29/24 03:17 10/29/24 03:17 Temperature Pulse Rate 79 74 74 Respiratory Rate 24 H 24 H Blood Pressure 108/63 Pulse Oximetry Oxygen Delivery Fraction of Inspired Oxygen 10/29/24 03:40 10/29/24 04:00 10/29/24 04:00 Temperature 36.2 C L Pulse Rate 71 Respiratory Rate 24 H Blood Pressure 101/61 Pulse Oximetry 95 Oxygen Delivery Mechanical Ventilation Fraction of Inspired Oxygen 80 70 10/29/24 04:00 10/29/24 04:00 10/29/24 04:00 Temperature Pulse Rate 71 71 71 Respiratory Rate 24 H 24 H Blood Pressure 101/61 101/61 Pulse Oximetry Oxygen Delivery Fraction of Inspired Oxygen 10/29/24 04:00 10/29/24 04:00 10/29/24 04:32 Temperature Pulse Rate 71 70 71 Respiratory Rate 24 H Blood Pressure Pulse Oximetry 95 Oxygen Delivery Mechanical Ventilation Fraction of Inspired Oxygen 80 10/29/24 04:55 10/29/24 05:15 10/29/24 05:30 Temperature Pulse Rate 70 70 Respiratory Rate Blood Pressure 109/63 103/60 Pulse Oximetry 94 Oxygen Delivery Mechanical Ventilation Fraction of Inspired Oxygen 70 10/29/24 06:00 10/29/24 06:00 10/29/24 06:00 Temperature Pulse Rate 71 71 71 Respiratory Rate 24 H 24 H 24 H Blood Pressure 101/59 L Pulse Oximetry Oxygen Delivery Fraction of Inspired Oxygen 10/29/24 06:00 10/29/24 06:00 10/29/24 07:00 Temperature 35.9 C L Pulse Rate 71 71 75 Respiratory Rate 24 H Blood Pressure 101/59 L 100/59 L Pulse Oximetry 95 Oxygen Delivery Fraction of Inspired Oxygen 10/29/24 07:42 10/29/24 07:42 10/29/24 08:00 Temperature Pulse Rate 76 76 75 Respiratory Rate 24 H 24 H Blood Pressure 101/59 L 101/59 L 102/59 L Pulse Oximetry Oxygen Delivery Fraction of Inspired Oxygen 10/29/24 08:00 10/29/24 08:00 10/29/24 08:00 Temperature Pulse Rate 75 75 75 Respiratory Rate 24 H 24 H 24 H Blood Pressure 102/59 L Pulse Oximetry Oxygen Delivery Fraction of Inspired Oxygen 10/29/24 08:00 10/29/24 08:00 10/29/24 08:00 Temperature Pulse Rate 76 76 Respiratory Rate 24 H Blood Pressure Pulse Oximetry 94 Oxygen Delivery Mechanical Ventilation Fraction of Inspired Oxygen 70 70 10/29/24 08:00 10/29/24 08:00 10/29/24 08:00 Temperature Pulse Rate 74 76 Respiratory Rate Blood Pressure 103/58 L Pulse Oximetry Oxygen Delivery Mechanical Ventilation Fraction of Inspired Oxygen 70 10/29/24 08:00 10/29/24 08:18 Temperature 35.7 C L Pulse Rate 76 73 Respiratory Rate 24 H 24 H Blood Pressure 87/59 L Pulse Oximetry 94 Oxygen Delivery Fraction of Inspired Oxygen Intake/Output Intake/Output: Intake & Output 10/26/24 10/27/24 10/29/24 10/29/24 23:59 23:59 00:59 23:59 Intake Total 750 2490.8 3063.6 250.7 Output Total 850 2100 925 520 Balance -100 390.8 2138.6 -269.3 Meds/Results Medications: Active Medications Generic Name Dose Route Start Last Admin Trade Name Freq PRN Reason Stop Dose Admin Albuterol/Ipratropium 3 ml 10/27/24 14:00 10/29/24 08:00 Ipratropium 0.5 Mg/Albuterol Sulfate 2.5 Mg Ampul.Neb 3 Ml INHALATION 3 ml Q6HRT SONIDO Administration Budesonide 0.5 mg 10/28/24 08:45 10/29/24 08:00 Budesonide Respule Neb 0.5 Mg/2 Ml Amp INHALATION 0.5 mg Q12HRT SONIDO Administration Bumetanide 2 mg 10/27/24 17:00 10/27/24 16:46 Bumetanide Inj 1 Mg/4 Ml Vial IV PUSH 2 mg BID SONIDO Administration Enoxaparin Sodium 80 mg 10/27/24 21:00 10/29/24 08:18 Enoxaparin 80 Mg/0.8 Ml Syringe SUB-Q 80 mg Q12HR SONIDO Administration Cefepime HCl 2 gm in 50 mls @ 100 mls/hr 10/27/24 17:00 10/29/24 06:08 Maxipime 2 Gm/Ns 50 Ml IVPB Infused Q12H SONIDO Infusion Azithromycin 500 mg in 250 mls @ 250 mls/hr 10/27/24 15:00 10/28/24 16:33 Zithromax IVPB Infused Q24H SONIDO Infusion Fentanyl Citrate 2,500 mcg in 250 mls @ 10 mls/hr 10/27/24 18:40 10/29/24 08:00 Fentanyl 2,500 Mcg/Ns 250 Ml IV CONT 100 mcg/hr .Q25H SONIDO 10 mls/hr Titration Protocol 100 MCG/HR Midazolam HCl 100 mg in 100 mls @ 2 mls/hr 10/27/24 18:40 10/29/24 08:00 Versed 100 Mg/Ns 100 Ml IV CONT 3 mg/hr .Q50H SONIDO 3 mls/hr Titration Protocol 2 MG/HR Norepinephrine Bitartrate 8 mg in 250 mls @ 0 mls/hr 10/27/24 18:50 10/29/24 08:00 Levophed 8 Mg/D5w 250 Ml IV CONT 0 mcg/min .Q0M SONIDO 0 mls/hr Titration Protocol 0 MCG/MIN Cisatracurium Besylate 200 mg/ 100 mls @ 4.968 mls/hr 10/27/24 20:55 10/29/24 08:00 Dextrose IV CONT 2 mcg/kg/min .Q20H8M SONIDO 4.97 mls/hr Titration Protocol 2 MCG/KG/MIN Vancomycin HCl 1,500 mg in 500 mls @ 250 mls/hr 10/28/24 21:00 10/28/24 22:41 Vancomycin 1,500 Mg/Ns 500 Ml IVPB Infused Q24H SONIDO Infusion Methylprednisolone Sodium Succinate 40 mg 10/30/24 09:00 Methylprednisolone Sod Succ 40 Mg Vial IV PUSH QAM SONIDO Multi-Ingred Cream/Lotion/Oil/Oint 1 applic 10/27/24 21:00 10/29/24 08:43 Mineral Oil/White Petrolatum Ointment EACH EYE 1 applic Q12HR SONIDO Administration Pantoprazole Sodium 40 mg 10/27/24 19:55 10/29/24 08:18 Pantoprazole Sodium Iv 40 Mg Vial IV PUSH 40 mg QAM SONIDO Administration Sodium Chloride 10 ml 10/27/24 22:00 10/29/24 05:38 Central Line Flush IV PUSH 10 ml Q8HR SONIDO Administration Sodium Chloride 20 ml 10/27/24 19:20 Central Line Flush IV PUSH PRN PRN after blood draws Umeclidinium/Vilanterol 1 puff 10/26/24 08:00 10/28/24 08:23 Umeclidinium/Vilanterol 62.5-25 Mcg Ellipta INHALATION Not Given DAILYRT [facility] Radiology Results: ITS Impressions Chest X-Ray 10/29/24 06:22 Impression: Moderate pulmonary edema with small bilateral pleural effusions. Underlying COPD. Support tubes, as above. Labs Labs: Laboratory Results - last 24 hr 10/28/24 10/28/24 10/28/24 08:59 09:45 11:43 WBC RBC Hgb Hct MCV MCH MCHC RDW Plt Count MPV Immature Gran % (Auto) Neut % (Auto) Lymph % (Auto) [place] % (Auto) Eos % (Auto) Baso % (Auto) Lymph # (Auto) [place] # (Auto) Eos # (Auto) Baso # (Auto) Abs Immat Gran (auto) Absolute Neuts (auto) Absolute Nucleated RBC Nucleated RBC % PT INR APTT Puncture Site Artline ABG pH 7.211 L* ABG pCO2 61.1 H* ABG pO2 87.1 ABG PO2/FiO2 Ratio 0.87 ABG HCO3 23.9 ABG O2 Saturation 94.5 L ABG O2 Content 19.6 ABG Base Excess -5.0 A-a Gradient 564.8 Oxyhemoglobin 94.1 Carboxyhemoglobin 1.4 Methemoglobin 0.2 Reduced Hemoglobin 4.3 Total Hemoglobin 14.8 O2 Delivery Device Ventilator O2 Liters/Min Not Reportable Minute Volume Not Reportable Vent Rate 24 Vent Mode Cmv FiO2 100 Tidal Volume 470 PEEP 10 Peak Inspir Pressure Not Reportable Pressure Support Not Reportable Sodium 137 Potassium 4.4 Chloride 96 L Carbon Dioxide 24 Anion Gap 17 H BUN 36 H Creatinine 1.52 H Estim Creat Clear Calc 44 Estimated GFR 45 L Glucose 169 H Lactic Acid 4.5 H* Calcium 8.7 Phosphorus Magnesium Total Bilirubin AST ALT Alkaline Phosphatase Total Protein Albumin 10/28/24 10/28/24 10/28/24 13:36 14:01 21:05 WBC RBC Hgb Hct MCV MCH MCHC RDW Plt Count MPV Immature Gran % (Auto) Neut % (Auto) Lymph % (Auto) [place] % (Auto) Eos % (Auto) Baso % (Auto) Lymph # (Auto) [place] # (Auto) Eos # (Auto) Baso # (Auto) Abs Immat Gran (auto) Absolute Neuts (auto) Absolute Nucleated RBC Nucleated RBC % PT INR APTT Puncture Site Artline Artline ABG pH 7.335 L 7.342 L ABG pCO2 47.4 H 43.5 ABG pO2 94.3 77.4 L ABG PO2/FiO2 Ratio 1.05 0.97 ABG HCO3 24.7 23.0 ABG O2 Saturation 96.7 94.7 L ABG O2 Content 20.1 19.5 ABG Base Excess -1.6 -2.7 A-a Gradient 498.8 447.3 Oxyhemoglobin 95.6 93.2 Carboxyhemoglobin Methemoglobin Reduced Hemoglobin Total Hemoglobin 14.9 14.9 O2 Delivery Device Ventilator Ventilator O2 Liters/Min Not Reportable Not Reportable Minute Volume Not Reportable Not Reportable Vent Rate 24 24 Vent Mode Cmv Cmv FiO2 90 80 Tidal Volume 500 500 PEEP 8 8 Peak Inspir Pressure Not Reportable Not Reportable Pressure Support Not Reportable Not Reportable Sodium Potassium Chloride Carbon Dioxide Anion Gap BUN Creatinine Estim Creat Clear Calc Estimated GFR Glucose Lactic Acid 3.6 H Calcium Phosphorus Magnesium Total Bilirubin AST ALT Alkaline Phosphatase Total Protein Albumin 10/29/24 10/29/24 04:32 05:35 WBC 13.1 H RBC 4.49 L Hgb 14.0 Hct 42.9 MCV 95.5 MCH 31.2 MCHC 32.6 RDW 16.9 H Plt Count 108 L MPV 10.9 H Immature Gran % (Auto) 0.2 Neut % (Auto) 92.0 H Lymph % (Auto) 4.8 L [place] % (Auto) 2.9 Eos % (Auto) 0.0 Baso % (Auto) 0.1 L Lymph # (Auto) 0.63 L [place] # (Auto) 0.4 Eos # (Auto) 0.0 Baso # (Auto) 0.0 Abs Immat Gran (auto) 0.03 Absolute Neuts (auto) 12.1 H Absolute Nucleated RBC 0.000 Nucleated RBC % 0.0 PT 30.1 H INR 2.8 APTT 52.3 H Puncture Site Artline ABG pH 7.416 ABG pCO2 39.6 ABG pO2 88.1 ABG PO2/FiO2 Ratio 1.10 ABG HCO3 24.9 ABG O2 Saturation 96.8 ABG O2 Content 19.4 ABG Base Excess 0.4 A-a Gradient 440.7 Oxyhemoglobin 95.5 Carboxyhemoglobin 1.2 Methemoglobin 0.1 Reduced Hemoglobin 3.2 Total Hemoglobin 14.4 O2 Delivery Device Ventilator O2 Liters/Min Not Reportable Minute Volume Not Reportable Vent Rate 24 Vent Mode Cmv FiO2 80 Tidal Volume 500 PEEP 8 Peak Inspir Pressure Not Reportable Pressure Support Not Reportable Sodium 135 L Potassium 4.4 Chloride 99 Carbon Dioxide 25 Anion Gap 11 BUN 40 H Creatinine 1.22 Estim Creat Clear Calc 54 Estimated GFR 59 Glucose 154 H Lactic Acid 2.6 H Calcium 8.9 Phosphorus 3.8 Magnesium 2.2 Total Bilirubin 4.2 H AST 431 H ALT 296 H Alkaline Phosphatase 38 Total Protein 6.0 L Albumin 3.9 Quality VTE Prophylaxis VTE prophylaxis: pharmacologic ordered
--- NOTE | 2024-10-29 09:28 | PC.NURSE ---
Pt. supinated at this time.
[2024-10-29] MEDS: BUMETANIDE INJ 1 MG/4 ML VIAL 2 MG IV PUSH (09:41)
--- NOTE | 2024-10-29 09:54 | P.PNCA_ITS ---
Progress Note: A&P Assessment and Plan (1) Cor pulmonale: Code(s): I27.81 - Cor pulmonale (chronic) Status: Acute (2) CHF (congestive heart failure): Qualifiers: Heart failure type: diastolic Heart failure chronicity: acute on chronic Qualified Code(s): I50.33 - Acute on chronic diastolic (congestive) heart failure Code(s): I50.9 - Heart failure, unspecified Status: Acute (3) Pulmonary embolism: Qualifiers: Acute cor pulmonale presence: unspecified Chronicity: acute Pulmonary embolism type: unspecified Qualified Code(s): I26.99 - Other pulmonary embolism without acute cor pulmonale Code(s): I26.99 - Other pulmonary embolism without acute cor pulmonale Status: Acute (4) Shock: Code(s): R57.9 - Shock, unspecified Status: Acute Plan 69-year-old man with chronic right heart failure, COPD, history of pulmonary embolism, history of CVA, that hypertension presented with shortness of breath requiring intubation found to have new onset left ventricular systolic dysfunction and now admitted for ventilator dependent respiratory failure Shock -most likely mixed picture of sepsis/cardiogenic -cardiogenic contribution most likely secondary to biventricular failure in setting pulmonary hypertension -continue maintaining systemic blood pressure support with norepinephrine and would avoid further IV hydration -given his code status which is appropriate for his chronic conditions and acute setting, not a candidate mechanical support or destination therapies -may benefit from flolan; however should ideally have swan-fran if this therapy is to be pursued New onset systolic heart failure with chronic RV failure -continue to maintain euvolemic volume status -continue to hold guideline directed medical therapy in setting of hypotension and shock -continue Levophed for systemic blood pressure support History of pulmonary embolism -continue anticoagulation Subjective Date/time seen: 10/29/24 09:54 Interval history: Was previously prone without any improvement. Continues to be paralyzed and sedated. Continues to require high maximal support from respiratory ventilator Review of Systems Review of Systems: ROS unobtainable: Yes unobtainable due to endotracheal tube and unobtainable due to medical condition Exam Const: Other: Intubated, sedated, paralyzed Neck: Neck: no JVD Resp: Auscultation: rales and rhonchi Cardio: Rate: regular rate Rhythm: regular rhythm GI: GI Palp: Yes Soft to palpation Extrem: General: pedal edema Objective Data Vital Signs Vital Signs: Vital Signs - 24 hr 10/28/24 09:55 10/28/24 10:00 10/28/24 10:00 Temperature 35.8 C L Pulse Rate 83 84 84 Respiratory Rate 24 H Blood Pressure 90/71 L 94/73 L Pulse Oximetry 94 Oxygen Delivery Fraction of Inspired Oxygen 10/28/24 10:00 10/28/24 10:00 10/28/24 10:00 Temperature Pulse Rate 84 84 84 Respiratory Rate 24 H 24 H Blood Pressure 94/73 L 94/73 L Pulse Oximetry Oxygen Delivery Fraction of Inspired Oxygen 10/28/24 10:00 10/28/24 10:53 10/28/24 11:50 Temperature Pulse Rate 84 102 H Respiratory Rate 24 H Blood Pressure Pulse Oximetry 93 Oxygen Delivery Mechanical Ventilation Fraction of Inspired Oxygen 100 90 10/28/24 12:00 10/28/24 12:00 10/28/24 12:00 Temperature Pulse Rate 89 Respiratory Rate Blood Pressure 103/66 Pulse Oximetry Oxygen Delivery Mechanical Ventilation Fraction of Inspired Oxygen 90 90 10/28/24 12:00 10/28/24 12:00 10/28/24 12:00 Temperature Pulse Rate 89 89 89 Respiratory Rate 24 H 24 H 24 H Blood Pressure 103/66 Pulse Oximetry Oxygen Delivery Fraction of Inspired Oxygen 10/28/24 12:00 10/28/24 12:00 10/28/24 13:50 Temperature 36.3 C L Pulse Rate 89 88 84 Respiratory Rate 24 H Blood Pressure 103/66 Pulse Oximetry 93 94 Oxygen Delivery Mechanical Ventilation Fraction of Inspired Oxygen 90 10/28/24 13:50 10/28/24 14:00 10/28/24 14:00 Temperature 36.4 C Pulse Rate 82 83 83 Respiratory Rate 24 H 24 H Blood Pressure 105/74 Pulse Oximetry 96 Oxygen Delivery Fraction of Inspired Oxygen 10/28/24 14:00 10/28/24 14:00 10/28/24 14:00 Temperature Pulse Rate 83 83 83 Respiratory Rate 24 H 24 H Blood Pressure 105/74 105/74 Pulse Oximetry Oxygen Delivery Fraction of Inspired Oxygen 10/28/24 14:00 10/28/24 14:02 10/28/24 14:47 Temperature Pulse Rate 83 80 Respiratory Rate 24 H 24 H Blood Pressure Pulse Oximetry Oxygen Delivery Fraction of Inspired Oxygen 80 10/28/24 15:00 10/28/24 15:10 10/28/24 15:10 Temperature Pulse Rate 84 99 99 Respiratory Rate 24 H 24 H Blood Pressure 84/58 L 133/81 133/81 Pulse Oximetry Oxygen Delivery Fraction of Inspired Oxygen 10/28/24 16:00 10/28/24 16:00 10/28/24 16:00 Temperature 36.6 C Pulse Rate 84 Respiratory Rate 24 H Blood Pressure 81/59 L Pulse Oximetry 91 Oxygen Delivery Mechanical Ventilation Fraction of Inspired Oxygen 80 80 10/28/24 16:00 10/28/24 16:00 10/28/24 16:00 Temperature Pulse Rate 84 84 84 Respiratory Rate 24 H 24 H Blood Pressure 81/59 L 81/59 L Pulse Oximetry Oxygen Delivery Fraction of Inspired Oxygen 10/28/24 16:00 10/28/24 16:00 10/28/24 17:00 Temperature Pulse Rate 84 79 106 H Respiratory Rate 24 H Blood Pressure Pulse Oximetry 91 Oxygen Delivery Mechanical Ventilation Fraction of Inspired Oxygen 80 10/28/24 17:19 10/28/24 17:26 10/28/24 17:26 Temperature Pulse Rate 98 94 94 Respiratory Rate Blood Pressure 116/77 119/79 119/79 Pulse Oximetry Oxygen Delivery Fraction of Inspired Oxygen 10/28/24 17:37 10/28/24 17:53 10/28/24 18:00 Temperature Pulse Rate 92 95 101 H Respiratory Rate Blood Pressure 119/74 120/77 Pulse Oximetry Oxygen Delivery Fraction of Inspired Oxygen 10/28/24 18:00 10/28/24 18:00 10/28/24 18:00 Temperature 36.8 C Pulse Rate 92 92 92 Respiratory Rate 24 H 24 H Blood Pressure 117/74 117/74 Pulse Oximetry 93 Oxygen Delivery Fraction of Inspired Oxygen 10/28/24 18:00 10/28/24 18:00 10/28/24 18:42 Temperature Pulse Rate 92 92 84 Respiratory Rate 24 H 24 H Blood Pressure 117/74 117/75 Pulse Oximetry Oxygen Delivery Fraction of Inspired Oxygen 10/28/24 19:37 10/28/24 19:37 10/28/24 19:37 Temperature Pulse Rate 82 86 Respiratory Rate 24 H Blood Pressure Pulse Oximetry 93 93 Oxygen Delivery Mechanical Ventilation Mechanical Ventilation Fraction of Inspired Oxygen 80 80 10/28/24 20:00 10/28/24 20:00 10/28/24 20:00 Temperature 36.9 C Pulse Rate 80 80 80 Respiratory Rate 24 H 24 H 24 H Blood Pressure 114/70 114/70 Pulse Oximetry 95 Oxygen Delivery Fraction of Inspired Oxygen 10/28/24 20:00 10/28/24 20:00 10/28/24 20:00 Temperature Pulse Rate 80 Respiratory Rate 24 H Blood Pressure Pulse Oximetry Oxygen Delivery Mechanical Ventilation Fraction of Inspired Oxygen 80 80 10/28/24 20:00 10/28/24 20:04 10/28/24 20:30 Temperature Pulse Rate 85 78 80 Respiratory Rate 24 H Blood Pressure 112/69 Pulse Oximetry Oxygen Delivery Fraction of Inspired Oxygen 10/28/24 20:45 10/28/24 21:00 10/28/24 21:05 Temperature Pulse Rate 80 86 88 Respiratory Rate Blood Pressure 109/67 104/66 Pulse Oximetry 92 Oxygen Delivery Mechanical Ventilation Fraction of Inspired Oxygen 80 10/28/24 22:00 10/28/24 22:00 10/28/24 22:00 Temperature Pulse Rate 85 85 85 Respiratory Rate 24 H 24 H 24 H Blood Pressure 120/73 Pulse Oximetry Oxygen Delivery Fraction of Inspired Oxygen 10/28/24 22:00 10/28/24 22:00 10/28/24 22:00 Temperature 36.9 C Pulse Rate 85 85 85 Respiratory Rate 24 H 24 H Blood Pressure 120/73 120/73 Pulse Oximetry 91 Oxygen Delivery Fraction of Inspired Oxygen 10/28/24 22:00 10/28/24 22:15 10/28/24 22:25 Temperature Pulse Rate 85 86 86 Respiratory Rate Blood Pressure 123/74 Pulse Oximetry 91 Oxygen Delivery Mechanical Ventilation Fraction of Inspired Oxygen 80 10/28/24 22:30 10/28/24 23:30 10/28/24 23:45 Temperature Pulse Rate 86 86 85 Respiratory Rate Blood Pressure 121/73 115/70 115/70 Pulse Oximetry Oxygen Delivery Fraction of Inspired Oxygen 10/29/24 00:00 10/29/24 00:00 10/29/24 00:00 Temperature Pulse Rate 89 Respiratory Rate Blood Pressure Pulse Oximetry Oxygen Delivery Mechanical Ventilation Fraction of Inspired Oxygen 80 80 10/29/24 00:00 10/29/24 00:00 10/29/24 00:00 Temperature 36.8 C Pulse Rate 89 89 89 Respiratory Rate 24 H 24 H Blood Pressure 117/70 117/70 117/70 Pulse Oximetry 91 Oxygen Delivery Fraction of Inspired Oxygen 10/29/24 00:00 10/29/24 00:00 10/29/24 01:39 Temperature Pulse Rate 89 89 87 Respiratory Rate 24 H 24 H Blood Pressure Pulse Oximetry 92 Oxygen Delivery Mechanical Ventilation Fraction of Inspired Oxygen 80 10/29/24 01:39 10/29/24 01:52 10/29/24 02:00 Temperature Pulse Rate 87 83 84 Respiratory Rate 24 H 24 H Blood Pressure Pulse Oximetry Oxygen Delivery Fraction of Inspired Oxygen 10/29/24 02:00 10/29/24 02:00 10/29/24 02:00 Temperature 36.6 C Pulse Rate 84 84 84 Respiratory Rate 24 H 24 H Blood Pressure 108/63 108/63 108/63 Pulse Oximetry 93 Oxygen Delivery Fraction of Inspired Oxygen 10/29/24 02:00 10/29/24 02:00 10/29/24 02:15 Temperature Pulse Rate 84 84 83 Respiratory Rate 24 H 24 H Blood Pressure 106/62 Pulse Oximetry Oxygen Delivery Fraction of Inspired Oxygen 10/29/24 03:00 10/29/24 03:17 10/29/24 03:17 Temperature Pulse Rate 79 74 74 Respiratory Rate 24 H 24 H Blood Pressure 108/63 Pulse Oximetry Oxygen Delivery Fraction of Inspired Oxygen 10/29/24 03:40 10/29/24 04:00 10/29/24 04:00 Temperature 36.2 C L Pulse Rate 71 Respiratory Rate 24 H Blood Pressure 101/61 Pulse Oximetry 95 Oxygen Delivery Mechanical Ventilation Fraction of Inspired Oxygen 80 70 10/29/24 04:00 10/29/24 04:00 10/29/24 04:00 Temperature Pulse Rate 71 71 71 Respiratory Rate 24 H 24 H Blood Pressure 101/61 101/61 Pulse Oximetry Oxygen Delivery Fraction of Inspired Oxygen 10/29/24 04:00 10/29/24 04:00 10/29/24 04:32 Temperature Pulse Rate 71 70 71 Respiratory Rate 24 H Blood Pressure Pulse Oximetry 95 Oxygen Delivery Mechanical Ventilation Fraction of Inspired Oxygen 80 10/29/24 04:55 10/29/24 05:15 10/29/24 05:30 Temperature Pulse Rate 70 70 Respiratory Rate Blood Pressure 109/63 103/60 Pulse Oximetry 94 Oxygen Delivery Mechanical Ventilation Fraction of Inspired Oxygen 70 10/29/24 06:00 10/29/24 06:00 10/29/24 06:00 Temperature Pulse Rate 71 71 71 Respiratory Rate 24 H 24 H 24 H Blood Pressure 101/59 L Pulse Oximetry Oxygen Delivery Fraction of Inspired Oxygen 10/29/24 06:00 10/29/24 06:00 10/29/24 07:00 Temperature 35.9 C L Pulse Rate 71 71 75 Respiratory Rate 24 H Blood Pressure 101/59 L 100/59 L Pulse Oximetry 95 Oxygen Delivery Fraction of Inspired Oxygen 10/29/24 07:42 10/29/24 07:42 10/29/24 08:00 Temperature Pulse Rate 76 76 75 Respiratory Rate 24 H 24 H Blood Pressure 101/59 L 101/59 L 102/59 L Pulse Oximetry Oxygen Delivery Fraction of Inspired Oxygen 10/29/24 08:00 10/29/24 08:00 10/29/24 08:00 Temperature Pulse Rate 75 75 75 Respiratory Rate 24 H 24 H 24 H Blood Pressure 102/59 L Pulse Oximetry Oxygen Delivery Fraction of Inspired Oxygen 10/29/24 08:00 10/29/24 08:00 10/29/24 08:00 Temperature Pulse Rate 76 76 Respiratory Rate 24 H Blood Pressure Pulse Oximetry 94 Oxygen Delivery Mechanical Ventilation Fraction of Inspired Oxygen 70 70 10/29/24 08:00 10/29/24 08:00 10/29/24 08:00 Temperature Pulse Rate 74 76 Respiratory Rate Blood Pressure 103/58 L Pulse Oximetry Oxygen Delivery Mechanical Ventilation Fraction of Inspired Oxygen 70 10/29/24 08:00 10/29/24 08:18 10/29/24 09:24 Temperature 35.7 C L Pulse Rate 76 73 71 Respiratory Rate 24 H 24 H Blood Pressure 87/59 L Pulse Oximetry 94 94 Oxygen Delivery Mechanical Ventilation Fraction of Inspired Oxygen 70 10/29/24 09:26 10/29/24 09:27 10/29/24 09:38 Temperature 35.6 C L 35.6 C L Pulse Rate 72 71 Respiratory Rate 24 H Blood Pressure 108/56 L 93/52 L Pulse Oximetry 93 Oxygen Delivery Fraction of Inspired Oxygen Intake/Output Intake/Output: Intake & Output 10/26/24 10/27/24 10/29/24 10/29/24 23:59 23:59 00:59 23:59 Intake Total 750 2490.8 3063.6 250.7 Output Total 850 2100 925 520 Balance -100 390.8 2138.6 -269.3 Meds/Results Medications: Active Medications Generic Name Dose Route Start Last Admin Trade Name Yuliana PRN Reason Stop Dose Admin Albuterol/Ipratropium 3 ml 10/27/24 14:00 10/29/24 08:00 Ipratropium 0.5 Mg/Albuterol Sulfate 2.5 Mg Ampul.Neb 3 Ml INHALATION 3 ml Q6HRT SONIDO Administration Budesonide 0.5 mg 10/28/24 08:45 10/29/24 08:00 Budesonide Respule Neb 0.5 Mg/2 Ml Amp INHALATION 0.5 mg Q12HRT SONIDO Administration Bumetanide 2 mg 10/27/24 17:00 10/29/24 09:41 Bumetanide Inj 1 Mg/4 Ml Vial IV PUSH 2 mg BID SONIDO Administration Enoxaparin Sodium 80 mg 10/27/24 21:00 10/29/24 08:18 Enoxaparin 80 Mg/0.8 Ml Syringe SUB-Q 80 mg Q12HR SONIDO Administration Cefepime HCl 2 gm in 50 mls @ 100 mls/hr 10/27/24 17:00 10/29/24 06:08 Maxipime 2 Gm/Ns 50 Ml IVPB Infused Q12H SONIDO Infusion Azithromycin 500 mg in 250 mls @ 250 mls/hr 10/27/24 15:00 10/28/24 16:33 Zithromax IVPB 11/01/24 14:59 Infused Q24H SONIDO Infusion Fentanyl Citrate 2,500 mcg in 250 mls @ 10 mls/hr 10/27/24 18:40 10/29/24 08:00 Fentanyl 2,500 Mcg/Ns 250 Ml IV CONT 100 mcg/hr .Q25H SONIDO 10 mls/hr Titration Protocol 100 MCG/HR Midazolam HCl 100 mg in 100 mls @ 2 mls/hr 10/27/24 18:40 10/29/24 08:00 Versed 100 Mg/Ns 100 Ml IV CONT 3 mg/hr .Q50H SONIDO 3 mls/hr Titration Protocol 2 MG/HR Norepinephrine Bitartrate 8 mg in 250 mls @ 9.375 mls/hr 10/27/24 18:50 10/29/24 09:38 Levophed 8 Mg/D5w 250 Ml IV CONT 5 mcg/min .Q24H SONIDO 9.38 mls/hr Titration Protocol 5 MCG/MIN Cisatracurium Besylate 200 mg/ 100 mls @ 4.968 mls/hr 10/27/24 20:55 10/29/24 08:00 Dextrose IV CONT 2 mcg/kg/min .Q20H8M SONIDO 4.97 mls/hr Titration Protocol 2 MCG/KG/MIN Vancomycin HCl 1,500 mg in 500 mls @ 250 mls/hr 10/28/24 21:00 10/28/24 22:41 Vancomycin 1,500 Mg/Ns 500 Ml IVPB Infused Q24H SONIDO Infusion Methylprednisolone Sodium Succinate 40 mg 10/30/24 09:00 Methylprednisolone Sod Succ 40 Mg Vial IV PUSH QAM SONIDO Multi-Ingred Cream/Lotion/Oil/Oint 1 applic 10/27/24 21:00 10/29/24 08:43 Mineral Oil/White Petrolatum Ointment EACH EYE 1 applic Q12HR SONIDO Administration Pantoprazole Sodium 40 mg 10/27/24 19:55 10/29/24 08:18 Pantoprazole Sodium Iv 40 Mg Vial IV PUSH 40 mg QAM SONIDO Administration Sodium Chloride 10 ml 10/27/24 22:00 10/29/24 05:38 Central Line Flush IV PUSH 10 ml Q8HR SONIDO Administration Sodium Chloride 20 ml 10/27/24 19:20 Central Line Flush IV PUSH PRN PRN after blood draws Umeclidinium/Vilanterol 1 puff 10/26/24 08:00 10/28/24 08:23 Umeclidinium/Vilanterol 62.5-25 Mcg Ellipta INHALATION Not Given DAILYRT [facility] Radiology Results: ITS Impressions Chest X-Ray 10/29/24 06:22 Impression: Moderate pulmonary edema with small bilateral pleural effusions. Underlying COPD. Support tubes, as above. Labs Labs: Laboratory Results - last 24 hr 10/28/24 10/28/24 10/28/24 09:45 11:43 13:36 WBC RBC Hgb Hct MCV MCH MCHC RDW Plt Count MPV Immature Gran % (Auto) Neut % (Auto) Lymph % (Auto) [place] % (Auto) Eos % (Auto) Baso % (Auto) Lymph # (Auto) [place] # (Auto) Eos # (Auto) Baso # (Auto) Abs Immat Gran (auto) Absolute Neuts (auto) Absolute Nucleated RBC Nucleated RBC % PT INR APTT Puncture Site Artline ABG pH 7.211 L* ABG pCO2 61.1 H* ABG pO2 87.1 ABG PO2/FiO2 Ratio 0.87 ABG HCO3 23.9 ABG O2 Saturation 94.5 L ABG O2 Content 19.6 ABG Base Excess -5.0 A-a Gradient 564.8 Oxyhemoglobin 94.1 Carboxyhemoglobin 1.4 Methemoglobin 0.2 Reduced Hemoglobin 4.3 Total Hemoglobin 14.8 O2 Delivery Device Ventilator O2 Liters/Min Not Reportable Minute Volume Not Reportable Vent Rate 24 Vent Mode Cmv FiO2 100 Tidal Volume 470 PEEP 10 Peak Inspir Pressure Not Reportable Pressure Support Not Reportable Sodium Potassium Chloride Carbon Dioxide Anion Gap BUN Creatinine Estim Creat Clear Calc Estimated GFR Glucose Lactic Acid 4.5 H* 3.6 H Calcium Phosphorus Magnesium Total Bilirubin AST ALT Alkaline Phosphatase Total Protein Albumin 10/28/24 10/28/24 10/29/24 14:01 21:05 04:32 WBC RBC Hgb Hct MCV MCH MCHC RDW Plt Count MPV Immature Gran % (Auto) Neut % (Auto) Lymph % (Auto) [place] % (Auto) Eos % (Auto) Baso % (Auto) Lymph # (Auto) [place] # (Auto) Eos # (Auto) Baso # (Auto) Abs Immat Gran (auto) Absolute Neuts (auto) Absolute Nucleated RBC Nucleated RBC % PT INR APTT Puncture Site Artline Artline Artline ABG pH 7.335 L 7.342 L 7.416 ABG pCO2 47.4 H 43.5 39.6 ABG pO2 94.3 77.4 L 88.1 ABG PO2/FiO2 Ratio 1.05 0.97 1.10 ABG HCO3 24.7 23.0 24.9 ABG O2 Saturation 96.7 94.7 L 96.8 ABG O2 Content 20.1 19.5 19.4 ABG Base Excess -1.6 -2.7 0.4 A-a Gradient 498.8 447.3 440.7 Oxyhemoglobin 95.6 93.2 95.5 Carboxyhemoglobin 1.2 Methemoglobin 0.1 Reduced Hemoglobin 3.2 Total Hemoglobin 14.9 14.9 14.4 O2 Delivery Device Ventilator Ventilator Ventilator O2 Liters/Min Not Reportable Not Reportable Not Reportable Minute Volume Not Reportable Not Reportable Not Reportable Vent Rate 24 24 24 Vent Mode Cmv Cmv Cmv FiO2 90 80 80 Tidal Volume 500 500 500 PEEP 8 8 8 Peak Inspir Pressure Not Reportable Not Reportable Not Reportable Pressure Support Not Reportable Not Reportable Not Reportable Sodium Potassium Chloride Carbon Dioxide Anion Gap BUN Creatinine Estim Creat Clear Calc Estimated GFR Glucose Lactic Acid Calcium Phosphorus Magnesium Total Bilirubin AST ALT Alkaline Phosphatase Total Protein Albumin 10/29/24 05:35 WBC 13.1 H RBC 4.49 L Hgb 14.0 Hct 42.9 MCV 95.5 MCH 31.2 MCHC 32.6 RDW 16.9 H Plt Count 108 L MPV 10.9 H Immature Gran % (Auto) 0.2 Neut % (Auto) 92.0 H Lymph % (Auto) 4.8 L [place] % (Auto) 2.9 Eos % (Auto) 0.0 Baso % (Auto) 0.1 L Lymph # (Auto) 0.63 L [place] # (Auto) 0.4 Eos # (Auto) 0.0 Baso # (Auto) 0.0 Abs Immat Gran (auto) 0.03 Absolute Neuts (auto) 12.1 H Absolute Nucleated RBC 0.000 Nucleated RBC % 0.0 PT 30.1 H INR 2.8 APTT 52.3 H Puncture Site ABG pH ABG pCO2 ABG pO2 ABG PO2/FiO2 Ratio ABG HCO3 ABG O2 Saturation ABG O2 Content ABG Base Excess A-a Gradient Oxyhemoglobin Carboxyhemoglobin Methemoglobin Reduced Hemoglobin Total Hemoglobin O2 Delivery Device O2 Liters/Min Minute Volume Vent Rate Vent Mode FiO2 Tidal Volume PEEP Peak Inspir Pressure Pressure Support Sodium 135 L Potassium 4.4 Chloride 99 Carbon Dioxide 25 Anion Gap 11 BUN 40 H Creatinine 1.22 Estim Creat Clear Calc 54 Estimated GFR 59 Glucose 154 H Lactic Acid 2.6 H Calcium 8.9 Phosphorus 3.8 Magnesium 2.2 Total Bilirubin 4.2 H AST 431 H ALT 296 H Alkaline Phosphatase 38 Total Protein 6.0 L Albumin 3.9
--- NOTE | 2024-10-29 10:28 | P.PNCROSS_ITS ---
Event Note Event Note Event Note: Family Meeting I met with patient's and 2 sons in presence of patient's nurse Lucy to discuss medical decisions and goals of care. They had already met with Dr. Alarcon yesterday and were updated with patient's current condition. They told me the patient never wanted to get intubated and placed on mechanical ventilation the 1st place.. Feel the patient would not want to continue like this considering the chronic medical problems he has including severe COPD and h eart failure. They do not believe the patient would want to continue on life support and this was not consistent with his lifestyle or wishes. They all in agreement that patient would at this time would rather in peace then continue on mechanical ventilation. The family has decided, in accordance with pt's wishes, to discontinue all medical therapy and institute comfort measures only. I have explained them that I will use opioids, anxiolytics and other agents on as needed basis to promote comfort and discontinue all medical therapy, lab testing and invasive monitoring. Patient will eventually . They verbalized understanding and agreed to proceed. Patient at this time is on Nimbex infusion I will discontinue Nimbex infusion at this time and let the Nimbex wear off before proceeding with palliative extubation and comfort care. The family will come back around 11:00 a.m.
[2024-10-29 10:34] LABS: Procalcitonin 0.4 ng/mL
[2024-10-29] MEDS: MORPHINE SULFATE INJ (*CRX) 10 MG/ML AMP 5 MG IV PUSH (11:28)
[2024-10-29] MEDS: LORazepam INJ (*CRX) 2 MG/ML VIAL IV PUSH (11:28)
--- NOTE | 2024-10-29 11:41 | PC.NURSE ---
1128-Pt. extubated to comfort measures. Family at bedside. Medications given prior to extubation (see MAR).
--- NOTE | 2024-10-29 11:53 | PCRCNOTE ---
Patient extubated to room air by RT with RN present. Patient being transitioned to comfort care. Family @ bedside post extubation.
--- NOTE | 2024-10-29 14:40 | P.DN_ITS ---
Discharge Summary Date and Time Date of : 10/29/24 Time of : 12:12 Provider Pronounced By: 2 RNs Name of First RN That Pronounced: Donna Ornelas RN Name of Second RN That Pronounced: Lucy Molina RN Probable Cause of Probable Cause of : Acute hypoxic respiratory failure Pneumonia Septic shock Congestive heart failure Summary Hospital Course: This Is a 69-year-old male who presents to the ED with worsening shortness of breath. Uses oxygen at home 3 L by nasal cannula. Worsening shortness of breath over the past 10 days. History of CHF and COPD and continues to smoke. Associated fatigue. Also noted bilateral lower extremity edema for the past year worsened over the past 2 months. Patient diuretic was changed recently to Bumex from torsemide. On ED arrival patient was saturating in mid 80s on 4 L oxygen via nasal cannula. Patient was placed on BiPAP. Patient was afebrile. Laboratory studies showed normal WBC 7.5 hemoglobin of 16 platelet of 217. Came panel was unremarkable. INR was 2.2 BNP elevated at 6940. Influenza RSV COVID swab was negative. Urinalysis negative for infection. ABG showed 7.43/42/56/27. Chest x-ray showed mild pulmonary vascular congestion without focal infiltrate or effusion. Was diagnosed with acute on chronic congestive heart failure. Echocardiographic evaluation revealed lowered EF to 35-40%. Patient was also hypotensive and chest x-ray with possible pneumonia for which he was started on broad-spectrum antibiotics. His hypoxia continue to worsen to the point that he required intubation on 10/27/2024. He was also diagnosis septic shock requiring vasopressors and was treated in the ICU. With non improvement patient's goal was directed towards comfort by his family members and was palliatively extubated on 10/29/2024. Patient subsequently . Necessary arrangements were made. Additional Data Confirmation of as documented by pronouncing clinician: Pupillary Reflex, Palpable Pulses, Response to Stimuli, Heart Tones and Breath Sounds Name of Provider Notified: Dr. Vides, Dr. Buenrostro Time Provider Notified: 12:15 Provider Requests Autopsy: No Family Requests Autopsy: No Street Cleaning Equipment Operator Notified: Yes Date [facility] Notified of : 10/29/24 Time [facility] Notified of : 12:13
== END 2024-10-29 12:12 | disposition expired | DRG 208 ==
LOC: ANHED 12:57 → ANHIMU 14:46 → ANHICU 10-29 10:29
PROVIDERS: Internal Medicine; Admitting Provider Internal Medicine; Emergency Provider Emergency Medicine; PCP Emergency Medicine; Visit Provider Internal Medicine
DX: J96.21 Acute and chronic respiratory failure with hypoxia (principal); A41.9 Sepsis, unspecified organism; I50.33 Acute on chronic diastolic (congestive) heart failure; J18.9 Pneumonia, unspecified organism; R65.21 Severe sepsis with septic shock; I50.21 Acute systolic (congestive) heart failure; N17.9 Acute kidney failure, unspecified; I11.0 Hypertensive heart disease with heart failure; E87.5 Hyperkalemia; R57.0 Cardiogenic shock; J44.9 Chronic obstructive pulmonary disease, unspecified; G62.9 Polyneuropathy, unspecified; I27.81 Cor pulmonale (chronic); I48.91 Unspecified atrial fibrillation; D75.1 Secondary polycythemia; G89.29 Other chronic pain; F17.210 Nicotine dependence, cigarettes, uncomplicated; Z99.81 Dependence on supplemental oxygen; Z86.73 Personal history of transient ischemic attack (TIA), and cerebral infarction without residual deficits; Z98.1 Arthrodesis status; Z86.711 Personal history of pulmonary embolism; Z20.822 Contact with and (suspected) exposure to COVID-19
CPT/HCPCS: 31500; 36415; 36600; 71045; 74018; 80048; 80053; 80074; 81003; 82375; 82805; 82948; 83050; 83605; 83735; 83880; 84100; 84145; 85018; 85025; 85610; 85730; 87040; 87070; 87205; 87637; 87641; 93005; 93306; 94002; 94003; 94640; 94660; 96374; 99285; A9270; C1751; C8929; G0378; J0456; J0612; J0692; J1650; J1815; J1939; J2060; J2250; J2270; J2470; J2919; J3010; J3370; J7030; J7050; P9047; Q9957